=== PATIENT | male | born 1950 | race Caucasian/White ===

== ENCOUNTER 2021-04-07 14:05 | Outpatient (CLI) | payer MEDICARE, SELFPAY ==
--- NOTE | 2021-04-07 | ECG_ITS ---
Measurements Intervals [place] Rate: 55 P: 87 UT: 246 QRS: -26 QRSD: 150 T: 93 QT: 447 QTc: 431 Interpretive Statements SINUS BRADYCARDIA WITH FIRST DEGREE AV BLOCK LEFT BUNDLE BRANCH BLOCK BASELINE WANDER- V2 ABNORMAL ECG Electronically Signed On 04-07-2021 15:05:19 CDT by Jordy Moran D.O.
[2021-04-07 15:07] LABS: Hematocrit 40.4 % (42.0-52.0); Hemoglobin 13.7 g/dL (14.0-18.0)
[2021-04-07 16:19] LABS: Urine Cotinine NEGATIVE
[2021-04-08 00:34] LABS: Albumin Level 4.1 g/dL (3.5-5.1); Estimated Glomerular Filt Rate > 60; Glucose 150 mg/dL (65-110)
== END 2021-04-07 14:06 | disposition home or self-care (01) ==
PROVIDERS: PCP Family Medicine; Visit Provider Orthopaedic Surgery
DX: M16.11 Unilateral primary osteoarthritis, right hip (principal); Z01.818 Encounter for other preprocedural examination; I44.0 Atrioventricular block, first degree; I44.7 Left bundle-branch block, unspecified
CPT/HCPCS: 80307; 82040; 82565; 82947; 83036; 85014; 85018; 93005

== ENCOUNTER 2021-04-25 08:47 | Outpatient (CLI) | payer MEDICARE, SELFPAY ==
--- NOTE | ~2021-04-25 | NM_ITS ---
EXAMINATION: NM mickie stress w perfusion DATE: 04/25/2021 11:07 INDICATION: Abnormal electrocardiogram. TECHNIQUE: Rest images were obtained following intravenous administration of 9.8 mCi Tc99m tetrofosmi n (Myoview). The patient was infused intravenously with Lexiscan (regadenoson). Then, 31.7 mCi Tc99m tetrofosmin (Myoview) was administered intravenously, and supine and prone stress images were obtaine d. Data was reconstructed into short axis and horizontal and vertical long axis SPECT images. Gated S PECT images were also obtained. COMPARISON: None. FINDINGS: There is no definite reversible or fixed perfusion abnormality to suggest ischemia or infar ction. There is no segmental wall motion abnormality. Left ventricular ejection fraction measures % . IMPRESSION: 1. No definite ischemia or infarct. 2. Normal left ventricular ejection fraction measuring 64%. Reviewed, dictated and finalized at location A.
--- NOTE | 2021-04-25 08:55 | EST_ITS ---
Patient Info Name: Jorge Red Age: 70 years : 1950 Gender: Male Ht: 72 in Wt: 242 lbs BSA: 2.39 m2 Exam Date: 04/25/2021 9:54 AM Exam Location: [facility] Stress Patient Status: Outpatient Admit Date: 04/25/2021 Staff Ordering Physician: Moris Cedillo MD Attending Provider: Moris Cedillo MD Exercise Technologist: Liz Bhatti RDCS Exercise Physician: Jordy Moran DO Exam Type: CA stress mickie w NM Study Info Indications R94.31 - Abnormal electrocardiogram ECG EKG A regadenoson stress test was performed. Summary 1. 1. Inconclusive lexiscan stress test for ischemic ST changes by ECG criteria due to baseline LBBB. 2. 2. Stable hemodynamics throughout the test. 3. 3. Nuclear scan to follow and will be reported separately. Please correlate with it. 4. 4. Patient informed of the above results. Protocol: Lexiscan Stress ECG Details Stage: REST Duration (min): 7 min : 10 sec HR (bpm): 50 SBP (mmHg): 122 DBP (mmHg): 50 Stage: REST Duration (min): 9 min : 34 sec HR (bpm): 52 SBP (mmHg): 122 DBP (mmHg): 50 Stage: STAGE 1 Duration (min): 1 min : 0 sec HR (bpm): 54 SBP (mmHg): 122 DBP (mmHg): 50 Stage: RECOVERY Duration (min): 1 min : 0 sec HR (bpm): 67 SBP (mmHg): 158 DBP (mmHg): 84 Stage: RECOVERY Duration (min): 2 min : 0 sec HR (bpm): 65 SBP (mmHg): 158 DBP (mmHg): 84 Stage: RECOVERY Duration (min): 3 min : 0 sec HR (bpm): 59 SBP (mmHg): 155 DBP (mmHg): 82 Stage: RECOVERY Duration (min): 4 min : 0 sec HR (bpm): 60 SBP (mmHg): 155 DBP (mmHg): 82 Stage: RECOVERY Duration (min): 5 min : 0 sec HR (bpm): 65 SBP (mmHg): 148 DBP (mmHg): 82 Stage: RECOVERY Duration (min): 5 min : 4 sec HR (bpm): 65 SBP (mmHg): 148 DBP (mmHg): 82 Rest HR: 52 bpm Peak HR: 69 bpm Rest Sys BP: 122 mmHg Peak Sys BP: 158 mmHg Max Pred HR: 149 bpm % Max Pred HR: 46 % Target HR: 127 bpm Max RPP: 10,902 bpm*mmHg Termination Reason: Completed protocol Cardiac Symptoms: Shortness of breath, Stomach rumbling Total Time: 1 min : 0 sec Rest [place] BP: 50 mmHg Peak [place] BP: 84 mmHg Total Dose: 0.4 mg Resting ECG Sinus bradycardia, first degree AV block, LBBB. Stress ECG No ST changes. Arrhythmias None. Report Signatures
== END 2021-04-25 08:48 | disposition home or self-care (01) ==
PROVIDERS: PCP Family Medicine; Visit Provider Family Medicine
DX: R94.31 Abnormal electrocardiogram [ECG] [EKG] (principal); I44.7 Left bundle-branch block, unspecified
CPT/HCPCS: 78452; 93017; A9502; J2785

== ENCOUNTER 2021-05-19 09:06 | Outpatient (CLI) | payer MEDICARE, SELFPAY ==
[2021-05-19 10:27] LABS: Basophils Percent Auto 0.5 % (0.2-1.2); Eosinophils Absolute Auto 0.1 K/mm3 (0-0.3); Eosinophils Percent Auto 2.1 % (0-4.4); Hematocrit 42.7 % (42.0-52.0); Hemoglobin 14.6 g/dL (14.0-18.0); Immature Granulocyte Absolute 0.02 K/mm3 (0.00-0.031); Immature Granulocyte Percent A 0.3 % (0-0.5); Lymphocytes Absolute Auto 0.99 K/mm3 (0.9-3.2); Lymphocytes Percent Auto 17.2 % (18.3-44.2); Mean Corpuscular HGB Conc 34.2 g/dl (32-36); Mean Corpuscular Hemoglobin 29.7 pg (26-34); Mean Corpuscular Volume 86.8 fl (80-100); Mean Platelet Volume 10.2 fl (7.4-10.4); Monocytes Absolute Auto 0.5 K/mm3 (0.1-0.6); Monocytes Percent Auto 9.1 % (2.6-8.5); Neutrophils Absolute Auto 4.1 K/mm3 (1.3-6.7); Neutrophils Percent Auto 70.8 % (45.5-73.1); Platelet Count Result 212 k/mm3 (150-375); Red Blood Count 4.92 M/mm3 (4.6-6.20); Red Cell Distribution Width 12.5 % (11.5-14.5); White Blood Count 5.7 K/mm3 (4.5-10.0)
== END 2021-05-19 09:07 | disposition home or self-care (01) ==
LOC: ANHSURGERY 09:09
PROVIDERS: PCP Family Medicine; Visit Provider Orthopaedic Surgery
DX: M16.11 Unilateral primary osteoarthritis, right hip (principal); Z01.818 Encounter for other preprocedural examination
CPT/HCPCS: 36415; 85025; 87081

== ENCOUNTER 2021-06-05 02:04 | Day surgery (SDC) | payer MEDICARE, SELFPAY ==
[2021-05-19 09:21] VITALS: BP 152/85; PULSE 53; RESP 18; TEMP 36.6; O2SAT 94; BMI 33.7
--- NOTE | 2021-06-04 13:13 | WPDANESEPPF ---
Anes - Initial Pre Proc Eval Procedure: Operation Date: 06/05/21 07:30 Proposed Procedures p Right Total Hip Arthroplasty - Kevin Prince MD Date/Time: 06/04/21 13:13 Surgeon: Kevin Prince MD Pre Op Diagnosis: Prim OA Right Hip Patient Data Age: 70 Gender: M Height: 1.8 m Weight: 109.9 kg Last Vital Signs Temp 36.6 C 05/19/21 09:21 Pulse 53 L 05/19/21 09:21 Resp 18 05/19/21 09:21 BP 152/85 H 05/19/21 09:21 Pulse Ox 94 05/19/21 09:21 Allergies Allergy/AdvReac Type Severity Reaction Status Date / Time No Known Allergies Allergy Verified 05/19/21 09:16 Home Medications Medication Instructions Recorded Confirmed Type allopurinol 100 mg tablet 100 mg PO DAILY tablet 03/19/21 05/19/21 History irbesartan 300 mg tablet 300 mg PO QAM tablet 03/19/21 05/19/21 History hydrocodone 5 mg-acetaminophen 325 1 - 2 tablet PO Q12H PRN #30 tablet 04/11/21 05/19/21 Rx mg tablet Patient hx anesthesia problems: none Family hx anesthesia problems: none Results Review: All pre-operative results and documents have been reviewed as part of the pre-operative evaluation. [facility] Past Medical History Medical History Essential (primary) hypertension Hypogonadism Idiopathic gout Osteoarthritis Surgical History Surgical History History of knee replacement Right 09/2014 & Left 12/2014 [place] teeth extracted Social History Social History Smoking status: Never smoker Second hand tobacco smoke exposure: No Smoking end date: 02/14/80 Additional smoking assessment comments: 1 PACK/WEEKEND X 3 YEARS Alcohol intake: current Drinks per week: 18 Substance use: never Substance use type: does not use Living arrangements: with family Additional living arrangements comments: Spiritual care concerns: No Anes - Eval Final PreProcedure Day of Procedure 06/04/21 13:13 Patient weight: obese Heart: regular rate and rhythm Lungs: clear to auscultation and normal air movement Airway: Mallampati scale class II Neurological: alert and oriented Last oral intake: >/= 8 hours ASA classification: III Emergent: no Anesthetic plan: proceed Anesthesia type and monitoring: regional spinal and standard monitoring Results Review: All pre-operative results and documents have been reviewed as part of the pre-operative evaluation. Informed Consent: The patient's anesthetic plan and its attendant risks and benefits were discussed with the patient/family/POA. Questions were solicited and answers provided to the satisfaction of the patient/family/POA.
[2021-06-05] VITALS (14 sets, daily range): BP systolic 115–150; BP diastolic 64–81; PULSE 54–71; RESP 12–20; TEMP 36–36.7; O2SAT 92–99
--- NOTE | ~2021-06-05 | XR_ITS ---
EXAMINATION: XR hip RT min 2V DATE: 06/05/2021 10:10 INDICATION: Right hip arthroplasty. Postop. TECHNIQUE: 2 views of right hip were obtained. COMPARISON: Right hip radiographs 05/27/2021 FINDINGS: There is a total right hip arthroplasty in near-anatomic alignment. No fracture. There is gas in the soft tissues, consistent with recent surgery. IMPRESSION: 1. Total right hip arthroplasty in near-anatomic alignment. Reviewed, dictated and finalized at location A.
[2021-06-05] MEDS: LACTATED RINGERS 1,000 ML 30 ML IV CONT ×2 (06:40→09:56)
[2021-06-05] MEDS: ACETAMINOPHEN 500 MG TABLET 1000 MG PO (06:42)
--- NOTE | 2021-06-05 07:15 | WPDHPUPDATE1 ---
History and Physical Update Update Date/Time: 06/05/21 07:15 History and Physical has been reviewed, including an updated exam of the patient. There are NO changes in the patient's condition. Risks, benefits, and alternatives have been discussed and questions answered. Patient agrees to proceed with procedure.
[2021-06-05] MEDS: ceFAZolin 2 GM/D5W 50 ML 2 GM/50 ML BAG IVPB ×3 (07:24→23:25)
[2021-06-05] MEDS: TRANEXAMIC ACID 1,000MG/ISO100 1,000 MG/100 ML BAG 200 MG IVPB (07:28)
--- NOTE | 2021-06-05 11:07 | ADMGEN ---
This patient, Jorge Red, was admitted to Medical Room 248-. Patient/family oriented to hospital policies and general routines including ID bracelet, bed and alarms, visiting hours, pain management, procedures, bathroom and other care routines, personal items, smoking policy, room service/diet, and visiting hours. Information on how to activate the Rapid Response Team has been discussed. Patient/Family are encouraged to report perceived risks to care and to ask questions if they do not understand what they are told or what they should do.
[2021-06-05] MEDS: SODIUM CHLORIDE 0.9% IV 1,000 ML 125 ML IV CONT (11:26)
--- NOTE | 2021-06-05 11:26 | W.PM.PROC2 ---
Procedure Note - Detailed Date of Procedure 06/05/21 Pre-op Diagnosis Prim OA Right Hip Post-op Diagnosis same Procedure Performed Right Total Hip Arthroplasty Surgeon Kevin Prince MD Can Cutter Khalida Ness PA-C Anesthesia epidural Description of Procedure The patient was given preoperative antibiotics. A spinal anesthetic was administered. Myers catheter placed. The patient was carefully placed in the lateral decubitus position on the PEG board. The shoulders and hips were carefully positioned for component and leg length positioning reference. The hip was prepped and draped in the usual sterile fashion. A longitudinal incision was created over the posterior aspect of the greater trochanter. Careful dissection was brought down through the deep fascia with electrocautery. A minimally invasive optimized posterior approach to the hip was performed. The short external rotators and capsule were taken down in an L-shaped capsulotomy. The tissue was tagged for later repair using number 2 high strength suture. The femoral neck was measured and taken in situ. The femoral head was removed. The acetabulum was carefully exposed. The inferior capsule was released. The labrum was resected. The acetabulum was sequentially reamed to the intended cup size. The cup was impacted into position with excellent press-fit. Typical anatomic landmarks, including the bony contact points as well as the inferior transverse acetabular ligament were used to confirm cup positioning with preoperative templating. Attention was turned to the femur, which was carefully exposed. The hip was reamed and then broached sequentially. Excellent press-fit was obtained with the broach. The hip was trialed. Measurements were utilized, including the lesser trochanter as well as the center of the femoral head and the tip of the trochanter, and excellent assessment of the offset and leg lengths were confirmed. The real component was impacted into position. Trialing confirmed appropriate leg length and offset with soft tissue balancing as well apparent feel of the leg, both at the knee and the heel. Reduction of the posterior capsule and external rotators were also used as a secondary assessment. The hip was copiously irrigated with pulsatile lavage antibiotic solution periodically throughout the procedure. The real components were then assembled and reduced. The hip was stable throughout typical maneuvers, including extension, external rotation to 70 degrees, the position of sleep as well as flexion to 90 degrees with internal rotation past 35 degrees. Osteophytes were removed from the anterior neck and trochanter to improve impingement free range of motion. The short external rotators and capsule were repaired back to the posterior trochanter through drill holes. The deep fascia was repaired with running number 2 Quill suture, followed by 0 Stratafix suture and 2-0 Stratafix suture in the dermis. Steri-Strips were placed on the skin, followed by a sterile silver occlusive dressing. There were no complications. Meticulous hemostasis was maintained with the AquaMantys device. The patient was brought to the recovery room in stable condition. There were no complications. Physician graduate research assistant, Khalida Ness PA-C, required for surgery; including patient positioning, draping, tissue retraction, maintaining instrument position, hip dislocation and relocation, wound closure, and dressing placement. Implants The Accolade II hip stem, 127 degree size 8 , was utilized with excellent press-fit. The 58 mm ADM acetabular component was impacted with excellent press-fit stability. The +4 , 28 mm Biolox ceramic femoral head was utilized. Estimated Blood Loss 200 Drains No Packing No Pathology none sent Complications No immediate complications Condition stable Disposition PACU
--- NOTE | 2021-06-05 13:12 | PCPTNOTE ---
On 06/05/21, the student, Bernardo Good, provided care and completed [facility] documentation on this patient. I have reviewed the student's documentation and agree with the findings.
[2021-06-05] MEDS: allopurinoL 100 MG TABLET PO (15:04)
[2021-06-05] MEDS: IRBESARTAN 150 MG TABLET 300 MG PO (15:04)
[2021-06-05] MEDS: oxyCODONE HCL (*CRX) 5 MG TAB IR PO ×2 (15:10→20:51)
[2021-06-05] MEDS: DOCUSATE SODIUM 100 MG CAPSULE PO (17:34)
[2021-06-05] MEDS: FAMOTIDINE 20 MG TABLET PO (20:51)
[2021-06-05] MEDS: CYCLOBENZAPRINE HCL 10 MG TABLET PO (23:56)
[2021-06-06 00:03] VITALS: BP 148/68; PULSE 76; RESP 20; TEMP 37.2; O2SAT 94
[2021-06-06] MEDS: oxyCODONE HCL (*CRX) 5 MG TAB IR 10 MG PO ×2 (04:19→08:31)
[2021-06-06 04:39] VITALS: BP 120/93; PULSE 78; RESP 20; TEMP 36.3; O2SAT 94
[2021-06-06] MEDS: ceFAZolin 2 GM/D5W 50 ML 2 GM/50 ML BAG IVPB (05:58)
[2021-06-06] MEDS: FAMOTIDINE 20 MG TABLET PO (08:27)
[2021-06-06] MEDS: allopurinoL 100 MG TABLET PO (08:27)
[2021-06-06] MEDS: DOCUSATE SODIUM 100 MG CAPSULE PO (08:27)
[2021-06-06] MEDS: IRBESARTAN 150 MG TABLET 300 MG PO (08:27)
[2021-06-06 08:39] VITALS: BP 126/71; PULSE 97; RESP 18; TEMP 36.8; O2SAT 95
--- NOTE | 2021-06-06 09:09 | PM.DS ---
DS: Admitting Diagnosis Discharge Date 06/06/21 Admitting Diagnosis OA Right hip DS: Discharge Diagnosis Discharge Diagnosis (1) Orthopedic aftercare for joint replacement: Code(s): Z47.1 - Aftercare following joint replacement surgery Status: Acute (2) Status post total hip replacement, right: Code(s): Z96.641 - Presence of right artificial hip joint Status: Acute Assessment and Plan: Postop day 1: Right Total hip arthroplasty. Patient tolerated procedure well. No complications. Anaesthesia with a spinal block. Myers catheter has been removed. Patient has urinated on his own. Pain manageable with pain medication. No numbness or tingling. We had a lengthy discussion regarding postoperative wound care, limitations, expectations, and exercises. Patient shows good understanding. Patient has had initial physical therapy and is tolerating it well. DVT prophylaxis: 81 mg baby aspirin b.i.d. for 14 days. Short frequent walks. Pain medication: Percocet. Meloxicam. Patient has followup appointment with Dr. Prince in 3 weeks DS: Summary Hospital Course Reason for hospitalization: Total hip arthroplasty Hospital Course: Patient tolerated procedure well. Has had initial PT/OT and made good progress. Status at Discharge Functional status at discharge: uses cane/walker Overall status at discharge: patient is progressing back to baseline Time Spent with Patient Time attestation: Total time spent providing and/or coordinating discharge services: Exam Narrative: Overweight 70 y/o male. Resting comfortably in bed. Wearing compression socks bilaterally. Dressing dry and intact with no drainage. Moderate swelling. Slight ecchymosis. No erythema. No hematoma. Range of motion limited due to pain. Calf nontender. Thigh nontender. Neurologic status intact. No varicosities. Distal pulses palpable. Discharge Plan Discharge Patient Disposition: Home, Self-Care Discharge Instructions: see instruction sheet Patient Instructions: Pain Management (DC), Total Hip Replacement (DC) Follow-up/Referrals: Khalida Ness PA [Physician Vocational Horticulture Instructor] - Discharge Medications: New meloxicam 15 mg tablet 15 mg PO DAILY Qty: 30 RF: 0 aspirin 81 mg tablet,delayed release (DR/EC) 81 mg PO BID 14 Days Qty: 28 RF: 0 oxycodone-acetaminophen 5-325 mg tablet 1 - 2 tablet PO Q4-6H MDD 8 PRN (Reason: pain) Qty: 40 RF: 0 Continued allopurinol 100 mg tablet 100 mg PO DAILY RF: 0 irbesartan 300 mg tablet 300 mg PO QAM RF: 0 Discontinued hydrocodone-acetaminophen 5-325 mg tablet 1 - 2 tablet PO Q12H PRN (Reason: pain) Qty: 30 RF: 0
--- NOTE | 2021-06-06 10:22 | WPDANESPN ---
Anes - Prog Note Post-Op Date/Time: 06/06/21 10:22 Cardiovascular status: normal Respiratory status: normal Airway patency: baseline Mental status: baseline Post-Op hydration status: normal Vital Signs: Last Vital Signs Temp 36.8 C 06/06/21 08:39 Pulse 97 06/06/21 08:39 Resp 18 06/06/21 08:39 BP 126/71 06/06/21 08:39 Pulse Ox 95 06/06/21 08:39 Pain Score (VAS): 0 I/O: Intake & Output 06/05/21 06/06/21 06/06/21 23:59 07:59 15:59 Intake Total 1300 390 360 Output Total 2500 Balance 1300 -2110 360 Post-procedural complaints: none Patient Feedback: Patient satisfied with anesthetic care.
--- NOTE | 2021-06-06 10:23 | PCOTNOTE ---
Attempted to see patient at this time for skilled OT session. Patient lying in bed resting upon entry and easily aroused. Patient declined participation in therapy session at this time stating, I just got finished with PT not that long ago, and I'm supposed to be leaving today. If I'm still here after awhile, we can do it later, but I'm not up for it right now. Will continue per POC accordingly.
[2021-06-06] MEDS: oxyCODONE HCL (*CRX) 5 MG TAB IR PO (12:39)
== END 2021-06-06 13:25 | disposition home or self-care (01) ==
LOC: ANHSURGERY 06:08 → ANH2MED 10:57
PROVIDERS: PCP Family Medicine; Visit Provider Orthopaedic Surgery
PROC: (CPT 27130; principal; 2021-06-05 07:30)
DX: M16.11 Unilateral primary osteoarthritis, right hip (principal); Z23 Encounter for immunization; I10 Essential (primary) hypertension; M10.9 Gout, unspecified; E29.1 Testicular hypofunction; Z87.891 Personal history of nicotine dependence; E66.9 Obesity, unspecified; Z68.33 Body mass index [BMI] 33.0-33.9, adult
CPT/HCPCS: 27130; 36415; 73502; 85025; 86850; 86900; 86901; 87081; 90471; 90653; 97110; 97116; 97161; 97165; 97530; A9270; C1713; C1776; G0008; J0131; J0171; J0690; J1170; J1885; J2250; J2270; J2405; J2704; J2795; J3010; J7030; J7120

== ENCOUNTER 2022-03-20 15:16 | Inpatient (IN) | payer MEDICARE, SELFPAY ==
[2022-03-20] VITALS (14 sets, daily range): BP systolic 139–168; BP diastolic 67–140; PULSE 33–36; RESP 12–20; TEMP 36.6; O2SAT 100; BMI 33.4
--- NOTE | ~2022-03-20 | XR_ITS ---
XR chest 1V portable DATE: 03/20/2022 15:49 INDICATION: Bradycardia. Third degree heart block. History of hypertension. TECHNIQUE: Portable upright AP chest on 03/20/2022 at 1540 hours COMPARISON: 12/25/2014 PA and lateral views FINDINGS: Normal heart size. There is mild aortic unfolding. No hilar or mediastinal enlargement. There is prominent elevation of the right leaf of the diaphragm, chronic, also present on 12/25/2014. Minimal atelectasis at the lung bases. No pulmonary consolidation, pleural effusion or pneumothorax i s noted. Diffuse osteopenia. Degenerative spurring of the thoracic spine. IMPRESSION: Chronic prominent elevation right diaphragm Minimal atelectasis at the lung bases Reviewed, dictated and finalized at location B.
--- NOTE | ~2022-03-20 | XR_ITS ---
XR chest 1V portable 03/23/2022 10:29 Indication: Pacemaker insertion. Procedure: AP portable chest Comparison: Comparison to multiple prior studies sequentially, with oldest reviewed study dated 09/11. Findings: There is elevation of the right diaphragm. Bipolar pacemaker leads are in the right atrium and right ventricle respectively. Heart size normal. There is bibasilar atelectasis. No focal pneumon ia, edema or pneumothorax. No acute osseous abnormality. Impression: 1: Bibasilar atelectasis with chronic mild elevation of the right diaphragm. Reviewed, dictated and finalized at location A. Impression: 1: Bibasilar atelectasis with chronic mild elevation of the right diaphragm.
--- NOTE | ~2022-03-20 | XR_ITS ---
EXAMINATION: XR chest 2V DATE: 03/24/2022 10:16 INDICATION: Pacer placement. TECHNIQUE: Frontal and lateral views of the chest were obtained. COMPARISON: Chest single view 03/23/2022, chest 2 views 12/25/2014 FINDINGS: There is chronic elevation of right hemidiaphragm. There is mild atelectasis in right lower lung zone. No pleural effusion or pneumothorax. The heart size is normal. There is a left chest wall pacer with leads in the right atrium and right ventricle. There is mild chronic height loss of multi ple vertebral bodies. IMPRESSION: 1. Chronic elevation of right hemidiaphragm with mild atelectasis in right lower lung zone. Reviewed, dictated and finalized at location A. IMPRESSION: 1. Chronic elevation of right hemidiaphragm with mild atelectasis in right lowe r lung zone.
--- NOTE | 2022-03-20 15:05 | PC.NURSE ---
Crash cart brought into room prior to patient arrival.
--- NOTE | 2022-03-20 15:13 | PC.NURSE ---
Patient reports he has been having the abd pain, just below his sternum since Wednesday morning. He went into see his PCP about the pain today. Patient currently denies any pain, shortness of breath, or dizziness.
--- NOTE | 2022-03-20 15:15 | PC.NURSE ---
Patient placed on pacer pads
--- NOTE | 2022-03-20 15:15 | ECG_ITS ---
Measurements Intervals [place] Rate: 37 P: NE: 0 QRS: -85 QRSD: 198 T: 65 QT: 572 QTc: 449 Interpretive Statements SINUS RHYTHM WITH COMPLETE HEART BLOCK LEFT BUNDLE BRANCH BLOCK ABNORMAL ECG COMPARED 04/07/2021 AV BLOCK HAS PROGRESSED TO THIRD-DEGREE Electronically Signed On 03-20-2022 16:36:27 CDT by Vlad Babcock M.D.
--- NOTE | 2022-03-20 15:16 | PC.NURSE ---
Patient reports he only has the shortness of breath and pain only when he is up walking.
[2022-03-20 15:49] LABS: Alanine Aminotransferase 62 U/L (6-50); Albumin Level 4.4 g/dL (3.5-5.1); Alkaline Phosphatase 59 U/L (38-126); Anion Gap 11 mmol/L (8-16); Aspartate Amino Transferase 39 U/L (17-59); Bilirubin,Total 0.3 mg/dL (0.2-1.3); Blood Urea Nitrogen 28 mg/dL (9-20); Calcium 9.6 mg/dL (8.4-10.2); Carbon Dioxide 24 mmol/L (22-30); Chloride 103 mmol/L (98-107); Estimated CRCL calculation 75 ml/min; Estimated Glomerular Filt Rate > 60; Glucose 103 mg/dL (65-110); Potassium 4.4 mmol/L (3.4-5.0); Sodium 138 mmol/L (137-145)
[2022-03-20 15:50] LABS: Basophils Absolute Auto 0.1 K/mm3 (0.0-0.1); Basophils Percent Auto 0.7 % (0.2-1.2); Eosinophils Absolute Auto 0.2 K/mm3 (0-0.3); Eosinophils Percent Auto 2.4 % (0-4.4); Hematocrit 42.2 % (42.0-52.0); Hemoglobin 13.7 g/dL (14.0-18.0); Immature Granulocyte Absolute 0.03 K/mm3 (0.00-0.031); Immature Granulocyte Percent A 0.4 % (0-0.5); Lymphocytes Absolute Auto 1.26 K/mm3 (0.9-3.2); Lymphocytes Percent Auto 17.1 % (18.3-44.2); Mean Corpuscular HGB Conc 32.5 g/dl (32-36); Mean Corpuscular Hemoglobin 29.7 pg (26-34); Mean Corpuscular Volume 91.5 fl (80-100); Mean Platelet Volume 10.1 fl (7.4-10.4); Monocytes Absolute Auto 0.8 K/mm3 (0.1-0.6); Monocytes Percent Auto 10.8 % (2.6-8.5); Neutrophils Absolute Auto 5.1 K/mm3 (1.3-6.7); Neutrophils Percent Auto 68.6 % (45.5-73.1); Platelet Count Result 201 k/mm3 (150-375); Red Blood Count 4.61 M/mm3 (4.6-6.20); Red Cell Distribution Width 13.2 % (11.5-14.5); White Blood Count 7.4 K/mm3 (4.5-10.0)
--- NOTE | 2022-03-20 16:02 | ED.GENADULT ---
HPI - General Adult General Chief complaint: Arrhythmia/Palpitations Stated complaint: abn EKG Time Seen by Provider: 03/20/22 15:25 History of Present Illness HPI narrative: 71-year-old male with a past medical history of hypertension and DM2 presents for evaluation of shortness of breath and palpitations. Patient states that for the past 3 days while exerting himself he notices a lightheadedness, shortness of breath and it feels like his heart is beating funny . He has never felt similar symptoms in the past. Of note upon arrival patient is noted to have a heart rate in the mid 30s. Related Data Allergies Allergy/AdvReac Type Severity Reaction Status Date / Time No Known Allergies Allergy Verified 04/01/22 10:21 Review of Systems Review of Systems: CONSTITUTIONAL: Denies fever, chills, or sweats. EYES: Denies visual changes, redness, or discharge. ENT: Denies rhinorrhea, congestion, sore throat, or otalgia. CARDIOVASCULAR: Denies chest pain, palpitations, or edema. RESPIRATORY: Denies cough or dyspnea. GASTROINTESTINAL: Denies abdominal pain, nausea, vomiting, or diarrhea. GENITOURINARY: Denies dysuria or hematuria. SKIN: Denies rash or itching. MUSCULOSKELETAL: Denies back pain, joint pain, or myalgia. NEUROLOGIC: Denies headache, numbness, or weakness. PSYCHIATRIC: Denies anxiety or depression. [facility] Past Medical History Medical History Essential (primary) hypertension Hypogonadism Idiopathic gout Osteoarthritis Type 2 diabetes mellitus without complications Vitamin D deficiency Surgical History Surgical History History of knee replacement Right 09/2014 & Left 12/2014 History of total right hip arthroplasty (~06/05/21) Status cardiac pacemaker (~03/2022) [place] teeth extracted Family History Family History Father Cerebrovascular accident Sibling Leukemia Social History Social History Smoking status: Never smoker Second hand tobacco smoke exposure: No Alcohol intake: current Drinks per week: 2 Substance use: never Substance use type: does not use Additional living arrangements comments: Gender identity (if verbalized by the patient): Male Sexual Orientation (if Verbalized by the Patient): Straight or Heterosexual Spiritual care concerns: No Agree to blood products: Yes Exam Narrative: GENERAL: Well-appearing, well-nourished, and in no acute distress. HEAD: Normocephalic, atraumatic. EYES: PERRLA and EOMI. ENT: Nares clear, no rhinorrhea or epistaxis. Mucous membranes moist. NECK: Supple. CHEST: Clear to auscultation. No respiratory distress. HEART: bradycardic rate and rhythm. No murmur heard. Normal peripheral pulses. ABDOMEN: Soft, nontender, nondistended, normal active bowel sounds. EXTREMITIES: Normal range of motion. No edema. SKIN: Warm, dry, no rash. NEURO: No focal deficits. Alert and oriented x3. PSYCH: Normal mood and affect. Course Vital Signs Vital signs: Vital Signs Pulse Rate 36 L 03/20/22 15:17 Respiratory Rate 14 03/20/22 15:17 Temperature 97.1 F L 03/24/22 08:00 Pulse Rate 68 03/24/22 12:00 Respiratory Rate 18 03/24/22 08:00 Blood Pressure 158/67 H 03/24/22 08:00 Pulse Oximetry 95 03/24/22 12:00 Oxygen Delivery Room Air 03/24/22 12:00 Medical Decision Making MDM Narrative Medical decision making narrative: 71-year-old male presents with a heart rate in the mid 30s and blood pressure is stable patient is asymptomatic. He states that he only experiences symptoms with exertion. Vital Signs Vital Signs: Vital Signs Pulse Rate 36 L 03/20/22 15:17 Respiratory Rate 14 03/20/22 15:17 Temperature 97.1 F L 03/24/22 08:00 Pulse Rate 68 03/24/22 12:00 Respiratory Rat
[2022-03-20 16:10] LABS: Troponin I < 0.012 ng/mL (0.000-0.034)
[2022-03-20 16:26] LABS: SARS-CoV-2 RNA PCR Negative
[2022-03-20 16:50] LABS: Digoxin < 0.4 ng/mL (0.8-2.0)
--- NOTE | 2022-03-20 18:22 | PC.NURSE ---
Patient care report called to BROOKE Rodrigues. All questions answered at this time.
--- NOTE | 2022-03-20 19:34 | PM.IMHP ---
H&P: HPI History of Present Illness Date/Time: 03/20/22 19:34 Chief Complaint: Lightheadedness COURTNEY Narrative: This is a 71-year-old man on known to me prior to this encounter this evening he is admitted to my service in the hospital because of acquired complete heart block. The patient went to his PCP office earlier today complaining about symptoms of lightheadedness and significant exertional fatigue and shortness of breath that began on Wednesday or Wednesday of this past week. He states that with walking distances he feels lightheaded he also feels the sense of some pain in the low substernal or epigastric region at the same time. Within a short time of rest the symptoms tend to subside he is not having any syncopal episode or presyncopal episode he does not have any orthopnea PND or edema. He was seen by his physician and noted to be bradycardic. His ECG apparently in the office showed AV node block and so he was sent to the emergency room. His electrocardiogram here shows sinus rhythm with third-degree AV block and a left bundle branch block. Looking at the patient's chart his left bundle branch block is known to be chronic. He was found to have a left bundle last year when he was anticipating hip replacement surgery. He at that time for the and for that reason underwent a Lexiscan nuclear stress test which was a unremarkable exam. He underwent his hip surgery without any problems. He is a and IMU room 205 bed 2 supine in bed and does not have any other specific complaints. Current telemetry shows sinus rhythm with third-degree AV block and a ventricular rate of 35. Since being in the emergency room and on telemetry here he is not having any asystolic pauses. Review of Systems Constitutional: Constitutional: Reports lethargy and Reports weakness Eyes: Eyes: Reports no additional eye complaints ENT: Reports system reviewed and no additional complaints, except as documented Cardiovascular: Cardiovascular: Reports lightheadedness Respiratory: Respiratory: Reports no additional respiratory complaints Gastrointestinal: Gastrointestinal: Reports no additional gastrointestinal complaints Musculoskeletal: Musculoskeletal: Reports no additional musculoskeletal complaints Integumentary/Breasts: Skin/Breast: Reports system reviewed and no additional complaints, except as docu Neurologic: Reports system reviewed and no additional complaints, except as documented [facility] Past Medical History Medical History Essential (primary) hypertension Hypogonadism Idiopathic gout Osteoarthritis Type 2 diabetes mellitus without complications Surgical History Surgical History History of knee replacement Right 09/2014 & Left 12/2014 History of total right hip arthroplasty (~06/05/21) [place] teeth extracted Social History Social History Smoking status: Never smoker Second hand tobacco smoke exposure: No Alcohol intake: current Drinks per week: 18 Substance use: never Substance use type: does not use Additional living arrangements comments: Spiritual care concerns: No Meds Home Medications and Allergies Home Medications Medication Instructions Recorded Confirmed Type ergocalciferol (vitamin D2) 1,250 1,250 mcg PO WEEKLY #12 caps 09/26/21 03/20/22 Rx mcg (50,000 unit) capsule metformin 500 mg tablet,extended 1,500 mg PO DAILY #270 tabs 09/26/21 03/20/22 Rx release 24 hr irbesartan 300 mg tablet 300 mg PO QAM #90 tabs 11/26/21 03/20/22 Rx allopurinol 100 mg tablet 100 mg PO DAILY #90 tabs 03/03/22 03/20/22 Rx Allergies Allergy/AdvReac Type Severity Reaction Status Date / Time No Known Allergies Allergy Verified 03/20/22 14:12 Vital Signs Vital Signs - 24 hr 03/20/22 15:20 03/20/22 15:17 03/20/22 15:28 Temperatu
[2022-03-20 20:14] LABS: Prothrombin Time 13.2 Seconds (11.1-14.7)
--- NOTE | 2022-03-20 23:02 | PC.NURSE ---
This patient, Jorge Red, was admitted to IMU Room 205-02. Pt dropped of by ER before evening shift change. Patient/family oriented to hospital policies and general routines including ID bracelet, bed and alarms, visiting hours, pain management, procedures, bathroom and other care routines, personal items, smoking policy, room service/diet, and visiting hours. Information on how to activate the Rapid Response Team has been discussed. Patient/Family are encouraged to report perceived risks to care and to ask questions if they do not understand what they are told or what they should do.
[2022-03-21] VITALS (14 sets, daily range): BP systolic 119–150; BP diastolic 51–78; PULSE 32–38; RESP 16–20; TEMP 36.2–37.2; O2SAT 95–99
--- NOTE | 2022-03-21 | ECHO_ITS ---
Patient Info Name: Jorge Red Age: 71 years : 1950 Gender: Male Ht: 72 in Wt: 251 lbs BSA: 2.44 m2 HR: 33 bpm BP: 136 / 67 mmHg Heart Rhythm: Sinus Rhythm Technical Quality: Fair Exam Date: 03/21/2022 7:16 AM Exam Location: [facility] Patient Status: Inpatient Admit Date: 03/20/2022 Staff Ordering Physician: Vlad Babcock MD [employer] Conforming Machine Operator: Jessica Lincoln RDCS Attending Provider: Vlad Babcock MD Referring Physician: Sadiq PRUETT; Exam Type: CA echo dop color flow w con Study Info Indications I44.2 - Atrioventricular block, complete Complete two-dimensional, color flow and Doppler transthoracic echocardiogram is performed with contrast to opacify the left ventricle and to improve the deliniation of the left ventricle endocardial borders. Contrast/Agitated Saline Contrast/Ag. Saline: Definity Amount: 4.00 ml Administered By: Jessica Lincoln [facility] Summary 1. Definity contrast injected to improve visualization. 2. Mild left ventricular hypertrophy with normal systolic function. 3. Aortic valve sclerosis with no stenosis. 4. Trivial amount of mitral and tricuspid valve regurgitation. Left Ventricle Left ventricular chamber dimension is normal. Left ventricular systolic function is normal, estimated at 55-60%. There is mild concentric increased left ventricular wall thickness. The left ventricular diastolic function is indeterminate. Right Ventricle Right ventricular chamber dimension is normal. Left Atria Left atrial chamber dimension is mildly enlarged. Right Atria Right atrial chamber dimension is normal. Aortic Valve The aortic valve is trileaflet. There is mild aortic valve sclerosis. Pulmonic Valve The pulmonic valve is not well visualized. Mitral Valve The mitral valve has normal leaflets. There is trace mitral valve regurgitation. Tricuspid Valve The tricuspid valve leaflets are normal. There is trace tricuspid valve regurgitation. Pericardium/Pleural The pericardium appears normal. Aorta The aortic root size at the sinus of Valsalva is normal. Left Ventricular Outflow Tract Name Value Normal LVOT 2D LVOT Diameter 2.15 cm LVOT Doppler LVOT Peak Gradient 10 mmHg LVOT Mean Gradient 4 mmHg LVOT VTI 32.74 cm LVOT VTI/AV VTI Ratio 0.84 LVOT Stroke Volume 112.13 ml LVOT CO 18.41 l/min LVOT CI 7.84 L/min/m2 Pulmonic Valve Name Value Normal PV Doppler PV Peak Gradient 4 mmHg Mitral Valve Name Value Normal -
[2022-03-21 00:02] LABS: Glucose Point of Care 144 mg/dl (65-105)
[2022-03-21] MEDS: PERFLUTREN LIPID MICROSPHERES 1.5 ML VIAL DILUTED TO 10 ML TOTAL VOLUME IV PUSH (07:16)
--- NOTE | 2022-03-21 08:10 | PM.PNCARD ---
Progress Note: A&P Assessment and Plan (1) Complete heart block: Code(s): I44.2 - Atrioventricular block, complete Status: Acute Plan 71-year-old man with symptomatic bradycardia related to acquired complete heart block. Left bundle branch block is chronic. Obviously the patient has had conduction system disease for some time. Anticipate proceeding with permanent dual-chamber pacemaker implant on Wednesday. Vlad Babcock MD [facility] Subjective Date/time seen: Date of service: 03/21/22 08:10 Interval history: Follow-up visit in this 71-year-old man with: Chronic left bundle branch block and hypertension presenting with acquired complete heart block. He is on no medication that would affect his AV node and so implantation of permanent pacemaker is recommended. The patient has thought about it overnight and wishes to proceed. Yesterday he was considering requesting as a transfer for a 2nd opinion. He is otherwise minimally symptomatic with this. Will anticipate a pacemaker implantation Wednesday. His escape rhythm while slow has been stable. He is not having any pauses or syncopal events and so implantation of this device is necessary but not urgent Exam Const: General: comfortable and no acute distress Other: Pleasant gentleman comfortable cooperative no distress HENMT: Mouth: Yes moist mucous membranes Eyes: Sclera: sclerae normal Pupils: Equal, round and reactive pupils present Neck: Neck: supple and no JVD Resp: Effort & Inspection: normal respiratory effort Auscultation: clear to auscultation bilaterally Cardio: Rate: regular rate and bradycardic Rhythm: regular rhythm GI: GI Palp: Yes Soft to palpation Auscultation: normal bowel sounds Skin: General skin exam: normal color Neuro: Other: Alert and oriented, normal cognition Extrem: Other: No edema, normal distal pulses Objective Data Vital Signs Vital Signs: Vital Signs - 24 hr 03/20/22 15:20 03/20/22 15:17 03/20/22 15:28 Temperature Pulse Rate 36 L 36 L 36 L Respiratory Rate 14 18 Blood Pressure 155/74 H Pulse Oximetry Oxygen Delivery 03/20/22 15:31 03/20/22 16:46 03/20/22 17:01 Temperature Pulse Rate 35 L 35 L 35 L Respiratory Rate 17 14 12 Blood Pressure 168/76 H 153/72 H 143/69 H Pulse Oximetry Oxygen Delivery 03/20/22 17:16 03/20/22 17:31 03/20/22 17:46 Temperature Pulse Rate 34 L 34 L 34 L Respiratory Rate 16 14 19 Blood Pressure 139/72 149/69 H 159/70 H Pulse Oximetry Oxygen Delivery 03/20/22 18:01 03/20/22 18:16 03/20/22 19:28 Temperature 36.6 C Pulse Rate 34 L 34 L 33 L Respiratory Rate 16 15 20 Blood Pressure 160/140 H 143/77 H 167/67 H Pulse Oximetry 100 Oxygen Delivery 03/20/22 19:45 03/20/22 20:00 03/20/22 22:00 Temperature Pulse Rate 34 L 35 L Respiratory Rate Blood Pressure Pulse Oximetry Oxygen Delivery Room Air 03/21/22 00:00 03/21/22 00:00 03/21/22 00:00 Temperature 36.2 C L Pulse Rate 33 L 33 L Respiratory Rate 20 Blood Pressure 119/61 Pulse Oximetry 99 Oxygen Delivery Room Air 03/21/22 02:00 03/21/22 04:00 03/21/22 04:00 Temperature 36.9 C Pulse Rate 38 L 33 L Respiratory Rate 20 Blood Pressure 136/67 Pulse Oximetry 99 Oxygen Delivery Room Air 03/21/22 04:00 03/21/22 06:00 Temperature Pulse Rate 33 L 33 L Respiratory Rate Blood Pressure Pulse Oximetry Oxygen Delivery Intake/Output Intake/Output: Intake & Output 03/18/22 03/19/22 03/20/22 03/21/22 23:59 23:59 23:59 23:59 Output Total 1175 Balance -1175 Meds/Results Medications: Active Medications Generic Name Dose Route Start Last Admin Trade Name Freq PRN Reason Stop Dose Admin Perflutren Lipid Microsphere 0 ml 03/20/22 19:40 Perflutren Lipid Microspheres 1.5 Ml Vial Diluted To 10 Ml Total Volume IV PUSH ONCE PRN adequate visualization Pr
[2022-03-21] MEDS: IRBESARTAN 150 MG TABLET 300 MG PO (11:22)
[2022-03-21] MEDS: allopurinoL 100 MG TABLET PO (11:23)
[2022-03-21] MEDS: metFORMIN HCL XR 500 MG TAB.SR.24H PO ×2 (11:23→18:14)
[2022-03-21] MEDS: ACETAMINOPHEN 325 MG TABLET 650 MG PO (12:29)
[2022-03-22] VITALS (13 sets, daily range): BP systolic 133–168; BP diastolic 60–98; PULSE 29–63; RESP 16–20; TEMP 36.2–36.5; O2SAT 93–100
[2022-03-22] MEDS: allopurinoL 100 MG TABLET PO (09:38)
[2022-03-22] MEDS: IRBESARTAN 150 MG TABLET 300 MG PO (09:38)
[2022-03-22] MEDS: metFORMIN HCL XR 500 MG TAB.SR.24H PO ×2 (09:38→17:28)
--- NOTE | 2022-03-22 10:53 | PM.PNCARD ---
Progress Note: A&P Assessment and Plan (1) Complete heart block: Code(s): I44.2 - Atrioventricular block, complete Status: Acute (2) LBBB (left bundle branch block): Code(s): I44.7 - Left bundle-branch block, unspecified Status: Acute Plan 71-year-old man with symptomatic bradycardia due to acquired complete heart block. Echocardiogram done yesterday does not show any significant structural abnormalities other than some mild concentric LVH. Plan is for pacemaker implantation tomorrow morning. Vlad Babcock MD [facility] Subjective Date/time seen: Date of service: 03/22/22 10:53 Interval history: Follow-up visit in this 71-year-old man with acquired complete heart block and chronic left bundle branch block. He feels well this morning while at bedrest he has no symptoms of any kind Exam Const: General: comfortable and no acute distress HENMT: Mouth: Yes moist mucous membranes Eyes: Sclera: sclerae normal Neck: Neck: supple and no JVD Resp: Effort & Inspection: normal respiratory effort Auscultation: clear to auscultation bilaterally Cardio: Rate: bradycardic Rhythm: regular rhythm Other: No murmur no gallop GI: GI Palp: Yes Soft to palpation Auscultation: normal bowel sounds Skin: General skin exam: normal color Neuro: Other: Alert and oriented x3 Extrem: General: normal to inspection Other: No edema, good distal perfusion Objective Data Vital Signs Vital Signs: Vital Signs - 24 hr 03/21/22 11:55 03/21/22 12:00 03/21/22 12:00 Temperature 37.2 C Pulse Rate 36 L 34 L Respiratory Rate 20 Blood Pressure 148/73 H Pulse Oximetry 95 96 Oxygen Delivery Room Air 03/21/22 14:00 03/21/22 12:00 03/21/22 16:00 Temperature Pulse Rate 34 L Respiratory Rate Blood Pressure Pulse Oximetry Oxygen Delivery Room Air Room Air 03/21/22 16:00 03/21/22 16:00 03/21/22 18:00 Temperature 36.7 C Pulse Rate 34 L 35 L 35 L Respiratory Rate 16 Blood Pressure 150/70 H Pulse Oximetry 97 Oxygen Delivery 03/21/22 19:43 03/21/22 20:00 03/21/22 20:00 Temperature 36.2 C L Pulse Rate 34 L 34 L Respiratory Rate 20 Blood Pressure 140/58 L Pulse Oximetry 99 Oxygen Delivery Room Air 03/21/22 22:00 03/21/22 23:04 03/21/22 23:14 Temperature 36.3 C L Pulse Rate 33 L 32 L Respiratory Rate 20 Blood Pressure 127/51 L Pulse Oximetry 98 Oxygen Delivery Room Air 03/22/22 00:00 03/22/22 04:00 03/22/22 04:00 Temperature 36.5 C Pulse Rate 32 L 33 L Respiratory Rate 20 Blood Pressure 160/63 H Pulse Oximetry 100 Oxygen Delivery Room Air 03/22/22 02:00 03/22/22 04:00 03/22/22 06:00 Temperature Pulse Rate 31 L 32 L 29 L Respiratory Rate Blood Pressure Pulse Oximetry Oxygen Delivery 03/22/22 08:00 Temperature 36.3 C L Pulse Rate 30 L Respiratory Rate 16 Blood Pressure 168/60 H Pulse Oximetry 98 Oxygen Delivery Intake/Output Intake/Output: Intake & Output 03/19/22 03/20/22 03/21/22 03/22/22 23:59 23:59 23:59 23:59 Intake Total 1840 480 Output Total 2075 Balance -235 480 Meds/Results Medications: Active Medications Generic Name Dose Route Start Last Admin Trade Name Freq PRN Reason Stop Dose Admin Acetaminophen 650 mg 03/21/22 11:45 03/21/22 12:29 Acetaminophen 325 Mg Tablet PO 650 mg Q6H PRN Administration Mild Pain (1-3) or Fever Allopurinol 100 mg 03/21/22 09:00 03/22/22 09:38 Allopurinol 100 Mg Tablet PO 100 mg DAILY GRACE Administration Ergocalciferol 50,000 unit 03/26/22 09:00 Ergocalciferol 50,000 Unit Capsule PO Th@0900 GRACE Irbesartan 300 mg 03/21/22 09:00 03/22/22 09:38 Irbesartan 150 Mg Tablet PO 300 mg QAM GRACE Administration Metformin HCl 500 mg 03/21/22 12:00 03/22/22 09:38 Metformin Hcl Xr 500 Mg Tab.Sr.24h PO 500 mg TIDWM GRACE Administration Perflutren Lipid Microsph
[2022-03-22] MEDS: LORATADINE 10 MG TABLET PO (15:57)
[2022-03-22] MEDS: ACETAMINOPHEN 325 MG TABLET 650 MG PO (21:43)
[2022-03-23] VITALS (18 sets, daily range): BP systolic 124–166; BP diastolic 56–90; PULSE 29–68; RESP 14–20; TEMP 36–36.5; O2SAT 93–100
[2022-03-23 08:08] LABS: Glucose Point of Care 152 mg/dl (65-105)
--- NOTE | 2022-03-23 08:30 | PC.NURSE ---
Off floor to laboratory secretary.
[2022-03-23 08:32] LABS: Basophils Absolute Auto 0.1 K/mm3 (0.0-0.1); Basophils Percent Auto 0.9 % (0.2-1.2); Eosinophils Absolute Auto 0.2 K/mm3 (0-0.3); Eosinophils Percent Auto 3.4 % (0-4.4); Hematocrit 42.3 % (42.0-52.0); Hemoglobin 13.8 g/dL (14.0-18.0); Immature Granulocyte Absolute 0.01 K/mm3 (0.00-0.031); Immature Granulocyte Percent A 0.2 % (0-0.5); Lymphocytes Absolute Auto 0.97 K/mm3 (0.9-3.2); Lymphocytes Percent Auto 17.5 % (18.3-44.2); Mean Corpuscular HGB Conc 32.6 g/dl (32-36); Mean Corpuscular Hemoglobin 29.6 pg (26-34); Mean Corpuscular Volume 90.6 fl (80-100); Mean Platelet Volume 10.4 fl (7.4-10.4); Monocytes Absolute Auto 0.6 K/mm3 (0.1-0.6); Monocytes Percent Auto 11.5 % (2.6-8.5); Neutrophils Absolute Auto 3.7 K/mm3 (1.3-6.7); Neutrophils Percent Auto 66.5 % (45.5-73.1); Platelet Count Result 194 k/mm3 (150-375); Red Blood Count 4.67 M/mm3 (4.6-6.20); Red Cell Distribution Width 13.2 % (11.5-14.5); White Blood Count 5.6 K/mm3 (4.5-10.0)
[2022-03-23 08:47] LABS: INR 1.1; Prothrombin Time 13.8 Seconds (11.1-14.7)
[2022-03-23 08:51] LABS: Anion Gap 10 mmol/L (8-16); Blood Urea Nitrogen 16 mg/dL (9-20); Calcium 9.5 mg/dL (8.4-10.2); Carbon Dioxide 26 mmol/L (22-30); Chloride 102 mmol/L (98-107); Estimated CRCL calculation 95 ml/min; Estimated Glomerular Filt Rate > 60; Glucose 139 mg/dL (65-110); Potassium 4.3 mmol/L (3.4-5.0); Sodium 138 mmol/L (137-145)
--- NOTE | 2022-03-23 10:06 | WPDMODSED ---
Moderate Sedation Note-Pt Data Patient Data Diagnosis: complete heart block Present Complaint: lightheadedness fatigue shortness of breath Procedure to be performed/Plan: implantation of permanent pacemaker Allergies Allergy/AdvReac Type Severity Reaction Status Date / Time No Known Allergies Allergy Verified 03/20/22 19:48 Home Medications Medication Instructions Recorded Confirmed Type ergocalciferol (vitamin D2) 1,250 1,250 mcg PO WEEKLY #12 caps 09/26/21 03/20/22 Rx mcg (50,000 unit) capsule irbesartan 300 mg tablet 300 mg PO QAM #90 tabs 11/26/21 03/20/22 Rx allopurinol 100 mg tablet 100 mg PO DAILY #90 tabs 03/03/22 03/20/22 Rx metformin 500 mg tablet,extended 500 mg PO TIDWM 03/20/22 03/20/22 History release 24 hr Current Medications: Active Medications Acetaminophen (Acetaminophen 325 Mg Tablet) 650 mg PO Q6H PRN PRN Reason: Mild Pain (1-3) or Fever Last Admin: 03/22/22 21:43 Dose: 650 mg Allopurinol (Allopurinol 100 Mg Tablet) 100 mg PO DAILY [facility] Last Admin: 03/22/22 09:38 Dose: 100 mg Ergocalciferol (Ergocalciferol 50,000 Unit Capsule) 50,000 unit PO Th@0900 [facility] Cefazolin Sodium (Ancef 1 Gm/D5w 50 Ml Pm) 1 gm in 50 mls @ 100 mls/hr IVPB Q8H [facility] Stop: 03/23/22 18:34 Sodium Chloride (Normal Saline Iv) 1,000 mls @ 50 mls/hr IV CONT .Q20H [facility] Stop: 03/23/22 18:04 Irbesartan (Irbesartan 150 Mg Tablet) 300 mg PO QAM [facility] Last Admin: 03/22/22 09:38 Dose: 300 mg Loratadine (Loratadine 10 Mg Tablet) 10 mg PO QAM [facility] Last Admin: 03/22/22 15:57 Dose: 10 mg Metformin HCl (Metformin Hcl Xr 500 Mg Tab.Sr.24h) 500 mg PO TIDWM [facility] Last Admin: 03/22/22 17:28 Dose: 500 mg Perflutren Lipid Microsphere (Perflutren Lipid Microspheres 1.5 Ml Vial Diluted To 10 Ml Total Volume) 0 ml IV PUSH ONCE PRN; Protocol PRN Reason: adequate visualization Sedation/Anesthesia: No previous sedation/anesthesia problems (including family history). [facility] Past Medical History Medical History Essential (primary) hypertension Hypogonadism Idiopathic gout Osteoarthritis Type 2 diabetes mellitus without complications Surgical History Surgical History History of knee replacement Right 09/2014 & Left 12/2014 History of total right hip arthroplasty (~06/05/21) C[place] teeth extracted Family History Family History (Updated 03/20/22 @ 20:16 by Charlotte Carcamo RN) Father Cerebrovascular accident Sibling Leukemia Social History Social History Smoking status: Never smoker Second hand tobacco smoke exposure: No Alcohol intake: current Drinks per week: 2 Substance use: never Substance use type: does not use Additional living arrangements comments: Spiritual care concerns: No Mod Sed Physical Exam Physical Exam Pre Procedural Exam: Normal: Neck, Throat, Airway, Lungs, Heart Size, Neuro Exam and Extremities and Variation: Appearance ( overweight gentleman no apparent distress), Heart Rate ( bradycardic) and Heart Rhythm Hours since solid foods: 12 Hours since liquid intake: 12 Mallampati Classification: class II Internal Medicine - PN: Obj Da Vital Signs Vital Signs: Vital Signs - 24 hr 03/22/22 12:00 03/22/22 12:00 03/22/22 12:00 Temperature 36.5 C Pulse Rate 30 L 35 L Respiratory Rate 16 Blood Pressure 146/63 H Pulse Oximetry 93 Oxygen Delivery Room Air 03/22/22 14:00 03/22/22 16:00 03/22/22 16:00 Temperature 36.4 C Pulse Rate 35 L 63 Respiratory Rate 16 Blood Pressure 142/64 H Pulse Oximetry 99 Oxygen Delivery Room Air 03/22/22 16:00 03/22/22 18:00 03/22/22 20:00 Temperature 36.2 C L Pulse Rate 35 L 34 L 38 L Respiratory Rate 20 Blood Pressure 144/64 H Pulse Oximetry 100 Oxygen Delivery 03/22/22 20:00 03/22/22 20:
--- NOTE | 2022-03-23 10:07 | WPDCARDPROC ---
Cardiac Cath Procedure Note Date of procedure:: 03/23/22 Performing physician:: Vlad Babcock MD Indication:: complete heart block Brief clinical history:: this is a 71-year-old patient with chronic left bundle branch block admitted to the hospital with weakness fatigue lightheadedness found to be bradycardic with acquired complete heart block Procedure Procedure performed:: permanent pacemaker implantation Sedation/Medication given:: fentanyl 50 mg Versed 2 mg case start time 9:09 a.m. case end time 9:58 a.m. Access site:: left subclavian vein Estimated blood loss:: 20 cc Procedure note:: patient was brought to the cardiac catheterization lab in the postabsorptive state he was placed in the supine position the left anterior chest wall was prepped and draped in the standard fashion. Anesthesia was then provided inferior to the clavicle with 1% lidocaine views. Following this an incision was made about an inch below the clavicle between the midclavicular line in the deltopectoral groove. Sharp blunt dissection used to separate the subcutaneous tissue down to the level of the prepectoral fascia. Electrocautery was used to provide cutaneous hemostasis. A blunt dissection was used to create a pacemaker pocket inferior to the incision along the fascial plane. This was then packed with an antibiotic used 4 x 4. Following this attention was turned to vascular access. Using 2 separate introducer kits the subclavian vein was punctured and the J wires were placed under fluoroscopic visualization down to the level of the right atrium. Using 2 6 English pacemaker safe sheaths the leads described below were then placed into the venous circulation under fluoroscopic visualization into the level of the right atrium. Following this I took the stylet from the valve ventricularly the used a 3 cc syringe to fashion a J-tip on the stylet. This was used to steer the lead through the RV and out into the pulmonary artery position. This was then replaced with a separate straight stylet was withdrawn and placed into the right ventricular apical position. Fixation screw was deployed. Pacing and sensing performance was tested and found to be acceptable. The lead show no sign of extracardiac stimulation with a 10 pole stimulus. Following this attention was turned to the atrial lead. The straight stylet was removed and a preformed atrial J stylet was placed it was then positioned in the right atrial appendage. The fixation screw was deployed upon withdrawal of the stylet the lead tip was fixed into position. Following this the lead was tested using the analyzer also with acceptable pacing and sensing performance. Once again a 10 volts stimulation showed no sign of extracardiac stimulation. The leads were then secured in position using the suture sleeves to the base of the pocket and 2-0 silk ties. The retained sponge was removed from the pocket. The pocket was then irrigated with Ancef infused saline. The leads were connected to the pacemaker generator and the entire assembly was placed into the newly created pocket this was closed in layers using 3-0 Vicryl in interrupted fashion for the subcutaneous tissue and 4-0 Vicryl in a running subcuticular fashion for the skin. I dressed the incision with Steri-Strips and an Aquacel dressing. The procedure was well tolerated and uncomplicated. The patient was taken to the open area for post implant recovery. Postop antibiotics chest x-ray ECG were ordered. The patient received Biotronik dual-chamber pacemaker model Edora 8 DR-T Bia serial number [id number]. device is programmed in the DDD CLS lower rate limit 60 upper rate limit 120. The atrial lead is a Biotronik bipolar screw-in lead model Solia S 53 serial number [id number]. the P-waves are sensed at 3 mV threshold 0.9 volts at 0.4 milliseconds impedance 1053 Ohms the ventricular lead is a Biotronik screw-in bipolar lead model Solia S 6
--- NOTE | 2022-03-23 10:17 | ECG_ITS ---
Measurements Intervals [place] Rate: 61 P: 117 ID: [id number] QRS: -72 QRSD: 206 T: 102 QT: 507 QTc: 511 Interpretive Statements ELECTRONIC ATRIAL PACEMAKER ELECTRONIC VENTRICULAR PACEMAKER ABNORMAL RHYTHM ECG COMPARED TO ECG 03/20/2022 15:14:27 A PERMANENT DUAL-CHAMBER PACEMAKER HAS BEEN IMPLANTED Electronically Signed On 03-23-2022 14:32:50 CDT by Vlad Babcock M.D.
[2022-03-23] MEDS: IRBESARTAN 150 MG TABLET 300 MG PO (12:56)
[2022-03-23] MEDS: LORATADINE 10 MG TABLET PO (12:56)
[2022-03-23] MEDS: metFORMIN HCL XR 500 MG TAB.SR.24H PO ×2 (12:56→12:58)
[2022-03-23] MEDS: allopurinoL 100 MG TABLET PO (12:56)
--- NOTE | 2022-03-23 13:00 | PC.NURSE ---
Discussed restrictions on left arm and bedrest orders, verbalized understanding.
[2022-03-23] MEDS: ACETAMINOPHEN 325 MG TABLET 650 MG PO (18:24)
--- NOTE | 2022-03-23 22:55 | PC.NURSE ---
PATIENT INSIST ON STANDING TO URINATE. HE WAS INFORMED OF DR'S STRICT ORDERS AND OF COMPLICATIONS THAT CAN OCCUR. PATIENT STILL INSIST ON STANDING TO URINATE.
[2022-03-24] VITALS (7 sets, daily range): BP systolic 158–177; BP diastolic 67–93; PULSE 61–71; RESP 18–20; TEMP 36.2–36.6; O2SAT 95–100
--- NOTE | 2022-03-24 08:35 | PM.DS ---
DS: Admitting Diagnosis Discharge Date 03/24/2022 Admitting Diagnosis Complete heart block DS: Discharge Diagnosis Discharge Diagnosis (1) Complete heart block: Code(s): I44.2 - Atrioventricular block, complete Status: Acute Assessment and Plan: New diagnosis complete heart block. Now status post implantation of dual-chamber pacemaker yesterday. Device check this morning showed normal device functioning Chest Xray with no pneumothorax Reviewed activity restrictions and wound care instructions Follow up in the office for incision check and device check in one week OK for discharge home today DS: Summary Hospital Course Reason for hospitalization: Symptomatic complete heart block Hospital Course: Patient entered the hospital with complaints of dizziness and lightheadedness. He was found to be in complete heart block. He was admitted to the hospital for further management and underwent placement of a dual-chamber pacemaker yesterday. Pacemaker implantation was uncomplicated he has not had any postprocedural complications thus far. Pacemaker check this morning revealed normal device functioning. Time Spent with Patient Time attestation: Total time spent providing and/or coordinating discharge services: 55 minutes Exam Narrative: Pleasant gentleman resting comfortably in bed with arm immobilizer in place. Const: General: comfortable, no acute distress, alert and awake Orientation/consciousness: patient oriented x3 HENMT: Head: normal to inspection Eyes: General: appearance normal, both eyes and all related structures Pupils: Equal, round and reactive pupils present Neck: Neck: normal visual inspection, supple and no JVD Carotids: normal carotid upstroke Resp: Effort & Inspection: normal respiratory effort Auscultation: clear to auscultation bilaterally Cardio: Rate: regular rate Rhythm: regular rhythm Heart sounds: S1 normal heart sound present, S2 normal heart sound present and no murmurs Other: Paced rhythm GI: Auscultation: normal bowel sounds Skin: General skin exam: normal color Wounds: wounds noted (Left upper chest PPM insertion site surgical dressing CDI. ) Other: No bruising, hematoma, pain surrounding pacemaker insertion site. Neuro: General: patient oriented x3 Cranial nerves: Yes Equal, round and reactive pupils present Extrem: General: normal to inspection Psych: Appearance: grossly normal Mental Status: mental status grossly normal DS: Data Data Completed and Pending Labs on day of discharge: Labs from last 24 hours 03/23/22 03/23/22 03/23/22 08:18 08:17 08:17 WBC 5.6 RBC 4.67 Hgb 13.8 L Hct 42.3 MCV 90.6 MCH 29.6 MCHC 32.6 RDW 13.2 Plt Count 194 MPV 10.4 Immature Gran % (Auto) 0.2 Neut % (Auto) 66.5 Lymph % (Auto) 17.5 L Jenkins % (Auto) 11.5 H Eos % (Auto) 3.4 Baso % (Auto) 0.9 Lymph # (Auto) 0.97 Jenkins # (Auto) 0.6 Eos # (Auto) 0.2 Baso # (Auto) 0.1 Abs Immat Gran (auto) 0.01 Absolute Neuts (auto) 3.7 Absolute Nucleated RBC 0.0 Nucleated RBC % 0.0 PT 13.8 INR 1.1 Sodium 138 Potassium 4.3 Chloride 102 Carbon Dioxide 26 Anion Gap 10 BUN 16 D Creatinine 0.80 Estim Creat Clear Calc 95 Estimated GFR > 60 Glucose 139 H Calcium 9.5 Discharge Plan Discharge Consulting providers: Garo Robles ; Adam Pablo ; Theodore De La Cruz V. Discharging Clinician: Traa Rick Patient Disposition: Home, Self-Care Activity: no shower Diet: regular Discharge Instructions: [facility] [address]
[2022-03-24] MEDS: IRBESARTAN 150 MG TABLET 300 MG PO (08:58)
[2022-03-24] MEDS: allopurinoL 100 MG TABLET PO (08:58)
[2022-03-24] MEDS: LORATADINE 10 MG TABLET PO (08:59)
--- NOTE | 2022-03-24 10:10 | PC.NURSE ---
Off floor to Xray via wheelchair.
--- NOTE | 2022-03-24 10:18 | PC.NURSE ---
Back to room without issue.
[2022-03-24] MEDS: metFORMIN HCL XR 500 MG TAB.SR.24H PO (12:49)
== END 2022-03-24 14:00 | disposition home or self-care (01) | DRG 244 ==
LOC: ANHED 16:28 → ANHIMU 22:25
PROVIDERS: Emergency Medicine; Admitting Provider Specialist; Emergency Provider Emergency Medicine; PCP Family Medicine; Visit Provider Nurse Practitioner
PROC: 0JH606Z Insertion of Pacemaker, Dual Chamber into Chest Subcutaneous Tissue and Fascia, Open Approach (ICD-10-PCS; CPT 33208; principal; 2022-03-23 09:00)
DX: I44.2 Atrioventricular block, complete (principal); Z20.822 Contact with and (suspected) exposure to COVID-19; I44.7 Left bundle-branch block, unspecified; I10 Essential (primary) hypertension; E11.9 Type 2 diabetes mellitus without complications; M19.90 Unspecified osteoarthritis, unspecified site; Z96.653 Presence of artificial knee joint, bilateral; Z96.641 Presence of right artificial hip joint
CPT/HCPCS: 33208; 36415; 71045; 71046; 80048; 80053; 80162; 82948; 84484; 85025; 85610; 93005; 99285; A4565; A9270; C1779; C1785; C8929; C9803; J0690; J2250; J3010; J7040; Q9957; U0003; U0005

== ENCOUNTER 2022-04-01 11:09 | Outpatient (CLI) | payer MEDICARE, SELFPAY ==
[2022-04-01 18:40] LABS: Alanine Aminotransferase 34 U/L (6-50); Albumin Level 4.7 g/dL (3.5-5.1); Alkaline Phosphatase 67 U/L (38-126); Anion Gap 10 mmol/L (8-16); Aspartate Amino Transferase 38 U/L (17-59); Bilirubin,Total 0.7 mg/dL (0.2-1.3); Blood Urea Nitrogen 22 mg/dL (9-20); Calcium 9.4 mg/dL (8.4-10.2); Carbon Dioxide 29 mmol/L (22-30); Chloride 101 mmol/L (98-107); Estimated Glomerular Filt Rate > 60; Glucose 116 mg/dL (65-110); Potassium 4.7 mmol/L (3.4-5.0); Sodium 140 mmol/L (137-145)
[2022-04-01 19:02] LABS: Hemoglobin A1C 6.4 % (<5.7)
== END 2022-04-01 11:10 | disposition home or self-care (01) ==
LOC: ANHGOSHLAB 11:12
PROVIDERS: PCP Family Medicine; Visit Provider Family Medicine
DX: E55.9 Vitamin D deficiency, unspecified (principal); E11.9 Type 2 diabetes mellitus without complications; I10 Essential (primary) hypertension
CPT/HCPCS: 36415; 80053; 82306; 83036

== ENCOUNTER 2022-09-30 10:25 | Outpatient (CLI) | payer MEDICARE, SELFPAY ==
[2022-09-30 20:00] LABS: Basophils Absolute Auto 0.1 K/mm3 (0.0-0.1); Basophils Percent Auto 1.3 % (0.2-1.2); Eosinophils Absolute Auto 0.2 K/mm3 (0-0.3); Eosinophils Percent Auto 3.6 % (0-4.4); Hematocrit 43.2 % (42.0-52.0); Hemoglobin 14.5 g/dL (14.0-18.0); Immature Granulocyte Absolute 0.01 K/mm3 (0.00-0.031); Immature Granulocyte Percent A 0.2 % (0-0.5); Lymphocytes Absolute Auto 0.87 K/mm3 (0.9-3.2); Lymphocytes Percent Auto 18.5 % (18.3-44.2); Mean Corpuscular HGB Conc 33.6 g/dl (32-36); Mean Corpuscular Hemoglobin 30.1 pg (26-34); Mean Corpuscular Volume 89.6 fl (80-100); Monocytes Absolute Auto 0.5 K/mm3 (0.1-0.6); Monocytes Percent Auto 9.6 % (2.6-8.5); Neutrophils Absolute Auto 3.2 K/mm3 (1.3-6.7); Neutrophils Percent Auto 66.8 % (45.5-73.1); Platelet Count Result 234 k/mm3 (150-375); Red Blood Count 4.82 M/mm3 (4.6-6.20); Red Cell Distribution Width 12.9 % (11.5-14.5); White Blood Count 4.7 K/mm3 (4.5-10.0)
[2022-09-30 20:57] LABS: Creatinine Urine 127.8 mg/dL
[2022-09-30 21:13] LABS: Vitamin D 25 Hydroxy 33.2 ng/mL
[2022-09-30 21:15] LABS: Hemoglobin A1C 6.7 % (<5.7)
[2022-09-30 21:24] LABS: Alanine Aminotransferase 40 U/L (6-50); Albumin Level 4.5 g/dL (3.5-5.1); Alkaline Phosphatase 66 U/L (38-126); Anion Gap 8 mmol/L (8-16); Aspartate Amino Transferase 41 U/L (17-59); Bilirubin,Total 0.8 mg/dL (0.2-1.3); Blood Urea Nitrogen 15 mg/dL (9-20); Carbon Dioxide 28 mmol/L (22-30); Chloride 104 mmol/L (98-107); Cholesterol 176 mg/dL (0-200); Estimated Glomerular Filt Rate > 60; Glucose 120 mg/dL (65-110); HDL Direct 52 mg/dL; Potassium 4.6 mmol/L (3.4-5.0); Sodium 140 mmol/L (137-145); Triglycerides 90 mg/dL (<150); Uric Acid 7.4 mg/dL (3.5-8.5)
[2022-09-30 21:35] LABS: LDL Cholesterol Direct 91 mg/dL
[2022-09-30 21:51] LABS: MALB Creatinine Ratio < 4.7 mg/g (0-30); Microalbumin Urine Random < 6.0 mg/L (0-16.7)
[2022-09-30 21:51] LABS: Prostate Specific Antigen 0.5 ng/mL (< OR = 4.0)
== END 2022-09-30 10:26 | disposition home or self-care (01) ==
LOC: ANHGOSHLAB 10:27
PROVIDERS: PCP Family Medicine; Visit Provider Family Medicine
DX: E53.8 Deficiency of other specified B group vitamins (principal); M10.00 Idiopathic gout, unspecified site; E11.9 Type 2 diabetes mellitus without complications; I10 Essential (primary) hypertension; E78.5 Hyperlipidemia, unspecified; E55.9 Vitamin D deficiency, unspecified; Z12.5 Encounter for screening for malignant neoplasm of prostate
CPT/HCPCS: 36415; 80053; 80061; 82043; 82306; 82607; 83036; 84153; 84443; 84550; 85025; G0103

== ENCOUNTER 2023-03-31 09:46 | Outpatient (CLI) | payer MEDICARE, SELFPAY ==
[2023-03-31 18:57] LABS: Hemoglobin A1C 6.9 % (<5.7)
[2023-03-31 21:04] LABS: Alanine Aminotransferase 37 U/L (6-50); Albumin Level 4.6 g/dL (3.5-5.1); Alkaline Phosphatase 62 U/L (38-126); Anion Gap 8 mmol/L (8-16); Aspartate Amino Transferase 37 U/L (17-59); Bilirubin,Total 0.8 mg/dL (0.2-1.3); Blood Urea Nitrogen 16 mg/dL (9-20); Calcium 9.6 mg/dL (8.4-10.2); Carbon Dioxide 29 mmol/L (22-30); Chloride 100 mmol/L (98-107); Estimated Glomerular Filt Rate > 60; Glucose 115 mg/dL (65-110); Potassium 4.1 mmol/L (3.4-5.0); Sodium 137 mmol/L (137-145)
== END 2023-03-31 09:47 | disposition home or self-care (01) ==
LOC: ANHGOSHLAB 09:49
PROVIDERS: PCP Family Medicine; Visit Provider Family Medicine
DX: E11.9 Type 2 diabetes mellitus without complications (principal); I10 Essential (primary) hypertension
CPT/HCPCS: 36415; 80053; 83036

== ENCOUNTER 2023-10-13 09:18 | Outpatient (CLI) | payer MEDICARE, SELFPAY ==
[2023-10-13 19:01] LABS: Basophils Absolute Auto 0.1 K/mm3 (0.0-0.1); Basophils Percent Auto 1.5 % (0.2-1.2); Eosinophils Absolute Auto 0.2 K/mm3 (0-0.3); Eosinophils Percent Auto 3.4 % (0-4.4); Hematocrit 47.4 % (42.0-52.0); Hemoglobin 15.3 g/dL (14.0-18.0); Immature Granulocyte Absolute 0.01 K/mm3 (0.00-0.031); Immature Granulocyte Percent A 0.2 % (0-0.5); Lymphocytes Absolute Auto 0.88 K/mm3 (0.9-3.2); Lymphocytes Percent Auto 18.9 % (18.3-44.2); Mean Corpuscular HGB Conc 32.3 g/dl (32-36); Mean Corpuscular Hemoglobin 29.3 pg (26-34); Mean Corpuscular Volume 90.6 fl (80-100); Mean Platelet Volume 10.2 fl (7.4-10.4); Monocytes Absolute Auto 0.5 K/mm3 (0.1-0.6); Monocytes Percent Auto 11.6 % (2.6-8.5); Neutrophils Percent Auto 64.4 % (45.5-73.1); Platelet Count Result 190 k/mm3 (150-375); Red Blood Count 5.23 M/mm3 (4.6-6.20); Red Cell Distribution Width 12.6 % (11.5-14.5); White Blood Count 4.7 K/mm3 (4.5-10.0)
[2023-10-13 19:09] LABS: Alanine Aminotransferase 30 U/L (6-50); Albumin Level 4.5 g/dL (3.5-5.1); Alkaline Phosphatase 64 U/L (38-126); Anion Gap 4 mmol/L (8-16); Aspartate Amino Transferase 45 U/L (17-59); Bilirubin,Total 1.1 mg/dL (0.2-1.3); Blood Urea Nitrogen 22 mg/dL (9-20); Calcium 9.7 mg/dL (8.4-10.2); Carbon Dioxide 29 mmol/L (22-30); Chloride 104 mmol/L (98-107); Cholesterol 165 mg/dL (0-200); Estimated Glomerular Filt Rate > 60; Glucose 127 mg/dL (65-110); HDL Direct 46 mg/dL; Potassium 4.5 mmol/L (3.4-5.0); Sodium 137 mmol/L (137-145); Triglycerides 101 mg/dL (<150); Uric Acid 9.2 mg/dL (3.5-8.5)
[2023-10-13 19:19] LABS: LDL Cholesterol Direct 99 mg/dL
[2023-10-13 19:23] LABS: Vitamin D 25 Hydroxy 34.2 ng/mL
[2023-10-13 19:41] LABS: Prostate Specific Antigen 0.5 ng/mL (< OR = 4.0)
[2023-10-13 19:55] LABS: Hepatitis C Virus Antibody Negative (Negative)
[2023-10-13 20:48] LABS: Creatinine Urine 147.7 mg/dL
[2023-10-13 21:16] LABS: MALB Creatinine Ratio 4.1 mg/g (0-30); Microalbumin Urine Random < 6.0 mg/L (0-16.7)
== END 2023-10-13 09:19 | disposition home or self-care (01) ==
LOC: ANHGOSHLAB 09:19
PROVIDERS: PCP Family Medicine; Visit Provider Family Medicine
DX: Z12.5 Encounter for screening for malignant neoplasm of prostate (principal); I10 Essential (primary) hypertension; E78.5 Hyperlipidemia, unspecified; E11.9 Type 2 diabetes mellitus without complications; E55.9 Vitamin D deficiency, unspecified; M10.00 Idiopathic gout, unspecified site; E53.8 Deficiency of other specified B group vitamins; Z11.59 Encounter for screening for other viral diseases
CPT/HCPCS: 36415; 80053; 80061; 82043; 82306; 82607; 83036; 84153; 84443; 84550; 85025; 86803; G0103

== ENCOUNTER 2024-05-10 09:09 | Outpatient (CLI) | payer MEDICARE, SELFPAY ==
[2024-05-10 14:21] LABS: Alanine Aminotransferase 28 U/L (6-50); Albumin Level 4.1 g/dL (3.5-5.1); Alkaline Phosphatase 72 U/L (38-126); Anion Gap 7 mmol/L (4-12); Aspartate Amino Transferase 44 U/L (17-59); Bilirubin,Total 0.8 mg/dL (0.2-1.3); Blood Urea Nitrogen 13 mg/dL (9-20); Calcium 9.5 mg/dL (8.4-10.2); Carbon Dioxide 28 mmol/L (22-30); Chloride 101 mmol/L (98-107); Estimated Glomerular Filt Rate > 60; Glucose 116 mg/dL (65-110); Potassium 4.2 mmol/L (3.4-5.0); Sodium 136 mmol/L (137-145)
[2024-05-10 16:12] LABS: Hemoglobin A1C 7.4 % (<5.7)
== END 2024-05-10 09:10 | disposition home or self-care (01) ==
LOC: ANHGOSHLAB 09:10
PROVIDERS: PCP Family Medicine; Visit Provider Family Medicine
DX: I10 Essential (primary) hypertension (principal); E11.9 Type 2 diabetes mellitus without complications
CPT/HCPCS: 36415; 80053; 83036

== ENCOUNTER 2024-07-19 05:27 | Day surgery (SDC) | payer MEDICARE, SELFPAY ==
[2024-07-18 13:05] VITALS: BMI 31.4
[2024-07-19 12:18] VITALS: BP 143/80; PULSE 69; RESP 16; TEMP 35.9; O2SAT 97
[2024-07-19] MEDS: LACTATED RINGERS 1,000 ML 150 ML IV CONT (12:25)
[2024-07-19 12:28] LABS: Glucose Point of Care 126 mg/dl (65-105)
--- NOTE | 2024-07-19 12:28 | WPDANESEPPF ---
Anes - Initial Pre Proc Eval Procedure: Operation Date: 07/19/24 13:00 Proposed Procedures p Esophagogastroduodenoscopy - Larry Caicedo MD Date/Time: 07/19/24 12:28 Surgeon: Larry Caicedo MD Pre Op Diagnosis: epigastric pain,dysphagia Patient Data Age: 73 Gender: M Height: 1.83 m Weight: 106 kg Last Vital Signs Temp 35.9 C L 07/19/24 12:18 Pulse 69 07/19/24 12:18 Resp 16 07/19/24 12:18 BP 143/80 H 07/19/24 12:18 Pulse Ox 97 07/19/24 12:18 O2 Del Method Room Air 07/19/24 12:18 Allergies Allergy/AdvReac Type Severity Reaction Status Date / Time No Known Allergies Allergy Verified 07/19/24 12:17 Home Medications Medication Instructions Recorded Confirmed Type cholecalciferol (vitamin D3) 50 50 mcg PO DAILY #90 tabs 04/02/22 07/19/24 Rx mcg (2,000 unit) tablet metformin 500 mg tablet,extended 1,000 mg PO DAILY #180 tabs 03/27/24 07/19/24 Rx release 24 hr irbesartan 300 mg tablet 300 mg PO DAILY #90 tabs 04/13/24 07/19/24 Rx omeprazole 40 mg capsule,delayed 40 mg PO DAILY #90 caps 05/10/24 07/19/24 Rx release allopurinol 100 mg tablet 100 mg PO DAILY #90 tabs 07/17/24 07/19/24 Rx Laboratory Tests 07/19/24 12:25 POC Capillary Glucose Pending Patient hx anesthesia problems: none Family hx anesthesia problems: none Results Review: All pre-operative results and documents have been reviewed as part of the pre-operative evaluation. [facility] Past Medical History Medical History Essential (primary) hypertension Hypogonadism Idiopathic gout Osteoarthritis Type 2 diabetes mellitus without complications Varicose veins of left lower extremity Vitamin D deficiency Surgical History Surgical History History of knee replacement Right 09/2014 & Left 12/2014 History of total right hip arthroplasty (~06/05/21) Status cardiac pacemaker (~03/2022) [place] teeth extracted Family History Family History Father Cerebrovascular accident Sibling Leukemia Social History Social History Smoking status: Never smoker Second hand tobacco smoke exposure: No Alcohol intake: current Drinks per week: 12 Alcohol use details: BEER- ON WEEKEND Substance use: never Substance use type: does not use Lack of Food: Never True Current Housing: I Have Housing Concerned About Future Housing: No Difficulty Paying Gas/Electric Bills: No Difficulty Paying for Meds: No Currently Unemployed: No Education: High School Diploma/GED Difficulty w/ Childcare or Family Care: No Living arrangements: with family Additional living arrangements comments: Occupation/Education: retired Gender identity (if verbalized by the patient): Male Sexual Orientation (if Verbalized by the Patient): Straight or Heterosexual Spiritual care concerns: No Agree to blood products: Yes Anes - Eval Final PreProcedure Day of Procedure 07/19/24 12:28 Patient weight: obese Heart: regular rate and rhythm Lungs: clear to auscultation Airway: Mallampati scale class 1 Neurological: alert and oriented Last oral intake: >/= 8 hours ASA classification: III Emergent: no Anesthetic plan: proceed Anesthesia type and monitoring: general GIVS Results Review: All pre-operative results and documents have been reviewed as part of the pre-operative evaluation. Informed Consent: The patient's anesthetic plan and its attendant risks and benefits were discussed with the patient/family/POA. Questions were solicited and answers provided to the satisfaction of the patient/family/POA.
--- NOTE | 2024-07-19 12:31 | PM.HPGS ---
History of Present Illness History of Present Illness Consent: Risks, benefits, and alternatives have been discussed and questions answered. Patient agrees to proceed with procedure. Chief complaint: epigastric pain,dysphagia Narrative: Jorge Red is a 73 year old male with dysphagia since February, never had egd Review of Systems Review of Systems: All systems reviewed & are unremarkable except as noted in HPI and below PMFSH Past Medical History Medical History Essential (primary) hypertension Hypogonadism Idiopathic gout Osteoarthritis Type 2 diabetes mellitus without complications Varicose veins of left lower extremity Vitamin D deficiency Surgical History Surgical History History of knee replacement Right 09/2014 & Left 12/2014 History of total right hip arthroplasty (~06/05/21) Status cardiac pacemaker (~03/2022) [place] teeth extracted Family History Family History Father Cerebrovascular accident Sibling Leukemia Social History Social History Smoking status: Never smoker Second hand tobacco smoke exposure: No Alcohol intake: current Drinks per week: 12 Alcohol use details: BEER- ON WEEKEND Substance use: never Substance use type: does not use Lack of Food: Never True Current Housing: I Have Housing Concerned About Future Housing: No Difficulty Paying Gas/Electric Bills: No Difficulty Paying for Meds: No Currently Unemployed: No Education: High School Diploma/GED Difficulty w/ Childcare or Family Care: No Living arrangements: with family Additional living arrangements comments: Occupation/Education: retired Gender identity (if verbalized by the patient): Male Sexual Orientation (if Verbalized by the Patient): Straight or Heterosexual Spiritual care concerns: No Agree to blood products: Yes Meds Home Medications and Allergies Home Medications Medication Instructions Recorded Confirmed Type cholecalciferol (vitamin D3) 50 50 mcg PO DAILY #90 tabs 04/02/22 07/19/24 Rx mcg (2,000 unit) tablet metformin 500 mg tablet,extended 1,000 mg PO DAILY #180 tabs 03/27/24 07/19/24 Rx release 24 hr irbesartan 300 mg tablet 300 mg PO DAILY #90 tabs 04/13/24 07/19/24 Rx omeprazole 40 mg capsule,delayed 40 mg PO DAILY #90 caps 05/10/24 07/19/24 Rx release allopurinol 100 mg tablet 100 mg PO DAILY #90 tabs 07/17/24 07/19/24 Rx Allergies Allergy/AdvReac Type Severity Reaction Status Date / Time No Known Allergies Allergy Verified 07/19/24 12:17 Vital Signs Vital Signs - 24 hr 07/19/24 12:18 Temperature 96.7 F L Pulse Rate 69 Respiratory Rate 16 Blood Pressure 143/80 H Pulse Oximetry 97 Oxygen Delivery Room Air Exam Const: General: comfortable and no acute distress HENMT: Face/Nose/Sinus: Normal nares present Eyes: General: appearance normal, both eyes and all related structures Neck: Neck: no JVD Resp: Auscultation: clear to auscultation bilaterally Cardio: Rate: regular rate Rhythm: regular rhythm GI: Inspection: non-distended GI Palp: Yes Soft to palpation Skin: General skin exam: normal color Neuro: General: gait normal Speech: normal speech Extrem: General: normal to inspection Psych: Mental Status: mental status grossly normal Assessment and Plan Assessment and plan (1) Dysphagia: Code(s): R13.10 - Dysphagia, unspecified Status: Acute Assessment and Plan: egd (2) Epigastric discomfort: Code(s): R10.13 - Epigastric pain Status: Acute
[2024-07-19 12:43] VITALS: BP 156/84; PULSE 69; RESP 20; O2SAT 94
[2024-07-19 12:53] VITALS: BP 142/84; PULSE 63; RESP 20; O2SAT 94
[2024-07-19 13:03] VITALS: BP 142/80; PULSE 80; RESP 20; O2SAT 97
[2024-07-19 13:05] LABS: Glucose Point of Care 135 mg/dl (65-105)
--- NOTE | 2024-07-19 13:22 | SUR.OPER ---
egd ended at 1314 and colon started at 1320
== END 2024-07-19 13:42 | disposition home or self-care (01) ==
PROVIDERS: PCP Family Medicine; Visit Provider Internal Medicine Gastroenterology
PROC: 0DJ08ZZ Inspection of Upper Intestinal Tract, Via Natural or Artificial Opening Endoscopic (ICD-10-PCS; CPT 43235; principal; 2024-07-19 13:00)
DX: C15.5 Malignant neoplasm of lower third of esophagus (principal); I10 Essential (primary) hypertension; E29.1 Testicular hypofunction; M19.90 Unspecified osteoarthritis, unspecified site; E11.9 Type 2 diabetes mellitus without complications; E55.9 Vitamin D deficiency, unspecified; E66.9 Obesity, unspecified; Z68.31 Body mass index [BMI] 31.0-31.9, adult; Z79.84 Long term (current) use of oral hypoglycemic drugs; Z98.890 Other specified postprocedural states; Z95.0 Presence of cardiac pacemaker; Z86.79 Personal history of other diseases of the circulatory system; Z80.6 Family history of leukemia; Z82.49 Family history of ischemic heart disease and other diseases of the circulatory system
CPT/HCPCS: 43239; 82948; 88305; 88342; J2704; J7120

== ENCOUNTER 2024-08-03 13:31 | Outpatient (CLI) | payer MEDICARE, SELFPAY ==
--- NOTE | ~2024-08-03 | CT_ITS ---
EXAMINATION: CT chest abdomen pelvis w con DATE: 08/03/2024 13:56 INDICATION: Unspecified disease of the esophagus. TECHNIQUE: Computed tomography (CT) of the chest, abdomen, and pelvis was performed with 100 mL Omnip aque 350 intravenous contrast. Automated exposure control and iterative reconstruction technique were employed. The dose-length product was 1466.22 mGy-cm. COMPARISON: Chest 2 views 03/24/2022 FINDINGS: CHEST CT: There is mild emphysema. There is chronic marked elevation of right hemidiaphragm. There is mild atel ectasis bilaterally. Calcified left lung nodules and calcified left hilar lymph nodes are consistent with old granulomatous disease. There is mild scarring in paraspinal right lower lobe. No pleural eff usion. There is a 9 mm nodule in left thyroid lobe, likely not clinically significant. The heart size is normal. There are coronary artery calcifications. No pericardial effusion. There is wall thickeni ng of the gastroesophageal junction. There is a left chest wall pacer with leads in the right atrium and right ventricle. There are bridging endplate osteophytes at multiple levels in the spine, consist ent with diffuse idiopathic skeletal hyperostosis (DISH). There is mild chronic anterior wedging of m ultiple vertebral bodies. ABDOMEN/PELVIS CT: The liver is normal. There are gallstones in the gallbladder, which is normal in size. The spleen, pa ncreas, and right adrenal gland are normal. There is a 13 mm mass in the left adrenal gland. There is cortical thinning of right kidney. There are cysts in the kidneys measuring up to 7 mm on the left. There are bilateral inguinal hernias containing fat. The prostate is moderately enlarged. There is di verticulosis of the colon without evidence of diverticulitis. There are no dilated loops of bowel. Th e appendix is normal. There are no pathologically enlarged lymph nodes. There is no free intraperiton eal fluid. There is a total right hip arthroplasty. There is severe lumbar spondylosis. IMPRESSION: 1. Wall thickening of the gastroesophageal junction, consistent with primary malignancy. 2. 13 mm mass in the left adrenal gland, which may be an adenoma or less likely metastatic disease. C onsider PET/CT. Reviewed, dictated and finalized at location A. OR FORMULATION SCIENTIST IMPRESSION: 1. Wall thickening of the gastroesophageal junction, consistent with primary ma lignancy. 2. 13 mm mass in the left adrenal gland, which may be an adenoma or less likely metastatic disease. Consider PET/CT.
[2024-08-03 13:49] LABS: Estimated Glomerular Filt Rate 50
== END 2024-08-03 13:32 | disposition home or self-care (01) ==
PROVIDERS: PCP Family Medicine; Visit Provider Internal Medicine Gastroenterology
DX: K22.89 Other specified disease of esophagus (principal); R13.10 Dysphagia, unspecified
CPT/HCPCS: 71260; 74177; Q9967

== ENCOUNTER 2025-01-03 10:21 | Outpatient (CLI) | payer MEDICARE, SELFPAY ==
--- OUTSIDE RECORDS SUMMARY | 2025-01-03 10:56 | XMS_ITS ---
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 Name Role Phone Tai Cedillo MD Primary Care Provider Jacques Omalley MD PhD Unavailable [phone] Active Problems Problem Noted Date Diagnosed Date ABLA (acute blood loss anemia) 12/08/2024 Assessment & Plan (12/08/2024 7:51 AM CDT): - Hg trending down - cont to monitor - no indication for transfusion at this time Thrombocytopenia 12/08/2024 Assessment & Plan (12/08/2024 7:51 AM CDT): - mild - monitor HTN (hypertension) 12/06/2024 Assessment & Plan (12/06/2024 12:20 PM CDT): - monitor - hold oral medications for now Esophageal cancer 12/05/2024 Type 2 diabetes mellitus 12/05/2024 Assessment & Plan (12/05/2024 8:16 PM CDT): On metformin at home - basal-bolus regimen with SSI, hold metformin Malignant neoplasm of lower third of esophagus 0 11/22/2024 Assessment & Plan (12/11/2024 7:29 AM CDT): 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 Lott. Exubated in PACU. Epidural placed in preop but removed post-op due to nonfunctioning. 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 Dx; CHB, LBBB. DOI 03/23/2022-Sadiq. [employer] remote monitoring. Current Treatment and Therapy Plans Hydration Therapy Plan* Plan Start Date:10/17/2024 Plan Provider:Mehdi Recio MD Linked Problems Adenocarcinoma of gastroesop hageal junction (HCC)Dehydration Treatment Medications No medications scheduled. IV Maintenance Therapy Plan* Plan Start Date:10/12/2024 Plan Provider:Jacques Omalley MD PhD Linked Problems Adenocarcinoma of gastroesop hageal junction (HCC)Cardiac pacemaker in situComplete heart block (HCC)Dehydration Treatment Medications No medications scheduled. Past Treatment and Therapy Plans Oncology Chemotherapy Treatment Plan Name Start Date Discontinue Date Treatment Medications Discontinue Reason Plan Provider Cycles PACLItaxel / CARBOplatin Weekly with Concurrent Radiation - Esophageal 5 10/17/2024 CARBOplatin (PARAPLATIN) IVPB in 250 mLPACLItaxel (TAXOL) 100 ml Therapy Complete Jacques Omalley MD PhD 1 of 1 cycle started Radiation Treatments * Course [id number] 09/18/2024 - 10/18/2024 Treatment Period Energy Fraction Dose Fractions Total Dose Plans Planned ESOPHAGUS 09/18/2024 - 10/18/2024 220 23 / 5,060 Reference Points Delivered [id number] 09/18/2024 - 10/18/2024 5,060 Lifetime Dose Tracking * Chemical Lifetime Dose Automatic Entry Manual Entr y Fluoro Time 1.9 minutes 1.9 minutes 0 minutes Air kerma at the reference point (Ka,r) 183.7 mGy 1 83.7 mGy 0 mGy DLP 474 mGycm 474 mGycm 0 mGycm Resolved Problems Problem Noted Date Diagnosed Date Resolved Date Anemia 12/08/2024 12/08/2024 Malignant neoplasm of lower third of esophagus 09/01/2024 09/14/2024
--- OUTSIDE RECORDS SUMMARY | 2025-01-03 10:56 | XMS_ITS | Encounter Summary ---
Author Organization [facility] Healthcare Address [address] [place] [address] Care Team Providers Care Customer Support Consultant Name Role Phone Tai Cedillo MD Primary Care Provider Jacques Omalley MD PhD Unavailable [phone] Reason for Referral * Diagnostic Imaging (Routine) - Closed Specialty Diagnoses / Procedures Referred By Contac t Referred To Contact Radiology Diagnoses Adenocarcinoma of gastroesophageal junction (HCC) Procedures CT Chest Abdomen W Contrast Jacques Omalley MD PhD [address] [place] [address] Phone: tel: fax: [address] [address] Referral ID Status Reason Start Date Expiration Date Visits Re quested Visits Authorized [id number] Closed 11/23/2024 12/23/2025 1 1 Reason for Visit * Diagnostic Imaging (Routine) - Closed Specialty Diagnoses / Procedures Referred By Contac t Referred To Contact Radiology Diagnoses Adenocarcinoma of gastroesophageal junction (HCC) Procedures CT Chest Abdomen W Contrast Jacques Omalley MD PhD [address] [place] [address] Phone: tel: fax: [address] [phone] Referral ID Status Reason Start Date Expiration Date Visits Re quested Visits Authorized [id number] Closed 11/23/2024 12/23/2025 1 1 Encounter Details Date Type Department Care Team (Latest Contact Info) Description 01/02/2025 1:46 PM CDT - 01/02/2025 11:59 PM CDT Hospital Encounter [facility] - [place] [address] [facility] Floor 8 [place] [address] Adenocarcinoma of gastroesophageal junction (HCC) Discharge Disposition: Discharge to home or self care Social History Tobacco Use Types Packs/Day Years Used Date Smoking Tobacco: Never Passive Smoke Exposure: Never Smokeless Tobacco: Never Humiliation, Afraid, Rape, and Kick questionnair e Answer Date Recorded Within the last year, have y ou been afraid of your partner or ex-partner? No 08/29/2024 Within the last year, have y ou been humiliated or emotionally abused in other ways by your partner or ex-partner? No Within the last year, have y ou been kicked, hit, slapped, or otherwise physically hurt by your partner or ex-partner? No 08/29/2024 Within the last year, have y ou been raped or forced to have any kind of sexual activity by your partner or ex-partner? No 08/29/2024 Social Connection and Isolat ion Panel [NHANES] Answer Date Recorded In a typical week, how many times do you talk on the phone with family, friends, or neighbors? More than three times a week 08/29/2024 How often do you get togethe r with friends or relatives? Once a week 08/29/2024 How often do you attend chur or mosque services? More than 4 times per year 08/29/2024 Do you belong to any clubs o r organizations such as voodoo groups, unions, fraternal or athletic groups, or school groups? No 08/29/2024 How often do you attend meet ings of the clubs or organizations you belong to? Never 08/29/2024 Are you , , di vorced, , never , or living with a partner? 08/29/2024 AUDIT-C Answer Date Recorded Q1: How often do you have a drink containing alc ohol? 2-4 times a month 11/22/2024 Q2: How many drinks containi ng alcohol do you have on a typical day when you are drinking? 5 or 6 11/22/2024 Q3: How often do you have si x or more drinks on one occasion? Weekly 11/22/2024 Overall Financial Resource Strain (CARDIA) Answe r Date Recorded How hard is it for you to pa y for the very basics like food, housing, medical care, and heating? Not hard at all 08/29/2024 [facility] - Occupational Stress Questionnaire Answer Date Recorded Do you feel stress - tense, restless, nervous, or anxious, or unable to sleep at night because your mind is troubled all the time - these days? Only a little 08/29/2024 Exercise Vital Sign Answer Date Recorde d On average, how many days pe r week do you engage in moderate to strenuous exercise (like a brisk walk)? 6 days 08/29/2024 On average, how many minutes do you engage in exercise at this level? 10 min 08/29/2024 Hunger Vital Sign Answer Date Recorded Within the past 12 months, y ou worried that your food would run out before you got the money to buy more. Never true 08/29/19 25 Within the past 12 months, t he food you bought just didn't last and you didn't have money to get more. Never true 08/29/2024 PRAPARE - Transportation Answer Date Re corded In the past 12 months, has l ack of transportation kept you from medical appointments or from getting medications? No 08/16 In the past 12 months, has l ack of transportation kept you from meetings, work, or from getting things needed for daily living? No 08/29/2024 Personal Safety Answer Date Recorded Have you ever been in or are you currently in a harmful physical or emotional relationship or is someone making you feel afraid or unsafe? Denies 12/05/2024 Education Answer Date Recorded What is the highest level of school you have completed or the highest degree you have received? 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 Gender Identity Not on file Sexual Orientation Not on file Occupation Industry Job Start Date Job End Date Retired - [employer] for a [employer] Not on file Not on f ile Not on file documented as of this encounter Medications at Time of Discharge acetaminophen 500 mg capsule Take 2 capsules (1,000 mg total) by mouth every 6 (six) hours as needed for pain 12/13/2024 metFORMIN XR (GLUCOPHAGE XR) 500 mg 24 hr tablet Take 1 tablet (500 mg total) by mouth daily with breakfast 08/14/2024 OneTouch Delica Plus Lancet 33 gauge misc TEST 3 TIMES DAILY BEFORE MEALS DIRECTED 10/05/2024 OneTouch Verio Flex meter misc TEST 3 TIMES DAILY BEFORE MEALS DIRECTED 10/05/2024 OneTouch Verio test strips strip TEST 3 TIMES DAILY BEFORE MEALS DIRECTED 10/05/2024 oxyCODONE (ROXICODONE) 5 mg immediate release tabletIndication s:Pain Take 1 tablet (5 mg total) by mouth every 4 (four) hours as needed for pain 10 tablet 12/13/2024 documented as of this encounter Discharge Disposition Disposition Code Departure Means Destination Discharge to home or self care documented in this encounter Plan of Treatment Not on file documented as of this encounter Procedures Procedure Name Priority Date/Time Associated Diagnosis Comments CT CHEST ABDOMEN W CONTRAST Schedule Routine, Read Routine (OP Routine) 01/02/2025 2:53 PM CDT Adenocarcinoma of gastroesophageal junction (HCC) documented in this encounter Results * CT Chest Abdomen W Contrast (01/02/2025 2:53 PM CDT) Anatomical Region Laterality Modality Body N/A Computed Tomogra phy 01/02/2025 4:09 PM CDT Impressions 01/02/2025 4:11 PM CDT Postsurgical changes of esophagectomy and gastric pull-through with mild thickening at the anastomosis, likely post surgical; recommend continued attention on follow-up imaging. No definite metastasis in the chest or abdomen. Dictated by: Cyndi Wyman M.D. The radiology attending physician has personally reviewed this study, and had reviewed and/or edited this written report and agrees with it. Electronically signed by: Mikey Jones M.D. Narrative 01/02/2025 4:11 PM CDT EXAMINATION: CT CHEST ABDOMEN W CONTRAST HISTORY: 74-year-old male with adenocarcinoma of the distal esophagus, now status post resection. TECHNIQUE: Transaxial computed tomographic images of the chest and abdomen were obtained with intravenous contrast according to the standard protocol after the uneventful administration of 68 mL Opti-Ray 350 intravenous contrast. COMPARISON: Comparison is made to PET/CT dated 11/20/2024, as well as CT Body dated 08/03/2024. FINDINGS: Chest: Small region of tree-in-bud opacification of the right middle lobe of the lung. Atelectasis of the bilateral lower lobes of the lungs. No significant thoracic lymphadenopathy. Scant atherosclerotic calcifications of the abdominal aorta. Partially imaged pacemaker. Hypoattenuating left posterior thyroid lesion. Abdomen: Postsurgical changes of esophagectomy and gastric pull-through. Soft tissue thickening is noted near the surgical anastomosis. Surgical materials overlie the anterior abdomen, with fat necrosis tracking posteriorly within the upper abdomen. These findings are likely postsurgical. Normal hepatic morphology. Multiple calcified gallstones, without evidence of cholecystitis. No biliary ductal dilatation. Normal appearance of the spleen. Thickening of the left adrenal gland without discrete nodule, which may correspond to adrenal hyperplasia. Normal appearance of the right adrenal gland. Normal bilateral kidneys without evidence of hydronephrosis. No stones. Procedure Note Short, Mikey Herman MD - 01/02/2025 EXAMINATION: CT CHEST ABDOMEN W CONTRAST HISTORY: 74-year-old male with adenocarcinoma of the distal esophagus, now status post resection. TECHNIQUE: Transaxial computed tomographic images of the chest and abdomen were obtained with intravenous contrast according to the standard protocol after the uneventful administration of 68 mL Opti-Ray 350 intravenous contrast. COMPARISON: Comparison is made to PET/CT dated 11/20/2024, as well as CT Body dated 08/03/2024. FINDINGS: Chest: Small region of tree-in-bud opacification of the right middle lobe of the lung. Atelectasis of the bilateral lower lobes of the lungs. No significant thoracic lymphadenopathy. Scant atherosclerotic calcifications of the abdominal aorta. Partially imaged pacemaker. Hypoattenuating left posterior thyroid lesion. Abdomen: Postsurgical changes of esophagectomy and gastric pull-through. Soft tissue thickening is noted near the surgical anastomosis. Surgical materials overlie the anterior abdomen, with fat necrosis tracking posteriorly within the upper abdomen. These findings are likely postsurgical. Normal hepatic morphology. Multiple calcified gallstones, without evidence of cholecystitis. No biliary ductal dilatation. Normal appearance of the spleen. Thickening of the left adrenal gland without discrete nodule, which may correspond to adrenal hyperplasia. Normal appearance of the right adrenal gland. Normal bilateral kidneys without evidence of hydronephrosis. No stones. IMPRESSION: Postsurgical changes of esophagectomy and gastric pull-through with mild thickening at the anastomosis, likely post surgical; recommend continued attention on follow-up imaging. No definite metastasis in the chest or abdomen. Dictated by: Cyndi Wyman M.D. The radiology attending physician has personally reviewed this study, and had reviewed and/or edited this written report and agrees with it. Electronically signed by: Mikey Jones M.D. Jacques Omalley MD PhD IMG CT PROCEDURES Final Result documented in this encounter Visit Diagnoses Diagnosis Adenocarcinoma of gastroesophageal junction (HCC) documented in this encounter Administered Medications Inactive Administered Medications - up to 3 most recent administrations Medication Order MAR Action Action Date Dose Rate Site ioversoL (OPTIRAY 350) syringe 75 mL 75 mL, intravenous, Once in imaging, contrast, Starting on 01/02/25 at 1426, For 1 dose Contrast Given 01/02/2025 2:46 PM CDT 68 mL documented in this encounter Orders Medications Ordered That Adrian ht Not Have Been Administered Count Last Ordered Date First Ordered Date ioversoL (OPTIRAY 350) syringe 75 mL 1 12/15 documented in this encounter Care Teams Customer Support Consultant Relationship Specialty Start Date End Date Tai Cedillo MD PCP - General Family Practice 03/20/22 Jacques Omalley MD PhD [address] [facility], [facility] [address] [place] [address] Consulting Physician Medical Oncology 08/02/24 documented as of this encounter
--- OUTSIDE RECORDS SUMMARY | 2025-01-03 10:56 | XMS_ITS | Encounter Summary ---
Author Organization [facility] Healthcare Address [address] [place] [address] Care Team Providers Care Glass Mold Repairer Name Role Phone Tai Cedillo MD Primary Care Provider Jacques Omalley MD PhD Unavailable [phone] Encounter Details Date Type Department Care Team (Late st Contact Info) Description 01/02/2025 Telephone [facility] Medical [facility] Cardiology [address] [place] [address] [place] [phone] Vlad Babcock MD [address] [address] Social History Tobacco Use Types Packs/Day Years [...] 08/29/2024 How often do you attend chur ch or mosque services? 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 The only way to reach deactivated is he needs to schedule an appointment to come into the office for a pacemaker check and to bring his monitor with him. Left the [place] office telephone number for patient to calland schedule a follow-up appointment. documented in this encounter Plan of Treatment Not on file documented as of this encounter Visit Diagnoses Not on filedocumented in this encounter Care Teams Glass Mold Repairer Relationship Specialty Start Date End Date Tai Cedillo MD PCP - General Family Practice 03/20/22 Jacques Omalley MD PhD [address] [facility], [facility] [address] [place] [address] Consulting Physician Medical Oncology 08/02/24 documented as of this encounter
--- OUTSIDE RECORDS SUMMARY | 2025-01-03 10:56 | XMS_ITS | Encounter Summary ---
Author Organization [facility] Address [address] [place] [address] Phone Care Team Providers Care Obstetric Anaesthetist Name Role Phone Tai Cedillo MD Primary Care Provider Jacques Omalley MD PhD Unavailable [phone] Pilar Lawson Unavailable Unavailable Encounter Details Date Type Department Care Team (Late st Contact Info) Description 08/02/2024 Telephone [facility] Oncology [facility] Floor 5 [place] [address] Alie Rosado Social History Tobacco Use Types Packs/Day Years Used Date Smoking Tobacco: Never Sex and Gender Information Value Date Recorded Sex Assigned at Not on file 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 Gender Identity Not on file Sexual Orientation Not on file documented as of this encounter Plan of Treatment Not on file documented as of this encounter Visit Diagnoses Not on filedocumented in this encounter Care Teams Obstetric Anaesthetist Relationship Specialty Start Date End Date Tai Cedillo MD PCP - General Family Practice 03/20/22 Jacques Omalley MD PhD [address] [facility], [facility] [address] [place] [address] Consulting Physician Medical Oncology 08/02/24 Pilar Lawson RMA Surgical Prehabilitation and Readiness (SPAR) Coordinator 08/29/24 12/04/24 documented as of this encounter
--- OUTSIDE RECORDS SUMMARY | 2025-01-03 10:56 | XMS_ITS | Encounter Summary ---
Author Organization [facility] Healthcare Address [address] [place] [address] Care Team Providers Care Laboratory Animal Caretaker Name Role Phone Tai Cedillo MD Primary Care Provider Jacques Omalley MD PhD Unavailable [phone] Reason for Referral * Cardiology (Routine) - Authorized Specialty Diagnoses / Procedures Referred By Contac t Referred To Contact Diagnoses Complete heart block (HCC) Cardiac pacemaker in situ Procedures DEVICE CHECK - IN OFFICE Vlad Babcock MD [address] [place] [address] Phone: tel: fax: [facility] Medical Group Referral ID Status Reason Start Date Expiration Date V isits Requested Visits Authorized [id number] Authorized 01/02/2025 02/01/2026 1 1 * Cardiology (Routine) - Authorized Specialty Diagnoses / Procedures Referred By Contac t Referred To Contact Diagnoses Complete heart block (HCC) Cardiac pacemaker in situ Procedures DEVICE CHECK - IN OFFICE Vlad Babcock MD [address] [place] [id number] Phone: tel: fax: [facility] Medical [facility] Referral ID Status Reason Start Date Expiration Date V isits Requested Visits Authorized [id number] Authorized 01/02/2025 02/01/2026 1 1 * Cardiology (Routine) - Authorized Specialty Diagnoses / Procedures Referred By Contac t Referred To Contact Diagnoses Complete heart block (HCC) Cardiac pacemaker in situ Procedures DEVICE CHECK - IN OFFICE Vlad Babcock MD [address] [place] [address] Phone: tel: fax: [facility] Medical [facility] Referral ID Status Reason Start Date Expiration Date V isits Requested Visits Authorized [id number] Authorized 01/02/2025 02/01/2026 1 1 * Cardiology (Routine) - Authorized Specialty Diagnoses / Procedures Referred By Contac t Referred To Contact Diagnoses Complete heart block (HCC) Cardiac pacemaker in situ Procedures DEVICE CHECK - REMOTE Vlad Babcock MD [address] [place] [address] Phone: tel: fax: Referral ID Status Reason Start Date Expiration Date V isits Requested Visits Authorized [id number] Authorized 01/02/2025 07/05/2026 1 1 * Cardiology (Routine) - Authorized Specialty Diagnoses / Procedures Referred By Contac t Referred To Contact Diagnoses Complete heart block (HCC) Cardiac pacemaker in situ Procedures DEVICE CHECK - REMOTE Vlad Babcock MD [address] [place] [address] Phone: tel: fax: Referral ID Status Reason Start Date Expiration Date V isits Requested Visits Authorized [id number] Authorized 01/02/2025 07/05/2026 1 1 * Cardiology (Routine) - Authorized Specialty Diagnoses / Procedures Referred By Contac t Referred To Contact Diagnoses Complete heart block (HCC) Cardiac pacemaker in situ Procedures DEVICE CHECK - REMOTE Vlad Babcock MD [address] [place] [address] Phone: tel: fax: Referral ID Status Reason Start Date Expiration Date V isits Requested Visits Authorized [id number] Authorized 01/02/2025 07/05/2026 1 1 Encounter Details Date Type Department Care Team (Late st Contact Info) Description 01/02/2025 Orders Only [facility] Medical [facility] Cardiology [address] [place] [phone] Vlad Babcock MD [address] [address] Complete heart block (HCC) (Primary Dx); Cardiac pacemaker in situ Social History Tobacco Use Types Packs/Day Years [...] week 08/29/2024 How often do you attend [facility] or taoism services? More than 4 times per year 08/29/2024 Do you belong to any clubs o r organizations such as baptist groups, unions, fraternal or athletic groups, or [...] and heating? Not hard at all 08/29/2024 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 Gender Identity Not on file Sexual Orientation Not on file Occupation Industry Job Start Date Job End Date Retired - [employer] a [employer] Not on file Not on f ile Not on file documented as of this encounter Plan of Treatment Scheduled Orders Name Type Priority Associated Diagnoses Orde r Schedule DEVICE CHECK - REMOTE Cardiac Services Routine Complete heart block (HCC) Cardiac pacemaker in situ Expected: 04/03/2025, Expires: 08/15/2030 DEVICE CHECK - REMOTE Cardiac Services Routine Complete heart block (HCC) Cardiac pacemaker in situ Expected: 07/03/2025, Expires: 08/15/2030 DEVICE CHECK - REMOTE Cardiac Services Routine Complete heart block (HCC) Cardiac pacemaker in situ Expected: 10/02/2025, Expires: 08/15/2030 DEVICE CHECK - IN OFFICE Cardiac Services Routine Complete heart block (HCC) Cardiac pacemaker in situ Expected: 01/02/2025, Expires: 04/23/2032 DEVICE CHECK - IN OFFICE Cardiac Services Routine Complete heart block (HCC) Cardiac pacemaker in situ Expected: 01/02/2025, Expires: 04/23/2032 DEVICE CHECK - IN OFFICE Cardiac Services Routine Complete heart block (HCC) Cardiac pacemaker in situ Expected: 01/02/2025, Expires: 04/23/2032 documented as of this encounter Visit Diagnoses Diagnosis Complete heart block (HCC)- Primary Atrioventricular block, complete Cardiac pacemaker in situ documented in this encounter Care Teams Laboratory Animal Caretaker Relationship Specialty Start Date End Date Tai Cedillo MD PCP - General Family Practice 03/20/22 Jacques Omalley MD PhD [address] [facility], [facility] [address] [place] [address] Consulting Physician Medical Oncology 08/02/24 documented as of this encounter
--- OUTSIDE RECORDS SUMMARY | 2025-01-03 10:57 | XMS_ITS | Clinical Summary ---
Author Organization [facility] [address] Address [address] [place] [address] Care Team Providers Care Academy Director Name Role Phone Tai Cedillo MD Primary Care Provider Jacques Omalley MD PhD Unavailable [phone] Allergies No known active allergies Medications metFORMIN XR (GLUCOPHAGE XR) 500 mg 24 hr tablet Take 1 tablet (500 mg total) by mouth daily with breakfast Active OneTouch Verio test strips strip TEST 3 TIMES DAILY BEFORE MEALS DIRECTED Active OneTouch Verio Flex meter misc TEST 3 TIMES DAILY BEFORE MEALS DIRECTED Active OneTouch Delica Plus Lancet 33 gauge misc TEST 3 TIMES DAILY BEFORE MEALS DIRECTED 025 Active acetaminophen 500 mg capsule Take 2 capsules (1,000 mg total) by mouth every 6 (six) hours as needed for pain 025 Active oxyCODONE (ROXICODONE) 5 mg immediate release tabletIndications:P ain Take 1 tablet (5 mg total) by mouth every 4 (four) hours as needed for pain 10 tablet Active irbesartan (AVAPRO) 300 mg tablet Take 1 tablet (300 mg total) by mouth every morning 022 2024 Discontin ued(Stop Taking at Discharge ) allopurinoL (ZYLOPRIM) 100 mg tablet Take 1 tablet (100 mg total) by mouth daily 5 Discontin ued(Stop Taking at Discharge ) pantoprazole DR (PROTONIX) 40 mg EC tabletIndications:A denocarcinoma of gastroesophageal junction (HCC),Gastroesophag eal reflux disease without esophagitis Take 1 tablet (40 mg total) by mouth daily 30 tablet 5 025 2024 Discontin ued(Stop Taking at Discharge ) prochlorperazine (Compazine) 10 mg tabletIndications:A denocarcinoma of gastroesophageal junction (HCC) Take 1 tablet (10 mg total) by mouth every 6 (six) hours as needed for nausea or vomiting Use first for nausea 120 tablet 3 025 2024 Discontin ued(Stop Taking at Discharge ) ondansetron (ZOFRAN) 8 mg tabletIndications:A denocarcinoma of gastroesophageal junction (HCC) Take 1 tablet (8 mg total) by mouth every 8 (eight) hours as needed for nausea or vomiting Use if prochlorperazine does not stop nausea 24 tablet 3 025 2024 Discontin ued(Stop Taking at Discharge ) glipiZIDE (GLUCOTROL) 5 mg tablet Take 1 tablet (5 mg total) by mouth 2 (two) times a day 025 2024 Discontin ued(Stop Taking at Discharge ) ondansetron ODT (ZOFRAN-ODT) 4 mg disintegrating tablet Take 1 tablet (4 mg total) by mouth 3 (three) times a day for 5 days 20 tablet 025 2024 Active Problems Problem Noted Date Diagnosed Date [...] NPO, 2 swabs an hour - Dilaudid SOLE EDGE INKER MACHINE for pain control - Antiemetics PRN for [...] Edora Dual Pacemaker. Dx; CHB, LBBB. DOI 03/23/2022- Biotronik remote monitoring. Resolved Problems Problem Noted Date Diagnosed Date Resolved Date Anemia 12/08/2024 12/08/2024 Malignant neoplasm of lower third of esophagus 09/01/2024 09/14/2024 Encounters Date Type Department Care Team Description 01/02/2025 1:46 PM CDT - 01/02/2025 11:59 PM CDT Hospital Encounter [facility] [place] [address] [facility] Floor 8 [place] [address] Adenocarcinoma of gastroesophageal junction (HCC) Discharge Disposition: Discharge to home or self care 01/02/2025 Orders Only [facility] Cardiology [address] [place] [address] [place] [phone] Vlad Babcock MD Complete heart block (HCC) (Primary Dx); Cardiac pacemaker in situ 01/02/2025 Telephone [facility] Cardiology [address] [place] [address] [place] [phone] Vlad Babcock MD 12/21/2024 9:30 AM CDT Telemedicine [facility] Surgery [address] [place] [address] Adenocarcinoma of gastroesophageal junction (HCC) (Primary Dx) 12/15/[address] [phone] Kelsea Proctor NP 12/13/2024 Orders Only [facility] Surgery [address] [place] [address] Floor 5 [place] [phone] Nery Solorio NP Malignant neoplasm of lower third of esophagus (HCC) (Primary Dx) 12/11/2024 12:54 PM CDT - 12/11/2024 11:59 PM CDT Hospital Encounter [facility] Radiology 1 [place] [address] Discharge Disposition: Discharge to home or self care 12/05/2024 11:42 AM CDT Anesthesia Event [facility] Operating Room 1 [place] [phone] Rabia Porter MD Richardson, Genea Michelle, NP 12/05/2024 10:35 AM CDT - 12/05/2024 3:20 PM CDT Surgery [facility] Operating Room 1 [place] [address] Manolo Lott MD ESOPHAGECTOMY TRANSHIATAL 12/05/2024 7:24 AM CDT - 12/13/2024 2:59 PM CDT Hospital Encounter [facility] 1 [place] [address] Manolo Lott MD Malignant neoplasm of lower third of esophagus (HCC) Discharge Disposition: Discharge to home or self care 11/29/2024 Surgical Prehabilitation and Readiness Final Outreach [facility] Department of Surgery [address] [place] [phone] Pérez Dudley CMA 11/27/2024 Telephone [facility] Nutrition Counseling 1 [place] [address] 11/23/2024 9:15 AM CDT Office Visit [facility] Oncology [facility] [address] [phone] Jacques Omalley MD PhD Adenocarcinoma of gastroesophageal junction (HCC) (Primary Dx) 11/22/2024 4:00 PM CDT Pre-Admission Testing [facility] for Preoperative Assessment and Planning [facility] ([facility]) [address] [place] [phone] Preoperative testing (Primary Dx); Type 2 diabetes mellitus without complication, without long-term current use of insulin (HCC) 11/22/2024 12:45 PM CDT Office Visit [facility] Surgery [facility] [address] [phone] Manolo Lott MD Adenocarcinoma of gastroesophageal junction (HCC) (Primary Dx) 11/21/2024 10:00 AM CDT Office Visit [facility] Radiation Oncology [address] [place] [address] [place] [address] Mehdi Recio MD Adenocarcinoma of gastroesophageal junction (HCC) (Primary Dx) 11/20/2024 10:21 AM CDT - 11/20/2024 11:59 PM CDT Hospital Encounter [facility] - [facility] [address] Floor 8 [place] [address] Discharge Disposition: Discharge to home or self care 11/20/2024 10:21 AM CDT - 11/20/2024 11:59 PM CDT Hospital Encounter [facility] - PET [address] Floor 8 [place] [address] Adenocarcinoma of gastroesophageal junction (HCC) Discharge Disposition: Discharge to home or self care 11/15/2024 Surgical Prehabilitation and Readiness Subsequent Outreach [facility] Department of Surgery [address] [place] [phone] Pérez Dudley CMA 11/09/2024 9:45 AM CDT Clinical Support [facility] - Lab Collection [address] [place], [place] [address] Floor 5 [place] [address] 11/09/2024 9:15 AM CDT Office Visit [facility] Oncology [address] [place] [address] Floor 5 [place] [address] Jacques Omalley MD PhD Adenocarcinoma of gastroesophageal junction (HCC) (Primary Dx); Dehydration 11/09/2024 8:30 AM CDT Clinical Support [facility] - Lab Collection [address] [place], [place] [address] Floor 5 [place] [address] Adenocarcinoma of gastroesophageal junction (HCC); Dehydration 11/08/2024 Surgical Prehabilitation and Readiness Subsequent Outreach [facility] Department of Surgery [address] [place] [phone] Pérez Dudley CMA 11/02/2024 8:30 AM CDT Infusion [facility] - Infusion [address] Floor 5 [place] [address] Dehydration (Primary Dx); Adenocarcinoma of gastroesophageal junction (HCC) 11/02/2024 Documentation [facility] Nutrition Counseling 1 [place] [address] 10/26/2024 10:00 AM CDT Infusion [facility] - Infusion [address] [facility] Floor 5 [place] [address] Adenocarcinoma of gastroesophageal junction (HCC) (Primary Dx); Dehydration 10/26/2024 9:00 AM CDT Office Visit [facility] Oncology [facility] Floor 5 [place] [address] Jacques Omalley MD PhD Adenocarcinoma of gastroesophageal junction (HCC) (Primary Dx); Dehydration 10/26/2024 8:00 AM CDT Clinical Support [facility] - Lab Collection [address] [facility] Floor 5 [place] [address] Adenocarcinoma of gastroesophageal junction (HCC) 10/26/2024 Orders Only [facility] Oncology [address] [place] [address] 5 [place] [address] Jacques Omalley MD PhD 10/26/2024 Documentation [facility] Nutrition Counseling 1 [place] [phone] 10/25/2024 Surgical Prehabilitation and Readiness Subsequent Outreach [facility] Department of Surgery [address] [place] [phone] Pérez Dudley CMA 10/20/2024 10:45 AM [employer] Office Visit [facility] Cardiology at [address] [place] [address] Vlad Babcock MD Complete heart block (HCC) (Primary Dx); Cardiac pacemaker in situ 10/18/2024 10:09 AM [employer] - 10/18/2024 11:59 PM [employer] Hospital Encounter [facility] Radiation Oncology [address] [place] [address] Mehdi Recio MD Discharge Disposition: Discharge to home or self care 10/18/2024 Completion of Therapy [facility] Radiation Oncology [address] [place] [address] Mehdi Recio MD 10/18/2024 Surgical Prehabilitation and Readiness Subsequent Outreach [facility] Department of Surgery [address] [place] [phone] Pérez Dudley CMA 10/18/2024 Orders Only RAD ONC TREATMENTS Miscellaneous , Not In File 10/17/2024 11:23 AM [employer] - 10/17/2024 12:58 PM [employer] Hospital Encounter [facility] [address] [place] [address] Adenocarcinoma of gastroesophageal junction (HCC) (Primary Dx) Discharge Disposition: Discharge to home or self care 10/17/2024 9:56 AM [employer] - 10/17/2024 11:59 PM [employer] Hospital Encounter [facility] Radiation Oncology [address] [place] [address] [place] [address] Mehdi Recio MD Discharge Disposition: Discharge to home or self care 10/17/2024 OTV [facility] Radiation Oncology [address] [place] [address] [place] [address] Snow Randle RN 10/17/2024 Orders Only [facility] Radiation Oncology [address] [place] [address] Mehdi Recio MD 10/17/2024 Orders Only RAD ONC TREATMENTS Miscellaneous , Not In File 10/16/2024 10:07 AM [employer] - 10/16/2024 11:59 PM [employer] Hospital Encounter [facility] Radiation Oncology [address] [place] [address] Mehdi Recio MD Discharge Disposition: Discharge to home or self care 10/16/2024 Orders Only RAD ONC TREATMENTS Miscellaneous , Not In File 10/13/2024 9:41 AM [employer] - 10/13/2024 11:59 PM [employer] Hospital Encounter [facility] Radiation Oncology [address] [place] [address] [place] [address] Mehdi Recio MD Discharge Disposition: Discharge to home or self care 10/13/2024 Orders Only RAD ONC TREATMENTS Miscellaneous , Not In File 10/12/2024 11:30 AM [employer] Infusion [facility] - Infusion [address] [facility] Floor 5 [place] [address] Hyperglycemia (Primary Dx); Adenocarcinoma of gastroesophageal junction (HCC); Cardiac pacemaker in situ; Complete heart block (HCC) 10/12/2024 10:00 AM [employer] - 10/12/2024 11:59 PM [employer] Hospital Encounter [facility] Radiation Oncology [address] [place] [address] Mehdi Recio MD Discharge Disposition: Discharge to home or self care 10/12/2024 9:15 AM [employer] Office Visit [facility] Oncology [address] [place] [address] 5 [place] [address] Jacques Omalley MD PhD Adenocarcinoma of gastroesophageal junction (HCC) (Primary Dx); Hyperglycemia 10/12/2024 8:15 AM [employer] Clinical Support [facility] - Lab Collection [address] [facility] Floor 5 [place] [address] Adenocarcinoma of gastroesophageal junction (HCC); Hyperglycemia 10/12/2024 Orders Only [facility] Oncology [address] [place] [address] 5 [place] [address] Sonya Llamas RN 10/12/2024 Orders Only RAD ONC TREATMENTS Miscellaneous , Not In File 10/11/2024 9:44 AM [employer] - 10/11/2024 11:59 PM [employer] Hospital Encounter [facility] Radiation Oncology [address] [place] [address] Mehdi Recio MD Discharge Disposition: Discharge to home or self care 10/11/2024 Orders Only RAD ONC TREATMENTS Miscellaneous , Not In File 10/10/2024 10:11 AM [employer] - 10/10/2024 11:59 PM [employer] Hospital Encounter [facility] Radiation Oncology [address] [place] [address] Mehdi Recio MD Discharge Disposition: Discharge to home or self care 10/10/2024 OTV [facility] Radiation Oncology [address] [place] [address] Mehdi Recio MD 10/10/2024 Orders Only RAD ONC TREATMENTS Miscellaneous , Not In File 10/09/2024 9:41 AM [employer] - 10/09/2024 11:59 PM [employer] Hospital Encounter [facility] Radiation Oncology [address] [place] [address] Mehdi Recio MD Discharge Disposition: Discharge to home or self care 10/09/2024 Orders Only RAD ONC TREATMENTS Miscellaneous , Not In File 10/06/2024 9:52 AM [employer] - 10/06/2024 11:59 PM [employer] Hospital Encounter [facility] Advanced [facility] Radiation Oncology [address] [place] [address] Mehdi Recio MD Discharge Disposition: Discharge to home or self care 10/06/2024 Orders Only RAD ONC TREATMENTS Miscellaneous , Not In File from Last 3 Months Immunizations Immunization Administration Dates Next Due Influenza, Quadrivalent, Hilda l Culture-based MDCK, Preservative Free, Antibiotic Free, Intramuscular 05/25/2019 Influenza, Quadrivalent, Hig h Dose, Preservative Free, Intrr 06/13/2020 Influenza, Quadrivalent, Spl it, Preservative Free, Intramuscular 06/06/2021,09/12/2019 Influenza, Trivalent, High D ose, Split, Preservative Free, Intramuscular 05/18/2018,08/31/2016 Pneumococcal Conjugate PCV 13 08/31/2016, 016 Tdap 07/16/2014 ZOSTER LIVE 08/31/2016 Surgical History Surgery Date Site/Laterality Comments INSERT / REPLACE / REMOVE PACEMAKER 03/23/2022 COLONOSCOPY UPPER GASTROINTESTINAL ENDOSCOPY REPLACEMENT TOTAL KNEE 08/16/2014 - 08/15/2015 Bilateral REPLACEMENT TOTAL HIP LATERAL POSITION 08/16/2019 - 1208/2019 Right PORT PLACEMENT CHEST >5 YEARS 08/25/2024 N/A Medical History Medical History Date Comments Hypertension Esophageal cancer (HCC) Hyperlipidemia Type 2 diabetes mellitus (HCC) Chronic kidney disease Arthritis Pacemaker 03/23/2022 SSS (sick sinus syndrome) (HCC) Acid reflux Hyperglycemia 10/05/2024 Family History Medical History Relation Name Comments No Known Problems Brother Stroke Father No Known Problems Mother Leukemia Sister 1 No Known Problems Sister 2 Anesthesia problems Neg Hx Relation Name Status Comments Brother Alive Father (Age 89) Mother (Age 90) Sister 1 Sister 2 Alive Social History Tobacco Use Types Packs/Day Years Used Date Smoking Tobacco: Never Passive Smoke Exposure: Never Smokeless Tobacco: Never Tobacco Cessation:Counseling Given: Not Answered Humiliation, Afraid, Rape, and Kick questionnair e [...] week 08/29/2024 How often do you attend [facility] or rastafarian services? More than 4 times per year 08/29/2024 Do you belong to any clubs o r organizations such as uatsdin groups, unions, fraternal or athletic groups, or [...] and heating? Not hard at all 08/29/2024 [facility] - Occupational Stress Questionnaire Answer Date Recorded [...] on file Legal Sex Male 8:36 AM [employer] Gender Identity Not on file Sexual Orientation Not on file Occupation Industry Job Start Date Job End Date Retired - [employer] Not on file Not on f ile Not on file Obstetrics History Last Filed Vital Signs Vital Sign Reading Time Taken Comments Blood Pressure 139/100 12/13/2024 11:16 AM CDT Pulse 65 12/13/2024 11:16 AM CDT Temperature 36.8 C (98.2 F) 12/13/2024 11:16 AM CDT Respiratory Rate 18 12/13/2024 11:16 AM CDT Oxygen Saturation 98% 12/13/2024 11:16 AM CDT Inhaled Oxygen Concentration - - Weight 95.3 kg (210 lb) 12/05/2024 8:00 PM CDT Height 175.3 cm (5' 9 ) 12/05/2024 8:00 PM CDT Body Mass Index 31.01 12/05/2024 8:00 PM CDT Plan of Treatment Health Maintenance Due Date Last Done Comments Albumin Creatinine Ratio, Urine 1950 Colon Cancer Screening-Colonoscopy 1950 Depression Screening 1950 Hepatitis C Screening 1950 Dilated Eye Exam 1949 Foot Exam 1949 Hepatitis B Screening 1967 Well Visit 65+ 2014 Pneumococcal vaccine 65+ (2 of 2 - PPSV23) 10/26/2016 08/31/2016, 08/16/2015 Zoster Vaccine (1 of 2) 10/26/2016 08/31/2016 Covid-19 Vaccine (4 - 2023-2 5 season) 2024 05/20/2021, 09/25/2020, 09/04/2020 DTaP/Tdap/Td Vaccine (2 - Td or Tdap) 07/16/2024 07/16/2014 Influenza Vaccine (Season Ended) 2025 06/06/2021, 06/13/2020, 09/12/2019, Additional history exists Hemoglobin A1C 05/24/2025 11/22/2024 Lipid Panel 12/05/2025 12/05/2024, 02/0 03/2024, 04/30/2022 eGFR 12/11/2025 12/11/2024, 04/2 02/2025, 12/09/2024, Additional history exists Fall Risk Assessment 12/12/2025 12/12/2024, 08/29/19 25 Medical Devices Implanted Type Area Thumb Sewer Device Identifier Shelf Expiration Date Model / Serial / Lot Pacemaker Pacemaker Heart [employer] Xcela Power Port 8fr [id number] - [id number] Implanted:Qty: 1 on 08/25/2024 at [facility] [employer] 02/12/2029 [id number] / / [id number] Procedures Procedure Name Priority Date/Time Associated Diagnosis Comments CT CHEST ABDOMEN W CONTRAST Schedule Routine, Read Routine (OP Routine) 01/02/2025 2:53 PM CDT Adenocarcinoma of gastroesophageal junction (HCC) POCT GLUCOSE DEVICE Routine 12/13/2024 12:17 PM CDT POCT GLUCOSE DEVICE Routine 12/13/2024 8 :22 AM CDT POCT GLUCOSE DEVICE Routine 12/12/2024 8 :07 PM CDT XR CHEST 1 VIEW Timed 12/12/2024 8:00 PM CDT POCT GLUCOSE DEVICE Routine 12/12/2024 5 :13 PM CDT XR CHEST PA LATERAL 2 VIEWS Timed 12/12/2024 5:05 PM CDT POCT GLUCOSE DEVICE Routine 12/12/2024 12:05 PM CDT POCT GLUCOSE DEVICE Routine 12/12/2024 7 :57 AM CDT XR CHEST 1 VIEW Timed 12/12/2024 5:37 AM CDT POCT GLUCOSE DEVICE Routine 12/12/2024 3 :55 AM CDT POCT GLUCOSE DEVICE Routine 12/11/2024 11:40 PM CDT EGFR Routine 12/11/2024 9:16 PM CDT MAGNESIUM Routine 12/11/2024 9:16 PM CDT BASIC METABOLIC PANEL Routine 12/11/2024 9:16 PM CDT CBC WITHOUT DIFFERENTIAL Routine 12/11/2024 9:16 PM CDT POCT GLUCOSE DEVICE Routine 12/11/2024 8 :05 PM CDT XR ABDOMEN AP 1 VIEW Timed 12/11/2024 6:51 PM CDT POCT GLUCOSE DEVICE Routine 12/11/2024 4 :45 PM CDT FL ESOPHAGRAM, SINGLE CONTRAST IP Routine 12/11/2024 1:55 PM CDT POCT GLUCOSE DEVICE Routine 12/11/2024 12:31 PM CDT XR ABDOMEN AP 1 VIEW ED Urgent/IP Urgent 12/11/2024 9:07 AM CDT POCT GLUCOSE DEVICE Routine 12/11/2024 8 :06 AM CDT XR CHEST 1 VIEW Timed 12/11/2024 4:42 AM CDT POCT GLUCOSE DEVICE Routine 12/11/2024 4 :02 AM CDT POCT GLUCOSE DEVICE Routine 12/11/2024 2 :00 AM CDT POTASSIUM, WHOLE BLOOD STAT 12/11/2024 12:25 AM CDT POCT GLUCOSE DEVICE Routine 12/10/2024 10:04 PM CDT EGFR Routine 12/10/2024 9:08 PM CDT MAGNESIUM Routine 12/10/2024 9:08 PM CDT BASIC METABOLIC PANEL Routine 12/10/2024 9:08 PM CDT CBC WITHOUT DIFFERENTIAL Routine 12/10/2024 9:08 PM CDT POCT GLUCOSE DEVICE Routine 12/10/2024 7 :47 PM CDT POCT GLUCOSE DEVICE Routine 12/10/2024 5 :06 PM CDT POCT GLUCOSE DEVICE Routine 12/10/2024 11:39 AM CDT POCT GLUCOSE DEVICE Routine 12/10/2024 7 :57 AM CDT XR CHEST 1 VIEW Timed 12/10/2024 4:47 AM CDT POCT GLUCOSE DEVICE Routine 12/10/2024 3 :52 AM CDT POCT GLUCOSE DEVICE Routine 12/09/2024 11:37 PM CDT EGFR Routine 12/09/2024 9:54 PM CDT MAGNESIUM Routine 12/09/2024 9:54 PM CDT BASIC METABOLIC PANEL Routine 12/09/2024 9:54 PM CDT CBC WITHOUT DIFFERENTIAL Routine 12/09/2024 9:54 PM CDT POCT GLUCOSE DEVICE Routine 12/09/2024 7 :52 PM CDT POCT GLUCOSE DEVICE Routine 12/09/2024 5 :12 PM CDT POCT GLUCOSE DEVICE Routine 12/09/2024 12:23 PM CDT POCT GLUCOSE DEVICE Routine 12/09/2024 7 :59 AM CDT XR CHEST 1 VIEW Timed 12/09/2024 5:47 AM CDT POCT GLUCOSE DEVICE Routine 12/09/2024 4 :11 AM CDT POCT GLUCOSE DEVICE Routine 12/08/2024 11:55 PM CDT EGFR Routine 12/08/2024 10:11 PM CDT MAGNESIUM Routine 12/08/2024 10:11 PM CDT BASIC METABOLIC PANEL Routine 12/08/2024 10:11 PM CDT CBC WITHOUT DIFFERENTIAL Routine 12/08/2024 10:11 PM CDT POCT GLUCOSE DEVICE Routine 12/08/2024 8 :00 PM CDT POCT GLUCOSE DEVICE Routine 12/08/2024 4 :37 PM CDT POCT GLUCOSE DEVICE Routine 12/08/2024 12:01 PM CDT POCT GLUCOSE DEVICE Routine 12/08/2024 7 :53 AM CDT XR CHEST 1 VIEW Timed 12/08/2024 5:17 AM CDT POCT GLUCOSE DEVICE Routine 12/08/2024 4 :04 AM CDT POCT GLUCOSE DEVICE Routine 12/07/2024 11:56 PM CDT EGFR Routine 12/07/2024 8:33 PM CDT MAGNESIUM Routine 12/07/2024 8:33 PM CDT BASIC METABOLIC PANEL Routine 12/07/2024 8:33 PM CDT CBC WITHOUT DIFFERENTIAL Routine 12/07/2024 8:33 PM CDT POCT GLUCOSE DEVICE Routine 12/07/2024 8 :08 PM CDT POCT GLUCOSE DEVICE Routine 12/07/2024 5 :10 PM CDT POCT GLUCOSE DEVICE Routine 12/07/2024 11:27 AM CDT POCT GLUCOSE DEVICE Routine 12/07/2024 7 :36 AM CDT XR CHEST 1 VIEW Timed 12/07/2024 5:32 AM CDT POCT GLUCOSE DEVICE Routine 12/07/2024 3 :30 AM CDT POCT GLUCOSE DEVICE Routine 12/06/2024 11:25 PM CDT EGFR Routine 12/06/2024 8:45 PM CDT CBC WITHOUT DIFFERENTIAL Routine 12/06/2024 8:45 PM CDT BASIC METABOLIC PANEL Routine 12/06/2024 8:45 PM CDT POCT GLUCOSE DEVICE Routine 12/06/2024 8 :38 PM CDT POCT GLUCOSE DEVICE Routine 12/06/2024 5 :13 PM CDT POCT GLUCOSE DEVICE Routine 12/06/2024 11:57 AM CDT POCT GLUCOSE DEVICE Routine 12/06/2024 7 :56 AM CDT XR CHEST 1 VIEW Timed 12/06/2024 5:38 AM CDT POCT GLUCOSE DEVICE Routine 12/06/2024 4 :04 AM CDT POCT GLUCOSE DEVICE Routine 12/05/2024 11:53 PM CDT LIPID PANEL Timed 12/05/2024 9:45 PM CDT EGFR Timed 12/05/2024 9:45 PM CDT BASIC METABOLIC PANEL Timed 12/05/2024 9:45 PM CDT MAGNESIUM Timed 12/05/2024 9:45 PM CDT CBC WITHOUT DIFFERENTIAL Timed 12/05/2024 9:45 PM CDT BLOOD GAS, ARTERIAL STAT 12/05/2024 9 :45 PM CDT POCT GLUCOSE DEVICE Routine 12/05/2024 8 :49 PM CDT XR CHEST 1 VIEW ED Urgent/IP Urgent 12/05/2024 5:33 PM CDT POC BLOOD GAS AND CHEMISTRIES, ARTERIAL Routine 12/05/2024 5:26 PM CDT POCT GLUCOSE DEVICE Routine 12/05/2024 4 :03 PM CDT SURGICAL PATHOLOGY Routine 12/05/2024 1: 51 PM CDT Malignant neoplasm of lower third of esophagus (HCC) POCT GLUCOSE DEVICE Routine 12/05/2024 1 :27 PM CDT TX AN PROCEDURE PLACEHOLDER Routine 12/05/2024 12:57 PM CDT TX AN ELECTIVE ENDOTRACHEAL AIRWAY Routine 12/05/2024 12:57 PM CDT TX AN PROCEDURE PLACEHOLDER Routine 12/05/2024 12:53 PM CDT ESOPHAGECTOMY TRANSHIATAL 12/05/2024 11:41 AM CDT Malignant neoplasm of lower third of esophagus (HCC) TX AN PROCEDURE PLACEHOLDER Routine 12/05/2024 11:35 AM CDT POCT GLUCOSE DEVICE Routine 12/05/2024 9 :27 AM CDT B CHECK SAMPLE STAT 12/05/2024 9:27 AM CDT EGFR Routine 11/22/2024 4:10 PM CDT Preoperative testing DIFFERENTIAL AUTO Routine 11/22/2024 4:1 0 PM CDT Preoperative testing COMPREHENSIVE METABOLIC PANEL Routine 11/22/2024 4:10 PM CDT Preoperative testing HEMOGLOBIN A1C Routine 11/22/2024 4:10 PM CDT Preoperative testing Type 2 diabetes mellitus without complication, without long-term current use of insulin (HCC) CBC WITH AUTO DIFFERENTIAL Routine 11/22/2024 4:10 PM CDT Preoperative testing TYPE AND SCREEN 14 DAY Routine 11/22/2024 4:10 PM CDT Preoperative testing ECG 12-LEAD Routine 11/22/2024 3:26 PM CDT Preoperative testing PET/CT FDG SKULL TO THIGH Schedule Routine, Read Routine (OP Routine) 11/20/2024 1:10 PM CDT Adenocarcinoma of gastroesophageal junction (HCC) EGFR STAT 11/09/2024 8:48 AM CDT Adenocarcinoma of gastroesophageal junction (HCC) Dehydration DIFFERENTIAL AUTO Routine 11/09/2024 8:4 8 AM CDT Adenocarcinoma of gastroesophageal junction (HCC) Dehydration CBC WITH AUTO DIFFERENTIAL Routine 11/09/2024 8:48 AM CDT Adenocarcinoma of gastroesophageal junction (HCC) Dehydration COMPREHENSIVE METABOLIC PANEL STAT 11/09/2024 8:48 AM CDT Adenocarcinoma of gastroesophageal junction (HCC) Dehydration EGFR STAT 10/26/2024 8:05 AM CDT Adenocarcinoma of gastroesophageal junction (HCC) DIFFERENTIAL AUTO Routine 10/26/2024 8:0 5 AM CDT Adenocarcinoma of gastroesophageal junction (HCC) CBC WITH AUTO DIFFERENTIAL Routine 10/26/2024 8:05 AM CDT Adenocarcinoma of gastroesophageal junction (HCC) COMPREHENSIVE METABOLIC PANEL STAT 10/26/2024 8:05 AM CDT Adenocarcinoma of gastroesophageal junction (HCC) RAD ONC ARIA SESSION SUMMARY 10/18/2024 10:36 AM [employer] RAD ONC ARIA SESSION SUMMARY 10/17/2024 10:20 AM [employer] RAD ONC ARIA SESSION SUMMARY 10/16/2024 10:41 AM [employer] RAD ONC ARIA SESSION SUMMARY 10/13/2024 10:09 AM [employer] RAD ONC ARIA SESSION SUMMARY 10/12/2024 10:15 AM [employer] EGFR STAT 10/12/2024 8:00 AM [employer] Adenocarcinoma of gastroesophageal junction (HCC) Hyperglycemia DIFFERENTIAL AUTO Routine 10/12/2024 8:0 0 AM [employer] Adenocarcinoma of gastroesophageal junction (HCC) Hyperglycemia CBC WITH AUTO DIFFERENTIAL Routine 10/12/2024 8:00 AM [employer] Adenocarcinoma of gastroesophageal junction (HCC) Hyperglycemia COMPREHENSIVE METABOLIC PANEL STAT 10/12/2024 8:00 AM [employer] Adenocarcinoma of gastroesophageal junction (HCC) Hyperglycemia RAD ONC ARIA SESSION SUMMARY 10/11/2024 10:06 AM [employer] RAD ONC ARIA SESSION SUMMARY 10/10/2024 10:24 AM [employer] RAD ONC ARIA SESSION SUMMARY 10/09/2024 10:07 AM [employer] RAD ONC ARIA SESSION SUMMARY 10/06/2024 10:16 AM [employer] from Last 3 Months Results * CT Chest Abdomen W Contrast [...] evidence of hydronephrosis. No stones. Procedure Note Mikey Jones MD - 01/02/2025 EXAMINATION: CT CHEST ABDOMEN [...] MD PhD IMG CT PROCEDURES Final Result * POCT glucose (12/13/2024 12:17 PM CDT) Glucose, POC 120 70 - 199 mg/dL Blood 12/13/2024 12:1 7 PM CDT 12/13/2024 12:17 PM CDT Manolo Lott MD LAB POCT ORDERABLES - DEV ICE Final Result [facility] Department [place] [address] * POCT glucose (12/13/2024 8:22 AM CDT) Glucose, POC 85 70 - 199 mg/dL Blood 12/13/2024 8:22 AM CDT 12/13/2024 8:22 AM CDT Manolo Lott MD LAB POCT ORDERABLES - DEV ICE Final Result Performing Organization Address [facility] de Phone Number [facility] Department [place] [address] * POCT glucose (12/12/2024 8:07 PM CDT) Glucose, POC 159 70 - 199 mg/dL Blood 12/12/2024 8:07 PM CDT 12/12/2024 8:07 PM CDT Manolo Lott MD LAB POCT ORDERABLES - DEV ICE Final Result Performing Organization Address [facility] de Phone Number [facility] [address] * XR Chest 1 View (12/12/2024 8:00 PM CDT) Anatomical Region Laterality Modality Body, Chest N/A Digital Radiogra phy 12/13/2024 11:0 5 AM CDT Impressions 12/13/2024 11:18 AM CDT 2 view chest radiograph, 12/12/2024, 4:30 PM: Comparison radiograph dated 12/12/2024, 4:30 AM. Right internal jugular approach chest port catheter tip overlies the right atrium. Pacemaker with leads overlying the right atrium and right ventricle. Interval removal of a right thoracostomy tube. Small bilateral pleural effusions, unchanged. Mild left and moderate right atelectasis. Small bilateral apical pneumothoraces. Air within the subcutaneous tissues of the bilateral neck. Stable cardiac mediastinal silhouette. Radiograph dated 12/12/2024, 7:47 PM: Unchanged support devices. There are probably extremely tiny biapical pneumothoraces, unchanged. Dictated by: Leonor Saba MD The radiology attending physician has personally reviewed this study, and had reviewed and/or edited this written report and agrees with it. Electronically signed by: Divya Girard M.D. Narrative 12/13/2024 11:18 AM CDT EXAMINATION: XR CHEST PA LATERAL 2 VIEWS, XR CHEST 1 VIEW Procedure Note Divya Girard MD - 12/13/2024 EXAMINATION: XR CHEST PA LATERAL 2 VIEWS, XR CHEST 1 VIEW IMPRESSION: 2 view chest radiograph, 12/12/2024, 4:30 PM: Comparison radiograph dated 12/12/2024, 4:30 AM. Right internal jugular approach chest port catheter tip overlies the right atrium. Pacemaker with leads overlying the right atrium and right ventricle. Interval removal of a right thoracostomy tube. Small bilateral pleural effusions, unchanged. Mild left and moderate right atelectasis. Small bilateral apical pneumothoraces. Air within the subcutaneous tissues of the bilateral neck. Stable cardiac mediastinal silhouette. Radiograph dated 12/12/2024, 7:47 PM: Unchanged support devices. There are probably extremely tiny biapical pneumothoraces, unchanged. Dictated by: Leonor Saba MD The radiology attending physician has personally reviewed this study, and had reviewed and/or edited this written report and agrees with it. Electronically signed by: Divya Girard M.D. Manolo Lott MD IMG XR PROCEDURES Final R esult * POCT glucose (12/12/2024 5:13 PM CDT) Glucose, POC 112 70 - 199 mg/dL Blood 12/12/2024 5:13 PM CDT 12/12/2024 5:13 PM CDT us Manolo Lott MD LAB POCT ORDERABLES - DEV ICE Final Result [facility] Department [place] [address] * XR Chest PA Lateral 2 Views (12/12/2024 5:05 PM CDT) Anatomical Region Laterality Modality Body, Chest N/A Computed Radiogr aphy 12/13/2024 11:0 5 AM CDT Impressions 12/13/2024 11:18 AM CDT 2 view chest radiograph, 12/12/2024, 4:30 PM: Comparison radiograph dated 12/12/2024, 4:30 AM. Right internal jugular approach chest port catheter tip overlies the right atrium. Pacemaker with leads overlying the right atrium and right ventricle. Interval removal of a right thoracostomy tube. Small bilateral pleural effusions, unchanged. Mild left and moderate right atelectasis. Small bilateral apical pneumothoraces. Air within the subcutaneous tissues of the bilateral neck. Stable cardiac mediastinal silhouette. Radiograph dated 12/12/2024, 7:47 PM: Unchanged support devices. There are probably extremely tiny biapical pneumothoraces, unchanged. Dictated by: Leonor Saba MD The radiology attending physician has personally reviewed this study, and had reviewed and/or edited this written report and agrees with it. Electronically signed by: Divya Girard M.D. Narrative 12/13/2024 11:18 AM CDT EXAMINATION: XR CHEST PA LATERAL 2 VIEWS, XR CHEST 1 VIEW Procedure Note Divya Girard MD - 12/13/2024 EXAMINATION: XR CHEST PA LATERAL 2 VIEWS, XR CHEST 1 VIEW IMPRESSION: 2 view chest radiograph, 12/12/2024, 4:30 PM: Comparison radiograph dated 12/12/2024, 4:30 AM. Right internal jugular approach chest port catheter tip overlies the right atrium. Pacemaker with leads overlying the right atrium and right ventricle. Interval removal of a right thoracostomy tube. Small bilateral pleural effusions, unchanged. Mild left and moderate right atelectasis. Small bilateral apical pneumothoraces. Air within the subcutaneous tissues of the bilateral neck. Stable cardiac mediastinal silhouette. Radiograph dated 12/12/2024, 7:47 PM: Unchanged support devices. There are probably extremely tiny biapical pneumothoraces, unchanged. Dictated by: Leonor Saba MD The radiology attending physician has personally reviewed this study, and had reviewed and/or edited this written report and agrees with it. Electronically signed by: Divya Girard M.D. Manolo Lott MD IMG XR PROCEDURES Final R esult * POCT glucose (12/12/2024 12:05 PM CDT) Glucose, POC 97 70 - 199 mg/dL Blood 12/12/2024 12:0 5 PM CDT 12/12/2024 12:05 PM CDT Manolo Lott MD LAB POCT ORDERABLES - DEV ICE Final Result Performing Organization Address [facility] de Phone Number [facility] [place] [address] * POCT glucose (12/12/2024 7:57 AM CDT) Glucose, POC 122 70 - 199 mg/dL Blood 12/12/2024 7:57 AM CDT 12/12/2024 7:57 AM CDT Manolo Lott MD LAB POCT ORDERABLES - DEV ICE Final Result Performing Organization Address [facility] de Phone Number [facility] [place] [address] * XR Chest 1 View (12/12/2024 5:37 AM CDT) Anatomical Region Laterality Modality Body, Chest N/A Computed Radiogr aphy 12/12/2024 9:48 AM CDT Impressions 12/12/2024 10:32 AM CDT Comparison 12/11/2024. The patient is status post esophagectomy and gastric pull-up. A right internal jugular catheter is in place, tip overlies the right atrium. Right-sided thoracostomy tube. Right atrial lead is noted of the partially imaged dual lead cardiac pacemaker. Small left-sided pleural effusion similar to prior study. Bibasilar atelectasis. No definite right-sided effusion. Subcutaneous emphysema in the soft tissues of the neck bilaterally. No pneumothorax. Normal cardiomediastinal silhouette. Dictated by: Kati Merida MD The radiology attending physician has personally reviewed this study, and had reviewed and/or edited this written report and agrees with it. Electronically signed by: Divya Girard M.D. Narrative 12/12/2024 10:32 AM CDT EXAMINATION: 1 view chest radiograph Procedure Note Divya Girard MD - 12/12/2024 EXAMINATION: 1 view chest radiograph IMPRESSION: Comparison 12/11/2024. The patient is status post esophagectomy and gastric pull-up. A right internal jugular catheter is in place, tip overlies the right atrium. Right-sided thoracostomy tube. Right atrial lead is noted of the partially imaged dual lead cardiac pacemaker. Small left-sided pleural effusion similar to prior study. Bibasilar atelectasis. No definite right-sided effusion. Subcutaneous emphysema in the soft tissues of the neck bilaterally. No pneumothorax. Normal cardiomediastinal silhouette. Dictated by: Kati Merida MD The radiology attending physician has personally reviewed this study, and had reviewed and/or edited this written report and agrees with it. Electronically signed by: Divya Girard M.D. Manolo Lott MD IMG XR PROCEDURES Final R esult * POCT glucose (12/12/2024 3:55 AM CDT) [facility] Glucose, POC 104 70 - 199 mg/dL Blood 12/12/2024 3:55 AM CDT 12/12/2024 3:55 AM CDT us Manolo Lott MD LAB POCT ORDERABLES - DEV ICE Final Result [facility] Department [place] [address] * POCT glucose (12/11/2024 11:40 PM CDT) Glucose, POC 113 70 - 199 mg/dL Blood 12/11/2024 11:4 0 PM CDT 12/11/2024 11:40 PM CDT Manolo Lott MD LAB POCT ORDERABLES - DEV ICE Final Result [facility] [address] * eGFR (12/11/2024 9:16 PM CDT) eGFR >90 >=60 mL/min/1. 73 m2 Comment: Interpretive Data Reference Interval Normal >/= 90 mL/min/1.73m2 Mildly decreased* 60 - 89 mL/min/1.73m2 Mildly to moderately decreased 45 - 59 mL/min/1.73m2 Moderately to severely decreased 30 - 44 mL/min/1.73m2 Severely decreased 15 - 29 mL/min/1.73m2 Kidney Failure < 15 mL/min/1.73m2 *Relative to young adult level Estimated glomerular filtration rate is determined by the 2020 CKD-EPI equation recommended by the National Kidney Foundation (A Unifying Approach to GFR Estimation: Recommendations of the NKF-ASK Task Force on Reassessing the Inclusion of Race in Diagnosing Kidney Disease, JASN 2020). The CKD-EPI equation should not be used for patients with unstable renal function and has not been validated in children and those over 70. Current interpretive data was last reviewed 2021. Blood 12/11/2024 9:16 PM CDT 12/11/2024 9:48 PM CDT Manolo Lott MD LAB BLOOD ORDERABLES Rosie l Result [facility] [place] [address] * (ABNORMAL) CBC without differential (12/11/2024 9:16 PM CDT) [facility] WBC 5.26 3.80 - 9.90 K/cumm Hgb 10.3(L) 13.0 - 17.5 g/dL [facility] Hct 30.7(L) 38.9 - 50.3 % [facility] Plt 160 150 - 400 K/cumm [facility] MPV 10.2 9.1 - 12.3 fL [facility] RBC 3.35(L) 4.30 - 5.80 M/cumm [facility] MCV 91.6 81.3 - 96.4 fL [facility] MCH 30.7 27.1 - 33.3 pg [facility] MCHC 33.6 32.3 - 35.7 g/dL [facility] RDW CV 13.6 11.1 - 14.9 % [facility] RDW SD 45.4 35.7 - 48.1 fL [facility] NRBC abs 0.00 0.00 - 0.01 K/cumm [facility] Blood 12/11/2024 9:16 PM CDT 12/11/2024 9:49 PM CDT us Manolo Lott MD LAB BLOOD ORDERABLES Rosie l Result Performing Organization Address [facility] Co de Phone Number [facility] [address] * Magnesium (12/11/2024 9:16 PM CDT) [facility] Magnesium 1.8 1.4 - 2.5 mg/dL Blood 12/11/2024 9:16 PM CDT 12/11/2024 9:48 PM CDT us Pilar Lincoln [employer] LAB BLOOD ORDERABLES Rosie l Result Performing Organization Address City/[facility]/ZIP Co de Phone Number [facility] Department [place] [address] * (ABNORMAL) Basic metabolic panel (12/11/2024 9:16 PM CDT) Sodium 141 135 - 145 mmol/L Potassium, pl 3.6 3.3 - 4.9 mmol/L [facility] Chloride 104 97 - 110 mmol/L [facility] CO2 28 22 - 32 mmol/L [facility] Anion gap 9 2 - 15 mmol/L [facility] BUN 9 6 - 25 mg/dL [facility] Creatinine 0.69(L) 0.80 - 1.30 mg/dL [facility] Glucose 113 70 - 199 mg/dL [facility] Comment: Interpretive Data Fasting glucose >/= 126 mg/dl is diagnostic for diabetes. Fasting is defined as no caloric intake for at least 8 hours. Fasting glucose between 100 mg/dl to 125 mg/dl is diagnostic of prediabetes. In a patient with classic symptoms of hyperglycemia or hyperglycemic crisis, a random glucose >/= 200 mg/dl is diagnostic for diabetes. In the absence of unequivocal hyperglycemia, results should be confirmed by repeat testing. The classification and Diagnosis of Diabetes Diabetes Care 2021; 46: S19-S40. Current interpretive data was last revised 2022. Calcium 9.0 8.5 - 10.3 mg/dL [facility] Blood 12/11/2024 9:16 PM CDT 12/11/2024 9:48 PM CDT Manolo Lott MD LAB BLOOD ORDERABLES Rosie l Result [facility] Department [place] [address] * POCT glucose (12/11/2024 8:05 PM CDT) Glucose, POC 122 70 - 199 mg/dL Blood 12/11/2024 8:05 PM CDT 12/11/2024 8:05 PM CDT Manolo Lott MD LAB POCT ORDERABLES - DEV ICE Final Result [facility] Department [place] [address] * XR Abdomen Ap 1 Vw (12/11/2024 6:51 PM CDT) Anatomical Region Laterality Modality Body, Abdomen N/A Digital Radiogra phy 12/12/2024 9:00 AM CDT Impressions 12/12/2024 4:06 PM CDT Pacemaker leads project over the right atrium and right ventricle. Central venous catheter is noted. Midline surgical kane over the abdomen. Partially imaged right hip arthroplasty. Contrast seen throughout the large bowel to the level of the colon. Multiple colonic diverticuli. There are scattered foci of contrast throughout the remainder of the abdomen, which may be in loops of small bowel. Multiple gallstones are noted. Dictated by: Curtis Cavanaugh MD The radiology attending physician has personally reviewed this study, and had reviewed and/or edited this written report and agrees with it. Electronically signed by: Tena Copeland M.D. Narrative 12/12/2024 4:06 PM CDT EXAMINATION: Abdomen, one view. HISTORY: Evaluate passage of contrast. COMPARISON: 12/11/2024 Procedure Note Tena Copeland MD - 12/12/2024 EXAMINATION: Abdomen, one view. HISTORY: Evaluate passage of contrast. COMPARISON: 12/11/2024 IMPRESSION: Pacemaker leads project over the right atrium and right ventricle. Central venous catheter is noted. Midline surgical kane over the abdomen. Partially imaged right hip arthroplasty. Contrast seen throughout the large bowel to the level of the colon. Multiple colonic diverticuli. There are scattered foci of contrast throughout the remainder of the abdomen, which may be in loops of small bowel. Multiple gallstones are noted. Dictated by: Curtis Cavanaugh MD The radiology attending physician has personally reviewed this study, and had reviewed and/or edited this written report and agrees with it. Electronically signed by: Tena Copeland M.D. us Pilar Dumontkishor Lincoln [employer] IMG XR PROCEDURES Final R esult * POCT glucose (12/11/2024 4:45 PM CDT) Glucose, POC 132 70 - 199 mg/dL Blood 12/11/2024 4:45 PM CDT 12/11/2024 4:45 PM CDT us Manolo Lott MD LAB POCT ORDERABLES - DEV ICE Final Result [facility] Department [place] [address] * FL Esophagram, Single Contrast (12/11/2024 1:55 PM CDT) Anatomical Region Laterality Modality Body N/A Radio Fluoroscop y 12/11/2024 2:06 PM CDT Impressions 12/11/2024 2:15 PM CDT Postoperative changes of transhiatal esophagectomy without evidence of leak. Dictated by: Curtis Cavanaugh MD The radiology attending physician has personally reviewed this study, and had reviewed and/or edited this written report and agrees with it. Electronically signed by: Carlitos Danielle M.D. Narrative 12/11/2024 2:15 PM CDT EXAMINATION: SINGLE CONTRAST ESOPHAGRAM HISTORY: 74-year-old male with esophageal cancer status post transhiatal esophagectomy. Rule out leak. TECHNIQUE: The patient was given water soluble contrast followed by thin barium to drink, and multiple fluoroscopic and conventional overhead radiographs were obtained. FINDINGS: On the educational/development assistant radiograph, there is a right internal jugular port catheter terminating in the right atrium, a left subclavian approach pacemaker with leads over the right atrium and right ventricle, and bilateral chest tubes. There is a there is drain in the surgical site. With swallows, there are postoperative changes of esophagectomy and gastric pull through with tiny radiodensity posterior to the anastomosis compatible with postoperative change. There is no evidence of leak. There is retained contrast in the esophagus and stomach at the conclusion of study. Procedure Note Carlitos Danielle MD - 12/11/2024 EXAMINATION: SINGLE CONTRAST ESOPHAGRAM HISTORY: 74-year-old male with esophageal cancer status post transhiatal esophagectomy. Rule out leak. TECHNIQUE: The patient was given water soluble contrast followed by thin barium to drink, and multiple fluoroscopic and conventional overhead radiographs were obtained. FINDINGS: On the educational/development assistant radiograph, there is a right internal jugular port catheter terminating in the right atrium, a left subclavian approach pacemaker with leads over the right atrium and right ventricle, and bilateral chest tubes. There is a there is drain in the surgical site. With swallows, there are postoperative changes of esophagectomy and gastric pull through with tiny radiodensity posterior to the anastomosis compatible with postoperative change. There is no evidence of leak. There is retained contrast in the esophagus and stomach at the conclusion of study. IMPRESSION: Postoperative changes of transhiatal esophagectomy without evidence of leak. Dictated by: Curtis Cavanaugh MD The radiology attending physician has personally reviewed this study, and had reviewed and/or edited this written report and agrees with it. Electronically signed by: Carlitos Danielle M.D. us Pilar Lincoln [employer] IMG FLUOROSCOPY PROCEDURE S Final Result * POCT glucose (12/11/2024 12:31 PM CDT) Glucose, POC 115 70 - 199 mg/dL Blood 12/11/2024 12:3 1 PM CDT 12/11/2024 12:31 PM CDT us Manolo Lott MD LAB POCT ORDERABLES - DEV ICE Final Result [facility] Department [place] [address] * XR Abdomen Ap 1 Vw (12/11/2024 9:07 AM CDT) Anatomical Region Laterality Modality Body, Abdomen N/A Computed Radiogr aphy 12/11/2024 10:5 3 AM CDT Impressions 12/11/2024 11:57 AM CDT Normal bowel gas pattern. Cholelithiasis. Partially imaged right hip arthroplasty. Midline skin kane. Dictated by: Khalida Noland M.D. The radiology attending physician has personally reviewed this study, and had reviewed and/or edited this written report and agrees with it. Electronically signed by: Lizzie Banerjee M.D. Narrative 12/11/2024 11:57 AM CDT EXAMINATION: Abdomen, one view. HISTORY: Abdominal pain. COMPARISON: PET CT 11/20/2024 Procedure Note Lizzie Banerjee MD - 12/11/2024 EXAMINATION: Abdomen, one view. HISTORY: Abdominal pain. COMPARISON: PET CT 11/20/2024 IMPRESSION: Normal bowel gas pattern. Cholelithiasis. Partially imaged right hip arthroplasty. Midline skin kane. Dictated by: Khalida Noland M.D. The radiology attending physician has personally reviewed this study, and had reviewed and/or edited this written report and agrees with it. Electronically signed by: Lizzie Banerjee M.D. Manolo Lott MD IMG XR PROCEDURES Final R esult * POCT glucose (12/11/2024 8:06 AM CDT) Glucose, POC 122 70 - 199 mg/dL Blood 12/11/2024 8:06 AM CDT 12/11/2024 8:06 AM CDT Manolo Lott MD LAB POCT ORDERABLES - DEV ICE Final Result [facility] Department [place] [address] * XR Chest 1 View (12/11/2024 4:42 AM CDT) Anatomical Region Laterality Modality Body, Chest N/A Digital Radiogra phy 12/11/2024 9:08 AM CDT Impressions 12/11/2024 9:09 AM CDT Comparison radiograph dated 12/10/2024. Right internal jugular approach chest port catheter tip overlies the superior vena cava. Left subclavian approach pacemaker with leads overlying the right atrium and right ventricle. Left thoracostomy tube. Changes of esophagectomy. Drains overlie the mediastinum. Unchanged subcutaneous air in the bilateral supraclavicular regions. Small bilateral pleural effusions. Dictated by: Leonor Saba MD The radiology attending physician has personally reviewed this study, and had reviewed and/or edited this written report and agrees with it. Electronically signed by: Divya Girard M.D. Narrative 12/11/2024 9:09 AM CDT EXAMINATION: 1 view chest radiograph Procedure Note Divya Girard MD - 12/11/2024 EXAMINATION: 1 view chest radiograph IMPRESSION: Comparison radiograph dated 12/10/2024. Right internal jugular approach chest port catheter tip overlies the superior vena cava. Left subclavian approach pacemaker with leads overlying the right atrium and right ventricle. Left thoracostomy tube. Changes of esophagectomy. Drains overlie the mediastinum. Unchanged subcutaneous air in the bilateral supraclavicular regions. Small bilateral pleural effusions. Dictated by: Leonor Saba MD The radiology attending physician has personally reviewed this study, and had reviewed and/or edited this written report and agrees with it. Electronically signed by: Divya Girard M.D. us Manolo Lott MD IMG XR PROCEDURES Final R esult * POCT glucose (12/11/2024 4:02 AM CDT) Glucose, POC 129 70 - 199 mg/dL Blood 12/11/2024 4:02 AM CDT 12/11/2024 4:02 AM CDT us Manolo Lott MD LAB POCT ORDERABLES - DEV ICE Final Result [facility] [place] [address] * POCT glucose (12/11/2024 2:00 AM CDT) Glucose, POC 125 70 - 199 mg/dL Blood 12/11/2024 2:00 AM CDT 12/11/2024 2:00 AM CDT Manolo Lott MD LAB POCT ORDERABLES - DEV ICE Final Result Performing Organization Address City/[facility] [place] [address] * Potassium, whole blood (12/11/2024 12:25 AM CDT) [facility] Potassium, bld 3.9 3.3 - 4.9 mmol/L Blood 12/11/2024 12:2 5 AM CDT 12/11/2024 12:34 AM CDT Manolo Lott MD LAB BLOOD ORDERABLES Rosie l Result Performing Organization Address City/[facility] [place] [address] * POCT glucose (12/10/2024 10:04 PM CDT) [facility] Glucose, POC 131 70 - 199 mg/dL Blood 12/10/2024 10:0 4 PM CDT 12/10/2024 10:04 PM CDT Manolo Lott MD LAB POCT ORDERABLES - DEV ICE Final Result Performing Organization Address City/[facility] [place] [address] * eGFR (12/10/2024 9:08 PM CDT) [facility] eGFR >90 >=60 mL/min/1. 73 m2 Comment: Interpretive Data Reference Interval Normal >/= 90 mL/min/1.73m2 Mildly decreased* 60 - 89 mL/min/1.73m2 Mildly to moderately decreased 45 - 59 mL/min/1.73m2 Moderately to severely decreased 30 - 44 mL/min/1.73m2 Severely decreased 15 - 29 mL/min/1.73m2 Kidney Failure < 15 mL/min/1.73m2 *Relative to young adult level Estimated glomerular filtration rate is determined by the 2020 CKD-EPI equation recommended by the National Kidney Foundation (A Unifying Approach to GFR Estimation: Recommendations of the NKF-ASK Task Force on Reassessing the Inclusion of Race in Diagnosing Kidney Disease, JASN 2020). The CKD-EPI equation should not be used for patients with unstable renal function and has not been validated in children and those over 70. Current interpretive data was last reviewed 2021. Blood 12/10/2024 9:08 PM CDT 12/10/2024 9:21 PM CDT us Manolo Lott MD LAB BLOOD ORDERABLES Rosie white Result [facility] Department [place] [address] * (ABNORMAL) CBC without differential (12/10/2024 9:08 PM CDT) [facility] WBC 6.20 3.80 - 9.90 K/cumm Hgb 10.8(L) 13.0 - 17.5 g/dL [facility] Hct 32.1(L) 38.9 - 50.3 % [facility] Plt 122(L) 150 - 400 K/cumm [facility] MPV 10.7 9.1 - 12.3 fL [facility] RBC 3.53(L) 4.30 - 5.80 M/cumm [facility] MCV 90.9 81.3 - 96.4 fL [facility] MCH 30.6 27.1 - 33.3 pg [facility] MCHC 33.6 32.3 - 35.7 g/dL [facility] RDW CV 13.8 11.1 - 14.9 % [facility] RDW SD 46.1 35.7 - 48.1 fL [facility] NRBC abs 0.00 0.00 - 0.01 K/cumm [facility] Blood 12/10/2024 9:08 PM CDT 12/10/2024 9:22 PM CDT aMnolo Lott MD LAB BLOOD ORDERABLES Rosie l Result Performing Organization Address City/[facility] Co de Phone Number [facility] [address] * Magnesium (12/10/2024 9:08 PM CDT) [facility] Magnesium 1.8 1.4 - 2.5 mg/dL Blood 12/10/2024 9:08 PM CDT 12/10/2024 9:21 PM CDT Pilar Lincoln [employer] LAB BLOOD ORDERABLES Rosie l Result Performing Organization Address [facility] de Phone Number [facility] [address] * (ABNORMAL) Basic metabolic panel (12/10/2024 9:08 PM CDT) Pathologist [facility] Sodium 140 135 - 145 mmol/L Potassium, pl 5.3(H) 3.3 - 4.9 mmol/L [facility] Comment:Hemolyzed; Potassium value may be falsely elevated by as much as 1.1-1.6 mmol/L. Suggest redraw and reanalysis. Chloride 104 97 - 110 mmol/L [facility] CO2 28 22 - 32 mmol/L [facility] Anion gap 8 2 - 15 mmol/L [facility] BUN 8 6 - 25 mg/dL [facility] Creatinine 0.68(L) 0.80 - 1.30 mg/dL [facility] Glucose 123 70 - 199 mg/dL [facility] Comment: Interpretive Data Fasting glucose >/= 126 mg/dl is diagnostic for diabetes. Fasting is defined as no caloric intake for at least 8 hours. Fasting glucose between 100 mg/dl to 125 mg/dl is diagnostic of prediabetes. In a patient with classic symptoms of hyperglycemia or hyperglycemic crisis, a random glucose >/= 200 mg/dl is diagnostic for diabetes. In the absence of unequivocal hyperglycemia, results should be confirmed by repeat testing. The classification and Diagnosis of Diabetes Diabetes Care 2021; 46: S19-S40. Current interpretive data was last revised 2022. Calcium 8.9 8.5 - 10.3 mg/dL [facility] Blood 12/10/2024 9:08 PM CDT 12/10/2024 9:21 PM CDT Manolo Lott MD LAB BLOOD ORDERABLES Rosie l Result Performing Organization Address [facility] Co de Phone Number [facility] Department [place] [address] * POCT glucose (12/10/2024 7:47 PM CDT) Glucose, POC 144 70 - 199 mg/dL Blood 12/10/2024 7:47 PM CDT 12/10/2024 7:47 PM CDT Manolo Lott MD LAB POCT ORDERABLES - DEV ICE Final Result Performing Organization Address City/[facility]/ZIP Co de Phone Number [facility] Department [place] [address] * POCT glucose (12/10/2024 5:06 PM CDT) Glucose, POC 113 70 - 199 mg/dL Blood 12/10/2024 5:06 PM CDT 12/10/2024 5:06 PM CDT Manolo Lott MD LAB POCT ORDERABLES - DEV ICE Final Result Performing Organization Address [facility] Co de Phone Number [facility] [place] [address] * POCT glucose (12/10/2024 11:39 AM CDT) Glucose, POC 127 70 - 199 mg/dL Blood 12/10/2024 11:3 9 AM CDT 12/10/2024 11:39 AM CDT Manolo Lott MD LAB POCT ORDERABLES - DEV ICE Final Result Performing Organization Address [facility] de Phone Number [facility] [place] [address] * POCT glucose (12/10/2024 7:57 AM CDT) Glucose, POC 140 70 - 199 mg/dL Blood 12/10/2024 7:57 AM CDT 12/10/2024 7:57 AM CDT Manolo Lott MD LAB POCT ORDERABLES - DEV ICE Final Result Performing Organization Address [facility] [place] [address] * XR Chest 1 View (12/10/2024 4:47 AM CDT) Anatomical Region Laterality Modality Body, Chest N/A Digital Radiogra phy 12/10/2024 8:17 AM CDT Impressions 12/10/2024 8:17 AM CDT Comparison 12/09/2024. Right chest wall port catheter tip is in the right atrium. Left chest wall transvenous pacer is unchanged configuration, though the right ventricular lead is out of the field of view. Right chest tube is in place. There is volume loss within the right hemithorax with elevated right hemidiaphragm and bibasilar opacities favored to represent atelectasis. Trace left pleural effusion. There is likely a new small left apical pneumothorax. No right-sided pneumothorax is seen. The heart size is unchanged. Electronically signed by: Rg Huddleston M.D. Narrative 12/10/2024 8:17 AM CDT EXAMINATION: 1 view chest radiograph Procedure Note Rg Huddleston MD - 12/10/2024 EXAMINATION: 1 view chest radiograph IMPRESSION: Comparison 12/09/2024. Right chest wall port catheter tip is in the right atrium. Left chest wall transvenous pacer is unchanged configuration, though the right ventricular lead is out of the field of view. Right chest tube is in place. There is volume loss within the right hemithorax with elevated right hemidiaphragm and bibasilar opacities favored to represent atelectasis. Trace left pleural effusion. There is likely a new small left apical pneumothorax. No right-sided pneumothorax is seen. The heart size is unchanged. Electronically signed by: Rg Huddleston M.D. Manolo Lott MD IMG XR PROCEDURES Final R esult * POCT glucose (12/10/2024 3:52 AM CDT) Glucose, POC 121 70 - 199 mg/dL Blood 12/10/2024 3:52 AM CDT 12/10/2024 3:52 AM CDT Manolo Lott MD LAB POCT ORDERABLES - DEV ICE Final Result [facility] Department [place] [address] * POCT glucose (12/09/2024 11:37 PM CDT) Glucose, POC 139 70 - 199 mg/dL Blood 12/09/2024 11:3 7 PM CDT 12/09/2024 11:37 PM CDT Manolo Lott MD LAB POCT ORDERABLES - DEV ICE Final Result Performing Organization Address [facility] Co de Phone Number [facility] Department [place] [address] * eGFR (12/09/2024 9:54 PM CDT) Pathologist [facility] eGFR >90 >=60 mL/min/1. 73 m2 Comment: Interpretive Data Reference Interval Normal >/= 90 mL/min/1.73m2 Mildly decreased* 60 - 89 mL/min/1.73m2 Mildly to moderately decreased 45 - 59 mL/min/1.73m2 Moderately to severely decreased 30 - 44 mL/min/1.73m2 Severely decreased 15 - 29 mL/min/1.73m2 Kidney Failure < 15 mL/min/1.73m2 *Relative to young adult level Estimated glomerular filtration rate is determined by the 2020 CKD-EPI equation recommended by the National Kidney Foundation (A Unifying Approach to GFR Estimation: Recommendations of the NKF-ASK Task Force on Reassessing the Inclusion of Race in Diagnosing Kidney Disease, JASN 2020). The CKD-EPI equation should not be used for patients with unstable renal function and has not been validated in children and those over 70. Current interpretive data was last reviewed 2021. Blood 12/09/2024 9:54 PM CDT 12/09/2024 10:14 PM CDT Manolo Lott MD LAB BLOOD ORDERABLES Rosie l Result Performing Organization Address City/[facility] Co de Phone Number [facility] Department [place] [address] * (ABNORMAL) CBC without differential (12/09/2024 9:54 PM CDT) Pathologist [facility] WBC 4.75 3.80 - 9.90 K/cumm Hgb 10.2(L) 13.0 - 17.5 g/dL [facility] Hct 30.4(L) 38.9 - 50.3 % [facility] Plt 137(L) 150 - 400 K/cumm [facility] MPV 10.0 9.1 - 12.3 fL [facility] RBC 3.30(L) 4.30 - 5.80 M/cumm [facility] MCV 92.1 81.3 - 96.4 fL [facility] MCH 30.9 27.1 - 33.3 pg [facility] MCHC 33.6 32.3 - 35.7 g/dL [facility] RDW CV 13.7 11.1 - 14.9 % [facility] RDW SD 46.8 35.7 - 48.1 fL [facility] NRBC abs 0.00 0.00 - 0.01 K/cumm [facility] Blood 12/09/2024 9:54 PM CDT 12/09/2024 10:16 PM CDT Manolo Lott MD LAB BLOOD ORDERABLES Rosie l Result Performing Organization Address City/[facility]/ZIP Co de Phone Number [facility] Department [place] [address] * Magnesium (12/09/2024 9:54 PM CDT) [facility] Magnesium 1.9 1.4 - 2.5 mg/dL Blood 12/09/2024 9:54 PM CDT 12/09/2024 10:14 PM CDT Pilar Lincoln NP LAB BLOOD ORDERABLES Rosie l Result [facility] [place] [address] * (ABNORMAL) Basic metabolic panel (12/09/2024 9:54 PM CDT) [facility] Sodium 142 135 - 145 mmol/L Potassium, pl 3.5 3.3 - 4.9 mmol/L [facility] Chloride 106 97 - 110 mmol/L [facility] CO2 31 22 - 32 mmol/L [facility] Anion gap 5 2 - 15 mmol/L [facility] BUN 10 6 - 25 mg/dL [facility] Creatinine 0.72(L) 0.80 - 1.30 mg/dL [facility] Glucose 130 70 - 199 mg/dL [facility] Comment: Interpretive Data Fasting glucose >/= 126 mg/dl is diagnostic for diabetes. Fasting is defined as no caloric intake for at least 8 hours. Fasting glucose between 100 mg/dl to 125 mg/dl is diagnostic of prediabetes. In a patient with classic symptoms of hyperglycemia or hyperglycemic crisis, a random glucose >/= 200 mg/dl is diagnostic for diabetes. In the absence of unequivocal hyperglycemia, results should be confirmed by repeat testing. The classification and Diagnosis of Diabetes Diabetes Care 2021; 46: S19-S40. Current interpretive data was last revised 2022. Calcium 8.9 8.5 - 10.3 mg/dL [facility] Blood 12/09/2024 9:54 PM CDT 12/09/2024 10:14 PM CDT Manolo Lott MD LAB BLOOD ORDERABLES Rosie l Result [facility] [place] [address] * POCT glucose (12/09/2024 7:52 PM CDT) Glucose, POC 144 70 - 199 mg/dL Blood 12/09/2024 7:52 PM CDT 12/09/2024 7:52 PM CDT Manolo Lott MD LAB POCT ORDERABLES - DEV ICE Final Result [facility] [place] [address] * POCT glucose (12/09/2024 5:12 PM CDT) Glucose, POC 137 70 - 199 mg/dL Blood 12/09/2024 5:12 PM CDT 12/09/2024 5:12 PM CDT Manolo Lott MD LAB POCT ORDERABLES - DEV ICE Final Result Performing Organization Address [facility] de Phone Number [facility] [place] [address] * POCT glucose (12/09/2024 12:23 PM CDT) Glucose, POC 124 70 - 199 mg/dL Blood 12/09/2024 12:2 3 PM CDT 12/09/2024 12:23 PM CDT Manolo Lott MD LAB POCT ORDERABLES - DEV ICE Final Result Performing Organization Address [facility] de Phone Number [facility] Department [place] [address] * POCT glucose (12/09/2024 7:59 AM CDT) Glucose, POC 159 70 - 199 mg/dL Blood 12/09/2024 7:59 AM CDT 12/09/2024 7:59 AM CDT Manolo Lott MD LAB POCT ORDERABLES - DEV ICE Final Result Performing Organization Address [facility] de Phone Number [facility] [address] * XR Chest 1 View (12/09/2024 5:47 AM CDT) Anatomical Region Laterality Modality Body, Chest N/A Digital Radiogra phy 12/09/2024 8:33 AM CDT Impressions 12/09/2024 9:47 AM CDT 2-lead pacemaker is noted with leads terminating in the right atrial appendage and right ventricle. Right-sided chest port noted with the tip terminating in the superior cavoatrial junction. Surgical kane project over the mediastinum. Right-sided chest tube is noted. Slightly increased retrocardiac opacities in keeping with worsening left lower lobe collapse. Interval worsening partial collapse of the right lower lobe and atelectasis in the right middle lobe. Unchanged small left pleural effusion. No definite right effusion. Unchanged small right pneumothorax. No left pneumothorax. Cardiomediastinal silhouette is partially obscured but overall unchanged. Unchanged elevation of the right hemidiaphragm. Dictated by: Jillian Kunz MD The radiology attending physician has personally reviewed this study, and had reviewed and/or edited this written report and agrees with it. Electronically signed by: Ky Gonzalez M.D. Narrative 12/09/2024 9:47 AM CDT EXAMINATION: XR CHEST 1 VIEW HISTORY: s/p esophagectomy COMPARISON:Radiograph on 12/08/2024 Procedure Note Ky Gonzalez MD - 12/09/2024 EXAMINATION: XR CHEST 1 VIEW HISTORY: s/p esophagectomy COMPARISON:Radiograph on 12/08/2024 IMPRESSION: 2-lead pacemaker is noted with leads terminating in the right atrial appendage and right ventricle. Right-sided chest port noted with the tip terminating in the superior cavoatrial junction. Surgical kane project over the mediastinum. Right-sided chest tube is noted. Slightly increased retrocardiac opacities in keeping with worsening left lower lobe collapse. Interval worsening partial collapse of the right lower lobe and atelectasis in the right middle lobe. Unchanged small left pleural effusion. No definite right effusion. Unchanged small right pneumothorax. No left pneumothorax. Cardiomediastinal silhouette is partially obscured but overall unchanged. Unchanged elevation of the right hemidiaphragm. Dictated by: Jillian Kunz MD The radiology attending physician has personally reviewed this study, and had reviewed and/or edited this written report and agrees with it. Electronically signed by: Ky Gonzalez M.D. us Manolo Lott MD IMG XR PROCEDURES Final R esult * POCT glucose (12/09/2024 4:11 AM CDT) Glucose, POC 145 70 - 199 mg/dL Blood 12/09/2024 4:11 AM CDT 12/09/2024 4:11 AM CDT Manolo Lott MD LAB POCT ORDERABLES - DEV ICE Final Result Performing Organization Address City/[facility] Co de Phone Number [facility] Department [place] [address] * POCT glucose (12/08/2024 11:55 PM CDT) Glucose, POC 140 70 - 199 mg/dL Blood 12/08/2024 11:5 5 PM CDT 12/08/2024 11:55 PM CDT Manolo Lott MD LAB POCT ORDERABLES - DEV ICE Final Result Performing Organization Address [facility] de Phone Number [facility] [place] [address] * eGFR (12/08/2024 10:11 PM CDT) eGFR >90 >=60 mL/min/1. 73 m2 Comment: Interpretive Data Reference Interval Normal >/= 90 mL/min/1.73m2 Mildly decreased* 60 - 89 mL/min/1.73m2 Mildly to moderately decreased 45 - 59 mL/min/1.73m2 Moderately to severely decreased 30 - 44 mL/min/1.73m2 Severely decreased 15 - 29 mL/min/1.73m2 Kidney Failure < 15 mL/min/1.73m2 *Relative to young adult level Estimated glomerular filtration rate is determined by the 2020 CKD-EPI equation recommended by the National Kidney Foundation (A Unifying Approach to GFR Estimation: Recommendations of the NKF-ASK Task Force on Reassessing the Inclusion of Race in Diagnosing Kidney Disease, JASN 2020). The CKD-EPI equation should not be used for patients with unstable renal function and has not been validated in children and those over 70. Current interpretive data was last reviewed 2021. Blood 12/08/2024 10:1 1 PM CDT 12/08/2024 10:26 PM CDT Manolo Lott MD LAB BLOOD ORDERABLES Rosie l Result Performing Organization Address City/[facility]/ZIP Co de Phone Number [facility] [address] * (ABNORMAL) CBC without differential (12/08/2024 10:11 PM CDT) WBC 6.24 3.80 - 9.90 K/cumm Hgb 9.3(L) 13.0 - 17.5 g/dL [facility] Hct 27.8(L) 38.9 - 50.3 % [facility] Plt 124(L) 150 - 400 K/cumm [facility] MPV 9.9 9.1 - 12.3 fL [facility] RBC 3.01(L) 4.30 - 5.80 M/cumm [facility] MCV 92.4 81.3 - 96.4 fL [facility] MCH 30.9 27.1 - 33.3 pg [facility] MCHC 33.5 32.3 - 35.7 g/dL [facility] RDW CV 14.3 11.1 - 14.9 % [facility] RDW SD 48.7(H) 35.7 - 48.1 fL [facility] NRBC abs 0.00 0.00 - 0.01 K/cumm [facility] Blood 12/08/2024 10:1 1 PM CDT 12/08/2024 10:26 PM CDT Manolo Lott MD LAB BLOOD ORDERABLES Rosie l Result Performing Organization Address City/[facility]/ZIP Co de Phone Number [facility] [place] [address] * Magnesium (12/08/2024 10:11 PM CDT) Pathologist [facility] Magnesium 2.0 1.4 - 2.5 mg/dL Blood 12/08/2024 10:1 1 PM CDT 12/08/2024 10:26 PM CDT Pilar Lincoln [employer] LAB BLOOD ORDERABLES Rosie l Result Performing Organization Address City/[facility]/ZIP Co de Phone Number [facility] Department [place] [address] * (ABNORMAL) Basic metabolic panel (12/08/2024 10:11 PM CDT) [facility] Sodium 144 135 - 145 mmol/L Potassium, pl 3.6 3.3 - 4.9 mmol/L [facility] Chloride 109 97 - 110 mmol/L [facility] CO2 28 22 - 32 mmol/L [facility] Anion gap 7 2 - 15 mmol/L [facility] BUN 11 6 - 25 mg/dL [facility] Creatinine 0.74(L) 0.80 - 1.30 mg/dL [facility] Glucose 130 70 - 199 mg/dL [facility] Comment: Interpretive Data Fasting glucose >/= 126 mg/dl is diagnostic for diabetes. Fasting is defined as no caloric intake for at least 8 hours. Fasting glucose between 100 mg/dl to 125 mg/dl is diagnostic of prediabetes. In a patient with classic symptoms of hyperglycemia or hyperglycemic crisis, a random glucose >/= 200 mg/dl is diagnostic for diabetes. In the absence of unequivocal hyperglycemia, results should be confirmed by repeat testing. The classification and Diagnosis of Diabetes Diabetes Care 202; 46: S19-S40. Current interpretive data was last revised 2022. Calcium 8.4(L) 8.5 - 10.3 mg/dL [facility] Blood 12/08/2024 10:1 1 PM CDT 12/08/2024 10:26 PM CDT Manolo Lott MD LAB BLOOD ORDERABLES Rosie l Result Performing Organization Address City/[facility] Co de Phone Number [facility] [address] * POCT glucose (12/08/2024 8:00 PM CDT) Glucose, POC 125 70 - 199 mg/dL Blood 12/08/2024 8:00 PM CDT 12/08/2024 8:00 PM CDT Manolo Lott MD LAB POCT ORDERABLES - DEV ICE Final Result Performing Organization Address [facility] [place] [address] * POCT glucose (12/08/2024 4:37 PM CDT) Glucose, POC 114 70 - 199 mg/dL Blood 12/08/2024 4:37 PM CDT 12/08/2024 4:37 PM CDT Manolo Lott MD LAB POCT ORDERABLES - DEV ICE Final Result Performing Organization Address [facility] Co de Phone Number [facility] [address] * POCT glucose (12/08/2024 12:01 PM CDT) Glucose, POC 108 70 - 199 mg/dL Blood 12/08/2024 12:0 1 PM CDT 12/08/2024 12:01 PM CDT Manolo Lott MD LAB POCT ORDERABLES - DEV ICE Final Result Performing Organization Address City/[facility] Co de Phone Number [facility] [address] * POCT glucose (12/08/2024 7:53 AM CDT) Glucose, POC 98 70 - 199 mg/dL Blood 12/08/2024 7:53 AM CDT 12/08/2024 7:53 AM CDT Manolo Lott MD LAB POCT ORDERABLES - DEV ICE Final Result [facility] [place] [address] * XR Chest 1 View (12/08/2024 5:17 AM CDT) Anatomical Region Laterality Modality Body, Chest N/A Computed Radiogr aphy 12/08/2024 10:1 6 AM CDT Impressions 12/08/2024 10:26 AM CDT Comparison radiograph dated 12/07/2024. Right internal jugular approach chest port catheter tip overlies the right atrium. Left subclavian approach pacemaker with leads overlying the right atrium and right ventricle. Bilateral thoracostomy tubes. Postsurgical changes of esophagectomy. Trace right basilar pneumothorax., also present on prior exams. Small left pleural effusion. Persistent streaky opacities in the left lung base compatible with mild left basilar atelectasis. No left pneumothorax. Stable cardiomediastinal silhouette. There is subcutaneous emphysema in the soft tissues of the neck bilaterally. Dictated by: Leonor Saba MD The radiology attending physician has personally reviewed this study, and had reviewed and/or edited this written report and agrees with it. Electronically signed by: Divya Girard M.D. Narrative 12/08/2024 10:26 AM CDT EXAMINATION: 1 view chest radiograph Procedure Note Divya Girard MD - 12/08/2024 EXAMINATION: 1 view chest radiograph IMPRESSION: Comparison radiograph dated 12/07/2024. Right internal jugular approach chest port catheter tip overlies the right atrium. Left subclavian approach pacemaker with leads overlying the right atrium and right ventricle. Bilateral thoracostomy tubes. Postsurgical changes of esophagectomy. Trace right basilar pneumothorax., also present on prior exams. Small left pleural effusion. Persistent streaky opacities in the left lung base compatible with mild left basilar atelectasis. No left pneumothorax. Stable cardiomediastinal silhouette. There is subcutaneous emphysema in the soft tissues of the neck bilaterally. Dictated by: Leonor aSba MD The radiology attending physician has personally reviewed this study, and had reviewed and/or edited this written report and agrees with it. Electronically signed by: Divya Girard M.D. Manolo Lott MD IMG XR PROCEDURES Final R esult * POCT glucose (12/08/2024 4:04 AM CDT) [facility] Glucose, POC 98 70 - 199 mg/dL Blood 12/08/2024 4:04 AM CDT 12/08/2024 4:04 AM CDT Manolo Lott MD LAB POCT ORDERABLES - DEV ICE Final Result Performing Organization Address [facility]/ZIP Co de Phone [facility] [place] [address] * POCT glucose (12/07/2024 11:56 PM CDT) [facility] Glucose, POC 116 70 - 199 mg/dL Blood 12/07/2024 11:5 6 PM CDT 12/07/2024 11:56 PM CDT Manolo Lott MD LAB POCT ORDERABLES - DEV ICE Final Result [facility] [place] [address] * eGFR (12/07/2024 8:33 PM CDT) [facility] eGFR >90 >=60 mL/min/1. 73 m2 Comment: Interpretive Data Reference Interval Normal >/= 90 mL/min/1.73m2 Mildly decreased* 60 - 89 mL/min/1.73m2 Mildly to moderately decreased 45 - 59 mL/min/1.73m2 Moderately to severely decreased 30 - 44 mL/min/1.73m2 Severely decreased 15 - 29 mL/min/1.73m2 Kidney Failure < 15 mL/min/1.73m2 *Relative to young adult level Estimated glomerular filtration rate is determined by the 2020 CKD-EPI equation recommended by the National Kidney Foundation (A Unifying Approach to GFR Estimation: Recommendations of the NKF-ASK Task Force on Reassessing the Inclusion of Race in Diagnosing Kidney Disease, JASN 2020). The CKD-EPI equation should not be used for patients with unstable renal function and has not been validated in children and those over 70. Current interpretive data was last reviewed 2021. Blood 12/07/2024 8:33 PM CDT 12/07/2024 8:49 PM CDT Manolo Lott MD LAB BLOOD ORDERABLES Rosie white Result [facility] [place] [address] * (ABNORMAL) CBC without differential (12/07/2024 8:33 PM CDT) WBC 9.11 3.80 - 9.90 K/cumm Hgb 9.8(L) 13.0 - 17.5 g/dL [facility] Hct 29.2(L) 38.9 - 50.3 % [facility] Plt 135(L) 150 - 400 K/cumm [facility] MPV 10.1 9.1 - 12.3 fL [facility] RBC 3.10(L) 4.30 - 5.80 M/cumm [facility] MCV 94.2 81.3 - 96.4 fL [facility] MCH 31.6 27.1 - 33.3 pg [facility] MCHC 33.6 32.3 - 35.7 g/dL [facility] RDW CV 15.4(H) 11.1 - 14.9 % [facility] RDW SD 53.4(H) 35.7 - 48.1 fL [facility] NRBC abs 0.00 0.00 - 0.01 K/cumm [facility] Blood 12/07/2024 8:33 PM CDT 12/07/2024 8:49 PM CDT Manolo Lott MD LAB BLOOD ORDERABLES Rosie l Result Performing Organization Address City/[facility]/ZIP Co de Phone Number [facility] Department [place] [address] * Magnesium (12/07/2024 8:33 PM CDT) [facility] Magnesium 2.0 1.4 - 2.5 mg/dL Blood 12/07/2024 8:33 PM CDT 12/07/2024 8:49 PM CDT Pilar Lincoln NP LAB BLOOD ORDERABLES Rosie l Result Performing Organization Address [facility] de Phone Number [facility] [place] [address] * Basic metabolic panel (12/07/2024 8:33 PM CDT) [facility] Sodium 144 135 - 145 mmol/L Potassium, pl 3.7 3.3 - 4.9 mmol/L [facility] Chloride 108 97 - 110 mmol/L [facility] CO2 32 22 - 32 mmol/L [facility] Anion gap 4 2 - 15 mmol/L [facility] BUN 13 6 - 25 mg/dL [facility] Creatinine 0.82 0.80 - 1.30 mg/dL [facility] Glucose 112 70 - 199 mg/dL [facility] Comment: Interpretive Data Fasting glucose >/= 126 mg/dl is diagnostic for diabetes. Fasting is defined as no caloric intake for at least 8 hours. Fasting glucose between 100 mg/dl to 125 mg/dl is diagnostic of prediabetes. In a patient with classic symptoms of hyperglycemia or hyperglycemic crisis, a random glucose >/= 200 mg/dl is diagnostic for diabetes. In the absence of unequivocal hyperglycemia, results should be confirmed by repeat testing. The classification and Diagnosis of Diabetes Diabetes Care 2021; 46: S19-S40. Current interpretive data was last revised 2022. Calcium 9.3 8.5 - 10.3 mg/dL [facility] Blood 12/07/2024 8:33 PM CDT 12/07/2024 8:49 PM CDT Manolo Lott MD LAB BLOOD ORDERABLES Rosie l Result Performing Organization Address City/[facility] [place] [address] * POCT glucose (12/07/2024 8:08 PM CDT) Glucose, POC 117 70 - 199 mg/dL Blood 12/07/2024 8:08 PM CDT 12/07/2024 8:08 PM CDT Manolo Lott MD LAB POCT ORDERABLES - DEV ICE Final Result Performing Organization Address City/[facility] Co de Phone Number [facility] [place] [address] * POCT glucose (12/07/2024 5:10 PM CDT) Glucose, POC 118 70 - 199 mg/dL Blood 12/07/2024 5:10 PM CDT 12/07/2024 5:10 PM CDT Manolo Lott MD LAB POCT ORDERABLES - DEV ICE Final Result Performing Organization Address City/[facility] Co de Phone Number [facility] [address] * POCT glucose (12/07/2024 11:27 AM CDT) Glucose, POC 123 70 - 199 mg/dL Blood 12/07/2024 11:2 7 AM CDT 12/07/2024 11:27 AM CDT Manolo Lott MD LAB POCT ORDERABLES - DEV ICE Final Result Performing Organization Address [facility] Co de Phone Number [facility] Department [place] [address] * POCT glucose (12/07/2024 7:36 AM CDT) Glucose, POC 153 70 - 199 mg/dL Blood 12/07/2024 7:36 AM CDT 12/07/2024 7:36 AM CDT Manolo Lott MD LAB POCT ORDERABLES - DEV ICE Final Result Performing Organization Address [facility] de Phone Number [facility] [address] * XR Chest 1 View (12/07/2024 5:32 AM CDT) Anatomical Region Laterality Modality Body, Chest N/A Computed Radiogr aphy 12/07/2024 9:17 AM CDT Impressions 12/07/2024 12:37 PM CDT Comparison radiographs dated 12/06/2024. Right internal jugular approach chest port catheter tip overlies the superior cavoatrial junction. Left subclavian approach pacemaker with leads overlying the right atrium and right ventricle. Skin kane and Rachell drain overlying the left superior mediastinum. Postsurgical changes of esophagectomy. Small right apical pneumothorax, also present on the prior exam. Interval increase in subcutaneous gas overlying the bilateral supraclavicular regions. The left costophrenic angle is excluded from the [id number]. Unchanged elevation of the right hemidiaphragm. Likely small bilateral pleural effusions, unchanged. Mild bilateral perihilar atelectasis, stable. No right pneumothorax. Stable cardiomediastinal silhouette. Dictated by: Leonor Saba MD The radiology attending physician has personally reviewed this study, and had reviewed and/or edited this written report and agrees with it. Electronically signed by: Kevin Schmitt M.D. Narrative 12/07/2024 12:37 PM CDT EXAMINATION: 1 view chest radiograph Procedure Note Kevin Schmitt MD - 12/07/2024 EXAMINATION: 1 view chest radiograph IMPRESSION: Comparison radiographs dated 12/06/2024. Right internal jugular approach chest port catheter tip overlies the superior cavoatrial junction. Left subclavian approach pacemaker with leads overlying the right atrium and right ventricle. Skin kane and Bison drain overlying the left superior mediastinum. Postsurgical changes of esophagectomy. Small right apical pneumothorax, also present on the prior exam. Interval increase in subcutaneous gas overlying the bilateral supraclavicular regions. The left costophrenic angle is excluded from the [id number]. Unchanged elevation of the right hemidiaphragm. Likely small bilateral pleural effusions, unchanged. Mild bilateral perihilar atelectasis, stable. No right pneumothorax. Stable cardiomediastinal silhouette. Dictated by: Leonor Saba MD The radiology attending physician has personally reviewed this study, and had reviewed and/or edited this written report and agrees with it. Electronically signed by: Kevin Schmitt M.D. us Manolo Lott MD IMG XR PROCEDURES Final R esult * POCT glucose (12/07/2024 3:30 AM CDT) [facility] Glucose, POC 122 70 - 199 mg/dL Blood 12/07/2024 3:30 AM CDT 12/07/2024 3:30 AM CDT us Manolo Lott MD LAB POCT ORDERABLES - DEV ICE Final Result [facility] Department [place] [address] * POCT glucose (12/06/2024 11:25 PM CDT) Glucose, POC 152 70 - 199 mg/dL Blood 12/06/2024 11:2 5 PM CDT 12/06/2024 11:25 PM CDT Manolo Lott MD LAB POCT ORDERABLES - DEV ICE Final Result Performing Organization Address [facility] Co de Phone Number [facility] Department [place] [address] * eGFR (12/06/2024 8:45 PM CDT) Pathologist [facility] eGFR 87 >=60 mL/min/1. 73 m2 Comment: Interpretive Data Reference Interval Normal >/= 90 mL/min/1.73m2 Mildly decreased* 60 - 89 mL/min/1.73m2 Mildly to moderately decreased 45 - 59 mL/min/1.73m2 Moderately to severely decreased 30 - 44 mL/min/1.73m2 Severely decreased 15 - 29 mL/min/1.73m2 Kidney Failure < 15 mL/min/1.73m2 *Relative to young adult level Estimated glomerular filtration rate is determined by the 2020 CKD-EPI equation recommended by the National Kidney Foundation (A Unifying Approach to GFR Estimation: Recommendations of the NKF-ASK Task Force on Reassessing the Inclusion of Race in Diagnosing Kidney Disease, JASN 2020). The CKD-EPI equation should not be used for patients with unstable renal function and has not been validated in children and those over 70. Current interpretive data was last reviewed 2021. Blood 12/06/2024 8:45 PM CDT 12/06/2024 8:59 PM CDT Manolo Lott MD LAB BLOOD ORDERABLES Rosie l Result Performing Organization Address [facility] Co de Phone Number [facility] Department [place] [address] * (ABNORMAL) CBC without differential (12/06/2024 8:45 PM CDT) [facility] WBC 12.57(H) 3.80 - 9.90 K/cumm Hgb 11.1(L) 13.0 - 17.5 g/dL [facility] Hct 33.5(L) 38.9 - 50.3 % [facility] Plt 156 150 - 400 K/cumm [facility] MPV 9.8 9.1 - 12.3 fL [facility] RBC 3.61(L) 4.30 - 5.80 M/cumm [facility] MCV 92.8 81.3 - 96.4 fL [facility] MCH 30.7 27.1 - 33.3 pg [facility] MCHC 33.1 32.3 - 35.7 g/dL [facility] RDW CV 15.9(H) 11.1 - 14.9 % [facility] RDW SD 54.9(H) 35.7 - 48.1 fL [facility] NRBC abs 0.00 0.00 - 0.01 K/cumm [facility] Blood 12/06/2024 8:45 PM CDT 12/06/2024 9:00 PM CDT Pilar Lincoln [employer] LAB BLOOD ORDERABLES Rosie white Result [facility] Department [place] [address] * Basic metabolic panel (12/06/2024 8:45 PM CDT) [facility] Sodium 143 135 - 145 mmol/L Potassium, pl 4.3 3.3 - 4.9 mmol/L [facility] Chloride 105 97 - 110 mmol/L [facility] CO2 28 22 - 32 mmol/L [facility] Anion gap 10 2 - 15 mmol/L [facility] BUN 12 6 - 25 mg/dL [facility] Creatinine 0.92 0.80 - 1.30 mg/dL [facility] Glucose 154 70 - 199 mg/dL [facility] Comment: Interpretive Data Fasting glucose >/= 126 mg/dl is diagnostic for diabetes. Fasting is defined as no caloric intake for at least 8 hours. Fasting glucose between 100 mg/dl to 125 mg/dl is diagnostic of prediabetes. In a patient with classic symptoms of hyperglycemia or hyperglycemic crisis, a random glucose >/= 200 mg/dl is diagnostic for diabetes. In the absence of unequivocal hyperglycemia, results should be confirmed by repeat testing. The classification and Diagnosis of Diabetes Diabetes Care 2021; 46: S19-S40. Current interpretive data was last revised 2022. Calcium 9.0 8.5 - 10.3 mg/dL [facility] Blood 12/06/2024 8:45 PM CDT 12/06/2024 8:59 PM CDT Manolo Lott MD LAB BLOOD ORDERABLES Rosie l Result Performing Organization Address [facility] Co de Phone Number [facility] Department [place] [address] * POCT glucose (12/06/2024 8:38 PM CDT) Glucose, POC 159 70 - 199 mg/dL Blood 12/06/2024 8:38 PM CDT 12/06/2024 8:38 PM CDT Manolo Lott MD LAB POCT ORDERABLES - DEV ICE Final Result Performing Organization Address City/[facility] Co de Phone Number [facility] [place] [address] * POCT glucose (12/06/2024 5:13 PM CDT) Glucose, POC 131 70 - 199 mg/dL Blood 12/06/2024 5:13 PM CDT 12/06/2024 5:13 PM CDT Manolo Lott MD LAB POCT ORDERABLES - DEV ICE Final Result Performing Organization Address [facility] Co de Phone Number [facility] [place] [address] * POCT glucose (12/06/2024 11:57 AM CDT) Glucose, POC 187 70 - 199 mg/dL Blood 12/06/2024 11:5 7 AM CDT 12/06/2024 11:57 AM CDT Manolo Lott MD LAB POCT ORDERABLES - DEV ICE Final Result Performing Organization Address [facility] Co de Phone Number [facility] [place] [address] * POCT glucose (12/06/2024 7:56 AM CDT) Glucose, POC 189 70 - 199 mg/dL Blood 12/06/2024 7:56 AM CDT 12/06/2024 7:56 AM CDT Manolo Lott MD LAB POCT ORDERABLES - DEV ICE Final Result Performing Organization Address [facility] de Phone Number [facility] [place] [address] * XR Chest 1 View (12/06/2024 5:38 AM CDT) Anatomical Region Laterality Modality Body, Chest N/A Computed Radiogr aphy 12/06/2024 10:5 3 AM CDT Impressions 12/06/2024 11:28 AM CDT Radiographs dated 12/05/2024, 5:28 PM: Comparison is made to the PET/CT dated 11/20/2024. Right internal jugular approach chest port catheter tip overlies the superior cavoatrial junction. Left subclavian approach pacemaker is partially imaged, one lead overlies the right atrium. Right thoracostomy tube. Postsurgical changes of transhiatal esophagectomy, with resultant obscuration of the bilateral paravertebral stripes. Drain overlies the superior mediastinum. Increased interstitial opacities most prominent in the left lung, which may represent mild pulmonary edema. Small bilateral pleural effusions. Moderate left and mild right basilar atelectasis. No pneumothorax. Stable cardiomediastinal silhouette. Radiographs dated 12/06/2024, 5:36 AM: Right internal jugular approach chest port catheter tip overlies the superior cavoatrial junction. Left subclavian approach pacemaker with leads overlying the right atrium and right ventricle. Slight increase in size of a small right pleural effusion, with worsening atelectasis. Improved aeration of the left lung base. No pneumothorax. Dictated by: Leonor Saba MD The radiology attending physician has personally reviewed this study, and had reviewed and/or edited this written report and agrees with it. Electronically signed by: Divya Girard M.D. Narrative 12/06/2024 11:28 AM CDT EXAMINATION: 1 view chest radiograph, 1 view chest radiograph Procedure Note Divya Girard MD - 12/06/2024 EXAMINATION: 1 view chest radiograph, 1 view chest radiograph IMPRESSION: Radiographs dated 12/05/2024, 5:28 PM: Comparison is made to the PET/CT dated 11/20/2024. Right internal jugular approach chest port catheter tip overlies the superior cavoatrial junction. Left subclavian approach pacemaker is partially imaged, one lead overlies the right atrium. Right thoracostomy tube. Postsurgical changes of transhiatal esophagectomy, with resultant obscuration of the bilateral paravertebral stripes. Drain overlies the superior mediastinum. Increased interstitial opacities most prominent in the left lung, which may represent mild pulmonary edema. Small bilateral pleural effusions. Moderate left and mild right basilar atelectasis. No pneumothorax. Stable cardiomediastinal silhouette. Radiographs dated 12/06/2024, 5:36 AM: Right internal jugular approach chest port catheter tip overlies the superior cavoatrial junction. Left subclavian approach pacemaker with leads overlying the right atrium and right ventricle. Slight increase in size of a small right pleural effusion, with worsening atelectasis. Improved aeration of the left lung base. No pneumothorax. Dictated by: Leonor Saba MD The radiology attending physician has personally reviewed this study, and had reviewed and/or edited this written report and agrees with it. Electronically signed by: Divya Girard M.D. Manolo Lott MD IMG XR PROCEDURES Final R esult * (ABNORMAL) POCT glucose (12/06/2024 4:04 AM CDT) Glucose, POC 240(H) 70 - 199 mg/dL Blood 12/06/2024 4:04 AM CDT 12/06/2024 4:04 AM CDT Manolo Lott MD LAB POCT ORDERABLES - DEV ICE Final Result Performing Organization Address [facility] Co de Phone Number [facility] [place] [address] * (ABNORMAL) POCT glucose (12/05/2024 11:53 PM CDT) Glucose, POC 254(H) 70 - 199 mg/dL Blood 12/05/2024 11:5 3 PM CDT 12/05/2024 11:53 PM CDT Manolo Lott MD LAB POCT ORDERABLES - DEV ICE Final Result Performing Organization Address [facility] Co de Phone Number [facility] [place] [address] * eGFR (12/05/2024 9:45 PM CDT) eGFR >90 >=60 mL/min/1. 73 m2 Comment: Interpretive Data Reference Interval Normal >/= 90 mL/min/1.73m2 Mildly decreased* 60 - 89 mL/min/1.73m2 Mildly to moderately decreased 45 - 59 mL/min/1.73m2 Moderately to severely decreased 30 - 44 mL/min/1.73m2 Severely decreased 15 - 29 mL/min/1.73m2 Kidney Failure < 15 mL/min/1.73m2 *Relative to young adult level Estimated glomerular filtration rate is determined by the 2020 CKD-EPI equation recommended by the National Kidney Foundation (A Unifying Approach to GFR Estimation: Recommendations of the NKF-ASK Task Force on Reassessing the Inclusion of Race in Diagnosing Kidney Disease, JASN 2020). The CKD-EPI equation should not be used for patients with unstable renal function and has not been validated in children and those over 70. Current interpretive data was last reviewed 2021. Blood 12/05/2024 9:45 PM CDT 12/05/2024 10:00 PM CDT Manolo Lott MD LAB BLOOD ORDERABLES Rosie white Result [facility] Department [place] [address] * (ABNORMAL) CBC without differential (12/05/2024 9:45 PM CDT) WBC 19.57(H) 3.80 - 9.90 K/cumm Hgb 12.5(L) 13.0 - 17.5 g/dL [facility] Hct 37.3(L) 38.9 - 50.3 % [facility] Plt 193 150 - 400 K/cumm [facility] MPV 10.1 9.1 - 12.3 fL [facility] RBC 4.05(L) 4.30 - 5.80 M/cumm [facility] MCV 92.1 81.3 - 96.4 fL [facility] MCH 30.9 27.1 - 33.3 pg [facility] MCHC 33.5 32.3 - 35.7 g/dL [facility] RDW CV 15.8(H) 11.1 - 14.9 % [facility] RDW SD 53.0(H) 35.7 - 48.1 fL [facility] NRBC abs 0.00 0.00 - 0.01 K/cumm [facility] Blood 12/05/2024 9:45 PM CDT 12/05/2024 10:04 PM CDT Manolo Lott MD LAB BLOOD ORDERABLES Rosie l Result Performing Organization Address City/[facility] Co de Phone Number [facility] [place] [address] * Magnesium (12/05/2024 9:45 PM CDT) Pathologist [facility] Magnesium 1.7 1.4 - 2.5 mg/dL Blood 12/05/2024 9:45 PM CDT 12/05/2024 10:00 PM CDT Manolo Lott MD LAB BLOOD ORDERABLES Rosie l Result Performing Organization Address [facility] Phone Number [facility] [place] [address] * (ABNORMAL) Blood gas, arterial (12/05/2024 9:45 PM CDT) pH, Art 7.32(L) 7.35 - 7.45 PCO2, Arterial 44 35 - 45 mmHg [facility] PO2, Arterial 117(H) 83 - 108 mmHg [facility] HCO3 Art (Calculated) 23 20 - 30 mmol/L [facility] BE, art -4 mmol/L [facility] Comment: Interpretive Data No Reference Range Established Current Interpretive Data was last revised on 2017 O2 Sat Art (Measured) 98(H) 90 - 95 % [facility] Blood 12/05/2024 9:45 PM CDT 12/05/2024 10:00 PM CDT Manolo Lott MD LAB BLOOD ORDERABLES Rosie l Result Performing Organization Address [facility] Co de Phone Number [facility] [place] [address] * Lipid panel (12/05/2024 9:45 PM CDT) Cholesterol 158 30 - 199 mg/dL Comment: Interpretive Data Ages < or = 19 years Acceptable: <170 mg/dL Borderline high: 170-199 mg/dL High: >or= 200 mg/dL Ages > or = 20 years Desirable: <200 mg/dL Borderline high: 200-239 mg/dL High: >or= 240 mg/dL Literature References: 1. Expert Panel on Integrated Guidelines for Cardiovascular Health and Risk Reduction in Children and Adolescents. Pediatrics 2011;128:S213 2. NCEP Expert Panel. Circulation 2004;110:227 Current Interpretive Data was last revised on 2018. Triglycerides 85 <=149 mg/dL [facility] Comment: Interpretive Data Ages < or = 9 years Acceptable: <75 mg/dL Borderline high: 75-99 mg/dL High: >or= 100 mg/dL Ages 10 to 20 years Acceptable: <90 mg/dL Borderline high: 90-129 mg/dL High: >or= 130 mg/dL Ages > or = 20 years Desirable: <150 mg/dL Borderline high: 150-199 mg/dL High: 200-499 mg/dL Very high: >or= 499 mg/dL Literature References: 1. Expert Panel on Integrated Guidelines for Cardiovascular Health and Risk Reduction in Children and Adolescents. Pediatrics 2011;128:S213 2. NCEP Expert Panel. Circulation 2004;110:227 Current Interpretive Data was last revised on 2018. HDL 51 >=40 mg/dL [facility] Comment: Interpretive Data Ages < or = 19 years Acceptable: >45 mg/dL Borderline low: 40-45 mg/dL Low: <40 mg/dL Ages > or = 20 years Desirable: >or= 60 mg/dL Low: <40 mg/dL Literature References: 1. Expert Panel on Integrated Guidelines for Cardiovascular Health and Risk Reduction in Children and Adolescents. Pediatrics 2011;128:S213 2. NCEP Expert Panel. Circulation 2004;110:227 Current Interpretive Data was last revised on 2018. LDL, calculated 91 <=129 mg/dL [facility] Comment: Interpretive Data Ages < or = 19 years Acceptable: <110 mg/dL Borderline high: 110-129 mg/dL High: >or= 130 mg/dL Ages > or = 20 years Optimal: <100 mg/dL Near optimal: 100-129 mg/dL Borderline high: 130-159 mg/dL High: >160 mg/dL Calculated using the Polo LDL-C estimating equation. This equation was implemented on 2024. Prior to this date LDL-C was estimated using the Friedewald equation. Literature References: 1. Expert Panel on Integrated Guidelines for Cardiovascular Health and Risk Reduction in Children and Adolescents. Pediatrics 2011;128:S213 2. NCEP Expert Panel. Circulation 2004;110:227 3. Polo Jenkins et al. [facility] Cardiol. 2020 December 14;5(5):540-548. doi: [email or web address] Current Interpretive Data was last revised on 2024. Non-HDL Cholesterol 107 mg/dL [facility] Comment: Interpretive Data Ages < or = 19 years Acceptable: <120 mg/dL Borderline high: 120-144 mg/dL High: >145 mg/dL Ages > or = 20 years When triglycerides are >200 mg/dL, Non-HDL cholesterol is a secondary target of therapy with treatment goals that are 30 mg/dL greater than the LDL cholesterol target. Literature References: 1. Expert Panel on Integrated Guidelines for Cardiovascular Health and Risk Reduction in Children and Adolescents. Pediatrics 2011;128:S213 2. NCEP Expert Panel. Circulation 2004;110:227 Current Interpretive Data was last revised on 2018. Chol/HDL ratio 3 [facility] Blood 12/05/2024 9:45 PM CDT 12/05/2024 10:00 PM CDT Manolo Lott MD LAB BLOOD ORDERABLES Rosie white Result [facility] Department [place] [address] * (ABNORMAL) Basic metabolic panel (12/05/2024 9:45 PM CDT) Sodium 139 135 - 145 mmol/L Potassium, pl 4.5 3.3 - 4.9 mmol/L [facility] Chloride 103 97 - 110 mmol/L [facility] CO2 24 22 - 32 mmol/L [facility] Anion gap 12 2 - 15 mmol/L [facility] BUN 11 6 - 25 mg/dL [facility] Creatinine 0.80 0.80 - 1.30 mg/dL [facility] Glucose 263(H) 70 - 199 mg/dL [facility] Comment: Interpretive Data Fasting glucose >/= 126 mg/dl is diagnostic for diabetes. Fasting is defined as no caloric intake for at least 8 hours. Fasting glucose between 100 mg/dl to 125 mg/dl is diagnostic of prediabetes. In a patient with classic symptoms of hyperglycemia or hyperglycemic crisis, a random glucose >/= 200 mg/dl is diagnostic for diabetes. In the absence of unequivocal hyperglycemia, results should be confirmed by repeat testing. The classification and Diagnosis of Diabetes Diabetes Care 2021; 46: S19-S40. Current interpretive data was last revised 2022. Calcium 9.1 8.5 - 10.3 mg/dL [facility] Blood 12/05/2024 9:45 PM CDT 12/05/2024 10:00 PM CDT us Manolo Lott MD LAB BLOOD ORDERABLES Rosie l Result [facility] [place] [address] * (ABNORMAL) POCT glucose (12/05/2024 8:49 PM CDT) Glucose, POC 260(H) 70 - 199 mg/dL Blood 12/05/2024 8:49 PM CDT 12/05/2024 8:49 PM CDT Manolo Lott MD LAB POCT ORDERABLES - DEV ICE Final Result [facility] [place] [address] * XR Chest 1 View - in ICU (12/05/2024 5:33 PM CDT) Anatomical Region Laterality Modality Body, Chest N/A Computed Radiogr aphy 12/06/2024 10:5 3 AM CDT Impressions 12/06/2024 11:28 AM CDT Radiographs dated 12/05/2024, 5:28 PM: Comparison is made to the PET/CT dated 11/20/2024. Right internal jugular approach chest port catheter tip overlies the superior cavoatrial junction. Left subclavian approach pacemaker is partially imaged, one lead overlies the right atrium. Right thoracostomy tube. Postsurgical changes of transhiatal esophagectomy, with resultant obscuration of the bilateral paravertebral stripes. Drain overlies the superior mediastinum. Increased interstitial opacities most prominent in the left lung, which may represent mild pulmonary edema. Small bilateral pleural effusions. Moderate left and mild right basilar atelectasis. No pneumothorax. Stable cardiomediastinal silhouette. Radiographs dated 12/06/2024, 5:36 AM: Right internal jugular approach chest port catheter tip overlies the superior cavoatrial junction. Left subclavian approach pacemaker with leads overlying the right atrium and right ventricle. Slight increase in size of a small right pleural effusion, with worsening atelectasis. Improved aeration of the left lung base. No pneumothorax. Dictated by: Leonor Saba MD The radiology attending physician has personally reviewed this study, and had reviewed and/or edited this written report and agrees with it. Electronically signed by: Divya Girard M.D. Narrative 12/06/2024 11:28 AM CDT EXAMINATION: 1 view chest radiograph, 1 view chest radiograph Procedure Note Divya Girard MD - 12/06/2024 EXAMINATION: 1 view chest radiograph, 1 view chest radiograph IMPRESSION: Radiographs dated 12/05/2024, 5:28 PM: Comparison is made to the PET/CT dated 11/20/2024. Right internal jugular approach chest port catheter tip overlies the superior cavoatrial junction. Left subclavian approach pacemaker is partially imaged, one lead overlies the right atrium. Right thoracostomy tube. Postsurgical changes of transhiatal esophagectomy, with resultant obscuration of the bilateral paravertebral stripes. Drain overlies the superior mediastinum. Increased interstitial opacities most prominent in the left lung, which may represent mild pulmonary edema. Small bilateral pleural effusions. Moderate left and mild right basilar atelectasis. No pneumothorax. Stable cardiomediastinal silhouette. Radiographs dated 12/06/2024, 5:36 AM: Right internal jugular approach chest port catheter tip overlies the superior cavoatrial junction. Left subclavian approach pacemaker with leads overlying the right atrium and right ventricle. Slight increase in size of a small right pleural effusion, with worsening atelectasis. Improved aeration of the left lung base. No pneumothorax. Dictated by: Leonor Saba MD The radiology attending physician has personally reviewed this study, and had reviewed and/or edited this written report and agrees with it. Electronically signed by: Divya Girard M.D. Manolo Lott MD IMG XR PROCEDURES Final R esult * (ABNORMAL) POC Blood Gas and Chemistries, Arterial - (12/05/2024 5:26 PM CDT) pH, Art POC 7.27(L) 7.35 - 7.45 pCO2, Art POC 49(H) 35 - 45 mmHg [facility] pO2, Art POC 91 83 - 108 mmHg [facility] Na, POC 138 135 - 145 mmol/L [facility] K POC 3.8 3.3 - 4.9 mmol/L [facility] Comment: Interpretive Data Not all point of care methods assess for hemolysis. Confirm with instrument and retest K+ if not consistent with clinical signs and symptoms. Current Interpretive Data was last revised on 2023. Cl, POC 108 97 - 110 mmol/L [facility] Ionized Ca, POC 4.97 4.50 - 5.10 mg/dL [facility] Glucose, POC 288(H) 70 - 199 mg/dL [facility] Lactate, POC 3.9(H) 0.7 - 2.0 mmol/L [facility] SO2 (jenny) arterial 98(H) 90 - 95 % [facility] Base excess, POC -4.7 mmol/L [facility] HCO3, Art POC 22 20 - 30 mmol/L [facility] Hct, POC 40.0(L) 41.4 - 51.6 % [facility] Total Hb, POC 13.2(L) 13.8 - 17.2 g/dL [facility] Blood 12/05/2024 5:26 PM CDT 12/05/2024 5:26 PM CDT Manolo Lott MD LAB POCT ORDERABLES - DEV ICE Final Result Performing Organization Address City/[facility] Co de Phone Number [facility] Department [place] [address] * (ABNORMAL) POCT glucose (12/05/2024 4:03 PM CDT) Glucose, POC 211(H) 70 - 199 mg/dL Blood 12/05/2024 4:03 PM CDT 12/05/2024 4:03 PM CDT Manolo Lott MD LAB POCT ORDERABLES - DEV ICE Final Result Performing Organization Address [facility] de Phone Number [facility] Department [place] [address] * Surgical pathology (12/05/2024 1:51 PM CDT) Tissue (Esophagus, Partial / Total Resection) 12/05/2024 1:51 PM CDT Tissue specimen (specimen) (Lymph Node, Single excision) 12/05/2024 1:59 PM CDT Tissue specimen (specimen) (Lymph Node, Single excision) 12/05/2024 1:59 PM CDT Tissue specimen (specimen) (Esophagus, Partial / Total Resection) 12/05/2024 2:02 PM CDT Tissue specimen (specimen) (Esophagus, Partial / Total Resection) 12/05/2024 2:[address] PM [address] [facility] - 12/11/2024 2:15 PM CDT EPIC results best viewed via link to PDF [facility] [address] [facility] [place] [address] Note to Patients: This report may contain a detailed description of human tissue sent by a health care provider to the laboratory for pathologic evaluation. The content of this report is essential for diagnosis and may provide important critical findings. This information may be unfamiliar to patients to review without a medical professional present. It is advised that the patient review this report in the presence of a health care provider who can answer questions and explain the details. SURGICAL PATHOLOGY REPORT FINAL Patient Name: YANIQUE RED Gender: M : 1950 (Age: 74) Address: [address] [place] [id number] Hospital #: [id number] Taken:12/05/2024 Received:12/05/2024 Reported: 12/11/2024 Patient Type: [facility] Inpatient Service: Cardiothoracic Location: [place] [address] Physician(s): Adrian Herron MD Diagnosis: A. Esophagus, proximal esophageal margin, excision (AFR1) - No evidence of malignancy B. Lymph node, station 8, excision - No evidence of malignancy in one lymph node (0/1) C. Lymph node, station 7, excision - Neurovascular and fibroadipose tissue with no lymph nodes identified - No evidence of malignancy D. Distal esophagus, proximal stomach, esophagogastrectomy - No evidence of residual adenocarcinoma - Treatment effect alterations with fibrosis, chronic inflammation and radiation vascular changes - Surgical margins free of tumor - No evidence of malignancy in fourteen lymph nodes (0/14) - See synoptic E. Esophagus, true proximal esophageal margin, excision - Negative for malignancy albe/12/11/2024 14:01 By this signature, I attest that the above diagnosis is based upon my personal examination of the slides(and/or other material indicated in the diagnosis). Jacky Feliz M.D. Report Electronically Reviewed and Signed Out By Jacky Feliz M.D. 12/11/2024 14:15:00 Diagnosis Comment The frozen section diagnosis is confirmed. Intraoperative Consultation: Frozen Section Diagnosis AFR1: Proximal esophageal margin - Negative for malignancy By Silvino Saul M.D., Jorge Schafer M.D., Corine Alejandro M.D. Gross Consultation A: Proximal esophageal margin Received fresh is a 2.0x1.9x0.3 cm wolfe pink donut shaped tissue, entirely frozen in AFR1. I personally examined the relevant preparation(s) or a microscopic image of the relevant preparation(s) for the specimen(s) while the surgical procedure was still underway and rendered or confirmed the diagnosis(es) Report Electronically reviewed and Signed out by Corine Alejandro M.D. (A) Lucio Spears M.D. 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 PET-CT performed 08/25/2024 showed markedly FDG avid circumferential distal esophageal soft tissue thickening with extension to the GE junction and gastric cardia with moderate FDG avid thoracic para-aortic lymph node, likely a agnieszka metastasis. Repeat PET-CT post neoadjuvant treatment performed 11/20/2024 showed moderate FDG uptake at the site of previous esophageal thickening, consistent with postradiation inflammation versus residual disease, with increased mediastinal and bilateral hilar lymphadenopathy and a new left upper lobe ground-glass opacity, likely inflammatory or granulomatous process. Operative procedure: esophagectomy transhiatal Specimen(s) Received: A: Proximal esophageal margin B: Station 8 C: Station 7 D: Distal esophagus, proximal stomach E: True proximal esophageal margin Gross Description: Received in five formalin jars labeled with the patient's identifiers. A. Labeled proximal esophageal margin is frozen section cassette AF are one containing a frozen section tissue remnant. Tissue entirely submitted in AFR1. Jar 0. B. Labeled station 8 is a 3.2 x 1.1 x 0.9 cm piece of cauterized lobulated yellow-wolfe adipose tissue. Dissection and palpation reveal no definitive lymph nodes. The specimen is entirely submitted in cassettes B1-B2. Jar 0. C. Labeled station 7 is a 2.2 x 1.4 x 0.3 cm piece of cauterized lobulated yellow-wolfe adipose tissue containing a 0.6 x 0.3 x 0.2 cm putative lymph node. The specimen is entirely submitted in cassette C1. Jar 0. D. Labeled distal esophagus, proximal stomach is a 13.2 x 7.1 x 4.0 cm esophago gastrectomy specimen, containing esophagus (9.4 cm long x 2.4 cm in diameter), portion of proximal stomach (9.9 x 4.1 x 2.2 cm) and attached yellow lobulated adipose tissue (4.1 cm in greatest thickness). The serosal surface of the esophagus is brown wolfe with no areas of puckering or perforation. The serosal surface of the stomach is pink-wolfe with no gross abnormalities. The specimen is inked black. The proximal esophageal margin is received open; it is shaved and submitted as below, and the underlying tissue is inked blue. The distal gastric margin staple line is removed, shaved, and submitted as below; the underlying tissue is inked green. There is a staple line in the attached fat; it is removed, shaved, and submitted as below in the underlying tissue is inked red. The specimen is opened longitudinally, revealing pink-wolfe appropriately folded esophageal mucosa and white-wolfe appropriately irrigated gastric mucosa. At the gastroesophageal junction there is a 2.3 x 1.6 cm white-wolfe scarred area, grossly consistent with tumor bed. The scarred area is located 7.1 cm from the proximal margin and 3.9 cm from the distal margin. The scarred areas serially sectioned, and appears grossly confined to the mucosa with a maximal thickness of 0.2 cm. The scarred area comes within 1.1 cm of the nearest radial margin. The scarred area and gastroesophageal junction are entirely submitted as below. The remainder of the fat is removed from the specimen. Dissection and palpation reveal multiple putative lymph nodes, measuring 0.2 to 0.5 cm in greatest dimension. Additional players club representative sections of the remaining fat are submitted.Extension Agent sections submitted D1 Proximal esophageal margin, shaved D2-D8 Distal gastric margin staple line, shaved D9 Radial mesenteric margin staple line, shaved D10 Uninvolved esophagus, proximal to the scarred area D11-D21 Scarred area, entirely submitted D22-D25 Remainder of gastroesophageal junction, entirely submitted D26 Unremarkable stomach, distal to scarred area D27-D30 Putative lymph nodes, intact D31-D39 Extension Agent sections of remaining fat Jar 3. E. Labeled true proximal esophageal margin is an unoriented 3.6 1.1 x 0.7 cm piece of putative esophageal tissue lined with white-wolfe esophageal mucosa. There is a single pull-through stitch that is removed. The specimen is entirely submitted in cassette E1. Jar 0. 12/06/2024 15:04 Gross Resident:Mary Torre M.D., PCirahMateo. PA(s): Mary Torre M.D., P.hMateo. CANCER CASE SUMMARY FOR CARCINOMA OF THE ESOPHAGUS Procedure: Esophagogastrectomy Tumor site: Esophagogastric junction (EGJ) Relationship of tumor to esophagogastric junction: Tumor midpoint is located at the esophagogastric junction Tumor size: Cannot be determined: No evidence of primary tumor Histologic type: Carcinoma, type cannot be determined Histologic grade: GX: Cannot be assessed Tumor extension: No evidence of primary tumor Margins: All margins are uninvolved by invasive carcinoma, dysplasia, and intestinal metaplasia Treatment effect: Present No viable cancer cells (complete response, score 0) Lymphovascular invasion: Not identified Number of lymph nodes examined: 15 Number of lymph nodes involved: 0 Pathologic Stage Classification (pTNM, AJCC 8th Edition): TNM descriptors: y (posttreatment) Primary tumor (pT): pT0: No evidence of primary tumor Regional lymph nodes (pN): pN0: No regional lymph node metastasis The pathologic stage assigned here should be regarded as provisional, and may change after integration of clinical data not provided with this specimen. CAP VERSION: Esophagus 4.0.0.0 By this signature, I attest that the above diagnosis is based upon my personal examination of the slides(and/or other material). Addenda/Procedures The performance characteristics of some immunohistochemical stains, fluorescence in-situ hybridization tests and immunophenotyping by flow cytometry cited in this report (if any) were determined by the Surgical Pathology and Flow Cytometry Departments at [facility] as part of an ongoing quality assurance technician program and in compliance with federally mandated regulations drawn from the Clinical Laboratory Improvement Act of 1988 (CLIA '88). Some of these tests rely on the use of analyte specific reagents and are subject to specific labeling requirements by the US Food and Drug Administration. Such diagnostic tests may only be performed in a facility that is certified by the Department of Health and Human Services as a high complexity laboratory under CLIA '88. The FDA has determined that such clearance or approval is not necessary. This test is used for clinical purposes. It should not be regarded as investigational or for research. Nevertheless, federal rules concerning the medical use of analyte specific reagents require that the following disclaimer be attached to the report: This test was developed and its performance characteristics determined by the Surgical Pathology and Flow Cytometry Departments of [facility]. It has not been cleared or approved by the U. S. Food and Drug Administration. IMAGES AND SCANNED DOCUMENTS, IF INCLUDED, ONLY VIEWABLE IN PDF VERSION OF REPORT Manolo Lott MD LAB PATHOLOGY ORDERABLES Final Result Performing Organization Address [facility] Co de Phone Number PATHOLOGY [facility] IO [address] Floor [place], [place] [phone] * POCT glucose (12/05/2024 1:27 PM CDT) Glucose, POC 131 70 - 199 mg/dL Blood 12/05/2024 1:27 PM CDT 12/05/2024 1:27 PM CDT Manolo Lott MD LAB POCT ORDERABLES - DEV ICE Final Result Performing Organization Address [facility] Co de Phone Number [facility] Department [place] [address] * TX AN ELECTIVE ENDOTRACHEAL AIRWAY, TX AN PROCEDURE PLACEHOLDER (12/05/2024 12:57 PM CDT) Narrative Rabia Porter MD - 12/05/2024 12:57 PM CDT Rabia Porter MD 12/06/2024 7:02 AM Airway Patient location: OR Urgency: elective Indications for airway management: anesthesia and airway protection Difficult airway: no Staff: Supervising provider: Rabia Porter MD Placed by: Resident: Pravin Riley MD Emergent airway documentation: Risks and benefits discussed: yes Consent obtained: yes Consent given by: patient Airway prep: Preoxygenated: yes Patient position: sniffing Mask difficulty assessment: 0 - not attempted (RSI with head of bed up) Spontaneous ventilation during airway: absent Sedation level during airway: GA Final airway details: Final airway type: endotracheal airway Tube type: ETT ETT size: 8.0 mm Cuffed: yes Technique used for successful ETT placement: video laryngoscopy Devices/Methods used in placement: stylet and cricoid pressure Insertion site: oral Blade type: Charly Video blade type: Gonzales Blade size: 3 Cormack-Lehane (video): grade I - full view of glottis Cuff inflated with: air ETT to teeth: 24 cm Placement verified by: auscultation and CO2 detection Airway secured with: silk tape Number of attempts: 1 Planned trial extubation: yes us Rabia Porter MD ANESTHESIA ORDERABLES Fi nal Result * TX AN PROCEDURE PLACEHOLDER (12/05/2024 12:53 PM CDT) Narrative Rabia Porter MD - 12/05/2024 12:53 PM CDT Rabia Porter MD 12/06/2024 7:02 AM Arterial Line Patient location: OR End time: 12/05/2024 12:17 PM Indication: continuous blood pressure monitoring and blood sampling needed Ultrasound assisted: yes Staff: Supervising provider: Rabia Porter MD Placed by: Resident: Pravin Riley MD Procedure prep: Prep solution: chlorhexadine/alcohol Prep: sterile gloves Arterial line: Catheter size: 20 gauge Catheter length: 1 and 3/4 inch Catheter type: wire-guided catheter Seldinger technique: yes Laterality: left Site: radial artery Line secured: Tegaderm and tape Results: good waveform and good blood return Number of attempts: 1 Assessment: Events: patient tolerated procedure well with no complications us Rabia Porter MD ANESTHESIA ORDERABLES Fi nal Result * TX AN PROCEDURE PLACEHOLDER (12/05/2024 11:35 AM CDT) Narrative Rabia Porter MD - 12/05/2024 11:35 AM CDT Rabia Porter MD 12/06/2024 7:02 AM Epidural Block Patient location: OR Reason for block: post-op pain management per surgeon request Staff: Supervising provider: Rabia Porter MD Placed by: Anesthesiologist: Carlitos Pardo MD Resident: Hannah Vo MD Procedure prep: Preprocedure checklist: patient identified, procedure contraindications assessed, procedure consent obtained, surgical consent, IV checked, risks, benefits and alternatives discussed, monitors and equipment checked and timeout performed Patient Position: sitting Procedure performed while patient: sedate with meaningful contact Monitoring: ECG, oximetry and blood pressure Supplemental oxygen: nasal cannula Prep solution: chlorhexadine/alcohol PPE: provider hat/mask, sterile gloves and sterile drape Skin infiltrated with lidocaine 1%: yes Epidural: Approach: right paramedian Imaging guidance used: no Location: T7-8 Number of attempts:greater than 3 attempts Epidural needle: Injection technique: YOKASTA saline Needle type: Tuohy Needle gauge: 18 G Loss of resistance: 7 cm Catheter: Catheter type: multi-orifice. Catheter at skin depth: 10 cm Negative aspiration of blood: no Negative aspiration of CSF: no Test dose: negative Assessment: Sensory level - left: full eval pending Sensory level - right: full eval pending Events: patient tolerated procedure well with no complications Additional comments: Difficult epidural. Multiple attempts by 2 attending anesthesiologists. Lots of arthritis and difficult to assess adequate YOKASTA. Multiple levels attempted. Rabia Porter MD ANESTHESIA ORDERABLES Fi nal Result * Check Sample (12/05/2024 9:27 AM CDT) ABO Rh A Positive [facility] OTHER 12/05/2024 9:27 AM CDT 12/05/2024 10:39 AM CDT Result [facility] Manolo Lott MD LAB BLOOD ORDERABLES Rosie l Result [facility] Department [place] [address] [facility] * POCT glucose (12/05/2024 9:27 AM CDT) Glucose, POC 154 70 - 199 mg/dL Blood 12/05/2024 9:27 AM CDT 12/05/2024 9:27 AM CDT Manolo Lott MD LAB POCT ORDERABLES - DEV ICE Final Result Performing Organization Address City/[facility]/[place] [address] * TYPE AND SCREEN 14 DAY (11/22/2024 4:10 PM CDT) Christin, indirect Negative ABO Rh A Positive [facility] Blood 11/22/2024 4:10 PM CDT 11/22/2024 6:14 PM CDT Narrative [facility] - 11/22/2024 7:16 PM CDT Is this test being ordered in advance for a procedure?->Yes Expected date of procedure:->12/06/24 Has the patient been transfused in the past 3 months?->No Marcelina Holloway NP LAB BLOOD BANK TEST ORD ERABLES Final Result Performing Organization Address [facility] Co de Phone Number [facility] Department [place] [address] * eGFR (11/22/2024 4:10 PM CDT) Pathologist [facility] eGFR 83 >=60 mL/min/1. 73 m2 Comment: Interpretive Data Reference Interval Normal >/= 90 mL/min/1.73m2 Mildly decreased* 60 - 89 mL/min/1.73m2 Mildly to moderately decreased 45 - 59 mL/min/1.73m2 Moderately to severely decreased 30 - 44 mL/min/1.73m2 Severely decreased 15 - 29 mL/min/1.73m2 Kidney Failure < 15 mL/min/1.73m2 *Relative to young adult level Estimated glomerular filtration rate is determined by the 2020 CKD-EPI equation recommended by the National Kidney Foundation (A Unifying Approach to GFR Estimation: Recommendations of the NKF-ASK Task Force on Reassessing the Inclusion of Race in Diagnosing Kidney Disease, JASN 2020). The CKD-EPI equation should not be used for patients with unstable renal function and has not been validated in children and those over 70. Current interpretive data was last reviewed 2021. Blood 11/22/2024 4:10 PM CDT 11/22/2024 5:26 PM CDT Marcelina Holloway [employer] LAB BLOOD ORDERABLES Fi nal Result [facility] Department [place] [address] * (ABNORMAL) Differential, auto (11/22/2024 4:10 PM CDT) Neutrophil abs 2.82 1.50 - 6.50 K/cumm Imm gran abs 0.03 0.00 - 0.10 K/cumm [facility] Lymphocyte abs 0.92 0.80 - 3.30 K/cumm [facility] Monocyte abs 0.76 0.20 - 0.80 K/cumm [facility] Eosinophil abs 0.60(H) 0.00 - 0.50 K/cumm [facility] Basophil abs 0.07 0.00 - 0.10 K/cumm [facility] Neutrophil pct 54.3 % [facility] Comment: Interpretive Data Percent cell count reference ranges are not reported, since discordance with absolute values may lead to misinterpretation of CBC data. Current Interpretive Data was last revised on 2017. Imm gran pct 0.6 % [facility] Comment: Interpretive Data Percent cell count reference ranges are not reported, since discordance with absolute values may lead to misinterpretation of CBC data. Current Interpretive Data was last revised on 2017. Lymphocyte pct 17.7 % [facility] Comment: Interpretive Data Percent cell count reference ranges are not reported, since discordance with absolute values may lead to misinterpretation of CBC data. Current Interpretive Data was last revised on 2017. Monocyte pct 14.6 % [facility] Comment: Interpretive Data Percent cell count reference ranges are not reported, since discordance with absolute values may lead to misinterpretation of CBC data. Current Interpretive Data was last revised on 2017. Eosinophil pct 11.5 % [facility] Comment: Interpretive Data Percent cell count reference ranges are not reported, since discordance with absolute values may lead to misinterpretation of CBC data. Current Interpretive Data was last revised on 2017. Basophil pct 1.3 % [facility] Comment: Interpretive Data Percent cell count reference ranges are not reported, since discordance with absolute values may lead to misinterpretation of CBC data. Current Interpretive Data was last revised on 2017. Blood 11/22/2024 4:10 PM CDT 11/22/2024 5:26 PM CDT Marcelina Holloway NP LAB BLOOD ORDERABLES Fi nal Result [facility] Department [place] [address] * (ABNORMAL) CBC with auto differential (11/22/2024 4:10 PM CDT) WBC 5.20 3.80 - 9.90 K/cumm Hgb 11.6(L) 13.0 - 17.5 g/dL [facility] Hct 34.0(L) 38.9 - 50.3 % [facility] Plt 168 150 - 400 K/cumm [facility] MPV 10.1 9.1 - 12.3 fL [facility] RBC 3.76(L) 4.30 - 5.80 M/cumm [facility] MCV 90.4 81.3 - 96.4 fL [facility] MCH 30.9 27.1 - 33.3 pg [facility] MCHC 34.1 32.3 - 35.7 g/dL [facility] RDW CV 17.2(H) 11.1 - 14.9 % [facility] RDW SD 57.2(H) 35.7 - 48.1 fL [facility] NRBC abs 0.00 0.00 - 0.01 K/cumm [facility] Blood 11/22/2024 4:10 PM CDT 11/22/2024 5:26 PM CDT Marcelina Holloway NP LAB BLOOD ORDERABLES Fi nal Result Performing Organization Address [facility] de Phone Number [facility] Department [place] [address] * (ABNORMAL) Hemoglobin A1c (11/22/2024 4:10 PM CDT) Hgb A1C 8.5(H) 4.0 - 5.6 % Estimated Average Glucose 197 mg/dL [facility] Comment: The ADA recommends reporting an estimated Average Glucose (eAG) with all Hemoglobin A1c results using the equation derived from a study of 507 normal and diabetic adults. Minority populations were underrepresented and children were not included. (Diabetes Care 2020; 43(S1): S66-S76). The eAG is not equivalent to a fasting glucose. Blood 11/22/2024 4:10 PM CDT 11/22/2024 5:25 PM CDT Marcelina Holloway NP LAB BLOOD ORDERABLES Fi nal Result Performing Organization Address [facility] de Phone Number [facility] Department [place] [address] * (ABNORMAL) Comprehensive metabolic panel (11/22/2024 4:10 PM CDT) [facility] Sodium 137 135 - 145 mmol/L Potassium, pl 3.9 3.3 - 4.9 mmol/L [facility] Chloride 100 97 - 110 mmol/L [facility] CO2 27 22 - 32 mmol/L [facility] Anion gap 10 2 - 15 mmol/L [facility] BUN 15 6 - 25 mg/dL [facility] Creatinine 0.95 0.80 - 1.30 mg/dL [facility] Glucose 262(H) 70 - 199 mg/dL [facility] Comment: Interpretive Data Fasting glucose >/= 126 mg/dl is diagnostic for diabetes. Fasting is defined as no caloric intake for at least 8 hours. Fasting glucose between 100 mg/dl to 125 mg/dl is diagnostic of prediabetes. In a patient with classic symptoms of hyperglycemia or hyperglycemic crisis, a random glucose >/= 200 mg/dl is diagnostic for diabetes. In the absence of unequivocal hyperglycemia, results should be confirmed by repeat testing. The classification and Diagnosis of Diabetes Diabetes Care 2021; 46: S19-S40. Current interpretive data was last revised 2022. Calcium 9.7 8.5 - 10.3 mg/dL [facility] Bilirubin, total 0.3 0.1 - 1.2 mg/dL [facility] Protein, pl 7.0 6.5 - 8.5 g/dL [facility] Albumin 3.5 3.5 - 5.0 g/dL [facility] Alk phos 77 40 - 130 Units/L [facility] ALT 17 7 - 55 Units/L [facility] AST 19 10 - 50 Units/L [facility] Blood 11/22/2024 4:10 PM CDT 11/22/2024 5:26 PM CDT Marcelina Holloway NP LAB BLOOD ORDERABLES Fi nal Result Performing Organization Address [facility] de Phone Number [facility] Department [place] [address] * ECG 12 lead (11/22/2024 3:26 PM CDT) Pathologist [facility] Ventricular Rate EKG/Min 68 BPM [facility] Atrial Rate 68 BPM [facility] [place]-Interval (MSEC) 208 ms [facility] QRS-Interval (MSEC) 200 ms [facility] QT-Interval (MSEC) 490 ms [facility] QTc 521 ms [facility] P [place] -74 degrees [facility] R [place] -72 degrees [facility] T [place] 104 degrees [facility] Diagnosis AV dual-paced rhythm Abnormal ECG No previous ECGs available Confirmed by Isaac Morgan MD ([id number]) on 11/24/2024 8:36:33 AM [facility] 11/22/2024 3:26 PM CDT 11/24/2024 8:36 AM CDT Marcelina Holloway NP ECG ORDERABLES Final R esult Performing Organization Address City/[facility] Co de Phone Number [facility] * PET/CT FDG Skull to Thigh (11/20/2024 1:10 PM CDT) Anatomical Region Laterality Modality N/A Positron Emissio n Tomography (PET) 11/20/2024 2:53 PM CDT Impressions 11/20/2024 3:33 PM CDT 1. Focus of moderate hypermetabolism at the site of previously seen lower esophageal thickening, decreased in spatial extent and degree of FDG-avidity, may represent postradiation inflammatory etiology versus residual disease. 2. Increase in now moderately hypermetabolic mediastinal and bilateral hilar lymphadenopathy, including previously noted prevascular lymph node FDG uptake, strongly favored to represent a granulomatous process rather than agnieszka metastatic disease. 3. New mildly hypermetabolic left upper lobe groundglass opacities, almost certainly infectious/inflammatory etiology. Dictated by: Nay Mane MD The radiology attending physician has personally reviewed this study, and had reviewed and/or edited this written report and agrees with it. Electronically signed by: Charles Ross M.D. Narrative 11/20/2024 3:33 PM CDT EXAMINATION: TUMOR FDG-PET/CT IMAGING DATE OF STUDY: 11/20/2024 SCANNER: [facility] [employer] (SQ1). This is a high-resolution scanner, which can result in higher SUVs (and even detection of previously unrecognized small lesions) compared to older scanners. RADIOPHARMACEUTICAL: 7.5 mCi F-18 Fluorodeoxyglucose (FDG) i.v. 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 Subsequent treatment strategy. TECHNIQUE: The patient's fasting blood glucose level, measured by glucometer before injection of FDG, was 148 mg/dL. After intravenous administration of FDG, noncontrast CT images were obtained for attenuation correction and for fusion with emission PET images to allow for anatomical localization of PET findings. Emission PET images were then obtained. The study was interpreted on the [employer] workstation. The mean liver SUV (reported for supplier quality manager purposes) is 2.6. The total scanned area was skull base to proximal thighs. Images of the body were obtained starting 83 minutes after injection of tracer. All reported SUVs are maximum SUVs, unless otherwise specified. COMPARISON: PET/CT dated 08/25/2024 DESCRIPTORS OF LESION FDG AVIDITY: Minimal: <= blood pool Mild: > blood pool and <= liver Moderate: > liver and <= 2x SUVmax liver Moderate to marked: >2x SUVmax liver and <= 3x SUVmax liver Marked: > 3x SUVmax liver FINDINGS: There is decrease in soft tissue thickening and extent of lower esophagus hypermetabolism. SUV measures 5.7.. Previously SUV was 16. There is another focus of FDG uptake proximal to the site of lesion, in the distal esophagus. SUV is 6.1. This likely represents inflammatory etiology secondary to radiation treatment. There is interval development of moderately hypermetabolic left upper lobe groundglass density. SUV is 6.3.This is favored to represent inflammatory/ infectious etiology. There is increase in FDG uptake in a prevascular lymph node measuring approximately 14 x 6 mm, SUV 7.6. Previously it measured approximately 11 x 4 mm and had SUV 4. In addition, there is interval development of right hilar, paratracheal, subcarinal, left aorticopulmonary moderately avid lymphadenopathy. Redemonstration of moderate FDG uptake adjacent to the right hip joint, representing inflammatory etiology. Additional CT findings: Sphenoid and bilateral maxillary mucus thickening. Dental restorations. Right chest port catheter with tip in the right atrium. 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 Old granulomatous disease. Coronary and aortic calcifications. Colonic diverticulosis. Prominent left adrenal gland, unchanged. Degenerative changes in the spine. Right hip arthroplasty. Procedure Note Charles Ross MD - 11/20/2024 EXAMINATION: TUMOR FDG-PET/CT IMAGING DATE OF STUDY: 11/20/2024 SCANNER: [facility] [employer] [facility] (SQ1). This is a high-resolution scanner, which can result in higher SUVs (and even detection of previously unrecognized small lesions) compared to older scanners. RADIOPHARMACEUTICAL: 7.5 mCi F-18 Fluorodeoxyglucose (FDG) i.v. 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 Subsequent treatment strategy. TECHNIQUE: The patient's fasting blood glucose level, measured by glucometer before injection of FDG, was 148 mg/dL. After intravenous administration of FDG, noncontrast CT images were obtained for attenuation correction and for fusion with emission PET images to allow for anatomical localization of PET findings. Emission PET images were then obtained. The study was interpreted on the [employer] workstation. The mean liver SUV (reported for supplier quality manager purposes) is 2.6. The total scanned area was skull base to proximal thighs. Images of the body were obtained starting 83 minutes after injection of tracer. All reported SUVs are maximum SUVs, unless otherwise specified. COMPARISON: PET/CT dated 08/25/2024 DESCRIPTORS OF LESION FDG AVIDITY: Minimal: <= blood pool Mild: > blood pool and <= liver Moderate: > liver and <= 2x SUVmax liver Moderate to marked: >2x SUVmax liver and <= 3x SUVmax liver Marked: > 3x SUVmax liver FINDINGS: There is decrease in soft tissue thickening and extent of lower esophagus hypermetabolism. SUV measures 5.7.. Previously SUV was 16. There is another focus of FDG uptake proximal to the site of lesion, in the distal esophagus. SUV is 6.1. This likely represents inflammatory etiology secondary to radiation treatment. There is interval development of moderately hypermetabolic left upper lobe groundglass density. SUV is 6.3.This is favored to represent inflammatory/ infectious etiology. There is increase in FDG uptake in a prevascular lymph node measuring approximately 14 x 6 mm, SUV 7.6. Previously it measured approximately 11 x 4 mm and had SUV 4. In addition, there is interval development of right hilar, paratracheal, subcarinal, left aorticopulmonary moderately avid lymphadenopathy. Redemonstration of moderate FDG uptake adjacent to the right hip joint, representing inflammatory etiology. Additional CT findings: Sphenoid and bilateral maxillary mucus thickening. Dental restorations. Right chest port catheter with tip in the right atrium. 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 Old granulomatous disease. Coronary and aortic calcifications. Colonic diverticulosis. Prominent left adrenal gland, unchanged. Degenerative changes in the spine. Right hip arthroplasty. IMPRESSION: 1. Focus of moderate hypermetabolism at the site of previously seen lower esophageal thickening, decreased in spatial extent and degree of FDG-avidity, may represent postradiation inflammatory etiology versus residual disease. 2. Increase in now moderately hypermetabolic mediastinal and bilateral hilar lymphadenopathy, including previously noted prevascular lymph node FDG uptake, strongly favored to represent a granulomatous process rather than agnieszka metastatic disease. 3. New mildly hypermetabolic left upper lobe groundglass opacities, almost certainly infectious/inflammatory etiology. Dictated by: Nay Mane MD The radiology attending physician has personally reviewed this study, and had reviewed and/or edited this written report and agrees with it. Electronically signed by: Charles Ross M.D. us Jacques Omalley MD PhD IMG PET PROCEDURES Final Result * eGFR (11/09/2024 8:48 AM CDT) eGFR >90 >=60 mL/min/1. 73 m2 Comment: Interpretive Data Reference Interval Normal >/= 90 mL/min/1.73m2 Mildly decreased* 60 - 89 mL/min/1.73m2 Mildly to moderately decreased 45 - 59 mL/min/1.73m2 Moderately to severely decreased 30 - 44 mL/min/1.73m2 Severely decreased 15 - 29 mL/min/1.73m2 Kidney Failure < 15 mL/min/1.73m2 *Relative to young adult level Estimated glomerular filtration rate is determined by the 2020 CKD-EPI equation recommended by the National Kidney Foundation (A Unifying Approach to GFR Estimation: Recommendations of the NKF-ASK Task Force on Reassessing the Inclusion of Race in Diagnosing Kidney Disease, JASN 2020). The CKD-EPI equation should not be used for patients with unstable renal function and has not been validated in children and those over 70. Current interpretive data was last reviewed 2021. Blood 11/09/2024 8:48 AM CDT 11/09/2024 8:57 AM CDT us Jacques Omalley MD PhD LAB BLOOD ORDERABLES Final Resu lt [facility] Department [place] [address] * (ABNORMAL) Differential, auto (11/09/2024 8:48 AM CDT) Neutrophil abs 3.4 1.5 - 6.5 K/cumm Comment:Testing performed by : [facility], [address] [place] [phone] Lymphocyte abs 0.7(L) 0.8 - 3.3 K/cumm [facility] Comment:Testing performed by : [facility], [address] [place] [phone] Monocyte abs 0.5 0.2 - 0.8 K/cumm [facility] Comment:Testing performed by : [facility], [address] [place], [place] [id number] Eosinophil abs 0.0 0.0 - 0.5 K/cumm [facility] Comment:Testing performed by : [facility], [address] [place], [place] [id number] Basophil abs 0.0 0.0 - 0.1 K/cumm [facility] Comment:Testing performed by : [facility], [address] [place] [phone] Neutrophil pct 73.6 % [facility] Comment: Interpretive Data Percent cell count reference ranges are not reported, since discordance with absolute values may lead to misinterpretation of CBC data. Current Interpretive Data was last revised on 2017. Testing performed by: [facility], [address] [place] [phone] Lymphocyte pct 14.7 % [facility] Comment: Interpretive Data Percent cell count reference ranges are not reported, since discordance with absolute values may lead to misinterpretation of CBC data. Current Interpretive Data was last revised on 2017. Testing performed by: [facility], [address] [place] [phone] Monocyte pct 10.8 % [facility] Comment: Interpretive Data Percent cell count reference ranges are not reported, since discordance with absolute values may lead to misinterpretation of CBC data. Current Interpretive Data was last revised on 2017. Testing performed by: [facility], [address] [place] [phone] Eosinophil pct 0.4 % [facility] Comment: Interpretive Data Percent cell count reference ranges are not reported, since discordance with absolute values may lead to misinterpretation of CBC data. Current Interpretive Data was last revised on 2017. Testing performed by: [facility], [address] [place] [phone] Basophil pct 0.5 % [facility] Comment: Interpretive Data Percent cell count reference ranges are not reported, since discordance with absolute values may lead to misinterpretation of CBC data. Current Interpretive Data was last revised on 2017. Testing performed by: [facility], [address] [place] [phone] Blood 11/09/2024 8:48 AM CDT 11/09/2024 8:53 AM CDT us Jacques Omalley MD PhD LAB BLOOD ORDERABLES Final Resu lt [facility] Department [place] [address] * (ABNORMAL) CBC with auto differential (11/09/2024 8:48 AM CDT) WBC 4.6 3.8 - 9.9 K/cumm Comment:Testing performed by : [facility], [address] [place] [address] Hgb 11.6(L) 13.0 - 17.5 g/dL [facility] Comment:Testing performed by : [facility], [address] [place] [address] Hct 34.1(L) 38.9 - 50.3 % [facility] Comment:Testing performed by : [facility], [address] [place] [address] Plt 250 150 - 400 K/cumm [facility] Comment:Testing performed by : [facility], [address] [place] [phone] MPV 7.5 6.8 - 10.4 fL [facility] Comment:Testing performed by : [facility], [address] [place], [place] [phone] RBC 3.87(L) 4.30 - 5.80 M/cumm [facility] Comment:Testing performed by : [facility], [address] [place] [address] MCV 88.1 81.3 - 96.4 fL [facility] Comment:Testing performed by : [facility], [address] [place], [place] [phone] MCH 30.1 27.1 - 33.3 pg [facility] Comment:Testing performed by : [facility], [address] [place], [place] [phone] MCHC 34.1 32.3 - 35.7 g/dL [facility] Comment:Testing performed by : [facility], [address] [place] [address] RDW CV 20.4(H) 11.1 - 14.9 % [facility] Comment:Testing performed by : [facility], [address] [place] [address] NRBC abs 0.00 0.00 - 0.01 K/cumm [facility] Comment:Testing performed by : [facility], [address] [place] [address] Blood 11/09/2024 8:48 AM CDT 11/09/2024 8:53 AM CDT us Jacques Omalley MD PhD LAB BLOOD ORDERABLES Final Resu lt [facility] Department [place] [address] * (ABNORMAL) Comprehensive metabolic panel (11/09/2024 8:48 AM CDT) Sodium 137 135 - 145 mmol/L Potassium, pl 4.1 3.3 - 4.9 mmol/L [facility] Chloride 103 97 - 110 mmol/L [facility] CO2 26 22 - 32 mmol/L [facility] Anion gap 8 2 - 15 mmol/L [facility] BUN 12 6 - 25 mg/dL [facility] Creatinine 0.79(L) 0.80 - 1.30 mg/dL [facility] Glucose 289(H) 70 - 199 mg/dL [facility] Comment: Interpretive Data Fasting glucose >/= 126 mg/dl is diagnostic for diabetes. Fasting is defined as no caloric intake for at least 8 hours. Fasting glucose between 100 mg/dl to 125 mg/dl is diagnostic of prediabetes. In a patient with classic symptoms of hyperglycemia or hyperglycemic crisis, a random glucose >/= 200 mg/dl is diagnostic for diabetes. In the absence of unequivocal hyperglycemia, results should be confirmed by repeat testing. The classification and Diagnosis of Diabetes Diabetes Care 202; 46: S19-S40. Current interpretive data was last revised 2022. Calcium 9.4 8.5 - 10.3 mg/dL [facility] Bilirubin, total 0.4 0.1 - 1.2 mg/dL [facility] Protein, pl 6.9 6.5 - 8.5 g/dL [facility] Albumin 3.7 3.5 - 5.0 g/dL [facility] Alk phos 67 40 - 130 Units/L [facility] ALT 17 7 - 55 Units/L [facility] AST 23 10 - 50 Units/L [facility] Blood 11/09/2024 8:48 AM CDT 11/09/2024 8:57 AM CDT us Jacques Omalley MD PhD LAB BLOOD ORDERABLES Final Resu lt [facility] Department [place] [address] * eGFR (10/26/2024 8:05 AM CDT) eGFR >90 >=60 mL/min/1. 73 m2 Comment: Interpretive Data Reference Interval Normal >/= 90 mL/min/1.73m2 Mildly decreased* 60 - 89 mL/min/1.73m2 Mildly to moderately decreased 45 - 59 mL/min/1.73m2 Moderately to severely decreased 30 - 44 mL/min/1.73m2 Severely decreased 15 - 29 mL/min/1.73m2 Kidney Failure < 15 mL/min/1.73m2 *Relative to young adult level Estimated glomerular filtration rate is determined by the 2020 CKD-EPI equation recommended by the National Kidney Foundation (A Unifying Approach to GFR Estimation: Recommendations of the NKF-ASK Task Force on Reassessing the Inclusion of Race in Diagnosing Kidney Disease, JASN 2020). The CKD-EPI equation should not be used for patients with unstable renal function and has not been validated in children and those over 70. Current interpretive data was last reviewed 2021. Blood 10/26/2024 8:05 AM CDT 10/26/2024 8:11 AM CDT us Jacques Omalley MD PhD LAB BLOOD ORDERABLES Final Resu lt [facility] Department [place] [address] * (ABNORMAL) Differential, auto (10/26/2024 8:05 AM CDT) Neutrophil abs 1.9 1.5 - 6.5 K/cumm Comment:Testing performed by : [facility], [address] [place] [address] Lymphocyte abs 0.3(L) 0.8 - 3.3 K/cumm [facility] Comment:Testing performed by : [facility], [address] [place] [address] Monocyte abs 0.7 0.2 - 0.8 K/cumm [facility] Comment:Testing performed by : [facility], [address] [place] [address] Eosinophil abs 0.0 0.0 - 0.5 K/cumm [facility] Comment:Testing performed by : [facility], [address] [place] [address] Basophil abs 0.0 0.0 - 0.1 K/cumm [facility] Comment:Testing performed by : [facility], [address] [place] [phone] Neutrophil pct 64.5 % [facility] Comment: Interpretive Data Percent cell count reference ranges are not reported, since discordance with absolute values may lead to misinterpretation of CBC data. Current Interpretive Data was last revised on 2017. Testing performed by: [facility], [address] [place] [phone] Lymphocyte pct 11.2 % [facility] Comment: Interpretive Data Percent cell count reference ranges are not reported, since discordance with absolute values may lead to misinterpretation of CBC data. Current Interpretive Data was last revised on 2017. Testing performed by: [facility], [address] [place] [phone] Monocyte pct 23.7 % [facility] Comment: Interpretive Data Percent cell count reference ranges are not reported, since discordance with absolute values may lead to misinterpretation of CBC data. Current Interpretive Data was last revised on 2017. Testing performed by: [facility], [address] [place], [place] [id number] Eosinophil pct 0.2 % [facility] Comment: Interpretive Data Percent cell count reference ranges are not reported, since discordance with absolute values may lead to misinterpretation of CBC data. Current Interpretive Data was last revised on 2017. Testing performed by: [facility], [address] [place] [phone] Basophil pct 0.4 % [facility] Comment: Interpretive Data Percent cell count reference ranges are not reported, since discordance with absolute values may lead to misinterpretation of CBC data. Current Interpretive Data was last revised on 2017. Testing performed by: [facility], [address] [place] [phone] Blood 10/26/2024 8:05 AM CDT 10/26/2024 8:10 AM CDT us Jacques Omalley MD PhD LAB BLOOD ORDERABLES Final Resu lt [facility] Department [place] [address] * (ABNORMAL) CBC with auto differential (10/26/2024 8:05 AM CDT) WBC 2.9(L) 3.8 - 9.9 K/cumm Comment:Testing performed by : [facility], [address] [place] [address] Hgb 10.2(L) 13.0 - 17.5 g/dL [facility] Comment:Testing performed by : [facility], [address] [place] [address] Hct 30.0(L) 38.9 - 50.3 % [facility] Comment:Testing performed by : [facility], [address] [place] [address] Plt 181 150 - 400 K/cumm [facility] Comment:Testing performed by : [facility], [address] [place] [address] MPV 7.4 6.8 - 10.4 fL [facility] Comment:Testing performed by : [facility], [address] [place] [address] RBC 3.52(L) 4.30 - 5.80 M/cumm [facility] Comment:Testing performed by : [facility], [address] [place] [address] MCV 85.3 81.3 - 96.4 fL [facility] Comment:Testing performed by : [facility], [address] [place] [address] MCH 29.1 27.1 - 33.3 pg [facility] Comment:Testing performed by : [facility], [address] [place] [address] MCHC 34.1 32.3 - 35.7 g/dL [facility] Comment:Testing performed by : [facility], [address] [place] [address] RDW CV 15.1(H) 11.1 - 14.9 % [facility] Comment:Testing performed by : [facility], [facility] [place] [phone] NRBC abs 0.00 0.00 - 0.01 K/cumm [facility] Comment:Testing performed by : [facility], [facility] [place] [phone] Blood 10/26/2024 8:05 AM CDT 10/26/2024 8:10 AM CDT us Jacques Omalley MD PhD LAB BLOOD ORDERABLES Final Resu lt [facility] Department [place] [address] * (ABNORMAL) Comprehensive metabolic panel (10/26/2024 8:05 AM CDT) Sodium 132(L) 135 - 145 mmol/L Potassium, pl 4.0 3.3 - 4.9 mmol/L [facility] Chloride 97 97 - 110 mmol/L [facility] CO2 28 22 - 32 mmol/L [facility] Anion gap 7 2 - 15 mmol/L [facility] BUN 11 6 - 25 mg/dL [facility] Creatinine 0.85 0.80 - 1.30 mg/dL [facility] Glucose 177 70 - 199 mg/dL [facility] Comment: Interpretive Data Fasting glucose >/= 126 mg/dl is diagnostic for diabetes. Fasting is defined as no caloric intake for at least 8 hours. Fasting glucose between 100 mg/dl to 125 mg/dl is diagnostic of prediabetes. In a patient with classic symptoms of hyperglycemia or hyperglycemic crisis, a random glucose >/= 200 mg/dl is diagnostic for diabetes. In the absence of unequivocal hyperglycemia, results should be confirmed by repeat testing. The classification and Diagnosis of Diabetes Diabetes Care 202; 46: S19-S40. Current interpretive data was last revised 2022. Calcium 9.3 8.5 - 10.3 mg/dL [facility] Bilirubin, total 0.6 0.1 - 1.2 mg/dL [facility] Protein, pl 6.5 6.5 - 8.5 g/dL [facility] Albumin 3.4(L) 3.5 - 5.0 g/dL [facility] Alk phos 56 40 - 130 Units/L [facility] ALT 16 7 - 55 Units/L [facility] AST 19 10 - 50 Units/L [facility] Blood 10/26/2024 8:05 AM CDT 10/26/2024 8:11 AM CDT us Jacques Omalley MD PhD LAB BLOOD ORDERABLES Final Resu lt [facility] Department [place] [address] * RAD ONC ARIA SESSION SUMMARY (10/18/2024 10:36 AM [employer]) Course Name C1_Esophagus_ 25 ARIA Course Plan Date 09/01/2024 7:21 AM ARIA Elapsed Days 30 ARIA Treatment Start Date 09/18/2024 ARIA Treatment Site [id number] ARIA Dose Given To Date (cGy) 5,060 ARIA Session Dosage Given (cGy) 220 ARIA Plan ID ESOPHAGUS ARIA Fractions Treated 23 ARIA Prescribed Dose Per Fraction (cGy) 220 ARIA Prescribed Total Dose (cGy) 5,060 ARIA 10/18/2024 10:3 6 AM [employer] us Not In File Miscellaneous RADIATION ONCOLOGY ORD ERABLES Final Result ARIA * RAD ONC ARIA SESSION SUMMARY (10/17/2024 10:20 AM [employer]) Course Name C1_Esophagus_ 25 ARIA Course Plan Date 09/01/2024 7:21 AM ARIA Elapsed Days 29 ARIA Treatment Start Date 09/18/2024 ARIA Treatment Site [id number] ARIA Dose Given To Date (cGy) 4,840 ARIA Session Dosage Given (cGy) 220 ARIA Plan ID ESOPHAGUS ARIA Fractions Treated 22 ARIA Prescribed Dose Per Fraction (cGy) 220 ARIA Prescribed Total Dose (cGy) 5,060 ARIA 10/17/2024 10:2 0 AM [employer] us Not In File Miscellaneous RADIATION ONCOLOGY ORD ERABLES Final Result JHONY Hughes RAD ONC ARIA SESSION SUMMARY (10/16/2024 10:41 AM [employer]) Course Name C1_Esophagus_ 25 ARIA Course Plan Date 09/01/2024 7:21 AM ARIA Elapsed Days 28 ARIA Treatment Start Date 09/18/2024 ARIA Treatment Site [id number] ARIA Dose Given To Date (cGy) 4,620 ARIA Session Dosage Given (cGy) 220 ARIA Plan ID ESOPHAGUS ARIA Fractions Treated 21 ARIA Prescribed Dose Per Fraction (cGy) 220 ARIA Prescribed Total Dose (cGy) 5,060 ARIA 10/16/2024 10:4 1 AM [employer] us Not In File Miscellaneous RADIATION ONCOLOGY ORD ERABLES Final Result Performing Organization Address City/[facility] Co de Phone Number JHONY Hughes RAD ONC ARIA SESSION SUMMARY (10/13/2024 10:09 AM [employer]) Course Name C1_Esophagus_ 25 ARIA Course Plan Date 09/01/2024 7:21 AM ARIA Elapsed Days 25 ARIA Treatment Start Date 09/18/2024 ARIA Treatment Site [id number] ARIA Dose Given To Date (cGy) 4,400 ARIA Session Dosage Given (cGy) 220 ARIA Plan ID ESOPHAGUS ARIA Fractions Treated 20 ARIA Prescribed Dose Per Fraction (cGy) 220 ARIA Prescribed Total Dose (cGy) 5,060 ARIA 10/13/2024 10:0 9 AM [employer] us Not In File Miscellaneous RADIATION ONCOLOGY ORD ERABLES Final Result JHONY * RAD ONC ARIA SESSION SUMMARY (10/12/2024 10:15 AM [employer]) Course Name C1_Esophagus_ 25 ARIA Course Plan Date 09/01/2024 7:21 AM ARIA Elapsed Days 24 ARIA Treatment Start Date 09/18/2024 ARIA Treatment Site [id number] ARIA Dose Given To Date (cGy) 4,180 ARIA Session Dosage Given (cGy) 220 ARIA Plan ID ESOPHAGUS ARIA Fractions Treated 19 ARIA Prescribed Dose Per Fraction (cGy) 220 ARIA Prescribed Total Dose (cGy) 5,060 ARIA 10/12/2024 10:1 5 AM [employer] us Not In File Miscellaneous RADIATION ONCOLOGY ORD ERABLES Final Result JHONY * eGFR (10/12/2024 8:00 AM [employer]) eGFR >90 >=60 mL/min/1. 73 m2 Comment: Interpretive Data Reference Interval Normal >/= 90 mL/min/1.73m2 Mildly decreased* 60 - 89 mL/min/1.73m2 Mildly to moderately decreased 45 - 59 mL/min/1.73m2 Moderately to severely decreased 30 - 44 mL/min/1.73m2 Severely decreased 15 - 29 mL/min/1.73m2 Kidney Failure < 15 mL/min/1.73m2 *Relative to young adult level Estimated glomerular filtration rate is determined by the 2020 CKD-EPI equation recommended by the National Kidney Foundation (A Unifying Approach to GFR Estimation: Recommendations of the NKF-ASK Task Force on Reassessing the Inclusion of Race in Diagnosing Kidney Disease, JASN 2020). The CKD-EPI equation should not be used for patients with unstable renal function and has not been validated in children and those over 70. Current interpretive data was last reviewed 2021. Blood 10/12/2024 8:00 AM [employer] 10/12/2024 8:24 AM [employer] us Jacques Omalley MD PhD LAB BLOOD ORDERABLES Final Resu lt [facility] Department [place] [address] * (ABNORMAL) Differential, auto (10/12/2024 8:00 AM [employer]) Neutrophil abs 2.4 1.5 - 6.5 K/cumm Comment:Testing performed by : [facility], [address] [place] [phone] Lymphocyte abs 0.1(L) 0.8 - 3.3 K/cumm [facility] Comment:Testing performed by : [facility], [address] [place] [phone] Monocyte abs 0.2 0.2 - 0.8 K/cumm [facility] Comment:Testing performed by : [facility], [address] [place] [phone] Eosinophil abs 0.0 0.0 - 0.5 K/cumm [facility] Comment:Testing performed by : [facility], [address] [place] [phone] Basophil abs 0.0 0.0 - 0.1 K/cumm [facility] Comment:Testing performed by : [facility], [address] [place] [phone] Neutrophil pct 86.8 % [facility] Comment: Interpretive Data Percent cell count reference ranges are not reported, since discordance with absolute values may lead to misinterpretation of CBC data. Current Interpretive Data was last revised on 2017. Testing performed by: [facility], [address] [place] [phone] Lymphocyte pct 5.0 % [facility] Comment: Interpretive Data Percent cell count reference ranges are not reported, since discordance with absolute values may lead to misinterpretation of CBC data. Current Interpretive Data was last revised on 2017. Testing performed by: [facility], [address] [place] [phone] Monocyte pct 7.0 % [facility] Comment: Interpretive Data Percent cell count reference ranges are not reported, since discordance with absolute values may lead to misinterpretation of CBC data. Current Interpretive Data was last revised on 2017. Testing performed by: [facility], [address] [place] [phone] Eosinophil pct 0.9 % [facility] Comment: Interpretive Data Percent cell count reference ranges are not reported, since discordance with absolute values may lead to misinterpretation of CBC data. Current Interpretive Data was last revised on 2017. Testing performed by: [facility], [address] [place] [address] Basophil pct 0.3 % [facility] Comment: Interpretive Data Percent cell count reference ranges are not reported, since discordance with absolute values may lead to misinterpretation of CBC data. Current Interpretive Data was last revised on 2017. Testing performed by: [facility], [address] [place] [address] Blood 10/12/2024 8:00 AM [employer] 10/12/2024 8:21 AM [employer] us Jacques Omalley MD PhD LAB BLOOD ORDERABLES Final Resu lt [facility] Department [place] [address] * (ABNORMAL) CBC with auto differential (10/12/2024 8:00 AM [employer]) WBC 2.8(L) 3.8 - 9.9 K/cumm Comment:Testing performed by : [facility], [address] [place] [address] Hgb 11.3(L) 13.0 - 17.5 g/dL [facility] Comment:Testing performed by : [facility], [address] [place] [address] Hct 33.1(L) 38.9 - 50.3 % [facility] Comment:Testing performed by : [facility], [address] [place] [address] Plt 93(L) 150 - 400 K/cumm [facility] Comment:Testing performed by : [facility], [address] [place] [address] MPV 7.8 6.8 - 10.[address] [facility] Comment:Testing performed by : [facility], [address] [place] [address] RBC 3.96(L) 4.30 - 5.80 M/cumm [facility] Comment:Testing performed by : [facility], [address] [place] [address] MCV 83.6 81.3 - 96.[address] [facility] [facility] Comment:Testing performed by : [facility], [address] [place] [address] MCH 28.5 27.1 - 33.3 pg [facility] Comment:Testing performed by : [facility], [address] [place] [address] MCHC 34.1 32.3 - 35.7 g/dL [facility] Comment:Testing performed by : [facility], [address] [place] [address] RDW CV 13.6 11.1 - 14.9 % [facility] Comment:Testing performed by : [facility], [address] [place] [address] NRBC abs 0.00 0.00 - 0.01 K/cumm [facility] Comment:Testing performed by : [facility], [address] [place] [address] Blood 10/12/2024 8:00 AM [employer] 10/12/2024 8:21 AM [employer] us Jacques Omalley MD PhD LAB BLOOD ORDERABLES Final Resu lt [facility] Department [place] [address] * (ABNORMAL) Comprehensive metabolic panel (10/12/2024 8:00 AM [employer]) Sodium 133(L) 135 - 145 mmol/L Potassium, pl 4.3 3.3 - 4.9 mmol/L [facility] Chloride 99 97 - 110 mmol/L [facility] CO2 29 22 - 32 mmol/L [facility] Anion gap 5 2 - 15 mmol/L [facility] BUN 14 6 - 25 mg/dL [facility] Creatinine 0.83 0.80 - 1.30 mg/dL [facility] Glucose 199 70 - 199 mg/dL [facility] Comment: Interpretive Data Fasting glucose >/= 126 mg/dl is diagnostic for diabetes. Fasting is defined as no caloric intake for at least 8 hours. Fasting glucose between 100 mg/dl to 125 mg/dl is diagnostic of prediabetes. In a patient with classic symptoms of hyperglycemia or hyperglycemic crisis, a random glucose >/= 200 mg/dl is diagnostic for diabetes. In the absence of unequivocal hyperglycemia, results should be confirmed by repeat testing. The classification and Diagnosis of Diabetes Diabetes Care 202; 46: S19-S40. Current interpretive data was last revised 2022. Calcium 9.4 8.5 - 10.3 mg/dL [facility] Bilirubin, total 0.8 0.1 - 1.2 mg/dL [facility] Protein, pl 6.8 6.5 - 8.5 g/dL [facility] Albumin 4.0 3.5 - 5.0 g/dL [facility] Alk phos 49 40 - 130 Units/L [facility] ALT 22 7 - 55 Units/L [facility] AST 22 10 - 50 Units/L [facility] Blood 10/12/2024 8:00 AM [employer] 10/12/2024 8:24 AM [employer] us Jacuqes Omalley MD PhD LAB BLOOD ORDERABLES Final Resu lt [facility] Department [place] [address] * RAD ONC ARIA SESSION SUMMARY (10/11/2024 10:06 AM [employer]) Pathologist [facility] Course Name C1_Esophagus_ 25 ARIA Course Plan Date 09/01/2024 7:21 AM ARIA Elapsed Days 23 ARIA Treatment Start Date 09/18/2024 ARIA Treatment Site [id number] ARIA Dose Given To Date (cGy) 3,960 ARIA Session Dosage Given (cGy) 220 ARIA Plan ID ESOPHAGUS ARIA Fractions Treated 18 ARIA Prescribed Dose Per Fraction (cGy) 220 ARIA Prescribed Total Dose (cGy) 5,060 ARIA 10/11/2024 10:0 6 AM [employer] us Not In File Miscellaneous RADIATION ONCOLOGY ORD ERABLES Final Result JHONY * RAD ONC ARIA SESSION SUMMARY (10/10/2024 10:24 AM [employer]) Course Name C1_Esophagus_ 25 ARIA Course Plan Date 09/01/2024 7:21 AM ARIA Elapsed Days 22 ARIA Treatment Start Date 09/18/2024 ARIA Treatment Site [id number] ARIA Dose Given To Date (cGy) 3,740 ARIA Session Dosage Given (cGy) 220 ARIA Plan ID ESOPHAGUS ARIA Fractions Treated 17 ARIA Prescribed Dose Per Fraction (cGy) 220 ARIA Prescribed Total Dose (cGy) 5,060 ARIA 10/10/2024 10:2 4 AM [employer] us Not In File Miscellaneous RADIATION ONCOLOGY ORD ERABLES Final Result JHONY * RAD ONC ARIA SESSION SUMMARY (10/09/2024 10:07 AM [employer]) Course Name C1_Esophagus_ 25 ARIA Course Plan Date 09/01/2024 7:21 AM ARIA Elapsed Days 21 ARIA Treatment Start Date 09/18/2024 ARIA Treatment Site [id number] ARIA Dose Given To Date (cGy) 3,520 ARIA Session Dosage Given (cGy) 220 ARIA Plan ID ESOPHAGUS ARIA Fractions Treated 16 ARIA Prescribed Dose Per Fraction (cGy) 220 ARIA Prescribed Total Dose (cGy) 5,060 ARIA 10/09/2024 10:0 7 AM [employer] us Not In File Miscellaneous RADIATION ONCOLOGY ORD ERABLES Final Result JHONY * RAD ONC ARIA SESSION SUMMARY (10/06/2024 10:16 AM [employer]) Course Name C1_Esophagus_ 25 ARIA Course Plan Date 09/01/2024 7:21 AM ARIA Elapsed Days 18 ARIA Treatment Start Date 09/18/2024 ARIA Treatment Site [id number] ARIA Dose Given To Date (cGy) 3,300 ARIA Session Dosage Given (cGy) 220 ARIA Plan ID ESOPHAGUS ARIA Fractions Treated 15 ARIA Prescribed Dose Per Fraction (cGy) 220 ARIA Prescribed Total Dose (cGy) 5,060 ARIA 10/06/2024 10:1 6 AM [employer] us Not In File Miscellaneous RADIATION ONCOLOGY ORD ERABLES Final Result JHONY from Last 3 Months Insurance [employer] MEDICARE GOLD [facility] MEDICARE [facility] MEDICARE [facility] Advance Directives For more information, please contact: [phone] Documents on File Type Date Recorded Patient Extension Agent Expl anation ADVANCE DIRECTIVE 12/05/2024 9:22 AM Power of Cyber [employer] Analyst-Medical * Full Code (Latest Code Status on File) Date Activated Date Inactivated Comments 12/05/2024 7:57 PM 12/13/2024 7:19 PM * Full Code Date Activated Date Inactivated Comments 08/25/2024 7:23 AM 08/26/2024 4:42 AM * Full Code Date Activated Date Inactivated Comments 08/23/2024 10:02 AM 08/23/2024 4:08 PM Care Teams Academy Director Relationship Specialty Start Date End Date Tai Cedillo MD PCP - General Family Practice 03/20/22 Jacques Omalley MD PhD [id number] [facility], [facility] [address] [place] [address] Consulting Physician Medical Oncology 08/02/24
--- OUTSIDE RECORDS SUMMARY | 2025-01-03 10:57 | XMS_ITS | Referral Summary ---
Author Organization [facility] [address] Address [address] [place] [address] Care Team Providers Care Oliving Machine Operator Name Role Phone Tai Cedillo MD Primary Care Provider Jacques Omalley MD PhD Unavailable [phone] Encounters Date Type Department Care Team Description 01/02/2025 Orders Only [facility] Cardiology [address] [place] [address] [place] [phone] Vlad Babcock MD Complete heart block (HCC) (Primary Dx); Cardiac pacemaker in situ 01/02/2025 Telephone [facility] Cardiology [address] [place] [address] [place] [phone] Vlad Babcock MD 01/02/2025 1:46 PM CDT - 01/02/2025 11:59 PM CDT Hospital Encounter [facility] - [place] [address] [facility] Floor 8 [place] [address] Adenocarcinoma of gastroesophageal junction (HCC) Discharge Disposition: Discharge to home or self care 12/21/2024 9:30 AM CDT Telemedicine [facility] Surgery [address] [place] [address] Adenocarcinoma of gastroesophageal junction (HCC) (Primary Dx) 12/15/2024 Telephone [facility] 1 [place] [address] Kelsea Proctor NP 12/13/2024 Orders Only [facility] Surgery [address] [place] [address] Floor 5 [place] [phone] Nery Solorio NP Malignant neoplasm of lower third of esophagus (HCC) (Primary Dx) 12/05/2024 7:24 AM CDT - 12/13/2024 2:59 PM CDT Hospital Encounter [facility] 1 [place] [address] Manolo Lott MD Malignant neoplasm of lower third of esophagus (HCC) Discharge Disposition: Discharge to home or self care 12/11/2024 12:54 PM CDT - 12/11/2024 11:59 PM CDT Hospital Encounter [facility] Radiology 1 [place] [address] Discharge Disposition: Discharge to home or self care 12/05/2024 10:35 AM CDT - 12/05/2024 3:20 PM CDT Surgery [facility] Operating Room 1 [place] [phone] Manolo oLtt MD ESOPHAGECTOMY TRANSHIATAL 12/05/2024 11:42 AM CDT Anesthesia Event [facility] Operating Room 1 [place] [address] Rabia Porter MD Richardson, Genea Michelle, NP 11/29/2024 Surgical Prehabilitation and Readiness Final Outreach [facility] Department of Surgery [address] [place] [phone] Pérez Dudley CMA 11/27/2024 Telephone [facility] Nutrition Counseling 1 [place] [address] 11/23/2024 9:15 AM CDT Office Visit [facility] Oncology [address] [place] [address] Floor 5 [place] [phone] Jacques Omalley MD PhD Adenocarcinoma of gastroesophageal junction (HCC) (Primary Dx) 11/22/2024 4:00 PM CDT Pre-Admission Testing [facility] for Preoperative Assessment and Planning [facility] ([facility]) [address] [place] [address] Preoperative testing (Primary Dx); Type 2 diabetes mellitus without complication, without long-term current use of insulin (HCC) 11/22/2024 12:45 PM CDT Office Visit [facility] Surgery [address] [place] [address] Floor 5 [place] [address] Manolo Lott MD Adenocarcinoma of gastroesophageal junction (HCC) (Primary Dx) 11/21/2024 10:00 AM CDT Office Visit [facility] Advanced Medicine Radiation Oncology [facility] [place] [address] Mehdi Recio MD Adenocarcinoma of gastroesophageal junction (HCC) (Primary Dx) 11/20/2024 10:21 AM CDT - 11/20/2024 11:59 PM CDT Hospital Encounter [facility] - PET [address] [facility] 8 [place] [address] Discharge Disposition: Discharge to home or self care 11/20/2024 10:21 AM CDT - 11/20/2024 11:59 PM CDT Hospital Encounter [facility] - PET [facility] 8 [place] [address] Adenocarcinoma of gastroesophageal junction (HCC) Discharge Disposition: Discharge to home or self care 11/15/2024 Surgical Prehabilitation and Readiness Subsequent Outreach [facility] Department of Surgery [address] [place] [phone] Pérez Dudley CMA 11/09/2024 9:45 AM CDT Clinical Support [facility] - Lab Collection [address] [place] [address] 5 [place] [address] 11/09/2024 8:30 AM CDT Clinical Support [facility] - Lab Collection [address] [place] [address] 5 [place] [address] Adenocarcinoma of gastroesophageal junction (HCC); Dehydration 11/09/2024 9:15 AM CDT Office Visit [facility] Oncology [address] [place] [phone] Jacques Omalley MD PhD Adenocarcinoma of gastroesophageal junction (HCC) (Primary Dx); Dehydration 11/08/2024 Surgical Prehabilitation and Readiness Subsequent Outreach [facility] Department of Surgery [address] [place] [phone] Pérez Dudley, NURY 11/02/2024 Documentation [facility] Nutrition Counseling 1 [place] [address] Polly Vo, LUMA 11/02/2024 8:30 AM CDT Infusion [facility] - Infusion [address] [place] [phone] Dehydration (Primary Dx); Adenocarcinoma of gastroesophageal junction (HCC) 10/26/2024 Orders Only [facility] Oncology [address] [place] [phone] Jacques Omalley MD PhD 10/26/2024 Documentation [facility] Nutrition Counseling 1 [place] [address] Polly Vo, LUMA 10/26/2024 10:00 AM CDT Infusion [facility] - Infusion [address] [place] [address] Adenocarcinoma of gastroesophageal junction (HCC) (Primary Dx); Dehydration 10/26/2024 8:00 AM CDT Clinical Support [facility] - Lab Collection [address] [place] [address] Adenocarcinoma of gastroesophageal junction (HCC) 10/26/2024 9:00 AM CDT Office Visit [facility] Oncology [address] [place] [phone] Jacques Omalley MD PhD Adenocarcinoma of gastroesophageal junction (HCC) (Primary Dx); Dehydration 10/25/2024 Surgical Prehabilitation and Readiness Subsequent Outreach [facility] Department of Surgery [address] [place] [phone] Pérez Dudley, FILTER ASSEMBLER 10/20/2024 10:45 AM MANUFACTURING ENGINEER Office Visit [facility] Cardiology at [address] [place] [phone] Vlad Babcock MD Complete heart block (HCC) (Primary Dx); Cardiac pacemaker in situ 10/18/2024 Completion of Therapy [facility] Radiation Oncology [address] [facility] [place] [address] Mehdi Recio MD 10/18/2024 Surgical Prehabilitation and Readiness Subsequent Outreach [facility] Department of Surgery [address] [place] [phone] Pérez Dudley CMA 10/18/2024 Orders Only RAD ONC TREATMENTS Miscellaneous , Not In File 10/18/2024 10:09 AM MANUFACTURING ENGINEER - 10/18/2024 11:59 PM MANUFACTURING ENGINEER Hospital Encounter [facility] Radiation Oncology [address] [place] [address] Mehdi Recio MD Discharge Disposition: Discharge to home or self care 10/17/2024 OTV [facility] Radiation Oncology [address] [place] [address] Snow Randle RN 10/17/2024 11:23 AM MANUFACTURING ENGINEER - 10/17/2024 12:58 PM MANUFACTURING ENGINEER Hospital Encounter [facility] ([facility] [address] [place] [address] Adenocarcinoma of gastroesophageal junction (HCC) (Primary Dx) Discharge Disposition: Discharge to home or self care 10/17/2024 Orders Only [facility] Radiation Oncology [address] [place] [address] Mehdi Recio MD 10/17/2024 Orders Only RAD ONC TREATMENTS Miscellaneous , Not In File 10/17/2024 9:56 AM MANUFACTURING ENGINEER - 10/17/2024 11:59 PM MANUFACTURING ENGINEER Hospital Encounter [facility] Radiation Oncology [address] [place] [address] Mehdi Recio MD Discharge Disposition: Discharge to home or self care 10/16/2024 Orders Only RAD ONC TREATMENTS Miscellaneous , Not In File 10/16/2024 10:07 AM MANUFACTURING ENGINEER - 10/16/2024 11:59 PM MANUFACTURING ENGINEER Hospital Encounter [facility] Radiation Oncology [address] [place] [address] Mehdi Recio MD Discharge Disposition: Discharge to home or self care 10/13/2024 Orders Only RAD ONC TREATMENTS Miscellaneous , Not In File 10/13/2024 9:41 AM MANUFACTURING ENGINEER - 10/13/2024 11:59 PM MANUFACTURING ENGINEER Hospital Encounter [facility] Radiation Oncology [address] [place] [address] Mehdi Recio MD Discharge Disposition: Discharge to home or self care 10/12/2024 Orders Only [facility] Oncology [address] [place] [phone] Sonya Llamas, BROOKE 10/12/2024 Orders Only RAD ONC TREATMENTS Miscellaneous , Not In File 10/12/2024 11:30 AM MANUFACTURING ENGINEER Infusion [facility] - Infusion [address] [place] [address] Hyperglycemia (Primary Dx); Adenocarcinoma of gastroesophageal junction (HCC); Cardiac pacemaker in situ; Complete heart block (HCC) 10/12/2024 8:15 AM MANUFACTURING ENGINEER Clinical Support [facility] - Lab Collection [address] [place] [address] Adenocarcinoma of gastroesophageal junction (HCC); Hyperglycemia 10/12/2024 9:15 AM MANUFACTURING ENGINEER Office Visit [facility] Oncology [address] [place] [phone] Jacques Omalley MD PhD Adenocarcinoma of gastroesophageal junction (HCC) (Primary Dx); Hyperglycemia 10/12/2024 10:00 AM MANUFACTURING ENGINEER - 10/12/2024 11:59 PM MANUFACTURING ENGINEER Hospital Encounter [facility] Radiation Oncology [address] [place] [address] Mehdi Recio MD Discharge Disposition: Discharge to home or self care 10/11/2024 Orders Only RAD ONC TREATMENTS Miscellaneous , Not In File 10/11/2024 9:44 AM MANUFACTURING ENGINEER - 10/11/2024 11:59 PM MANUFACTURING ENGINEER Hospital Encounter [facility] Advanced [facility] Radiation Oncology [address] [place] [address] Mehdi Recio MD Discharge Disposition: Discharge to home or self care 10/10/2024 OTV [facility] Advanced [facility] Radiation Oncology [address] [place] [address] Mehdi Recio MD 10/10/2024 Orders Only RAD ONC TREATMENTS Miscellaneous , Not In File 10/10/2024 10:11 AM MANUFACTURING ENGINEER - 10/10/2024 11:59 PM MANUFACTURING ENGINEER Hospital Encounter [facility] Advanced [facility] Radiation Oncology [address] [place] [address] Mehdi Recio MD Discharge Disposition: Discharge to home or self care 10/09/2024 Orders Only RAD ONC TREATMENTS Miscellaneous , Not In File 10/09/2024 9:41 AM MANUFACTURING ENGINEER - 10/09/2024 11:59 PM MANUFACTURING ENGINEER Hospital Encounter [facility] Advanced [facility] Radiation Oncology [address] [place] [address] Mehdi Recio MD Discharge Disposition: Discharge to home or self care 10/06/2024 Orders Only RAD ONC TREATMENTS Miscellaneous , Not In File 10/06/2024 9:52 AM MANUFACTURING ENGINEER - 10/06/2024 11:59 PM MANUFACTURING ENGINEER Hospital Encounter [facility] Radiation Oncology [address] [place] [address] Mehdi Recio MD Discharge Disposition: Discharge to home or self care from Last 3 Months Allergies No known active allergies Medications metFORMIN [...] 3 TIMES DAILY BEFORE MEALS DIRECTED Active acetaminophen 500 mg capsule Take 2 capsules (1,000 mg total) by mouth every 6 (six) hours as needed for pain Active oxyCODONE (ROXICODONE) 5 mg immediate release [...] tablet (100 mg total) by mouth daily 024 2024 Discontin ued(Stop Taking at Discharge ) pantoprazole DR (PROTONIX) 40 mg EC tabletIndications:A denocarcinoma of gastroesophageal junction (HCC),Gastroesophag eal reflux disease without esophagitis Take 1 tablet (40 mg total) by mouth daily 30 tablet 5 2024 Discontin ued(Stop Taking at Discharge ) [...] not stop nausea 24 tablet 3 025 04/30/ 2025 Discontin ued(Stop Taking at Discharge ) glipiZIDE [...] NPO, 2 swabs an hour - Dilaudid MANAGER [employer] BUSINESS for pain control - Antiemetics PRN for [...] Dual Pacemaker. Dx; CHB, LBBB. DOI 03/23/2022- [employer] remote monitoring. Resolved Problems Problem Noted Date Diagnosed Date Resolved Date Anemia 12/08/2024 12/08/2024 Malignant neoplasm of lower third of esophagus 09/01/2024 09/14/2024 Immunizations Immunization Administration Dates Next Due Influenza, Quadrivalent, Hilda l Culture-based MDCK, Preservative Free, Antibiotic Free, Intramuscular 05/25/2019 Influenza, Quadrivalent, Hig h Dose, Preservative Free, Intrr 06/13/2020 Influenza, Quadrivalent, Spl it, Preservative Free, Intramuscular 06/06/2021,09/12/2019 Influenza, Trivalent, High D ose, Split, Preservative Free, Intramuscular 05/18/2018,08/31/2016 Pneumococcal Conjugate PCV 13 08/31/2016, 016 Tdap 07/16/2014 ZOSTER LIVE 08/31/2016 Social History Tobacco Use Types Packs/Day Years [...] How often do you attend chur or orthodoxy services? More than 4 times per year 08/29/2024 Do you belong to any clubs o r organizations such as lutheran groups, unions, fraternal or athletic groups, or [...] and heating? Not hard at all 08/29/2024 [facility] [place] [facility] Occupat ional Health - Occupational Stress [...] on file Legal Sex Male 8:36 AM MANUFACTURING ENGINEER Gender Identity Not on file Sexual Orientation Not on file Occupation Industry Job Start Date Job End Date Retired - [employer] Not on file Not on f ile Not on file Last Filed Vital Signs Vital Sign Reading [...] 12/05/2024 8:00 PM CDT Plan of Treatment Not on file Medical Devices Implanted Type Area Orderly Device Identifier Shelf Expiration Date Model / Serial / Lot Pacemaker Pacemaker Heart [employer] Xcela Power Port 8fr [id number] - [id number] Implanted:Qty: 1 on 08/25/2024 at [facility] [employer] 02/12/2029 [id number] / / [id number] Procedures Procedure Name Priority Date/Time Associated Diagnosis [...] DEVICE Routine 12/05/2024 1 :27 PM CDT [place] AN PROCEDURE PLACEHOLDER Routine 12/05/2024 12:57 PM CDT KS AN ELECTIVE ENDOTRACHEAL AIRWAY Routine 12/05/2024 12:57 PM CDT KS AN PROCEDURE PLACEHOLDER Routine 12/05/2024 12:53 PM CDT ESOPHAGECTOMY TRANSHIATAL 12/05/2024 11:41 AM CDT Malignant neoplasm of lower third of esophagus (HCC) KS AN PROCEDURE PLACEHOLDER Routine 12/05/2024 11:35 AM [...] ONC ARIA SESSION SUMMARY 10/18/2024 10:36 AM MANUFACTURING ENGINEER RAD ONC ARIA SESSION SUMMARY 10/17/2024 10:20 AM MANUFACTURING ENGINEER RAD ONC ARIA SESSION SUMMARY 10/16/2024 10:41 AM MANUFACTURING ENGINEER RAD ONC ARIA SESSION SUMMARY 10/13/2024 10:09 AM MANUFACTURING ENGINEER RAD ONC ARIA SESSION SUMMARY 10/12/2024 10:15 AM MANUFACTURING ENGINEER EGFR STAT 10/12/2024 8:00 AM MANUFACTURING ENGINEER Adenocarcinoma of gastroesophageal junction (HCC) Hyperglycemia DIFFERENTIAL AUTO Routine 10/12/2024 8:0 0 AM MANUFACTURING ENGINEER Adenocarcinoma of gastroesophageal junction (HCC) Hyperglycemia CBC WITH AUTO DIFFERENTIAL Routine 10/12/2024 8:00 AM MANUFACTURING ENGINEER Adenocarcinoma of gastroesophageal junction (HCC) Hyperglycemia COMPREHENSIVE METABOLIC PANEL STAT 10/12/2024 8:00 AM MANUFACTURING ENGINEER Adenocarcinoma of gastroesophageal junction (HCC) Hyperglycemia RAD ONC ARIA SESSION SUMMARY 10/11/2024 10:06 AM MANUFACTURING ENGINEER RAD ONC ARIA SESSION SUMMARY 10/10/2024 10:24 AM MANUFACTURING ENGINEER RAD ONC ARIA SESSION SUMMARY 10/09/2024 10:07 AM MANUFACTURING ENGINEER RAD ONC ARIA SESSION SUMMARY 10/06/2024 10:16 AM MANUFACTURING ENGINEER from Last 3 Months Results * CT [...] POCT ORDERABLES - DEV ICE Final Result [facility] [place] [address] * POCT glucose (12/13/2024 8:22 AM CDT) Glucose, POC 85 70 - 199 mg/dL Blood 12/13/2024 8:22 AM CDT 12/13/2024 8:22 AM CDT Manolo Lott MD LAB POCT ORDERABLES - DEV ICE Final Result Performing Organization Address [facility] de Phone Number [facility] [place] [address] * POCT glucose (12/12/2024 8:07 PM CDT) Glucose, POC 159 70 - 199 mg/dL Blood 12/12/2024 8:07 PM CDT 12/12/2024 8:07 PM CDT Manolo Lott MD LAB POCT ORDERABLES - DEV ICE Final Result Performing Organization Address [facility] de Phone Number [facility] [place] [address] * XR Chest 1 View (12/12/2024 8:00 [...] POCT ORDERABLES - DEV ICE Final Result [facility] One [facility] Department [place] [address] * XR Chest PA Lateral 2 Views [...] DEV ICE Final Result Performing Organization Address [facility] de Phone Number [facility] [place] [address] * POCT glucose (12/12/2024 7:57 AM CDT) Glucose, POC 122 70 - 199 mg/dL Blood 12/12/2024 7:57 AM CDT 12/12/2024 7:57 AM CDT Manolo Lott MD LAB POCT ORDERABLES - DEV ICE Final Result Performing Organization Address [facility] de Phone Number [facility] [place] [address] * XR Chest 1 View (12/12/2024 5:37 [...] * POCT glucose (12/12/2024 3:55 AM CDT) [facility] Signature Glucose, POC 104 70 - 199 mg/dL Blood 12/12/2024 3:55 AM CDT 12/12/2024 3:55 AM CDT us Manolo Lott MD LAB POCT ORDERABLES - DEV ICE Final Result [facility] One [facility] [place] [address] * POCT glucose (12/11/2024 11:40 PM CDT) Glucose, POC 113 70 - 199 mg/dL Blood 12/11/2024 11:4 0 PM CDT 12/11/2024 11:40 PM CDT Manolo Lott MD LAB POCT ORDERABLES - DEV ICE Final Result [facility] [place] [address] * eGFR (12/11/2024 9:16 PM CDT) eGFR [...] LAB BLOOD ORDERABLES Rosie l Result [facility] [place] [address] * (ABNORMAL) CBC without differential (12/11/2024 9:16 PM CDT) [facility] WBC 5.26 3.80 - 9.90 K/cumm Hgb 10.3(L) 13.0 - 17.5 g/dL [facility] Hct 30.7(L) 38.9 - 50.3 % [facility] Plt 160 150 - 400 K/cumm [facility] MPV 10.2 9.1 - 12.3 fL [facility] RBC 3.35(L) 4.30 - 5.80 M/cumm [facility] MCV 91.6 81.3 - 96.4 fL [facility] MCH 30.7 27.1 - 33.3 pg [facility] MCHC 33.6 32.3 - 35.7 g/dL [facility] RDW CV 13.6 11.1 - 14.9 % [facility] RDW SD 45.4 35.7 - 48.1 fL [facility] NRBC abs 0.00 0.00 - 0.01 K/cumm [facility] Blood 12/11/2024 9:16 PM CDT 12/11/2024 9:49 PM CDT us Manolo Lott MD LAB BLOOD ORDERABLES Rosie l Result Performing Organization Address [facility] Co de Phone Number [facility] [place] [address] * Magnesium (12/11/2024 9:16 PM CDT) [facility] Magnesium 1.8 1.4 - 2.5 mg/dL Blood 12/11/2024 9:16 PM CDT 12/11/2024 9:48 PM CDT us Pilar Lincoln MEDICAL REPRESENTATIVE LAB BLOOD ORDERABLES Rosie l Result Performing Organization Address [facility]/ZIP Co de Phone Number [facility] Department [place] [address] * (ABNORMAL) Basic metabolic panel (12/11/2024 9:16 PM CDT) Sodium 141 135 - 145 mmol/L Potassium, pl 3.6 3.3 - 4.9 mmol/L [facility] Chloride 104 97 - 110 mmol/L [facility] CO2 28 22 - 32 mmol/L [facility] Anion gap 9 2 - 15 mmol/L [facility] BUN 9 6 - 25 mg/dL [facility] Creatinine 0.69(L) 0.80 - 1.30 mg/dL [facility] Glucose 113 70 - 199 mg/dL [facility] Comment: Interpretive Data Fasting glucose >/= 126 [...] 2022. Calcium 9.0 8.5 - 10.3 mg/dL [facility] Blood 12/11/2024 9:16 PM CDT 12/11/2024 9:48 PM CDT Manolo Lott MD LAB BLOOD ORDERABLES Rosie l Result [facility] [place] [address] * POCT glucose (12/11/2024 8:05 PM CDT) Glucose, POC 122 70 - 199 mg/dL Blood 12/11/2024 8:05 PM CDT 12/11/2024 8:05 PM CDT Manolo Lott MD LAB POCT ORDERABLES - DEV ICE Final Result [facility] [place] [address] * XR Abdomen Ap 1 Vw (12/11/2024 [...] Tena Copeland M.D. us Pilar Dumontkishor Lincoln MEDICAL REPRESENTATIVE IMG XR PROCEDURES Final R esult * POCT glucose (12/11/2024 4:45 PM CDT) Glucose, POC 132 70 - 199 mg/dL Blood 12/11/2024 4:45 PM CDT 12/11/2024 4:45 PM CDT us Manolo Lott MD LAB POCT ORDERABLES - DEV ICE Final Result [facility] [place] [address] * FL Esophagram, Single Contrast (12/11/2024 1:55 [...] overhead radiographs were obtained. FINDINGS: On the shape carver radiograph, there is a right internal jugular [...] overhead radiographs were obtained. FINDINGS: On the shape carver radiograph, there is a right internal jugular [...] by: Carlitos Danielle M.D. us Pilar Lincoln MEDICAL REPRESENTATIVE IMG FLUOROSCOPY PROCEDURE S Final Result * POCT glucose (12/11/2024 12:31 PM CDT) Glucose, POC 115 70 - 199 mg/dL Blood 12/11/2024 12:3 1 PM CDT 12/11/2024 12:31 PM CDT us Manolo Lott MD LAB POCT ORDERABLES - DEV ICE Final Result [facility] Department [place] [address] * XR Abdomen Ap 1 Vw [...] ORDERABLES - DEV ICE Final Result [facility] Department [place] [address] * XR Chest 1 View (12/11/2024 [...] POCT ORDERABLES - DEV ICE Final Result [facility] One [facility] [place] [address] * POCT glucose (12/11/2024 2:00 AM CDT) Glucose, POC 125 70 - 199 mg/dL Blood 12/11/2024 2:00 AM CDT 12/11/2024 2:00 AM CDT Manolo Lott MD LAB POCT ORDERABLES - DEV ICE Final Result Performing Organization Address [facility] [place] [address] * Potassium, whole blood (12/11/2024 12:25 AM CDT) [facility] Potassium, bld 3.9 3.3 - 4.9 mmol/L Blood 12/11/2024 12:2 5 AM CDT 12/11/2024 12:34 AM CDT Manolo Lott MD LAB BLOOD ORDERABLES Rosie l Result Performing Organization Address [facility] [place] [address] * POCT glucose (12/10/2024 10:04 PM CDT) [facility] Glucose, POC 131 70 - 199 mg/dL Blood 12/10/2024 10:0 4 PM CDT 12/10/2024 10:04 PM CDT Manolo Lott MD LAB POCT ORDERABLES - DEV ICE Final Result Performing Organization Address [facility] [place] [address] * eGFR (12/10/2024 9:08 PM CDT) [facility] eGFR >90 >=60 mL/min/1. 73 m2 Comment: [...] MD LAB BLOOD ORDERABLES Rosie white Result [facility] [place] [address] * (ABNORMAL) CBC without differential (12/10/2024 9:08 PM CDT) [facility] [facility] WBC 6.20 3.80 - 9.90 K/cumm Hgb 10.8(L) 13.0 - 17.5 g/dL [facility] Hct 32.1(L) 38.9 - 50.3 % [facility] Plt 122(L) 150 - 400 K/cumm [facility] MPV 10.7 9.1 - 12.3 fL [facility] RBC 3.53(L) 4.30 - 5.80 M/cumm [facility] MCV 90.9 81.3 - 96.4 fL [facility] MCH 30.6 27.1 - 33.3 pg [facility] MCHC 33.6 32.3 - 35.7 g/dL [facility] RDW CV 13.8 11.1 - 14.9 % [facility] RDW SD 46.1 35.7 - 48.1 fL [facility] NRBC abs 0.00 0.00 - 0.01 K/cumm [facility] Blood 12/10/2024 9:08 PM CDT 12/10/2024 9:22 PM CDT Manolo Lott MD LAB BLOOD ORDERABLES Rosie l Result Performing Organization Address [facility] Co de Phone Number [facility] [place] [address] * Magnesium (12/10/2024 9:08 PM CDT) [facility] Magnesium 1.8 1.4 - 2.5 mg/dL Blood 12/10/2024 9:08 PM CDT 12/10/2024 9:21 PM CDT Pilar Lincoln MEDICAL REPRESENTATIVE LAB BLOOD ORDERABLES Rosie l Result Performing Organization Address [facility] de Phone Number [facility] [place] [address] * (ABNORMAL) Basic metabolic panel (12/10/2024 9:08 PM CDT) Pathologist [facility] Sodium 140 135 - 145 mmol/L Potassium, pl 5.3(H) 3.3 - 4.9 mmol/L [facility] Comment:Hemolyzed; Potassium value may be falsely elevated by as much as 1.1-1.6 mmol/L. Suggest redraw and reanalysis. Chloride 104 97 - 110 mmol/L [facility] CO2 28 22 - 32 mmol/L [facility] Anion gap 8 2 - 15 mmol/L [facility] BUN 8 6 - 25 mg/dL [facility] Creatinine 0.68(L) 0.80 - 1.30 mg/dL [facility] Glucose 123 70 - 199 mg/dL [facility] Comment: Interpretive Data Fasting glucose >/= 126 [...] 2022. Calcium 8.9 8.5 - 10.3 mg/dL [facility] Blood 12/10/2024 9:08 PM CDT 12/10/2024 9:21 PM CDT Manolo Lott MD LAB BLOOD ORDERABLES Rosie l Result Performing Organization Address [facility] Co de Phone Number [facility] [place] [address] * POCT glucose (12/10/2024 7:47 PM CDT) Glucose, POC 144 70 - 199 mg/dL Blood 12/10/2024 7:47 PM CDT 12/10/2024 7:47 PM CDT Manolo Lott MD LAB POCT ORDERABLES - DEV ICE Final Result Performing Organization Address City/[facility]/ZIP Co de Phone Number [facility] [place] [address] * POCT glucose (12/10/2024 5:06 PM CDT) Glucose, POC 113 70 - 199 mg/dL Blood 12/10/2024 5:06 PM CDT 12/10/2024 5:06 PM CDT Manolo Lott MD LAB POCT ORDERABLES - DEV ICE Final Result Performing Organization Address [facility] Co de Phone Number [facility] [place] [address] * POCT glucose (12/10/2024 11:39 AM CDT) Glucose, POC 127 70 - 199 mg/dL Blood 12/10/2024 11:3 9 AM CDT 12/10/2024 11:39 AM CDT Manolo Lott MD LAB POCT ORDERABLES - DEV ICE Final Result Performing Organization Address [facility] de Phone Number [facility] [place] [address] * POCT glucose (12/10/2024 7:57 AM CDT) Glucose, POC 140 70 - 199 mg/dL Blood 12/10/2024 7:57 AM CDT 12/10/2024 7:57 AM CDT Manolo Lott MD LAB POCT ORDERABLES - DEV ICE Final Result Performing Organization Address [facility] [place] [address] * XR Chest 1 View (12/10/2024 4:47 [...] ORDERABLES - DEV ICE Final Result CARRIE [facility] Department [place] [address] * POCT glucose (12/09/2024 11:37 PM CDT) Glucose, POC 139 70 - 199 mg/dL Blood 12/09/2024 11:3 7 PM CDT 12/09/2024 11:37 PM CDT Manolo Lott MD LAB POCT ORDERABLES - DEV ICE Final Result Performing Organization Address [facility] Co de Phone Number CAR[facility]E [facility] [place] [address] * eGFR (12/09/2024 9:54 PM CDT) Pathologist [facility] eGFR >90 >=60 mL/min/1. 73 m2 Comment: [...] ORDERABLES Rosie l Result Performing Organization Address [facility] Co de Phone Number CARRIE [facility] Ros[facility] [place] [address] * (ABNORMAL) CBC without differential (12/09/2024 9:54 PM CDT) Pathologist [facility] WBC 4.75 3.80 - 9.90 K/cumm Hgb 10.2(L) 13.0 - 17.5 g/dL [facility] Hct 30.4(L) 38.9 - 50.3 % [facility] Plt 137(L) 150 - 400 K/cumm [facility] MPV 10.0 9.1 - 12.3 fL [facility] RBC 3.30(L) 4.30 - 5.80 M/cumm [facility] MCV 92.1 81.3 - 96.4 fL [facility] MCH 30.9 27.1 - 33.3 pg [facility] MCHC 33.6 32.3 - 35.7 g/dL [facility] RDW CV 13.7 11.1 - 14.9 % [facility] RDW SD 46.8 35.7 - 48.1 fL [facility] NRBC abs 0.00 0.00 - 0.01 K/cumm [facility] Blood 12/09/2024 9:54 PM CDT 12/09/2024 10:16 PM CDT Manolo Lott MD LAB BLOOD ORDERABLES Rosie l Result Performing Organization Address City/[facility]/ZIP Co de Phone Number [facility] [place] [address] * Magnesium (12/09/2024 9:54 PM CDT) [facility] Magnesium 1.9 1.4 - 2.5 mg/dL Blood 12/09/2024 9:54 PM CDT 12/09/2024 10:14 PM CDT Pilar Lincoln NP LAB BLOOD ORDERABLES Rosie l Result [facility] [place] [address] * (ABNORMAL) Basic metabolic panel (12/09/2024 9:54 PM CDT) [facility] Sodium 142 135 - 145 mmol/L Potassium, pl 3.5 3.3 - 4.9 mmol/L [facility] Chloride 106 97 - 110 mmol/L [facility] CO2 31 22 - 32 mmol/L [facility] Anion gap 5 2 - 15 mmol/L [facility] BUN 10 6 - 25 mg/dL [facility] Creatinine 0.72(L) 0.80 - 1.30 mg/dL [facility] Glucose 130 70 - 199 mg/dL [facility] Comment: Interpretive Data Fasting glucose >/= 126 [...] 2022. Calcium 8.9 8.5 - 10.3 mg/dL [facility] Blood 12/09/2024 9:54 PM CDT 12/09/2024 10:14 PM CDT Manolo Lott MD LAB BLOOD ORDERABLES Rosie l Result [facility] [place] [address] * POCT glucose (12/09/2024 7:52 PM CDT) Glucose, POC 144 70 - 199 mg/dL Blood 12/09/2024 7:52 PM CDT 12/09/2024 7:52 PM CDT Manolo Lott MD LAB POCT ORDERABLES - DEV ICE Final Result [facility] [place] [address] * POCT glucose (12/09/2024 5:12 PM CDT) Glucose, POC 137 70 - 199 mg/dL Blood 12/09/2024 5:12 PM CDT 12/09/2024 5:12 PM CDT Manolo Lott MD LAB POCT ORDERABLES - DEV ICE Final Result Performing Organization Address [facility] de Phone Number [facility] [place] [address] * POCT glucose (12/09/2024 12:23 PM CDT) Glucose, POC 124 70 - 199 mg/dL Blood 12/09/2024 12:2 3 PM CDT 12/09/2024 12:23 PM CDT Manolo Lott MD LAB POCT ORDERABLES - DEV ICE Final Result Performing Organization Address [facility] de Phone Number [facility] [place] [address] * POCT glucose (12/09/2024 7:59 AM CDT) Glucose, POC 159 70 - 199 mg/dL Blood 12/09/2024 7:59 AM CDT 12/09/2024 7:59 AM CDT Manolo Lott MD LAB POCT ORDERABLES - DEV ICE Final Result Performing Organization Address [facility] de Phone Number [facility] [place] [place] [address] * XR Chest 1 View (12/09/2024 5:47 [...] DEV ICE Final Result Performing Organization Address [facility] Co de Phone Number [facility] [place] [address] * POCT glucose (12/08/2024 11:55 PM CDT) Glucose, POC 140 70 - 199 mg/dL Blood 12/08/2024 11:5 5 PM CDT 12/08/2024 11:55 PM CDT Manolo Lott MD LAB POCT ORDERABLES - DEV ICE Final Result Performing Organization Address [facility] de Phone Number [facility] [place] [address] * eGFR (12/08/2024 10:11 PM CDT) eGFR [...] ORDERABLES Rosie l Result Performing Organization Address City/[facility]/ZIP Co de Phone Number [facility] [place] [address] * (ABNORMAL) CBC without differential (12/08/2024 10:11 PM CDT) WBC 6.24 3.80 - 9.90 K/cumm Hgb 9.3(L) 13.0 - 17.5 g/dL [facility] Hct 27.8(L) 38.9 - 50.3 % [facility] Plt 124(L) 150 - 400 K/cumm [facility] MPV 9.9 9.1 - 12.3 fL [facility] RBC 3.01(L) 4.30 - 5.80 M/cumm [facility] MCV 92.4 81.3 - 96.4 fL [facility] MCH 30.9 27.1 - 33.3 pg [facility] MCHC 33.5 32.3 - 35.7 g/dL [facility] RDW CV 14.3 11.1 - 14.9 % [facility] RDW SD 48.7(H) 35.7 - 48.1 fL [facility] NRBC abs 0.00 0.00 - 0.01 K/cumm [facility] Blood 12/08/2024 10:1 1 PM CDT 12/08/2024 10:26 PM CDT Manolo Lott MD LAB BLOOD ORDERABLES Rosie l Result Performing Organization Address City/[facility]/ZIP Co de Phone Number [facility] [place] [address] * Magnesium (12/08/2024 10:11 PM CDT) Pathologist [facility] Magnesium 2.0 1.4 - 2.5 mg/dL Blood 12/08/2024 10:1 1 PM CDT 12/08/2024 10:26 PM CDT Pilar Lincoln MEDICAL REPRESENTATIVE LAB BLOOD ORDERABLES Rosie l Result Performing Organization Address City/[facility]/ZIP Co de Phone Number [facility] [place] [address] * (ABNORMAL) Basic metabolic panel (12/08/2024 10:11 PM CDT) [facility] Sodium 144 135 - 145 mmol/L Potassium, pl 3.6 3.3 - 4.9 mmol/L [facility] Chloride 109 97 - 110 mmol/L [facility] CO2 28 22 - 32 mmol/L [facility] Anion gap 7 2 - 15 mmol/L [facility] BUN 11 6 - 25 mg/dL [facility] Creatinine 0.74(L) 0.80 - 1.30 mg/dL [facility] Glucose 130 70 - 199 mg/dL [facility] Comment: Interpretive Data Fasting glucose >/= 126 [...] 2022. Calcium 8.4(L) 8.5 - 10.3 mg/dL [facility] Blood 12/08/2024 10:1 1 PM CDT 12/08/2024 10:26 PM CDT Manolo Lott MD LAB BLOOD ORDERABLES Rosie l Result Performing Organization Address City/[facility] Co de Phone Number [facility] [place] [place] [address] * POCT glucose (12/08/2024 8:00 PM CDT) Glucose, POC 125 70 - 199 mg/dL Blood 12/08/2024 8:00 PM CDT 12/08/2024 8:00 PM CDT Manolo Lott MD LAB POCT ORDERABLES - DEV ICE Final Result Performing Organization Address [facility] [place] [address] * POCT glucose (12/08/2024 4:37 PM CDT) Glucose, POC 114 70 - 199 mg/dL Blood 12/08/2024 4:37 PM CDT 12/08/2024 4:37 PM CDT Manolo Lott MD LAB POCT ORDERABLES - DEV ICE Final Result Performing Organization Address [facility] Co de Phone Number [facility] [place] [place] [address] * POCT glucose (12/08/2024 12:01 PM CDT) Glucose, POC 108 70 - 199 mg/dL Blood 12/08/2024 12:0 1 PM CDT 12/08/2024 12:01 PM CDT Manolo Lott MD LAB POCT ORDERABLES - DEV ICE Final Result Performing Organization Address [facility] Co de Phone Number [facility] [place] [place] [address] * POCT glucose (12/08/2024 7:53 AM CDT) Glucose, POC 98 70 - 199 mg/dL Blood 12/08/2024 7:53 AM CDT 12/08/2024 7:53 AM CDT Manolo Lott MD LAB POCT ORDERABLES - DEV ICE Final Result CARRIE [facility] [place] [address] * XR Chest 1 View (12/08/2024 5:17 [...] * POCT glucose (12/08/2024 4:04 AM CDT) [facility] Glucose, POC 98 70 - 199 mg/dL Blood 12/08/2024 4:04 AM CDT 12/08/2024 4:04 AM CDT Manolo Lott MD LAB POCT ORDERABLES - DEV ICE Final Result Performing Organization Address [facility]/ZIP Co de Phone Number [facility] [place] [place] [address] * POCT glucose (12/07/2024 11:56 PM CDT) [facility] Glucose, POC 116 70 - 199 mg/dL Blood 12/07/2024 11:5 6 PM CDT 12/07/2024 11:56 PM CDT Manolo Lott MD LAB POCT ORDERABLES - DEV ICE Final Result [facility] [place] [address] * eGFR (12/07/2024 8:33 PM CDT) [facility] eGFR >90 >=60 mL/min/1. 73 m2 Comment: [...] MD LAB BLOOD ORDERABLES Rosie white Result [facility] [place] [address] * (ABNORMAL) CBC without differential (12/07/2024 8:33 PM CDT) WBC 9.11 3.80 - 9.90 K/cumm Hgb 9.8(L) 13.0 - 17.5 g/dL [facility] Hct 29.2(L) 38.9 - 50.3 % [facility] Plt 135(L) 150 - 400 K/cumm [facility] MPV 10.1 9.1 - 12.3 fL [facility] RBC 3.10(L) 4.30 - 5.80 M/cumm [facility] MCV 94.2 81.3 - 96.4 fL [facility] MCH 31.6 27.1 - 33.3 pg [facility] MCHC 33.6 32.3 - 35.7 g/dL [facility] RDW CV 15.4(H) 11.1 - 14.9 % [facility] RDW SD 53.4(H) 35.7 - 48.1 fL [facility] NRBC abs 0.00 0.00 - 0.01 K/cumm [facility] Blood 12/07/2024 8:33 PM CDT 12/07/2024 8:49 PM CDT Manolo Lott MD LAB BLOOD ORDERABLES Rosie l Result Performing Organization Address City/[facility]/ZIP Co de Phone Number [facility] [place] [address] * Magnesium (12/07/2024 8:33 PM CDT) [facility] Magnesium 2.0 1.4 - 2.5 mg/dL Blood 12/07/2024 8:33 PM CDT 12/07/2024 8:49 PM CDT Pilar Lincoln NP LAB BLOOD ORDERABLES Rosie l Result Performing Organization Address [facility] de Phone Number [facility] [place] [address] * Basic metabolic panel (12/07/2024 8:33 PM CDT) [facility] Sodium 144 135 - 145 mmol/L Potassium, pl 3.7 3.3 - 4.9 mmol/L [facility] Chloride 108 97 - 110 mmol/L [facility] CO2 32 22 - 32 mmol/L [facility] Anion gap 4 2 - 15 mmol/L [facility] BUN 13 6 - 25 mg/dL [facility] Creatinine 0.82 0.80 - 1.30 mg/dL [facility] Glucose 112 70 - 199 mg/dL [facility] Comment: Interpretive Data Fasting glucose >/= 126 [...] 2022. Calcium 9.3 8.5 - 10.3 mg/dL [facility] Blood 12/07/2024 8:33 PM CDT 12/07/2024 8:49 PM CDT Manolo Lott MD LAB BLOOD ORDERABLES Rosie l Result Performing Organization Address [facility] [place] [address] * POCT glucose (12/07/2024 8:08 PM CDT) Glucose, POC 117 70 - 199 mg/dL Blood 12/07/2024 8:08 PM CDT 12/07/2024 8:08 PM CDT Manolo Lott MD LAB POCT ORDERABLES - DEV ICE Final Result Performing Organization Address [facility] Co de Phone Number [facility] [place] [address] * POCT glucose (12/07/2024 5:10 PM CDT) Glucose, POC 118 70 - 199 mg/dL Blood 12/07/2024 5:10 PM CDT 12/07/2024 5:10 PM CDT Manolo Lott MD LAB POCT ORDERABLES - DEV ICE Final Result Performing Organization Address [facility] Co de Phone Number [facility] [place] [place] [address] * POCT glucose (12/07/2024 11:27 AM CDT) Glucose, POC 123 70 - 199 mg/dL Blood 12/07/2024 11:2 7 AM CDT 12/07/2024 11:27 AM CDT Manolo Lott MD LAB POCT ORDERABLES - DEV ICE Final Result Performing Organization Address [facility] Co de Phone Number [facility] [place] [address] * POCT glucose (12/07/2024 7:36 AM CDT) Glucose, POC 153 70 - 199 mg/dL Blood 12/07/2024 7:36 AM CDT 12/07/2024 7:36 AM CDT Manolo Lott MD LAB POCT ORDERABLES - DEV ICE Final Result Performing Organization Address [facility] de Phone Number [facility] [place] [address] * XR Chest 1 View (12/07/2024 5:32 [...] left costophrenic angle is excluded from the [id number]. Unchanged elevation of the right hemidiaphragm. Likely [...] left costophrenic angle is excluded from the [id number]. Unchanged elevation of the right hemidiaphragm. Likely [...] * POCT glucose (12/07/2024 3:30 AM CDT) [facility] Glucose, POC 122 70 - 199 mg/dL Blood 12/07/2024 3:30 AM CDT 12/07/2024 3:30 AM CDT us Manolo Lott MD LAB POCT ORDERABLES - DEV ICE Final Result [facility] [place] [address] * POCT glucose (12/06/2024 11:25 PM CDT) Glucose, POC 152 70 - 199 mg/dL Blood 12/06/2024 11:2 5 PM CDT 12/06/2024 11:25 PM CDT Manolo Lott MD LAB POCT ORDERABLES - DEV ICE Final Result Performing Organization Address [facility] Co de Phone Number [facility] [place] [address] * eGFR (12/06/2024 8:45 PM CDT) Pathologist [facility] eGFR 87 >=60 mL/min/1. 73 m2 Comment: [...] ORDERABLES Rosie l Result Performing Organization Address [facility] Co de Phone Number [facility] [place] [address] * (ABNORMAL) CBC without differential (12/06/2024 8:45 PM CDT) [facility] WBC 12.57(H) 3.80 - 9.90 K/cumm Hgb 11.1(L) 13.0 - 17.5 g/dL [facility] Hct 33.5(L) 38.9 - 50.3 % [facility] Plt 156 150 - 400 K/cumm [facility] MPV 9.8 9.1 - 12.3 fL [facility] RBC 3.61(L) 4.30 - 5.80 M/cumm [facility] MCV 92.8 81.3 - 96.4 fL [facility] MCH 30.7 27.1 - 33.3 pg [facility] MCHC 33.1 32.3 - 35.7 g/dL [facility] RDW CV 15.9(H) 11.1 - 14.9 % [facility] RDW SD 54.9(H) 35.7 - 48.1 fL [facility] NRBC abs 0.00 0.00 - 0.01 K/cumm [facility] Blood 12/06/2024 8:45 PM CDT 12/06/2024 9:00 PM CDT Pilar Lincoln MEDICAL REPRESENTATIVE LAB BLOOD ORDERABLES Rosie white Result [facility] [place] [address] * Basic metabolic panel (12/06/2024 8:45 PM CDT) [facility] Sodium 143 135 - 145 mmol/L Potassium, pl 4.3 3.3 - 4.9 mmol/L [facility] Chloride 105 97 - 110 mmol/L [facility] CO2 28 22 - 32 mmol/L [facility] Anion gap 10 2 - 15 mmol/L [facility] BUN 12 6 - 25 mg/dL [facility] Creatinine 0.92 0.80 - 1.30 mg/dL [facility] Glucose 154 70 - 199 mg/dL [facility] Comment: Interpretive Data Fasting glucose >/= 126 [...] 2022. Calcium 9.0 8.5 - 10.3 mg/dL [facility] Blood 12/06/2024 8:45 PM CDT 12/06/2024 8:59 PM CDT Manolo Lott MD LAB BLOOD ORDERABLES Rosie l Result Performing Organization Address [facility] Co de Phone Number [facility] [place] [address] * POCT glucose (12/06/2024 8:38 PM CDT) Glucose, POC 159 70 - 199 mg/dL Blood 12/06/2024 8:38 PM CDT 12/06/2024 8:38 PM CDT Manolo Lott MD LAB POCT ORDERABLES - DEV ICE Final Result Performing Organization Address City/[facility] Co de Phone Number [facility] [place] [place] [address] * POCT glucose (12/06/2024 5:13 PM CDT) Glucose, POC 131 70 - 199 mg/dL Blood 12/06/2024 5:13 PM CDT 12/06/2024 5:13 PM CDT Manolo Lott MD LAB POCT ORDERABLES - DEV ICE Final Result Performing Organization Address [facility] Co de Phone Number [facility] [place] [address] * POCT glucose (12/06/2024 11:57 AM CDT) Glucose, POC 187 70 - 199 mg/dL Blood 12/06/2024 11:5 7 AM CDT 12/06/2024 11:57 AM CDT Manolo Lott MD LAB POCT ORDERABLES - DEV ICE Final Result Performing Organization Address [facility] Co de Phone Number [facility] [place] [address] * POCT glucose (12/06/2024 7:56 AM CDT) Glucose, POC 189 70 - 199 mg/dL Blood 12/06/2024 7:56 AM CDT 12/06/2024 7:56 AM CDT Manolo Lott MD LAB POCT ORDERABLES - DEV ICE Final Result Performing Organization Address [facility] de Phone Number [facility] [place] [address] * XR Chest 1 View (12/06/2024 5:38 [...] DEV ICE Final Result Performing Organization Address [facility] Co de Phone Number [facility] [place] [address] * (ABNORMAL) POCT glucose (12/05/2024 11:53 PM CDT) Glucose, POC 254(H) 70 - 199 mg/dL Blood 12/05/2024 11:5 3 PM CDT 12/05/2024 11:53 PM CDT Manolo Lott MD LAB POCT ORDERABLES - DEV ICE Final Result Performing Organization Address [facility] Co de Phone Number [facility] [place] [address] * eGFR (12/05/2024 9:45 PM CDT) eGFR [...] MD LAB BLOOD ORDERABLES Rosie white Result [facility] [place] [address] * (ABNORMAL) CBC without differential (12/05/2024 9:45 PM CDT) WBC 19.57(H) 3.80 - 9.90 K/cumm Hgb 12.5(L) 13.0 - 17.5 g/dL [facility] Hct 37.3(L) 38.9 - 50.3 % [facility] Plt 193 150 - 400 K/cumm [facility] MPV 10.1 9.1 - 12.3 fL [facility] RBC 4.05(L) 4.30 - 5.80 M/cumm [facility] MCV 92.1 81.3 - 96.4 fL [facility] MCH 30.9 27.1 - 33.3 pg [facility] MCHC 33.5 32.3 - 35.7 g/dL [facility] RDW CV 15.8(H) 11.1 - 14.9 % [facility] RDW SD 53.0(H) 35.7 - 48.1 fL [facility] NRBC abs 0.00 0.00 - 0.01 K/cumm [facility] Blood 12/05/2024 9:45 PM CDT 12/05/2024 10:04 PM CDT Manolo Lott MD LAB BLOOD ORDERABLES Rosie l Result Performing Organization Address City/[facility] Co de Phone Number [facility] [place] [address] * Magnesium (12/05/2024 9:45 PM CDT) Pathologist [facility] Magnesium 1.7 1.4 - 2.5 mg/dL Blood 12/05/2024 9:45 PM CDT 12/05/2024 10:00 PM CDT Manolo Lott MD LAB BLOOD ORDERABLES Rosie l Result Performing Organization Address [facility] Phone Number [facility] [place] [address] * (ABNORMAL) Blood gas, arterial (12/05/2024 9:45 PM CDT) pH, Art 7.32(L) 7.35 - 7.45 PCO2, Arterial 44 35 - 45 mmHg [facility] PO2, Arterial 117(H) 83 - 108 mmHg [facility] HCO3 Art (Calculated) 23 20 - 30 mmol/L [facility] BE, art -4 mmol/L [facility] Comment: Interpretive Data No Reference Range Established Current Interpretive Data was last revised on 2017 O2 Sat Art (Measured) 98(H) 90 - 95 % [facility] Blood 12/05/2024 9:45 PM CDT 12/05/2024 10:00 PM CDT Manolo Lott MD LAB BLOOD ORDERABLES Rosie l Result Performing Organization Address [facility] Co de Phone Number [facility] [place] [address] * Lipid panel (12/05/2024 9:45 PM CDT) [...] revised on 2018. Triglycerides 85 <=149 mg/dL [facility] Comment: Interpretive Data Ages < or = [...] revised on 2018. HDL 51 >=40 mg/dL [facility] Comment: Interpretive Data Ages < or = [...] 2018. LDL, calculated 91 <=129 mg/dL [facility] Comment: Interpretive Data Ages < or = [...] revised on 2024. Non-HDL Cholesterol 107 mg/dL [facility] Comment: Interpretive Data Ages < or = [...] last revised on 2018. Chol/HDL ratio 3 [facility] Blood 12/05/2024 9:45 PM CDT 12/05/2024 10:00 PM CDT Manolo Lott MD LAB BLOOD ORDERABLES Rosie white Result [facility] [place] [address] * (ABNORMAL) Basic metabolic panel (12/05/2024 9:45 PM CDT) Sodium 139 135 - 145 mmol/L Potassium, pl 4.5 3.3 - 4.9 mmol/L [facility] Chloride 103 97 - 110 mmol/L [facility] CO2 24 22 - 32 mmol/L [facility] Anion gap 12 2 - 15 mmol/L [facility] BUN 11 6 - 25 mg/dL [facility] Creatinine 0.80 0.80 - 1.30 mg/dL [facility] Glucose 263(H) 70 - 199 mg/dL [facility] Comment: Interpretive Data Fasting glucose >/= 126 [...] 2022. Calcium 9.1 8.5 - 10.3 mg/dL [facility] Blood 12/05/2024 9:45 PM CDT 12/05/2024 10:00 PM CDT us Manolo Lott MD LAB BLOOD ORDERABLES Rosie l Result [facility] [place] [address] * (ABNORMAL) POCT glucose (12/05/2024 8:49 PM CDT) Glucose, POC 260(H) 70 - 199 mg/dL Blood 12/05/2024 8:49 PM CDT 12/05/2024 8:49 PM CDT Manolo Lott MD LAB POCT ORDERABLES - DEV ICE Final Result [facility] [place] [address] * XR Chest 1 View - in [...] Art POC 49(H) 35 - 45 mmHg [facility] pO2, Art POC 91 83 - 108 mmHg [facility] Na, POC 138 135 - 145 mmol/L [facility] K POC 3.8 3.3 - 4.9 mmol/L [facility] Comment: Interpretive Data Not all point of care methods assess for hemolysis. Confirm with instrument and retest K+ if not consistent with clinical signs and symptoms. Current Interpretive Data was last revised on 2023. Cl, POC 108 97 - 110 mmol/L [facility] Ionized Ca, POC 4.97 4.50 - 5.10 mg/dL [facility] Glucose, POC 288(H) 70 - 199 mg/dL [facility] Lactate, POC 3.9(H) 0.7 - 2.0 mmol/L [facility] SO2 (jenny) arterial 98(H) 90 - 95 % [facility] Base excess, POC -4.7 mmol/L [facility] HCO3, Art POC 22 20 - 30 mmol/L [facility] Hct, POC 40.0(L) 41.4 - 51.6 % [facility] Total Hb, POC 13.2(L) 13.8 - 17.2 g/dL [facility] Blood 12/05/2024 5:26 PM CDT 12/05/2024 5:26 PM CDT Manolo Lott MD LAB POCT ORDERABLES - DEV ICE Final Result Performing Organization Address [facility] Co de Phone Number [facility] [place] [address] * (ABNORMAL) POCT glucose (12/05/2024 4:03 PM CDT) Glucose, POC 211(H) 70 - 199 mg/dL Blood 12/05/2024 4:03 PM CDT 12/05/2024 4:03 PM CDT Manolo Lott MD LAB POCT ORDERABLES - DEV ICE Final Result Performing Organization Address [facility] de Phone Number [facility] [place] [address] * Surgical pathology (12/05/2024 1:51 PM CDT) [...] Resection) 12/05/2024 2:33 PM CDT Narrative PATHOLOGY [facility] - 12/11/2024 2:15 PM CDT EPIC results best viewed via link to PDF [facility] Saida Ar[facility] Surgical Pathology [place] [facility] [place] [address] Note to Patients: This report may contain [...] Gender: M : 1950 (Age: 74) Address: [address] [place] [id number] Hospital #: [id number] Taken:12/05/2024 Received:12/05/2024 Reported: 12/11/2024 Patient Type: [facility] Inpatient Service: Cardiothoracic Location: [place] [address] Physician(s): Adrian Herron MD Diagnosis: A. 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 Additional junior sales representative sections of the remaining fat are submitted.Dip Lube Operator sections submitted D1 Proximal esophageal margin, shaved D2-D8 Distal gastric margin staple line, shaved D9 Radial mesenteric margin staple line, shaved D10 Uninvolved esophagus, proximal to the scarred area D11-D21 Scarred area, entirely submitted D22-D25 Remainder of gastroesophageal junction, entirely submitted D26 Unremarkable stomach, distal to scarred area D27-D30 Putative lymph nodes, intact D31-D39 Dip Lube Operator sections of remaining fat Jar 3. E. [...] Surgical Pathology and Flow Cytometry Departments at [facility] as part of an ongoing supplier quality engineer program and in compliance with federally mandated [...] Surgical Pathology and Flow Cytometry Departments of [facility]. It has not been cleared or approved by the U. S. Food and Drug Administration. IMAGES AND SCANNED DOCUMENTS, IF INCLUDED, ONLY VIEWABLE IN PDF VERSION OF REPORT Manolo Lott MD LAB PATHOLOGY ORDERABLES Final Result Performing Organization Address [facility] Co de Phone Number PATHOLOGY [facility] IO 3rd Floor [place], [place] [phone] * POCT glucose (12/05/2024 1:27 PM CDT) Glucose, POC 131 70 - 199 mg/dL Blood 12/05/2024 1:27 PM CDT 12/05/2024 1:27 PM CDT Manolo Lott MD LAB POCT ORDERABLES - DEV ICE Final Result Performing Organization Address [facility] Co de Phone Number [facility] [place] [address] * [place] AN ELECTIVE ENDOTRACHEAL AIRWAY, [place] AN PROCEDURE PLACEHOLDER (12/05/2024 12:57 PM CDT) [...] MD ANESTHESIA ORDERABLES Fi nal Result * [place] AN PROCEDURE PLACEHOLDER (12/05/2024 12:53 PM CDT) [...] MD ANESTHESIA ORDERABLES Fi nal Result * [place] AN PROCEDURE PLACEHOLDER (12/05/2024 11:35 AM CDT) [...] 9:27 AM CDT) ABO Rh A Positive [facility] HCLL OTHER 12/05/2024 9:27 AM CDT 12/05/2024 10:39 AM CDT Result [facility] Manolo Lott MD LAB BLOOD ORDERABLES Rosie l Result [facility] Department [place] [address] [facility] * POCT glucose (12/05/2024 9:27 AM CDT) Glucose, POC 154 70 - 199 mg/dL Blood 12/05/2024 9:27 AM CDT 12/05/2024 9:27 AM CDT Manolo Lott MD LAB POCT ORDERABLES - DEV ICE Final Result Performing Organization Address [facility]/[place] [address] * TYPE AND SCREEN 14 DAY (11/22/2024 4:10 PM CDT) Christin, indirect Negative ABO Rh A Positive [facility] Blood 11/22/2024 4:10 PM CDT 11/22/2024 6:14 PM CDT Narrative [facility] - 11/22/2024 7:16 PM CDT Is this test being ordered in advance for a procedure?->Yes Expected date of procedure:->12/06/24 Has the patient been transfused in the past 3 months?->No Marcelina Holloway NP LAB BLOOD BANK TEST ORD ERABLES Final Result Performing Organization Address [facility] Co de Phone Number [facility] [place] [address] * eGFR (11/22/2024 4:10 PM CDT) Pathologist [facility] eGFR 83 >=60 mL/min/1. 73 m2 Comment: [...] CDT 11/22/2024 5:26 PM CDT Marcelina Holloway MEDICAL REPRESENTATIVE LAB BLOOD ORDERABLES Fi nal Result [facility] [place] [address] * (ABNORMAL) Differential, auto (11/22/2024 4:10 PM CDT) Neutrophil abs 2.82 1.50 - 6.50 K/cumm Imm gran abs 0.03 0.00 - 0.10 K/cumm [facility] Lymphocyte abs 0.92 0.80 - 3.30 K/cumm [facility] Monocyte abs 0.76 0.20 - 0.80 K/cumm [facility] Eosinophil abs 0.60(H) 0.00 - 0.50 K/cumm [facility] Basophil abs 0.07 0.00 - 0.10 K/cumm [facility] Neutrophil pct 54.3 % [facility] Comment: Interpretive Data Percent cell count reference ranges are not reported, since discordance with absolute values may lead to misinterpretation of CBC data. Current Interpretive Data was last revised on 2017. Imm gran pct 0.6 % [facility] Comment: Interpretive Data Percent cell count reference ranges are not reported, since discordance with absolute values may lead to misinterpretation of CBC data. Current Interpretive Data was last revised on 2017. Lymphocyte pct 17.7 % [facility] Comment: Interpretive Data Percent cell count reference ranges are not reported, since discordance with absolute values may lead to misinterpretation of CBC data. Current Interpretive Data was last revised on 2017. Monocyte pct 14.6 % [facility] Comment: Interpretive Data Percent cell count reference ranges are not reported, since discordance with absolute values may lead to misinterpretation of CBC data. Current Interpretive Data was last revised on 2017. Eosinophil pct 11.5 % [facility] Comment: Interpretive Data Percent cell count reference ranges are not reported, since discordance with absolute values may lead to misinterpretation of CBC data. Current Interpretive Data was last revised on 2017. Basophil pct 1.3 % [facility] Comment: Interpretive Data Percent cell count reference ranges are not reported, since discordance with absolute values may lead to misinterpretation of CBC data. Current Interpretive Data was last revised on 2017. Blood 11/22/2024 4:10 PM CDT 11/22/2024 5:26 PM CDT Marcelina Holloway NP LAB BLOOD ORDERABLES Fi nal Result [facility] [place] [address] * (ABNORMAL) CBC with auto differential (11/22/2024 4:10 PM CDT) WBC 5.20 3.80 - 9.90 K/cumm Hgb 11.6(L) 13.0 - 17.5 g/dL [facility] Hct 34.0(L) 38.9 - 50.3 % [facility] Plt 168 150 - 400 K/cumm [facility] MPV 10.1 9.1 - 12.3 fL [facility] RBC 3.76(L) 4.30 - 5.80 M/cumm [facility] MCV 90.4 81.3 - 96.4 fL [facility] MCH 30.9 27.1 - 33.3 pg [facility] MCHC 34.1 32.3 - 35.7 g/dL [facility] RDW CV 17.2(H) 11.1 - 14.9 % [facility] RDW SD 57.2(H) 35.7 - 48.1 fL [facility] NRBC abs 0.00 0.00 - 0.01 K/cumm [facility] Blood 11/22/2024 4:10 PM CDT 11/22/2024 5:26 PM CDT Marcelina Holloway NP LAB BLOOD ORDERABLES Fi nal Result Performing Organization Address [facility] de Phone Number [facility] [place] [address] * (ABNORMAL) Hemoglobin A1c (11/22/2024 4:10 PM CDT) Hgb A1C 8.5(H) 4.0 - 5.6 % Estimated Average Glucose 197 mg/dL [facility] Comment: The ADA recommends reporting an estimated [...] ORDERABLES Fi nal Result Performing Organization Address [facility] de Phone Number [facility] [place] [address] * (ABNORMAL) Comprehensive metabolic panel (11/22/2024 4:10 PM CDT) [facility] Sodium 137 135 - 145 mmol/L Potassium, pl 3.9 3.3 - 4.9 mmol/L [facility] Chloride 100 97 - 110 mmol/L [facility] CO2 27 22 - 32 mmol/L [facility] Anion gap 10 2 - 15 mmol/L [facility] BUN 15 6 - 25 mg/dL [facility] Creatinine 0.95 0.80 - 1.30 mg/dL [facility] Glucose 262(H) 70 - 199 mg/dL [facility] Comment: Interpretive Data Fasting glucose >/= 126 [...] 2022. Calcium 9.7 8.5 - 10.3 mg/dL [facility] Bilirubin, total 0.3 0.1 - 1.2 mg/dL [facility] Protein, pl 7.0 6.5 - 8.5 g/dL [facility] Albumin 3.5 3.5 - 5.0 g/dL [facility] Alk phos 77 40 - 130 Units/L [facility] ALT 17 7 - 55 Units/L [facility] AST 19 10 - 50 Units/L [facility] Blood 11/22/2024 4:10 PM CDT 11/22/2024 5:26 PM CDT Marcelina Holloway NP LAB BLOOD ORDERABLES Fi nal Result Performing Organization Address [facility] de Phone Number [facility] [place] [address] * ECG 12 lead (11/22/2024 3:26 PM CDT) Pathologist [facility] Ventricular Rate EKG/Min 68 BPM [facility] Atrial Rate 68 BPM [facility] KS-Interval (MSEC) 208 ms [facility] QRS-Interval (MSEC) 200 ms [facility] QT-Interval (MSEC) 490 ms [facility] QTc 521 ms [facility] P Paia -74 degrees [facility] R Paia -72 degrees [facility] T Paia 104 degrees [facility] Diagnosis AV dual-paced rhythm Abnormal ECG No previous ECGs available Confirmed by Isaac Morgan MD ([id number]) on 11/24/2024 8:36:33 AM [facility] 11/22/2024 3:26 PM CDT 11/24/2024 8:36 AM CDT Marcelina Holloway NP ECG ORDERABLES Final R esult Performing Organization Address [facility] Co de Phone Number [facility] * PET/CT FDG Skull to Thigh (11/20/2024 [...] FDG-PET/CT IMAGING DATE OF STUDY: 11/20/2024 SCANNER: [facility] Therative (SQ1). This is a high-resolution scanner, which [...] obtained. The study was interpreted on the Down workstation. The mean liver SUV (reported for quality control inspector purposes) is 2.6. The total scanned area [...] FDG-PET/CT IMAGING DATE OF STUDY: 11/20/2024 SCANNER: [facility] Therative (SQ1). This is a high-resolution scanner, which [...] obtained. The study was interpreted on the Down workstation. The mean liver SUV (reported for quality control inspector purposes) is 2.6. The total scanned area [...] PhD LAB BLOOD ORDERABLES Final [facility]u lt [facility] [place] [address] * (ABNORMAL) Differential, auto (11/09/2024 8:48 AM CDT) Neutrophil abs 3.4 1.5 - 6.5 K/cumm Comment:Testing performed by : [facility], [address] [place] [phone] Lymphocyte abs 0.7(L) 0.8 - 3.3 K/cumm [facility] Comment:Testing performed by : [facility], [address] [place] [phone] Monocyte abs 0.5 0.2 - 0.8 K/cumm [facility] Comment:Testing performed by : [facility], [address] [place], [place] [phone] Eosinophil abs 0.0 0.0 - 0.5 K/cumm [facility] Comment:Testing performed by : [facility], [address] [place], [place] [phone] Basophil abs 0.0 0.0 - 0.1 K/cumm [facility] Comment:Testing performed by : [facility], [address] [place] [phone] Neutrophil pct 73.6 % [facility] Comment: Interpretive Data Percent cell count reference ranges are not reported, since discordance with absolute values may lead to misinterpretation of CBC data. Current Interpretive Data was last revised on 2017. Testing performed by: [facility], [address] [place] [phone] Lymphocyte pct 14.7 % [facility] Comment: Interpretive Data Percent cell count reference ranges are not reported, since discordance with absolute values may lead to misinterpretation of CBC data. Current Interpretive Data was last revised on 2017. Testing performed by: [facility], [address] [place] [phone] Monocyte pct 10.8 % [facility] Comment: Interpretive Data Percent cell count reference ranges are not reported, since discordance with absolute values may lead to misinterpretation of CBC data. Current Interpretive Data was last revised on 2017. Testing performed by: [facility], [address] [place] [phone] Eosinophil pct 0.4 % [facility] Comment: Interpretive Data Percent cell count reference ranges are not reported, since discordance with absolute values may lead to misinterpretation of CBC data. Current Interpretive Data was last revised on 2017. Testing performed by: [facility], [address] [place] [phone] Basophil pct 0.5 % [facility] Comment: Interpretive Data Percent cell count reference ranges are not reported, since discordance with absolute values may lead to misinterpretation of CBC data. Current Interpretive Data was last revised on 2017. Testing performed by: [facility], [address] [place] [phone] Blood 11/09/2024 8:48 AM CDT 11/09/2024 8:53 AM CDT us Jacques Omalley MD PhD LAB BLOOD ORDERABLES Final Resu lt [facility] [place] [address] * (ABNORMAL) CBC with auto differential (11/09/2024 8:48 AM CDT) WBC 4.6 3.8 - 9.9 K/cumm Comment:Testing performed by : [facility], [address] [place] [address] Hgb 11.6(L) 13.0 - 17.5 g/dL [facility] Comment:Testing performed by : [facility], [address] [place] [address] Hct 34.1(L) 38.9 - 50.3 % [facility] Comment:Testing performed by : [facility], [address] [place] [address] Plt 250 150 - 400 K/cumm [facility] Comment:Testing performed by : [facility], [address] [place] [phone] MPV 7.5 6.8 - 10.4 fL [facility] Comment:Testing performed by : [facility], [address] [place], [place] [phone] RBC 3.87(L) 4.30 - 5.80 M/cumm [facility] Comment:Testing performed by : [facility], [address] [place] [address] MCV 88.1 81.3 - 96.4 fL [facility] Comment:Testing performed by : [facility], [address] [place], [place] [phone] MCH 30.1 27.1 - 33.3 pg [facility] Comment:Testing performed by : [facility], [address] [place], [place] [phone] MCHC 34.1 32.3 - 35.7 g/dL [facility] Comment:Testing performed by : [facility], [address] [place] [address] RDW CV 20.4(H) 11.1 - 14.9 % [facility] Comment:Testing performed by : [facility], [address] [place] [address] NRBC abs 0.00 0.00 - 0.01 K/cumm [facility] Comment:Testing performed by : [facility], [address] [place] [address] Blood 11/09/2024 8:48 AM CDT 11/09/2024 8:53 AM CDT us Jacques Omalley MD PhD LAB BLOOD ORDERABLES Final Resu lt [facility] [place] [address] * (ABNORMAL) Comprehensive metabolic panel (11/09/2024 8:48 AM CDT) Sodium 137 135 - 145 mmol/L Potassium, pl 4.1 3.3 - 4.9 mmol/L [facility] Chloride 103 97 - 110 mmol/L [facility] CO2 26 22 - 32 mmol/L [facility] Anion gap 8 2 - 15 mmol/L [facility] BUN 12 6 - 25 mg/dL [facility] Creatinine 0.79(L) 0.80 - 1.30 mg/dL [facility] Glucose 289(H) 70 - 199 mg/dL [facility] Comment: Interpretive Data Fasting glucose >/= 126 [...] 2022. Calcium 9.4 8.5 - 10.3 mg/dL [facility] Bilirubin, total 0.4 0.1 - 1.2 mg/dL [facility] Protein, pl 6.9 6.5 - 8.5 g/dL [facility] Albumin 3.7 3.5 - 5.0 g/dL [facility] Alk phos 67 40 - 130 Units/L [facility] ALT 17 7 - 55 Units/L [facility] AST 23 10 - 50 Units/L [facility] Blood 11/09/2024 8:48 AM CDT 11/09/2024 8:57 AM CDT us Jacques Omalley MD PhD LAB BLOOD ORDERABLES Final Resu lt [facility] [place] [address] * eGFR (10/26/2024 8:05 AM CDT) eGFR [...] PhD LAB BLOOD ORDERABLES Final Resu lt [facility] [place] [address] * (ABNORMAL) Differential, auto (10/26/2024 8:05 AM CDT) Neutrophil abs 1.9 1.5 - 6.5 K/cumm Comment:Testing performed by : [facility], [address] [place] [address] Lymphocyte abs 0.3(L) 0.8 - 3.3 K/cumm [facility] Comment:Testing performed by : [facility], [address] [place] [address] Monocyte abs 0.7 0.2 - 0.8 K/cumm [facility] Comment:Testing performed by : [facility], [address] [place] [address] Eosinophil abs 0.0 0.0 - 0.5 K/cumm [facility] Comment:Testing performed by : [facility], [address] [place] [address] Basophil abs 0.0 0.0 - 0.1 K/cumm [facility] Comment:Testing performed by : [facility], [address] [place] [phone] Neutrophil pct 64.5 % [facility] Comment: Interpretive Data Percent cell count reference ranges are not reported, since discordance with absolute values may lead to misinterpretation of CBC data. Current Interpretive Data was last revised on 2017. Testing performed by: [facility], [address] [place] [phone] Lymphocyte pct 11.2 % [facility] Comment: Interpretive Data Percent cell count reference ranges are not reported, since discordance with absolute values may lead to misinterpretation of CBC data. Current Interpretive Data was last revised on 2017. Testing performed by: [facility], [address] [place] [phone] Monocyte pct 23.7 % [facility] Comment: Interpretive Data Percent cell count reference ranges are not reported, since discordance with absolute values may lead to misinterpretation of CBC data. Current Interpretive Data was last revised on 2017. Testing performed by: [facility], [address] [place], [place] [phone] Eosinophil pct 0.2 % [facility] Comment: Interpretive Data Percent cell count reference ranges are not reported, since discordance with absolute values may lead to misinterpretation of CBC data. Current Interpretive Data was last revised on 2017. Testing performed by: [facility], [address] [place] [phone] Basophil pct 0.4 % [facility] Comment: Interpretive Data Percent cell count reference ranges are not reported, since discordance with absolute values may lead to misinterpretation of CBC data. Current Interpretive Data was last revised on 2017. Testing performed by: [facility], [address] [place] [phone] Blood 10/26/2024 8:05 AM CDT 10/26/2024 8:10 AM CDT us Jacques Omalley MD PhD LAB BLOOD ORDERABLES Final Resu lt [facility] [place] [address] * (ABNORMAL) CBC with auto differential (10/26/2024 8:05 AM CDT) WBC 2.9(L) 3.8 - 9.9 K/cumm Comment:Testing performed by : [facility], [address] [place] [address] Hgb 10.2(L) 13.0 - 17.5 g/dL CERNER BJ Comment:Testing performed by : [facility], [address] [place] [address] Hct 30.0(L) 38.9 - 50.3 % CERNER BJ Comment:Testing performed by : [facility], [address] [place] [address] Plt 181 150 - 400 K/cumm CERNER [facility]J Comment:Testing performed by : [facility], [address] [place] [address] MPV 7.4 6.8 - 10.4 fL CERNER BJ Comment:Testing performed by : [facility], [address] [place] [address] RBC 3.52(L) 4.30 - 5.80 M/cumm C[facility]ER [facility] Comment:Testing performed by : [facility], [address] [place] [address] MCV 85.3 81.3 - 96.4 fL CERNER [facility] Comment:Testing performed by : [facility], [address] [place] [address] MCH 29.1 27.1 - 33.3 pg CERNER BJ Comment:Testing performed by : [facility], [address] [place] [address] MCHC 34.1 32.3 - 35.7 g/dL [facility]ER [facility]J Comment:Testing performed by : [facility], [address] [place] [address] RDW CV 15.1(H) 11.1 - 14.9 % [facility] Comment:Testing performed by : [facility], [facility] [place] [address] NRBC abs 0.00 0.00 - 0.01 K/cumm [facility] Comment:Testing performed by : [facility], [facility] [place] [phone] Blood 10/26/2024 8:05 AM CDT 10/26/2024 8:10 AM CDT us Jacques Omalley MD PhD LAB BLOOD ORDERABLES Final Resu lt [facility] [place] [address] * (ABNORMAL) Comprehensive metabolic panel (10/26/2024 8:05 AM CDT) Sodium 132(L) 135 - 145 mmol/L Potassium, pl 4.0 3.3 - 4.9 mmol/L [facility] Chloride 97 97 - 110 mmol/L [facility] CO2 28 22 - 32 mmol/L [facility] Anion gap 7 2 - 15 mmol/L [facility] BUN 11 6 - 25 mg/dL [facility] Creatinine 0.85 0.80 - 1.30 mg/dL [facility] Glucose 177 70 - 199 mg/dL [facility] Comment: Interpretive Data Fasting glucose >/= 126 [...] 2022. Calcium 9.3 8.5 - 10.3 mg/dL [facility] Bilirubin, total 0.6 0.1 - 1.2 mg/dL CERNER [facility] Protein, pl 6.5 6.5 - 8.5 g/dL CERN[facility] Albumin 3.4(L) 3.5 - 5.0 g/dL CERN[facility] Alk phos 56 40 - 130 Units/L CERN[facility] ALT 16 7 - 55 Units/L CERN[facility] AST 19 10 - 50 Units/L [facility] Blood 10/26/2024 8:05 AM CDT 10/26/2024 8:11 AM CDT us Jacques Omalley MD PhD LAB BLOOD ORDERABLES Final Resu lt [facility] [place] [address] * RAD ONC ARIA SESSION SUMMARY (10/18/2024 10:36 AM MANUFACTURING ENGINEER) Course Name C1_Esophagus_ 25 ARIA Course Plan Date 09/01/2024 7:21 AM ARIA Elapsed Days 30 ARIA Treatment Start Date 09/18/2024 ARIA Treatment Site [id number] ARIA Dose Given To Date (cGy) 5,060 ARIA Session Dosage Given (cGy) 220 ARIA Plan ID ESOPHAGUS ARIA Fractions Treated 23 ARIA Prescribed Dose Per Fraction (cGy) 220 ARIA Prescribed Total Dose (cGy) 5,060 ARIA 10/18/2024 10:3 6 AM MANUFACTURING ENGINEER us Not In File Miscellaneous RADIATION ONCOLOGY ORD ERABLES Final Result ARIA * RAD ONC ARIA SESSION SUMMARY (10/17/2024 10:20 AM MANUFACTURING ENGINEER) Course Name C1_Esophagus_ 25 ARIA Course Plan Date 09/01/2024 7:21 AM ARIA Elapsed Days 29 ARIA Treatment Start Date 09/18/2024 ARIA Treatment Site [id number] ARIA Dose Given To Date (cGy) 4,840 ARIA Session Dosage Given (cGy) 220 ARIA Plan ID ESOPHAGUS ARIA Fractions Treated 22 ARIA Prescribed Dose Per Fraction (cGy) 220 ARIA Prescribed Total Dose (cGy) 5,060 ARIA 10/17/2024 10:2 0 AM MANUFACTURING ENGINEER us Not In File Miscellaneous RADIATION ONCOLOGY ORD ERABLES Final Result JHONY Hughes RAD ONC ARIA SESSION SUMMARY (10/16/2024 10:41 AM MANUFACTURING ENGINEER) Course Name C1_Esophagus_ 25 ARIA Course Plan Date 09/01/2024 7:21 AM ARIA Elapsed Days 28 ARIA Treatment Start Date 09/18/2024 ARIA Treatment Site [id number] ARIA Dose Given To Date (cGy) 4,620 ARIA Session Dosage Given (cGy) 220 ARIA Plan ID ESOPHAGUS ARIA Fractions Treated 21 ARIA Prescribed Dose Per Fraction (cGy) 220 ARIA Prescribed Total Dose (cGy) 5,060 ARIA 10/16/2024 10:4 1 AM MANUFACTURING ENGINEER us Not In File Miscellaneous RADIATION ONCOLOGY ORD ERABLES Final Result Performing Organization Address City/[facility] Co de Phone Number JHONY Hughes RAD ONC ARIA SESSION SUMMARY (10/13/2024 10:09 AM MANUFACTURING ENGINEER) Course Name C1_Esophagus_ 25 ARIA Course Plan Date 09/01/2024 7:21 AM ARIA Elapsed Days 25 ARIA Treatment Start Date 09/18/2024 ARIA Treatment Site [id number] ARIA Dose Given To Date (cGy) 4,400 ARIA Session Dosage Given (cGy) 220 ARIA Plan ID ESOPHAGUS ARIA Fractions Treated 20 ARIA Prescribed Dose Per Fraction (cGy) 220 ARIA Prescribed Total Dose (cGy) 5,060 ARIA 10/13/2024 10:0 9 AM MANUFACTURING ENGINEER us Not In File Miscellaneous RADIATION ONCOLOGY ORD ERABLES Final Result JHONY * RAD ONC ARIA SESSION SUMMARY (10/12/2024 10:15 AM MANUFACTURING ENGINEER) Course Name C1_Esophagus_ 25 ARIA Course Plan Date 09/01/2024 7:21 AM ARIA Elapsed Days 24 ARIA Treatment Start Date 09/18/2024 ARIA Treatment Site [id number] ARIA Dose Given To Date (cGy) 4,180 ARIA Session Dosage Given (cGy) 220 ARIA Plan ID ESOPHAGUS ARIA Fractions Treated 19 ARIA Prescribed Dose Per Fraction (cGy) 220 ARIA Prescribed Total Dose (cGy) 5,060 ARIA 10/12/2024 10:1 5 AM MANUFACTURING ENGINEER us Not In File Miscellaneous RADIATION ONCOLOGY ORD ERABLES Final Result JHONY * eGFR (10/12/2024 8:00 AM MANUFACTURING ENGINEER) eGFR >90 >=60 mL/min/1. 73 m2 Comment: [...] last reviewed 2021. Blood 10/12/2024 8:00 AM MANUFACTURING ENGINEER 10/12/2024 8:24 AM MANUFACTURING ENGINEER us Jacques Omalley MD PhD LAB BLOOD ORDERABLES Final Resu lt [facility] [place] [address] * (ABNORMAL) Differential, auto (10/12/2024 8:00 AM MANUFACTURING ENGINEER) Neutrophil abs 2.4 1.5 - 6.5 K/cumm Comment:Testing performed by : [facility], [address] [place] [phone] Lymphocyte abs 0.1(L) 0.8 - 3.3 K/cumm CERNER BJ Comment:Testing performed by : [facility], [address] [place] [phone] Monocyte abs 0.2 0.2 - 0.8 K/cumm CERNER [facility] Comment:Testing performed by : [facility], [address] [place] [phone] Eosinophil abs 0.0 0.0 - 0.5 K/cumm CERNER [facility] Comment:Testing performed by : [facility], [address] [place] [phone] Basophil abs 0.0 0.0 - 0.1 K/cumm C[facility]ER [facility] Comment:Testing performed by : [facility], [address] [place] [phone] Neutrophil pct 86.8 % CERNER [facility] Comment: Interpretive Data Percent cell count reference ranges are not reported, since discordance with absolute values may lead to misinterpretation of CBC data. Current Interpretive Data was last revised on 2017. Testing performed by: [facility], [address] [place] [phone] Lymphocyte pct 5.0 % CERNER [facility] Comment: Interpretive Data Percent cell count reference ranges are not reported, since discordance with absolute values may lead to misinterpretation of CBC data. Current Interpretive Data was last revised on 2017. Testing performed by: [facility], [address] [place] [phone] Monocyte pct 7.0 % [facility] Comment: Interpretive Data Percent cell count reference ranges are not reported, since discordance with absolute values may lead to misinterpretation of CBC data. Current Interpretive Data was last revised on 2017. Testing performed by: [facility], [address] [place] [phone] Eosinophil pct 0.9 % CARRIE SANCHEZ Comment: Interpretive Data Percent cell count reference ranges are not reported, since discordance with absolute values may lead to misinterpretation of CBC data. Current Interpretive Data was last revised on 2017. Testing performed by: [facility], [address] [place] [address] Basophil pct 0.3 % [facility]E [facility] Comment: Interpretive Data Percent cell count reference ranges are not reported, since discordance with absolute values may lead to misinterpretation of CBC data. Current Interpretive Data was last revised on 2017. Testing performed by: [facility], [address] [place] [address] Blood 10/12/2024 8:00 AM MANUFACTURING ENGINEER 10/12/2024 8:21 AM MANUFACTURING ENGINEER us Jacques Omalley MD PhD LAB BLOOD ORDERABLES Final Resu lt [facility] [place] [address] * (ABNORMAL) CBC with auto differential (10/12/2024 8:00 AM MANUFACTURING ENGINEER) WBC 2.8(L) 3.8 - 9.9 K/cumm Comment:Testing performed by : [facility], [address] [place] [address] Hgb 11.3(L) 13.0 - 17.5 g/dL CARRIE SANCHEZ Comment:Testing performed by : [facility], [address] [place] [address] Hct 33.1(L) 38.9 - 50.3 % CARRIE SANCHEZ Comment:Testing performed by : [facility], [address] [place] [address] Plt 93(L) 150 - 400 K/cumm [facility]AS[facility] Comment:Testing performed by : [facility], [address] [place] [address] MPV 7.8 6.8 - 10.[address] [facility] Comment:Testing performed by : [facility], [address] [place] [address] RBC 3.96(L) 4.30 - 5.80 M/cumm CARRIE [facility] Comment:Testing performed by : [facility], [address] [place] [address] MCV 83.6 81.3 - 96.[address] [facility] Comment:Testing performed by : [facility], [address] [place] [address] MCH 28.5 27.1 - 33.3 pg [facility] Comment:Testing performed by : [facility], [address] [place] [address] MCHC 34.1 32.3 - 35.7 g/dL CARRIE [facility] Comment:Testing performed by : [facility], [address] [place] [address] RDW CV 13.6 11.1 - 14.9 % [facility] Comment:Testing performed by : [facility], [address] [place] [address] NRBC abs 0.00 0.00 - 0.01 K/cumm CARRIE [facility] Comment:Testing performed by : [facility], [address] [place] [address] Blood 10/12/2024 8:00 AM MANUFACTURING ENGINEER 10/12/2024 8:21 AM MANUFACTURING ENGINEER us Jacques Omalley MD PhD LAB BLOOD ORDERABLES Final Resu lt [facility] Department [place] [address] * (ABNORMAL) Comprehensive metabolic panel (10/12/2024 8:00 AM MANUFACTURING ENGINEER) Sodium 133(L) 135 - 145 mmol/L Potassium, pl 4.3 3.3 - 4.9 mmol/L [facility] Chloride 99 97 - 110 mmol/L [facility] CO2 29 22 - 32 mmol/L [facility] Anion gap 5 2 - 15 mmol/L [facility] BUN 14 6 - 25 mg/dL [facility] Creatinine 0.83 0.80 - 1.30 mg/dL [facility] Glucose 199 70 - 199 mg/dL [facility] Comment: Interpretive Data Fasting glucose >/= 126 [...] 2022. Calcium 9.4 8.5 - 10.3 mg/dL [facility] Bilirubin, total 0.8 0.1 - 1.2 mg/dL [facility] Protein, pl 6.8 6.5 - 8.5 g/dL [facility] Albumin 4.0 3.5 - 5.0 g/dL [facility] Alk phos 49 40 - 130 Units/L [facility] ALT 22 7 - 55 Units/L [facility] AST 22 10 - 50 Units/L [facility] Blood 10/12/2024 8:00 AM MANUFACTURING ENGINEER 10/12/2024 8:24 AM MANUFACTURING ENGINEER us Jacques Oamlley MD PhD LAB BLOOD ORDERABLES Final Resu lt [facility] Department [place] [address] * RAD ONC ARIA SESSION SUMMARY (10/11/2024 10:06 AM MANUFACTURING ENGINEER) Pathologist [facility] Course Name C1_Esophagus_ 25 ARIA Course Plan Date 09/01/2024 7:21 AM ARIA Elapsed Days 23 ARIA Treatment Start Date 09/18/2024 ARIA Treatment Site [id number] ARIA Dose Given To Date (cGy) 3,960 ARIA Session Dosage Given (cGy) 220 ARIA Plan ID ESOPHAGUS ARIA Fractions Treated 18 ARIA Prescribed Dose Per Fraction (cGy) 220 ARIA Prescribed Total Dose (cGy) 5,060 ARIA 10/11/2024 10:0 6 AM MANUFACTURING ENGINEER us Not In File Miscellaneous RADIATION ONCOLOGY ORD ERABLES Final Result JHONY * RAD ONC ARIA SESSION SUMMARY (10/10/2024 10:24 AM MANUFACTURING ENGINEER) Course Name C1_Esophagus_ 25 ARIA Course Plan Date 09/01/2024 7:21 AM ARIA Elapsed Days 22 ARIA Treatment Start Date 09/18/2024 ARIA Treatment Site [id number] ARIA Dose Given To Date (cGy) 3,740 ARIA Session Dosage Given (cGy) 220 ARIA Plan ID ESOPHAGUS ARIA Fractions Treated 17 ARIA Prescribed Dose Per Fraction (cGy) 220 ARIA Prescribed Total Dose (cGy) 5,060 ARIA 10/10/2024 10:2 4 AM MANUFACTURING ENGINEER us Not In File Miscellaneous RADIATION ONCOLOGY ORD ERABLES Final Result JHONY * RAD ONC ARIA SESSION SUMMARY (10/09/2024 10:07 AM MANUFACTURING ENGINEER) Course Name C1_Esophagus_ 25 ARIA Course Plan Date 09/01/2024 7:21 AM ARIA Elapsed Days 21 ARIA Treatment Start Date 09/18/2024 ARIA Treatment Site [id number] ARIA Dose Given To Date (cGy) 3,520 ARIA Session Dosage Given (cGy) 220 ARIA Plan ID ESOPHAGUS ARIA Fractions Treated 16 ARIA Prescribed Dose Per Fraction (cGy) 220 ARIA Prescribed Total Dose (cGy) 5,060 ARIA 10/09/2024 10:0 7 AM MANUFACTURING ENGINEER us Not In File Miscellaneous RADIATION ONCOLOGY ORD ERABLES Final Result JHONY * RAD ONC ARIA SESSION SUMMARY (10/06/2024 10:16 AM MANUFACTURING ENGINEER) Course Name C1_Esophagus_ 25 ARIA Course Plan Date 09/01/2024 7:21 AM ARIA Elapsed Days 18 ARIA Treatment Start Date 09/18/2024 ARIA Treatment Site [id number] ARIA Dose Given To Date (cGy) 3,300 ARIA Session Dosage Given (cGy) 220 ARIA Plan ID ESOPHAGUS ARIA Fractions Treated 15 ARIA Prescribed Dose Per Fraction (cGy) 220 ARIA Prescribed Total Dose (cGy) 5,060 ARIA 10/06/2024 10:1 6 AM MANUFACTURING ENGINEER us Not In File Miscellaneous RADIATION ONCOLOGY ORD ERABLES Final Result JHONY from Last 3 Months Insurance [employer] MEDICARE GOLD [facility] MEDIC[facility] Advance Directives For more information, please contact: [phone] Documents on File Type Date Recorded 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 Expl anation ADVANCE DIRECTIVE 12/05/2024 9:22 AM Power of Access Database Developer-Medical * Full Code (Latest Code Status on File) Date Activated Date Inactivated Comments 12/05/2024 7:57 PM 12/13/2024 7:19 PM * Full Code Date Activated Date Inactivated Comments 08/25/2024 7:23 AM 08/26/2024 4:42 AM * Full Code Date Activated Date Inactivated Comments 08/23/2024 10:02 AM 08/23/2024 4:08 PM Care Teams Oliving Machine Operator Relationship Specialty Start Date End Date Tai Cedillo MD PCP - General Family Practice 03/20/22 Jacques Omalley MD PhD [id number] [facility], [facility] [address] [place] [address] Consulting Physician Medical Oncology 08/02/24
[2025-01-03 13:03] LABS: Basophils Percent Auto 0.9 % (0.2-1.2); Eosinophils Absolute Auto 0.2 K/mm3 (0-0.3); Eosinophils Percent Auto 4.6 % (0-4.4); Hemoglobin 12.8 g/dL (14.0-18.0); Immature Granulocyte Absolute 0.01 K/mm3 (0.00-0.031); Immature Granulocyte Percent A 0.2 % (0-0.5); Lymphocytes Absolute Auto 0.65 K/mm3 (0.9-3.2); Mean Corpuscular HGB Conc 31.2 g/dl (32-36); Mean Corpuscular Hemoglobin 30.1 pg (26-34); Mean Corpuscular Volume 96.5 fl (80-100); Mean Platelet Volume 10.3 fl (7.4-10.4); Monocytes Absolute Auto 0.4 K/mm3 (0.1-0.6); Monocytes Percent Auto 9.9 % (2.6-8.5); Neutrophils Percent Auto 69.4 % (45.5-73.1); Platelet Count Result 182 k/mm3 (150-375); Red Blood Count 4.25 M/mm3 (4.6-6.20); Red Cell Distribution Width 12.8 % (11.5-14.5); White Blood Count 4.3 K/mm3 (4.5-10.0)
[2025-01-03 13:33] LABS: Alanine Aminotransferase 25 U/L (6-50); Albumin Level 4.3 g/dL (3.5-5.1); Alkaline Phosphatase 83 U/L (38-126); Anion Gap 9 mmol/L (4-12); Aspartate Amino Transferase 43 U/L (17-59); Bilirubin,Total 0.7 mg/dL (0.2-1.3); Blood Urea Nitrogen 8 mg/dL (9-20); Calcium 9.8 mg/dL (8.4-10.2); Carbon Dioxide 28 mmol/L (22-30); Chloride 103 mmol/L (98-107); Cholesterol 159 mg/dL (0-200); Estimated Glomerular Filt Rate > 60; Glucose 115 mg/dL (65-110); HDL Direct 70 mg/dL; Potassium 3.9 mmol/L (3.4-5.0); Sodium 140 mmol/L (137-145); Triglycerides 114 mg/dL (<150); Uric Acid 7.5 mg/dL (3.5-8.5)
[2025-01-03 13:43] LABS: Vitamin D 25 Hydroxy 25.6 ng/mL
[2025-01-03 13:44] LABS: LDL Cholesterol Direct 59 mg/dL
[2025-01-03 13:57] LABS: Thyroid Stimulating Hormone Reflex 0.635 uIU/mL (0.465-4.68)
[2025-01-03 14:05] LABS: Prostate Specific Antigen 0.6 ng/mL (< OR = 4.0)
[2025-01-03 15:40] LABS: Creatinine Urine 228.9 mg/dL
[2025-01-03 15:48] LABS: MALB Creatinine Ratio 13.4 mg/g (0-30); Microalbumin Urine Random 30.6 mg/L (0-16.7)
[2025-01-03 16:52] LABS: Hemoglobin A1C 5.7 % (<5.7)
== END 2025-01-03 10:22 | disposition home or self-care (01) ==
LOC: ANHGOSHLAB 10:22
PROVIDERS: PCP Family Medicine; Visit Provider Family Medicine
DX: Z12.5 Encounter for screening for malignant neoplasm of prostate (principal); E78.5 Hyperlipidemia, unspecified; I10 Essential (primary) hypertension; E11.9 Type 2 diabetes mellitus without complications; E53.8 Deficiency of other specified B group vitamins; E55.9 Vitamin D deficiency, unspecified; M10.00 Idiopathic gout, unspecified site
CPT/HCPCS: 36415; 80053; 80061; 82043; 82306; 82607; 83036; 84153; 84443; 84550; 85025; G0103

== ENCOUNTER 2025-07-11 15:03 | Outpatient (CLI) | payer MEDICARE, SELFPAY ==
--- OUTSIDE RECORDS SUMMARY | 2025-07-10 06:41 | XMS_ITS | Encounter Summary ---
Author Organization [facility] Healthcare Address [address] [place] [id number] Care Team Providers Care Switchboard Manager Name Role Phone Tai Cedillo MD Primary Care Provider Jacques Omalley MD PhD Unavailable [phone] Reason for Visit * Auth/Cert (Routine) Specialty Diagnoses / Procedures Referred By Contac t Referred To Contact Diagnoses Malignant neoplasm of lower third of esophagus (HCC) Malignant neoplasm of lower third of esophagus (HCC) [C15.5] Procedures SC DILATE ESOPHAGUS ESOPHAGOSCOPY BALLOON DILATION<30MM Referral ID Status Reason Start Date Expiration Date Visits Re quested Visits Authorized [id number] 1 1 Encounter Details Date Type Department Care Team (Latest Contact Info) Description 07/10/2025 6:41 AM NAME PLATE STAMPER - 07/10/2025 12:01 PM NAME PLATE STAMPER Hospital Encounter [facility] Operating Room [address] [place] [address] Manolo Lott MD [address] [facility] [id number] [place] [address] Discharge Disposition: Discharge to home or self care Social History Tobacco Use Types Packs/Day Years Used Date Smoking Tobacco: Never Passive Smoke Exposure: Never Smokeless Tobacco: Never Alcohol Use Standard Drinks/Week Comments Never 0 (1 standard drink = 0.6 oz pur e alcohol) Humiliation, Afraid, Rape, and Kick questionnair e [...] or ex-partner? No 08/29/2024 Social Connection and Isolation Panel Answer Date Recorded In a typical week, how many times do you talk on the phone with family, friends, or neighbors? More than three times a week 08/29/2024 How often do you get togethe r with friends or relatives? Once a week 08/29/2024 How often do you attend chur ch or samaritan services? More than 4 times per year 08/29/2024 Do you belong to any clubs o r organizations such as denominational groups, unions, fraternal or athletic groups, or school groups? No 08/29/2024 How often do you attend meet ings of the clubs or organizations you belong to? Never 08/29/2024 Are you , , di vorced, , never , or living with a partner? 08/29/2024 Overall Financial Resource Strain (CARDIA) Answe r Date Recorded How hard is it for you to pa y for the very basics like food, housing, medical care, and heating? Not hard at all 08/29/2024 [facility]ational Stress Questionnaire Answer Date [...] money to buy more. Never true 08/29/19 Within the past 12 months, t he [...] things needed for daily living? No 08/29/2024 AUDIT-C Answer Date Recorded Q1: How often do you have a drink containing alcohol? Never 07/06/2025 Q2: How many drinks containi ng alcohol do you have on a typical day when you are drinking? Patient does not drink Q3: How often do you have si x or more drinks on one occasion? Never 07/06/2025 Personal Safety Answer Date Recorded Have you ever been in or are you currently in a harmful physical or emotional relationship or is someone making you feel afraid or unsafe? Denies 07/10/2025 Education Answer Date Recorded What is the highest level of school you have completed or the highest degree you have received? 12th grade 08/29/2024 Sex and Gender Information Value Date Recorded Sex Assigned at Not on file Legal Sex Male 8:36 AM NAME PLATE STAMPER Gender Identity Not on file Sexual Orientation Not on file Occupation Industry Job Start Date Job End Date Retired - [employer] Not on file Not on f ile Not on file documented as of this encounter Last Filed Vital Signs Vital Sign Reading Time Taken Comments Blood Pressure 159/91 07/10/2025 11:50 AM NAME PLATE STAMPER Pulse 68 07/10/2025 11:50 AM NAME PLATE STAMPER Temperature 36.3 C (97.3 F) 07/10/2025 10:20 AM NAME PLATE STAMPER Respiratory Rate 15 07/10/2025 11:50 AM NAME PLATE STAMPER Oxygen Saturation 98% 07/10/2025 11:50 AM NAME PLATE STAMPER Inhaled Oxygen Concentration - - Weight 80.7 kg (178 lb) 07/10/2025 8:23 AM NAME PLATE STAMPER Height 175.3 cm (5' 9) 07/06/2025 10:19 AM NAME PLATE STAMPER Body Mass Index 26.29 07/06/2025 10:19 AM NAME PLATE STAMPER documented in this encounter Functional Status * Difference in Last Two Joe Scores Answer Date of Assessment Author 4 07/10/2025 10:20 AM Farnaz Ross RN * Question Answer Date of Assessment Author BP Location Left arm 07/10/2025 10:20 AM Farnaz Gaitan RN BP Method Manual 07/10/2025 10:20 AM Farnaz Gaitan RN MAP (mmHg) 111 07/10/2025 11:50 AM Farnaz Gaitan RN * Head Fall Risk Question Answer Date of Assessment Author History of Falling 0 07/10/2025 8:24 AM NAME PLATE STAMPER Lucía Guerra RN Secondary Diagnosis 0 07/10/2025 8:24 AM Lucía Del Valle RN Ambulatory Aids 0 07/10/2025 8:24 AM NAME PLATE STAMPER Lucía Coffman RN Intravenous Therapy/Heparin/Saline Lock 20 07/10/2025 8:24 AM Lucía Ramos RN Gait/Transferring 0 07/10/2025 8:24 AM NAME PLATE STAMPER Lucía Guerra RN Mental Status 0 07/10/2025 8:24 AM NAME PLATE STAMPER Lucía Jim RN Head Fall Risk Score (Score >= 45 places fall precaution order) 20 07/10/2025 8:24 AM Lucía Ramos RN Prior Fall Event (Autopopulated from EMR) None found 07/10/2025 8:24 AM Richy Ramos RN * Joe Scale Question Answer Date of Assessment Author Sensory Perceptions 4 07/10/2025 10:20 AM Farnaz Olsen RN Moisture 4 07/10/2025 10:20 AM Farnaz Gaitan RN Activity 3 07/10/2025 10:20 AM Farnaz Gaitan RN Mobility 3 07/10/2025 10:20 AM Farnaz Gaitan RN Nutrition 3 07/10/2025 10:20 AM Farnaz Gaitan RN Friction and Shear 2 07/10/2025 10:20 AM Farnaz Caraballo RN Oje Scale Score 19 07/10/2025 10:20 AM Farnaz Caraballo RN * Fall Risk Interventions Question Answer Date of Assessment Author All Low Fall Interventions Applied Yes 07/10/2025 8:24 AM Lucía Ramos RN * AUDIT-C Score Answer Date of Assessment Author 0 07/06/2025 10:19 AM Lanie Pisano RN * Alcohol Use Question Answer Date of Assessment Author Q1: How often do you have a drink containing alcohol? Never 07/06/2025 10:19 AM Gisell Mendoza RN Q2: How many drinks containing alcohol do you have on a typical day when you are drinking? Patient does not drink 07/06/2025 10:19 AM Lanie Mendoza RN Q3: How often do you have six or more drinks on one occasion? Never 07/06/2025 10:19 AM Gisell Mendoza RN * Integumentary Question Answer Date of Assessment Author Integumentary (JAIMIE) JAIMIE 07/10/2025 12:00 PM Farnaz Olsen RN * Joe Scale Question Answer Date of Assessment Author Joe Scale Used Joe 07/10/2025 12:00 PM Farnaz Ross RN * Question Answer Date of Assessment Author Hearing - Right Ear Functional 07/06/2025 10:14 AM Lanie Vivas RN Hearing - Left Ear Functional 07/06/2025 10:14 AM Lanie Blanco RN Assistive Devices/DME None 07/06/2025 10:14 AM Lanie Mendoza RN * Question Answer Date of Assessment Author BP Location Left arm 07/10/2025 10:20 AM Farnaz Gaitan RN BP Method Manual 07/10/2025 10:20 AM Farnaz Gaitan RN * Fall Risk Interventions Question Answer Date of Assessment Author All Low Fall Interventions Applied Yes 07/10/2025 8:24 AM Lucía Ramos RN documented as of this encounter Mental Status * Question Answer Entry Date Author Neuro (JAIMIE) AJIMIE 07/10/2025 12:00 PM Farnaz Gaitan RN documented in this encounter Discharge Instructions * Attachments The following attachments cannot be sent through Care Everywhere. * [facility] PATHWAY TO EXCELLENT CARE AFTER SURGERY documented in this encounter Medications at Time of Discharge acetaminophen 500 mg capsule Take 2 capsules (1,000 mg total) by mouth every 6 (six) hours as needed for pain 12/13/2024 cholecalciferol, vitamin D3, (VITAMIN D3 ORAL)Indications:supp lement Take 2,000 Units by mouth every morning cyanocobalamin, vitamin B-12, (VITAMIN B-12 ORAL)Indications:supp lement Take 1 tablet by mouth every morning irbesartan (AVAPRO) 300 mg tabletIndications:hyp ertension Take 1 tablet (300 mg total) by mouth every morning metFORMIN XR (GLUCOPHAGE XR) 500 mg 24 hr tabletIndications:Pre vention of Type 2 Diabetes Mellitus Take 1 tablet (500 mg total) by mouth every morning 08/14/2024 multivitamin tabletIndications:Vit [place] Deficiency Prevention Take 1 tablet by mouth every morning OneTouch Delica Plus Lancet 33 gauge misc TEST 3 TIMES DAILY BEFORE MEALS DIRECTED 10/05/2024 OneTouch Verio Flex meter misc TEST 3 TIMES DAILY BEFORE MEALS DIRECTED 10/05/2024 OneTouch Verio test strips strip TEST 3 TIMES DAILY BEFORE MEALS DIRECTED 10/05/[address] (PROTONIX) 40 mg EC tabletIndications:Cindy nocarcinoma of gastroesophageal junction (HCC),Gastroesophagea l reflux disease without esophagitis TAKE 1 TABLET BY MOUTH EVERY DAY 90 tablet 1 04/13/2025 documented as of this encounter Discharge Disposition Disposition Code Departure Means Destination Comment s Discharge to home or self care documented in this encounter H&P Notes * Manolo Lott MD - 07/10/2025 7:04 AM CST I have reviewed the H&P, examined the patient, and endorse the findings as written. Plan of Care : Based on the above findings, I consider Jorge Red to be an acceptable risk for : Procedure(s): ESOPHAGOSCOPY BALLOON DILATION<30MM PLATE STAMPER Source Note - Eriberto Carter, LUMA - 07/05/2025 4:00 PM NAME PLATE STAMPER Oncology Nutrition Follow Up Note 74 y.o.male with distal esophageal adenocarcinoma (diagnosed 07/19/24) s/p neoadjuvant carboplatin /paclitaxel + concurrent RT, completed RT 10/18/34 and Transhiatal esophagectomy on 12/05/24. Weight: Wt Readings from Last 10 Encounters: 07/05/25 82.6 kg (182 lb 3.2 oz) 06/06/25 81.6 kg (179 lb 12.8 oz) 04/05/25 81.6 kg (180 lb) 02/13/25 81.6 kg (180 lb) 01/05/25 90 kg (198 lb 6.4 oz) 01/04/25 90.1 kg (198 lb 9.6 oz) 12/05/24 95.3 kg (210 lb) 11/23/24 99.7 kg (219 lb 12.8 oz) 11/22/24 99.8 kg (220 lb 0.3 oz) 11/22/24 99.3 kg (219 lb) Current BMI: Estimated body mass index is 26.89 kg/m?? as calculated from the following: Height as of 06/06/25: 175.3 cm (5' 9.02). Weight as of an earlier encounter on 07/05/25: 82.6 kg (182 lb 3.2 oz). [place] body weight: 70.7 kg (155 lb 15.1 oz) Adjusted ideal body weight: 75.5 kg (166 lb 7.2 oz) Estimated Energy Needs: Based on: 90 kg Calories 2100 kcal/day 20 kcal/kg Protein 105 g/day 1.0 g/kg Fluid 2100 ml/day or Per MD 1 ml/kcal or per MD Impression: Met with pt and spouse at clinic. Pt wt is currently stable. Pt feels like food is getting stuck atthe bottom of esophagus again; pt likely to need dilation again. He is experiencing pain after eating. Pt reports he does not eat small frequent meals throughout the day. Pt feels like food is going through him sometimes and will have diarrhea a couple hours after a meal. Pt is using fair life shakes a few times a week. Intervention: Patient with fair appetite - Encourage small frequent meals and snacks with calorie dense foods - Suggest eating every 2-3 hours to improve intake - Include protein with each meal; reviewed sources - Discussed ways to add calories to meals without adding volume - Recommend fair life protein shakes 1/2x/day for added nutrients and protein - Reviewed need for at least 1.5L caffeine free fluids to prevent dehydration - Recommended pt eat small frequent meals, avoiding foods high in sugar and not drinking liquids with meals to avoid abdominal pain and dumping syndrome - pt to receive esophageal dilation - Recommended chewing foods thoroughly and eating soft foods Monitoring: - Appetite / PO intake - Wt changes - S/S Encouraged patient to reach out with questions/concerns. RD contact provided. Will continue to follow. Eriberto Carter RD, LD Oncology Dietitian, [facility] [phone] PLATE STAMPER documented in this encounter Miscellaneous Notes * Brief Op Note - Amalia Murray MD - 07/10/2025 8:54 AM CST Operative Progress Note Surgical Team: * Manolo Lott - Primary * Amalia Murray - Resident - Assisting * Patricio Ramirez - Resident - Assisting Anesthesiologist: Reji Herman MD Anesthesia Fellow: Alvaro Winkler MD Rope Twisting Machine Operator: Terrell Stanton RN Scrub: Kelin Harrell RN DATE OF SURGERY : 07/10/2025 Preoperative Diagnosis: Pre-op Diagnosis * Malignant neoplasm of lower third of esophagus (HCC) [C15.5] Postoperative Diagnosis: Post-op Diagnosis * Malignant neoplasm of lower third of esophagus (HCC) [C15.5] Procedure(s): Procedure(s) (LRB): ESOPHAGOSCOPY BALLOON DILATION<30MM (N/A) Operative Findings: No significant stricture noted on FOE. Intact gastric conduit and anastomosis. Dilated to 60Fr easily. Estimated Blood Loss: None Intraoperative Fluids: 700 mls Specimens: No specimen collected in procedure Implants: Nothing was implanted during the procedure Blood/Blood Products Transfused: 0 mls Complications: None Condition on Discharge from the operating room was stable Amalia Murray MD Date: 07/10/2025 Time: 10:04 AM TEACHING ATTESTATION : I was present and directly participated in the entire procedure (including opening and closing). Cosigned by Manolo Lott MD at 07/10/2025 11:10 AM NAME PLATE STAMPER PLATE STAMPER PLATE STAMPER * Pre-Procedure Instructions - Filipe Cammie ALBA Urbano - 07/06/2025 10:51 AM CST [facility] CPAP Clinic Location: [facility] The night before your surgery: * Do not eat anything after midnight the night before your procedure. The morning of your surgery: * You may have clear liquids on your surgery day. You must stop drinking two hours before you arrive to the surgery facility. Acceptable clear liquids include water, clear sports drinks, black coffee, tea, or clear soda. DO NOT drink any milk, creamer, or alcohol. * Your surgeon's office may have provided additional instructions or restrictions. Please follow those instructions. * You may brush your teeth and rinse your mouth out. * Do not glue your dentures. * Do not wear jewelry, body piercings, makeup, hairpins, false eyelashes or contact lenses to the hospital. * Leave any valuables at home or with your family. * If you have an implantable device with a remote, bring the remote with you on the day of surgery. Outpatient Surgery: * You must have a responsible adult drive you home and stay with you for 24 hours after your surgery * You cannot be alone at home or in a hotel * Please call your surgeon's office if you do not have someone to drive you home and/or stay with you after surgery * Please bring any items you may need to spend the night in the hospital. Sometimes patients need to be cared for in the hospital overnight. If you have Diabetes: * If your blood sugar is low before you come to the hospital, drink a small amount of sugar water or clear juice like apple or cranberry juice. DO NOT drink orange or pineapple juice. These are not clear liquids. * Please call your surgeon and/or the CPAP Clinic if you have any questions. Instructions For Your Medications: Pre-Surgery Instructions: Medication Instructions cholecalciferol, vitamin D3, (VITAMIN D3 ORAL) Don't take on day of surgery cyanocobalamin, vitamin B-12, (VITAMIN B-12 ORAL) Don't take on day of surgery irbesartan (AVAPRO) 300 mg tablet Don't take on day of surgery or evening before surgery metFORMIN XR (GLUCOPHAGE XR) 500 mg 24 hr tablet Don't take on day of surgery multivitamin tablet Stop taking 1 week prior to surgery pantoprazole DR (PROTONIX) 40 mg EC tablet Take morning of surgery acetaminophen 500 mg capsule Take on day of surgery if needed General Instructions For Medications: * Stop all of these medications 7 days prior to your surgery: excedrin, motrin, advil, ibuprofen, aleve, naproxen, meloxicam For medications that you are instructed to take on the morning of surgery, take the medications with a few sips of water. Stop all of these medications 7-14 days prior to your surgery: Vitamin E, Herbal medicines, Diet Pills If you use inhalers, please bring them with you on the day of your procedure. If you take medicines for Parkinson's disease, please bring them with you on the day of your procedure. If you have pain, you may take tylenol (acetaminophen). Do not take more than 6 tablets or 3000 mg (3 g) within a 24 period. Call your surgeon and the CPAP clinic if any of the following happens before surgery: Any changes in your health You have a fever You have any signs of an infection (chest, urinary tract or tooth) You have been to the Emergency Room or were in the hospital You have started taking any new medications If laboratory testing was completed during your visit, we will only contact you regarding any results that require you to take additional action prior to your planned procedure. PLATE STAMPER * Perioperative Nursing Note - Lanie Kruse RN - 07/06/2025 10:32 AM CST Pre Anesthesia Testing Perioperative Nursing Note Telephone Preoperative Evaluation - TELEPHONE ONLY, NO PHYSICAL EXAM - [facility] CPAP Date: 07/06/25 PAT RN completed assessment with the patient. RN CALL COMPLETE: Call Complete TRIAGE FORM NEEDED: Yes Jorge Red is a 74 y.o. male ESOPHAGOSCOPY BALLOON DILATION<30MM (Esophagus) Pre-Op Diagnosis Codes: * Malignant neoplasm of lower third of esophagus (HCC) [C15.5] ALLERGIES: No Known Allergies Vitals: 07/06/25 1019 Height: 175.3 cm (5' 9) Weight: 80.7 kg (178 lb) BSA (Calculated - sq m): 1.98 sq meters BMI (Calculated): 26.27 Weight in (lb) to have BMI = 25: 168.9 Advance Directives (For Healthcare) Have you reviewed your Advance Directive and is it valid for this stay?: Yes Advance Directive: Patient has advance directive, copy in chart Type of Healthcare Directive: Durable power of dredge operator supervisor for health care Information Provided on Healthcare Directives: No Past Medical History: Diagnosis Date Acid reflux Arthritis Chronic kidney disease Esophageal cancer (HCC) Hyperglycemia 10/05/2024 Hyperlipidemia Hypertension Pacemaker 03/23/2022 SSS (sick sinus syndrome) (HCC) Type 2 diabetes mellitus Past Surgical History: Procedure Laterality Date COLONOSCOPY Last one was 2013 ESOPHAGECTOMY 12/05/2024 ESOPHAGOGASTRODUODENOSCOPY 08/23/2024 ESOPHAGOGASTRODUODENOSCOPY 02/13/2025 with dilation IMPLANT 2009 INSERT / REPLACE / REMOVE PACEMAKER 03/23/2022 Biotronik PORT PLACEMENT CHEST >5 YEARS N/A 08/25/2024 REPLACEMENT TOTAL KNEE Bilateral 2015 TOTAL HIP ARTHROPLASTY Right 2020 Social History Tobacco Use Smoking Status Never Passive exposure: Never Smokeless Tobacco Never Substance and Sexual Activity Drug Use Never Alcohol Use Q1: How often do you have a drink containing alcohol?: Never Q2: How many drinks containing alcohol do you have on a typical day when you are drinking?: Patientdoes not drink Q3: How often do you have six or more drinks on one occasion?: Never ACTIVE MEDS Outpatient Medications Marked as Taking for the 07/10/25 encounter (Hospital Encounter) Medication Sig Dispense Refill cholecalciferol, vitamin D3, (VITAMIN D3 ORAL) Take 2,000 Units by mouth every morning cyanocobalamin, vitamin B-12, (VITAMIN B-12 ORAL) Take 1 tablet by mouth every morning irbesartan (AVAPRO) 300 mg tablet Take 1 tablet (300 mg total) by mouth every morning metFORMIN XR (GLUCOPHAGE XR) 500 mg 24 hr tablet Take 1 tablet (500 mg total) by mouth every morning multivitamin tablet Take 1 tablet by mouth every morning pantoprazole DR (PROTONIX) 40 mg EC tablet TAKE 1 TABLET BY MOUTH EVERY DAY (Patient taking differently: Take 1 tablet (40 mg total) by mouth every morning) 90 tablet 1 TRAVEL/EXPOSURE Travel Screening Have you traveled outside the [place] in the last 6 months?: No Exposure Screening Have you been exposed to anyone who is sick in the last 30 days?: No Have you been exposed to or tested positive for COVID-19 within the last 10 days?: No Infectious Disease Screening Are you having any of the following:: None SCREENINGS/ASSESSMENTS Sleep Apnea Questions Have you ever had a sleep study?: No Have you ever been diagnosed with sleep apnea?: No Communication/Assembler Skylights Needs Communication Needs: None Learning Needs Assessment Barriers Identified: None Persons Involved: Patient Patient Understands and Agrees: Yes Fracisco Index Feeding: Independent (Food provided within reach) Bathing: independent (or in shower) Grooming: Independent face/hair/teeth/shaving (implements provided) Dressing: Independent (including buttons, zips, laces, etc) Bowels: Continent Bladder: Continent Toilet use: independent (on and off, dressing, wiping) Transfers (bed to chair and back): Independent Mobility (on level surfaces): Independent (but may use any aid, for example, stick) >50 yards Stairs: Independent Fracisco index score: 100 ADL Assessment Assistive Devices/DME: None Hearing - Right Ear: Functional Hearing - Left Ear: Functional NUTRITION ADDITIONAL Tattoos/Piercings Piercings Remaining: No IMPLANTS Implants Pacemaker Pacemaker - Implanted Heart As of 11/22/2024 Status: Implanted Type Not Specified [employer] Xcela Power Port 8fr [id number] - [id number] - Implanted Inventory item: [employer] Xcela Power Port 8FR [id number] Model/Cat number: [id number] Log Roper: [employer] Lot number: [id number] As of 08/25/2024 Status: Implanted PATIENT CARE PLANNING Preop Phone Call Ride and Caregiver Arranged: Yes Reception Clerk Relationship to Patient: Spouse (Pat) Reception Clerk Discharge Planning Living Arrangements: Spouse/significant other Support Systems: Spouse/significant other, Family members, Friends/neighbors Type of Residence: Private residence Patient expects to be discharged to: Private residence Assembler Skylights Needs No Czech ADDITIONAL COMMENTS/ FOLLOW UP PLATE STAMPER PLATE STAMPER * Pre-Procedure Instructions - Lanie Kruse RN - 07/06/2025 10:32 AM CST [facility] ([facility]) PRE-SURGICAL NURSING INSTRUCTIONS Telephone Assessment These instructions were completed with the patient. General Information Discussed with Patient: Surgery location provided to patient. Arrival time and surgical time will be provided to the patient by their surgeon. You should wear clothing that is clean, loose, comfortable and easy to get in and out of on the dayof surgery. You should remove nail coverings, artificial nails and nail greek prior to the day of surgery. This is to lower your risk of infection and to allow the day of surgery team to monitor your oxygen levels. You should leave your valuables and any jewelry at home. No metal or piercings are allowed in the operating room. You should bring your insurance card, a photo ID (example: Multifocal Button Generator's License) and a method of payment for any insurance copay, deductible or copay for discharge medications. You should bring a complete, up-to-date, list of all your medications on the day of surgery, including any over the counter medications or supplements you may take. Please note on your medication list, the last date & time you took each medication. The healthcare team, on the day of surgery, will ask for this information. You should bring your Advanced Directive and/or Living Will with you on the day of surgery if you have not verified a copy is already in your Epic Chart. If you are having surgery at [facility], please arrive on the day of surgery with the name and phone number of your local 24 hour pharmacy. Due to evening discharges, your routine pharmacy may be closed. In order to obtain your prescriptions that evening, your surgeon may need to send prescriptions to this pharmacy or have you take prescriptions to this pharmacy when you are discharged. Without this information, you may not be able to obtain your prescriptions that evening. 10. If you smoke, STOP smoking at least 2 weeks before surgery to help prevent infection and help your body recover faster. Ask your surgeon for tools to help you quit or call 2-080-TRWUDXZ ( ). Visit [employer] for more information. You will not have access to tobacco products, alcohol or illegal drugs during your hospital stay. Eye Surgery Process for Patients: N/A A Guide for Patients Having Surgery: Your Pathway to Excellent Care OUR GOAL IS TO PROVIDE YOU WITH EXCELLENT CARE Use this guide to learn about what you can do before, during and after surgery to help your recovery. You are the most important person on your health care team. By becoming informed and involved, you can contribute to the success of your surgery. If your surgeon's directions are different than those in this guide, talk with your nurse or surgeon to confirm the information. It is important that you understand how to take care of yourself at home after surgery. Be sure to bring this guide with you on the day of surgery and take it home with you after surgery. Write down questions for your nurse or surgeon on the last page of this booklet. Important pages to be reviewed BEFORE surgery: Page 1: QR codes for Surgery Center maps Page 3: Types of Anesthesia Page 5: Tips for the day & night before surgery Page 6: When to stop eating BEFORE surgery and examples of clear liquids Page 7-10: Preventing Infection: Chlorhexidine Gluconate (CHG) Bathing Instructions You may access A Guide for Patients Having Surgery: Your Pathway to Excellent Care by the followinglink: [email or web address] How To Prepare Your Skin For Surgery Below is the Pre-Surgical Bathing Protocol you should follow for your surgery. If your surgeon provides you different bathing instructions, please follow your surgeon's orders. Normal Bathing Protocol Bathe with your normal soap the night before and/or the morning of surgery. Wear clean clothes or pajamas to sleep in. After showering DO NOT put on deodorant, hair products, conditioners, lotions, creams, powders, Vaseline or any non-essential products. Remove nail coverings, artificial nails and nail greek. Place clean linens on your bed the night before surgery. Shaving: You may shave your face, legs and underarms during your evening shower. Avoid shaving on the day of surgery. If you have questions, please call the [facility] Staff at [phone], Wednesday-Wednesday 8am-4:30pm. All patients should read the below section: Information on [facility], [facility] & [facility]: Please view [email or web address] (Patient & Visitor Information) for additional details regarding Advanced Directive forms, AWARE, directions, parking information, lodging, Internet access, dining and more. Information on [facility] or [facility] ([facility]): Please view [email or web address] (Patient and Visitor Information) for parking, directions, lodging and more. For MyChart information, to activate account or password recovery, please go to [email or web address] or call [phone] (toll-free: [phone]), Wed- Wednesday 8am-5pm. Information for Suicide Prevention: National Suicide Prevention Lifeline (3-601- 064-TALK (1408)) or call or text 836. Chat resources: [employer]. Day of Surgery Arrival Times: For patients having surgery @ [facility] ([facility]), you will be notified of your day of surgery arrival time by either the [facility] Pre-Op OR team or your surgeon's office. If you have not been notified by 1pm THE BUSINESS DAY BEFORE your surgery, please call your surgeon's office Manolo Lott MD . You may also call [phone] and ask for your surgeon's office. For patients having surgery @ [facility], if you have not been notified of your surgery time by 4pm THE BUSINESS DAY BEFORE surgery, please contact your surgeon's office for day of surgery arrival time Manolo Lott MD . You may also call [phone] and ask for your surgeon's office. For patients having surgery at [facility], if you have notbeen notified of your surgery time by 4pm THE BUSINESS DAY BEFORE your surgery, please contact yoursurgeon's office for day of surgery arrival time Manolo Lott MD . You may also call [phone] and ask for your surgeon's office. For patients having surgery @ [facility] ([facility]), you will be notified of your day of surgery arrival time by either the [facility] Pre-Op OR team or your surgeon's office. For patients having Ears/Nose Throat Surgery, Urology Surgery or Neuro Spine Surgery, the [facility] Pre-Op Team will contact you by 4pm THE BUSINESS DAY BEFORE surgery. For all other [facility] surgeries, if you have not been notified of your surgery time by 2pm THE BUSINESS DAY BEFORE your surgery, please call your surgeon's office Manolo Lott MD . They will be able to direct you to who will provide your surgery time. You may also call the surgery center at [phone] and ask for your surgeon's office. For patients having [facility] @ [facility], if your surgeon's office or the surgery centerhas not notified you of your surgery time by 3pm THE BUSINESS DAY BEFORE your surgery, please call the surgery center at [phone]. [facility] ([facility]) does not provide arrival times for theday of surgery or provide the duration of surgery. This information is provided by your surgeon's office or by the center where you are having surgery. We appreciate your understanding. PLATE STAMPER documented in this encounter Plan of Treatment Not on file documented as of this encounter Procedures Procedure Name Priority Date/Time Associated Diagnosis Comments ESOPHAGOSCOPY BALLOON DILATION<30MM 07/10/2025 9:33 AM NAME PLATE STAMPER Malignant neoplasm of lower third of esophagus (HCC) Case Notes 02/12 @1127 line up adjusted per sandra via phone (cjm) POCT GLUCOSE DEVICE Routine 07/10/2025 8 :28 AM NAME PLATE STAMPER documented in this encounter Results * POCT glucose (07/10/2025 8:28 AM NAME PLATE STAMPER) Glucose, POC 91 70 - 199 mg/dL Blood 07/10/2025 8:28 AM NAME PLATE STAMPER 07/10/2025 8:28 AM NAME PLATE STAMPER Manolo Lott MD LAB POCT ORDERABLES - DEV ICE Final Result [facility] Department [place] [address] documented in this encounter Visit Diagnoses Not on filedocumented in this encounter Administered Medications Inactive Administered Medications - up to 3 most recent administrations Medication Order MAR Action Action Date Dose Rate Site heparin 5,000 unit/mL injection 5,000 Units 5,000 Units, subcutaneous, Once, On Wed07/10/25 at 0845, For 1 dose, Pre-Op, Indications: Deep Vein Thrombosis PreventionIndications: Deep Vein Thrombosis Prevention Given 07/10/2025 9:07 AM NAME PLATE STAMPER 5,000 Units Left Lower Abdomen Lactated Ringer's (LR) infusion 30 mL/hr, intravenous, Continuous, Starting on Wed07/10/25 at 0845, Pre-Op New Bag 07/10/2025 9:38 AM NAME PLATE STAMPER documented in this encounter Discontinued Medications Medication Sig Discontinue Reason Start Date End Da te polyethylene glycol (MIRALAX) 17 gram/dose bulk powder Take 17 g by mouth daily 02/13/2025 07/06/2025 hydroCHLOROthiazide (HYDRODIURIL) 25 mg tablet Take 1 tablet (25 mg total) by mouth daily 02/01/2025 07/06/2025 ondansetron (ZOFRAN) 4 mg tablet Take 1 tablet (4 mg total) by mouth every 6 (six) hours as needed for nausea or vomiting 02/13/2025 07/06/2025 documented as of this encounter Historical Medications * This list may reflect changes made after this encounter. multivitamin tabletIndications :Vitamin Deficiency Prevention Take 1 tablet by mouth every morning cyanocobalamin, vitamin B-12, (VITAMIN B-12 ORAL)Indications: supplement Take 1 tablet by mouth every morning cholecalciferol, vitamin D3, (VITAMIN D3 ORAL)Indications: supplement Take 2,000 Units by mouth every morning added in this encounter Active and Recently Administered Medications Times are shown in NAME PLATE STAMPER. Scheduled Medication Order 07/08/2025 07/09/2025 07/10/2025 acetaminophen (TYLENOL) tablet 500 mg 500 mg, oral, Once, On Wed07/10/25 at 1100, For 1 dose, Phase I, When able to tolerate PO., Indications: Pain 1100 (Due) heparin 5,000 unit/mL injection 5,000 Units (COMPLETED) 5,000 Units, subcutaneous, Once, On Wed07/10/25 at 0845, For 1 dose, Pre-Op, Indications: Deep Vein Thrombosis Prevention 0907 (Given - Provid er: Lucía Guerra RN) Continuous Medication Order 07/08/2025 07/09/2025 07/10/2025 Lactated Ringer's (LR) infusion 30 mL/hr, intravenous, Continuous, Starting on Wed07/10/25 at 0845, Pre-Op 0810 (Due)0845 (Due) 0938 (New Bag - Provider: Alvaro Winkler MD)1004 (Anesthesia Volume Adjustment - Provider: Alvaro Winkler MD)1008 (Anesthesia Volume Adjustment - Provider: Alvaro Winkler MD)1610 (Due: Stopped) Lactated Ringer's (LR) infusion 125 mL/hr, intravenous, Continuous, Starting on Wed07/10/25 at 1100, Phase I 1100 (Due) PRN Medication Order 07/08/2025 07/09/2025 07/10/2025 naloxone (NARCAN) 0.4 mg/mL injection 0.04-0.4 mg 0.04-0.4 mg, intravenous, Once as needed, other, excessive sedation/respiratory depression, Starting on Wed07/10/25 at 1018, For 1 dose, Phase I, Dilute 0.4 mg with 9 mL NS (final concentration 0.04 mg/mL). For respiratory depression (respiratory rate less than 6), administer 0.4 mg IVP over 30 seconds. For excessive sedation administer 0.04 mg (1 mL) every 1 minute until desired level of alertness. For IV, administer over 30 seconds., Indications: Opioid Toxicity ondansetron (ZOFRAN) injection 4 mg 4 mg, intravenous, Administer over 2 Minutes, Once as needed, nausea, vomiting, Starting on Wed07/10/25 at 1018, For 1 dose, Phase I, Proceed to prochlorperazine if ondansetron has been given within the last 6 hours. oxyCODONE (ROXICODONE) tablet 5 mg 5 mg, oral, Once as needed, breakthrough pain, Starting on Wed07/10/25 at 1018, For 1 dose, Phase I, When able to tolerate PO., Indications: Pain prochlorperazine (COMPAZINE) injection 5 mg 5 mg, intravenous, Administer over 2 Minutes, Once as needed, nausea, vomiting, Starting on Wed07/10/25 at 1018, For 1 dose, Phase I, If nausea/vomiting not relieved by ondansetron within 30 minutes or if ondansetron has been given within the last 6 hours. sodium chloride 0.9% irrigation (CANCELED) As needed, Starting on Wed07/10/25 at 1004, Intra-Op 1004 (Given - Provid er: Manolo Lott MD) documented in this encounter Orders Medications Ordered That Adrian ht Not Have Been Administered Count Last Ordered Date First Ordered Date acetaminophen (TYLENOL) tablet 500 mg 1 Carrier Fluids for Secondary Infusion - 0.9% Sodium Chloride 1 07/10/2025 Lactated Ringer's (LR) infusion 2 naloxone (NARCAN) 0.4 mg/mL injection 0.04-0.4 mg 1 07/10/2025 ondansetron (ZOFRAN) injection 4 mg 1 07/10 oxyCODONE (ROXICODONE) tablet 5 mg 1 2024 prochlorperazine (COMPAZINE) injection 5 mg 1 07/10/2025 sodium chloride 0.9% flush 0.5-20 mL 1 06/17 sodium chloride 0.9% irrigation 1 Diet Count Last Ordered Date First Orde red Date ADULT DISCHARGE DIET 1 07/10/2025 Nursing Count Last Ordered Date First Orde red Date DISCHARGE ACTIVITY 1 07/10/2025 DISCHARGE CALL PROVIDER 5 07/10/2025 Discharge Count Last Ordered Date First Orde red Date DISCHARGE PATIENT 1 07/10/2025 documented in this encounter Care Teams Switchboard Manager Relationship Specialty Start Date End Date Tai Cedillo MD PCP - General Family Practice 03/20/22 Jacques Omalley MD PhD Consulting Physician Medical Oncology 08/02/24 documented as of this encounter
--- OUTSIDE RECORDS SUMMARY | 2025-07-10 08:54 | XMS_ITS | Encounter Summary ---
Author Organization [facility] Healthcare Address [address] [place] [address] Care Team Providers Care Security Operations Center Analyst Name Role Phone Tai Cedillo MD Primary Care Provider Jacques Omalley MD PhD Unavailable [phone] Reason for Visit * Auth/Cert (Routine) Specialty Diagnoses / Procedures Referred By Contac t Referred To Contact Diagnoses Malignant neoplasm of lower third of esophagus (HCC) Malignant neoplasm of lower third of esophagus (HCC) [C15.5] Procedures NV DILATE ESOPHAGUS ESOPHAGOSCOPY BALLOON DILATION<30MM Referral ID Status Reason Start Date Expiration Date Visits Re quested Visits Authorized [id number] 1 1 Encounter Details Date Type Department Care Team (Late st Contact Info) Description 07/10/2025 8:54 AM AUTOMOTIVE PARTS COORDINATOR - 07/10/2025 10:09 AM [facility] Surgery [facility] Operating Room [address] [place] [address] Manolo Lott MD [address] [facility] [id number] [place] [address] ESOPHAGOSCOPY BALLOON DILATION<30MM Surgery Details Date/Time Status Location OR Service Patient Class Case Class Case Type Trauma Case? 07/10/2025 8:54 AM Posted [facility] OR POD 3 [phone] Cardiothoracic Outpatient Elective Panel 1 Procedure LRB Anes Op Region Wound Class Comments ESOPHAGOSCOPY BALLOON DILATION<30MM N/A Choice Esophagus Class II - Clean Contaminated Surgeon Surgeon Role Service Panel Manolo Lott MD Primary Cardiothoracic 1 Patricio Ramirez MD Resident - Assisting General Surgery 1 Amalia Murray MD Resident - Assisting General Surgery 1 Case Notes 02/12 @1127 line up adjusted per sandra via phone (cjm) documented in this encounter Social History Tobacco Use Types Packs/Day Years [...] How often do you attend chur or adventist services? More than 4 times per year 08/29/2024 Do you belong to any clubs o r organizations such as religion groups, unions, fraternal or athletic groups, or [...] and heating? Not hard at all 08/29/2024 [facility] [place] of Occupat ional Health - Occupational Stress [...] on file Legal Sex Male 8:36 AM AUTOMOTIVE PARTS COORDINATOR Gender Identity Not on file Sexual Orientation Not on file Occupation Industry Job Start Date Job End Date Retired - [employer] for [employer] Not on file Not on f ile Not on file documented as of this encounter Last Filed Vital Signs Vital Sign Reading Time Taken Comments Blood Pressure 144/92 07/10/2025 8:20 AM AUTOMOTIVE PARTS COORDINATOR Pulse 67 07/10/2025 8:25 AM AUTOMOTIVE PARTS COORDINATOR Temperature 36.3 C (97.3 F) 07/10/2025 8:23 AM AUTOMOTIVE PARTS COORDINATOR Respiratory Rate 13 07/10/2025 8:25 AM AUTOMOTIVE PARTS COORDINATOR Oxygen Saturation 98% 07/10/2025 8:25 AM AUTOMOTIVE PARTS COORDINATOR Inhaled Oxygen Concentration - - Weight 80.7 kg (178 lb) 07/10/2025 8:23 AM AUTOMOTIVE PARTS COORDINATOR Height 175.3 cm (5' 9) 07/06/2025 10:19 AM AUTOMOTIVE PARTS COORDINATOR Body Mass Index 26.29 07/06/2025 10:19 AM AUTOMOTIVE PARTS COORDINATOR documented in this encounter Functional Status * Question Answer Date of Assessment Author MAP (mmHg) 109 07/10/2025 8:20 AM AUTOMOTIVE PARTS COORDINATOR Lucía Self RN * Head Fall Risk Question Answer Date of Assessment Author History of Falling 0 07/10/2025 8:24 AM AUTOMOTIVE PARTS COORDINATOR Lucía Guerra RN Secondary Diagnosis 0 07/10/2025 8:24 AM CS T Lucía Guerra RN Ambulatory Aids 0 07/10/2025 8:24 AM AUTOMOTIVE PARTS COORDINATOR Lucía Coffman RN Intravenous Therapy/Heparin/Saline Lock 20 07/10/2025 8:24 AM AUTOMOTIVE PARTS COORDINATOR Lucía Guerra RN Gait/Transferring 0 07/10/2025 8:24 AM AUTOMOTIVE PARTS COORDINATOR Lucía Guerra RN Mental Status 0 07/10/2025 8:24 AM AUTOMOTIVE PARTS COORDINATOR Lucía Jim RN Head Fall Risk Score (Score >= 45 places fall precaution order) 20 07/10/2025 8:24 AM AUTOMOTIVE PARTS COORDINATOR Lucía Guerra RN Prior Fall Event (Autopopulated from EMR) None found 07/10/2025 8:24 AM AUTOMOTIVE PARTS COORDINATOR Richy Guerra RN * Question Answer Date of Assessment Author BP Location Left arm 07/05/2025 2:24 PM AUTOMOTIVE PARTS COORDINATOR Sheree Lepe * Fall Risk Interventions Question Answer Date of Assessment Author All Low Fall Interventions Applied Yes 07/10/2025 8:24 AM AUTOMOTIVE PARTS COORDINATOR Lucía Guerra RN * AUDIT-C Score Answer Date of Assessment Author 0 07/06/2025 10:19 AM AUTOMOTIVE PARTS COORDINATOR Lanie Suh RN * Alcohol Use Question Answer Date [...] Question Answer Date of Assessment Author Integumentary ([place]) [facility] 07/10/2025 8:24 AM Lucía Del Valle RN * Question Answer Date of Assessment Author Hearing - Right Ear Functional 07/06/2025 10:14 AM Lanie Vivas RN Hearing - Left Ear Functional 07/06/2025 10:14 AM Lanie Blanco RN Assistive Devices/DME None 07/06/2025 10:14 AM Lanie Mendoza RN * Question Answer Date of Assessment Author BP Location Left arm 07/05/2025 2:24 PM Sheree Piper * Fall Risk Interventions Question Answer Date of Assessment Author All Low Fall Interventions Applied Yes 07/10/2025 8:24 AM Lucía Ramos RN documented as of this encounter Mental Status * Question Answer Entry Date Author Neuro ([facility]) [facility] 07/10/2025 8:24 AM Lucía Mendoza RN documented in this encounter Discharge Instructions * Attachments The following attachments cannot be sent through Care Everywhere. * [facility] PATHWAY TO EXCELLENT CARE AFTER SURGERY documented [...] on the above findings, I consider Jorge Rodríguez Neda to be an acceptable risk for : Procedure(s): ESOPHAGOSCOPY BALLOON DILATION<30MM MOTIVE PARTS COORDINATOR Source Note - Eriberto Carter RD - 07/05/2025 4:00 PM AUTOMOTIVE PARTS COORDINATOR Oncology Nutrition Follow Up Note 74 y.o.male [...] 07/05/25: 82.6 kg (182 lb 3.2 oz). [place] body weight: 70.7 kg (155 lb 15.1 [...] hours after a meal. Pt is using [employer] shakes a few times a week. Intervention: Patient with fair appetite - Encourage small frequent meals and snacks with calorie dense foods - Suggest eating every 2-3 hours to improve intake - Include protein with each meal; reviewed sources - Discussed ways to add calories to meals without adding volume - Recommend [employer] protein shakes 1/2x/day for added nutrients and [...] follow. Eriberto Carter RD, LD Oncology Dietitian, [facility] [phone] MOTIVE PARTS COORDINATOR documented in this encounter Miscellaneous Notes * Brief Op Note - Amalia Murray MD - 07/10/2025 8:54 AM CST Operative Progress Note Surgical Team: * Manolo Lott - Primary * Amalia Murray - Resident - Assisting * Patricio Ramirez - Resident - Assisting Anesthesiologist: Reji Herman MD Anesthesia Fellow: Alvaro Winkler MD Banking Center Manager: Terrell Stanton RN Scrub: Kelin Harrell RN [...] Manolo Lott MD at 07/10/2025 11:10 AM AUTOMOTIVE PARTS COORDINATOR MOTIVE PARTS COORDINATOR MOTIVE PARTS COORDINATOR * Pre-Procedure Instructions - Cammie eDnt NP - 07/06/2025 10:51 AM CST [facility] Preoperative [facility] Planning CPAP Clinic Location: [facility] [place] The night before your surgery: * Do [...] additional action prior to your planned procedure. MOTIVE PARTS COORDINATOR * Perioperative Nursing Note - Lanie Kruse RN - 07/06/2025 10:32 AM CST Pre Anesthesia Testing Perioperative Nursing Note Telephone Preoperative Evaluation - TELEPHONE ONLY, NO PHYSICAL EXAM - [facility] CPAP Date: 07/06/25 PAT RN completed assessment [...] Type of Healthcare Directive: Durable power of criminal defense attorney for health care Information Provided on Healthcare [...] ever been diagnosed with sleep apnea?: No Communication/Cathode Ray Tube Salvage Processor Needs Communication Needs: None Learning Needs Assessment [...] Specified [employer] Xcela Power Port 8fr [id number] - [id number] - Implanted Inventory item: [employer] Xcela Power Port 8FR [id number] Model/Cat number: [id number] Salon Customer Experience Specialist: [employer] Lot number: [id number] As of 08/25/2024 Status: Implanted PATIENT CARE PLANNING Preop Phone Call Ride and Caregiver Arranged: Yes Coding Compliance Manager Relationship to Patient: Spouse (Pat) Coding Compliance Manager Discharge Planning Living Arrangements: Spouse/significant other Support Systems: Spouse/significant other, Family members, Friends/neighbors Type of Residence: Private residence Patient expects to be discharged to: Private residence Cathode Ray Tube Salvage Processor Needs No [place] Citizen ADDITIONAL COMMENTS/ FOLLOW UP MOTIVE PARTS COORDINATOR MOTIVE PARTS COORDINATOR * Pre-Procedure Instructions - Lanie Kruse RN [...] remove nail coverings, artificial nails and nail mohawk prior to the day of surgery. This is to lower your risk of infection and to allow the day of surgery team to monitor your oxygen levels. You should leave your valuables and any jewelry at home. No metal or piercings are allowed in the operating room. You should bring your insurance card, a photo ID (example: Custodian Manager's License) and a method of payment for [...] Chart. If you are having surgery at [facility], please arrive on the day of [...] tools to help you quit or call 1-294-DKITIII ( ). Visit Smokefree.gov for more information. You will not have [...] Remove nail coverings, artificial nails and nail mohawk. Place clean linens on your bed the night before surgery. Shaving: You may shave your face, legs and underarms during your evening shower. Avoid shaving on the day of surgery. If you have questions, please call the CPAP Staff at [phone], Wednesday-Wednesday 8am-4:30pm. All patients should read the below section: Information on [facility]: Please view [email or web address] (Patient & Visitor Information) for additional details regarding Advanced Directive forms, AWARE, directions, parking information, lodging, Internet access, dining and more. Information on [facility] or [facility] ([facility]): Please view [email or web address] (Patient and Visitor Information) for parking, directions, lodging and more. For MyChart information, to activate account or password recovery, please go to [email or web address] or call [phone] (toll-free: [phone]), Wed- Wednesday 8am-5pm. Information for Suicide Prevention: National Suicide Prevention Lifeline (0-247- 144-AZBJ (4080)) or call or text 353. Chat resources: [employer]Foodspotting. Day of Surgery Arrival Times: For patients having surgery @ [facility] ([facility]), you will be notified of your day of surgery arrival time by either the [facility] Pre-Op OR team or your surgeon's office. If you have not been notified by 1pm THE BUSINESS DAY BEFORE your surgery, please call your surgeon's office Manolo Lott MD . You may also call [phone] and ask for your surgeon's office. For patients having surgery @ [facility], if you have not been notified of your surgery time by 4pm THE BUSINESS DAY BEFORE surgery, please contact your surgeon's office for day of surgery arrival time Manolo Lott MD . You may also call [phone] and ask for your surgeon's office. For patients having surgery at [facility], if you have notbeen notified of your surgery time by 4pm THE BUSINESS DAY BEFORE your surgery, please contact yoursurgeon's office for day of surgery arrival time Manolo Lott MD . You may also call [phone] and ask for your surgeon's office. For patients having surgery @ [facility] ([facility]), you will be notified of your day of surgery arrival time by either the [facility] Pre-Op OR team or your surgeon's office. For patients having Ears/Nose Throat Surgery, Urology Surgery or Neuro Spine Surgery, the [facility] Pre-Op Team will contact you by 4pm THE BUSINESS DAY BEFORE surgery. For all other [facility] surgeries, if you have not been notified of your surgery time by 2pm THE BUSINESS DAY BEFORE your surgery, please call your surgeon's office Manolo Lott MD . They will be able to direct you to who will provide your surgery time. You may also call the surgery center at [phone] and ask for your surgeon's office. For patients having [facility] @ [facility], if your surgeon's office or the surgery centerhas not notified you of your surgery time by 3pm THE BUSINESS DAY BEFORE your surgery, please call the surgery center at [phone]. The Center for Preoperative Assessment & Planning (CPAP) does not provide arrival times for theday of surgery or provide the duration of surgery. This information is provided by your surgeon's office or by the center where you are having surgery. We appreciate your understanding. MOTIVE PARTS COORDINATOR documented in this encounter Plan of Treatment Not on file documented as of this encounter Procedures Procedure Name Priority Date/Time Associated Diagnosis Comments ESOPHAGOSCOPY BALLOON DILATION<30MM 07/10/2025 9:33 AM AUTOMOTIVE PARTS COORDINATOR Malignant neoplasm of lower third of esophagus (HCC) Case Notes 02/12 @1127 line up adjusted per sandra via phone (cjm) POCT GLUCOSE DEVICE Routine 07/10/2025 8 :28 AM AUTOMOTIVE PARTS COORDINATOR documented in this encounter Results * POCT glucose (07/10/2025 8:28 AM AUTOMOTIVE PARTS COORDINATOR) Glucose, POC 91 70 - 199 mg/dL Blood 07/10/2025 8:28 AM AUTOMOTIVE PARTS COORDINATOR 07/10/2025 8:28 AM AUTOMOTIVE PARTS COORDINATOR us Manolo Lott MD LAB POCT ORDERABLES - DEV ICE Final Result [facility] Department [place] [address] documented in this encounter Visit Diagnoses Diagnosis Malignant neoplasm of lower third of esophagus (HCC) Malignant neoplasm of lower third of esophagus documented in this encounter Administered Medications Inactive Administered Medications - up to 3 most recent administrations Medication Order MAR Action Action Date Dose Rate Site heparin 5,000 unit/mL injection 5,000 Units 5,000 Units, subcutaneous, Once, On Wed07/10/25 at 0845, For 1 dose, Pre-Op, Indications: Deep Vein Thrombosis PreventionIndications :Deep Vein Thrombosis Prevention Given 07/10/2025 9:07 AM AUTOMOTIVE PARTS COORDINATOR 5,000 Units Left Lower Abdomen Lactated Ringer's (LR) infusion 30 mL/hr, intravenous, Continuous, Starting on Wed07/10/25 at 0845, Pre-Op New Bag 07/10/2025 9:38 AM AUTOMOTIVE PARTS COORDINATOR sodium chloride 0.9% irrigation As needed, Starting on Wed07/10/25 at 1004, Intra-Op Given 07/10/2025 10:04 AM AUTOMOTIVE PARTS COORDINATOR 1,000 mL Surgical Site documented in this encounter Discontinued Medications Medication [...] Recently Administered Medications Times are shown in AUTOMOTIVE PARTS COORDINATOR. Scheduled Medication Order 07/08/2025 07/09/2025 07/10/2025 acetaminophen [...] chloride 0.9% flush 0.5-20 mL 1 06/17 Diet Count Last Ordered Date First Orde red Date ADULT DISCHARGE DIET 1 07/10/2025 Nursing Count Last Ordered Date First Orde red Date DISCHARGE ACTIVITY 1 07/10/2025 DISCHARGE CALL PROVIDER 5 07/10/2025 Discharge Count Last Ordered Date First Orde red Date DISCHARGE PATIENT 1 07/10/2025 documented in this encounter Care Teams Security Operations Center Analyst Relationship Specialty Start Date End Date Tai Cedillo MD PCP - General Family Practice 03/20/22 Jacques Omalley MD PhD Consulting Physician Medical Oncology 08/02/24 documented as of this encounter
--- OUTSIDE RECORDS SUMMARY | 2025-07-10 09:33 | XMS_ITS | Encounter Summary ---
Author Organization [facility] Address [address] [place] [address] Care Team Providers Care Sanitary Inspector Name Role Phone Tai Cedillo MD Primary Care Provider Jacques Omalley MD PhD Unavailable [phone] Reason for Visit * Auth/Cert (Routine) Specialty Diagnoses / Procedures Referred By Contac t Referred To Contact Diagnoses Malignant neoplasm of lower third of esophagus (HCC) Malignant neoplasm of lower third of esophagus (HCC) [C15.5] Procedures IL DILATE ESOPHAGUS ESOPHAGOSCOPY BALLOON DILATION<30MM Referral ID Status Reason Start Date Expiration Date Visits Re quested Visits Authorized [id number] 1 1 Encounter Details Date Type Department Care Team (Late st Contact Info) Description 07/10/2025 9:33 AM SLAG SKIMMER Anesthesia Event [facility] Operating Room [address] [place] [address] Reji Herman MD [address] [place] [address] Cammie Dent NP [address] [facility] [phone] [place] [address] Anesthesia Record Procedure Summary Procedure Name Responsible Anesthesiologist Anesthesia Start Time Anesthesia Stop Time ESOPHAGOSCOPY BALLOON DILATION<30MM (Esophagus) Reji Herman MD 07/10/25 0933 07/10/25 1025 Events Date Time Event Comment 07/10/2025 0801 In Preop 0933 In Room 0933 An Start 0933 An Start Data 0938 An Induction The patient was reevaluated immediately before moderate or deep sedation use and before anesthesia induction. 0939 An Intubation 0941 Anesthesia Ready 0952 Proc Start 1004 Proc Fin 1013 An Extubation 1014 an stop data 1015 Out of Room 1025 Handoff to RN I completed my handoff to the receiving nurse during which we: 1. Patient identified 2. Responsible provider identified 3. Pertinent medical history reviewed 4. Procedure type and surgical course discussed 5. Intraoperative anesthetic management and any significant issues discussed 6. Expectations and concerns for postop period discussed 7. Questions solicited from receiving nurse 8. Patient disposition at the time of handoff: PACU 1025 An Stop Meds Name Total lidocaine (cardiac) syringe 2 % 100 mg propofol 200 mg succinylcholine 100 mg rocuronium 20 mg phenylephrine 100 mcg/mL 100 mcg ondansetron PF (ZOFRAN) 2 mg/mL injectio n 4 mg famotidine 20 mg sugammadex 200 mg Lactated Ringer's (LR) infusion 700 mL * Agents Name O2% N2O O2 N2O Air Sevoflurane Inspired Sevoflurane * Blood No blood administrations on file. Lines, Drains, and Airways Type Details Placement Removal Implanted Port Placement Date: 08/25/24; Placement Time: 0907; Hand Hygiene: Yes; Site Prep: Chlorhexidine; Site Prep Agent Dried: Yes; Sterile Barrier Used: Yes; Type: Power; Orientation: Right; Location: Chest; Inserted by: Fabienne; Pt Tolerance: Tissue Adhesive, Other (Comment); Placement Verification: Tolerated well; Removal Date: Fluoroscopy, Ultrasound, Blood return 08/25/24 0907 by Red Marrufo RN Wound 12/05/24; 1252; N; Incision; Abdomen; Mid-line 12/05/24 1252 by Adriana Ng Wound 12/05/24; 1507; Incision; Neck; Left, Mid-line; slightly left of midline 12/05/24 1507 by Kelin Harrell RN ETT Placement Date: 07/10/25; Placement Time: 0942 (created via procedure documentation); Mask Ventilation: 1; Technique: Direct laryngoscopy; Type: ETT - single; Cuffed: Yes; Laryngoscope: Charly; Blade Size: 3; Location: Oral; Grade View: Grade I; Insertion Attempts: 1; Placement Verification: Auscultation, Capnometry; Removal Date: 07/10/25; Removal Time: 10107/10/25 0942 by Alvaro Winkler MD 07/10/25 1013 by Alvaro Winkler MD documented in this encounter Social History Tobacco [...] 08/29/2024 How often do you attend [facility] or [facility] services? More than 4 times per year 08/29/2024 Do you belong to any clubs o r organizations such as hinduism groups, unions, fraternal or athletic groups, or [...] and heating? Not hard at all 08/29/2024 [facility] - Occupational Stress [...] on file Legal Sex Male 8:36 AM SLAG SKIMMER Gender Identity Not on file Sexual Orientation Not on file Occupation Industry Job Start Date Job End Date Retired - [employer] Not on file Not on f ile Not on file documented as of this encounter Functional Status * Difference in [...] History of Falling 0 07/10/2025 8:24 AM SLAG SKIMMER Lucía Guerra RN Secondary Diagnosis 0 07/10/2025 8:24 AM Lucía Del Valle RN Ambulatory Aids 0 07/10/2025 8:24 AM SLAG SKIMMER Lucía Coffman RN Intravenous Therapy/Heparin/Saline Lock 20 07/10/2025 8:24 AM SLAG SKIMMER Lucía Guerra RN Gait/Transferring 0 07/10/2025 8:24 AM SLAG SKIMMER Lucía Guerra RN Mental Status 0 07/10/2025 8:24 AM SLAG SKIMMER Lucía Campbell RN Head Fall Risk Score (Score >= [...] 2 07/10/2025 10:20 AM Farnaz Caraballo RN Joe Scale Score 19 07/10/2025 10:20 AM Farnaz Caraballo RN * Fall Risk Interventions Question Answer Date of Assessment Author All Low Fall Interventions Applied Yes 07/10/2025 8:24 AM Lucía Ramos RN * Integumentary Question Answer Date of Assessment Author Integumentary (WD) WD 07/10/2025 12:00 PM C Farnaz Mcneill RN * Joe Scale Question Answer Date [...] * Question Answer Entry Date Author Neuro ([facility]) [facility] 07/10/2025 12:00 PM Farnaz Gaitan RN documented in this encounter OR Notes * Anesthesia Postprocedure Evaluation - Kristina Andrew MD - 07/10/2025 10:49 AM CST Patient: Jorge Red Procedure Summary Date: 07/10/25 Room / Location: [facility] OR POD 3 ROOM 303 / [facility] OR POD 3 Anesthesia Start: 932 Anesthesia Stop: 1024 Procedure: ESOPHAGOSCOPY BALLOON DILATION<30MM (Esophagus) Diagnosis: Malignant neoplasm of lower third of esophagus (HCC) (Malignant neoplasm of lower third of esophagus (HCC) [C15.5]) Surgeons: Manool Lott MD Responsible Provider: Reji Herman MD Anesthesia Type: general ASA Status: 3 Anesthesia Type: general Last vitals Vitals Value Taken Time BP 141/80 07/10/25 10:40 Temp 36.3 ??C (97.3 ??F) 07/10/25 10:20 Pulse 71 07/10/25 10:48 Resp 13 07/10/25 10:48 SpO2 97 % 07/10/25 10:48 Vitals shown include unfiled device data. Anesthesia Post Evaluation Patient location during evaluation: PACU Patient participation: complete - patient participated Level of consciousness: fully awake Pain management: satisfactory to patient Airway patency: adequate Evidence of recall: no Cardiovascular status: acceptable Respiratory status: acceptable and room air Hydration status: acceptable Pt is: normothermic Nausea/Vomiting status: none Cosigned by Manolo Palomino III, MD PhD at 07/10/2025 11:02 AM SLAG SKIMMER SKIMMER SKIMMER * Anesthesia Procedure Notes - Alvaro Winkler MD - 07/10/2025 9:41 AM CSTAssociated Order(s): Airway Airway Patient location: OR Urgency: elective Indications for airway management: anesthesia Difficult airway: no Staff: Supervising provider: Reji Herman MD Placed by: Fellow: Alvaro Winkler MD Emergent airway documentation: Risks and benefits discussed: yes Consent obtained: yes Consent given by: patient Airway prep: Preoxygenated: yes Patient position: sniffing Mask difficulty assessment: 1 - vent by mask Spontaneous ventilation during airway: present Sedation level during airway: GA Final airway details: Final airway type: endotracheal airway Tube type: ETT Cuffed: yes Technique used for successful ETT placement: direct laryngoscopy Devices/Methods used in placement: stylet Insertion site: oral Blade type: Charly Blade size: 3 Cormack-Lehane (direct): grade I - full view of glottis Cuff volume: 10 mL Cuff inflated with: air ETT to teeth: 23 cm Placement verified by: auscultation and CO2 detection Airway secured with: silk tape Number of attempts: 1 Planned trial extubation: yes SKIMMER * Anesthesia Preprocedure Evaluation - Reji Herman MD - 07/06/2025 10:53 AM CST Images from the original note were not included. [facility] for Preoperative Assessment and Planning Preoperative Evaluation Record Evaluation type/location: TPAP from [facility] Planned procedure site: [facility] (Pods 2/3/5/) Date: 07/06/25 NOTE: This note represents a preoperative evaluation initiated via telephone interview. NO PHYSICALEXAM was performed at the time of initial assessment. A physical exam may be added to this note anddocumented below. Anesthesia Evaluation Jorge Red is a 74 y.o. male ESOPHAGOSCOPY BALLOON DILATION<30MM (Esophagus) Pre-Op Diagnosis Codes: * Malignant neoplasm of lower third of esophagus (HCC) [C15.5] HISTORY HPI Patient is a 74 y.o. male with a PMH of esophageal carcinoma who presents prior to undergoing esophagoscopy balloon dilation <30 MM Notable hx: HTN, SSS s/p PPM, CKD, DM2 Past Medical History Information obtained from: patient and chart. Information obtained during: Telephone Visit NOTE: This note represents a preoperative evaluation initiated via virtual (video or telephone) interview. NO PHYSICAL EXAM was performed at the time of initial assessment. A physical exam may be added to this note and documented below. Neurological Pertinent negatives: seizures; neuromuscular disease; CVA/stroke; TIA; CEA; ICA stenosis; dementia/mild cognitive impairment; psychiatric history and carotid artery stent Cardiovascular + Hypertension Typical systolic BP - 140 Typical diastolic BP - 80 + Other arrhythmia (SSS, CHB) - LBBB. + Pacemaker/ICD - dual lead pacemaker (atrioventricular, W/O ICD). Brand: Biotronik. Indication: sinus node dysfunction. Year inserted / last revised: 03/2022. Pacemaker dependent: yes Pertinent negatives: CAD ; [place] ; CABG ; valvular heart disease; valve replacement; atrial fibrillation; PVD; DVT/PE; negative for CHF; drug-eluting stent(s); bare metal stent(s); coronary angioplasty and hyperlipidemia Comments: Follows with Dr. Babcock, last OV 10/18/24 Respiratory Pertinent negatives: COPD; asthma; sleep apnea (ZEV); pulmonary hypertension; no O2 use outside thehospital; non-smoker and no tracheostomy Hepatic / Heme + History of anemia Pertinent negatives: liver disease; history of thrombocytopenia and history of Christin positive Gastrointestinal + GERD - does not use medication. Asymptomatic. Pertinent negatives: hiatal hernia Renal / Pertinent negatives: renal disease (pt denies) and dialysis Endocrine / Other + Diabetes mellitus - Diabetes type 2. Outpatient insulin use: none. Pt reported HgA1c: 8.5. Pt reported HgA1c date: 11/22/24. + Cancer history- s/p chemo and s/p radiation. Cancer type: esophageal cancer, last chemo/radiation10/2024. 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 Denies SOB or CP Patient reports they are able to walk 3-4 city blocks at a moderate pace without any significant SOB or CP. Review of Systems + easy bruising (mild, denies excessive bleeds) + dysphagia (hard to swallow solid food 2/2 surg etiology) Pertinent negatives: productive cough; wheezing; SOB; recent cold/flu; fever; chest pain; palpitations; orthopnea; pedal edema; PND; Sickle Cell disease/trait; previous transfusion; transfusion reaction; melena/hematochezia; bleeding problems; syncope and dizziness Comments: Pt denies s/s of UTI (frequency, urgency, burning) PAT Summary and Plans Cardiac risk classification of planned procedure: intermediate cardiac risk. Preoperative assessment status: complete. Initial preoperative evaluation discussed with: Derian Muhammad MD Additional comments: Jorge Red is a 74 y.o. male who is being evaluated prior to undergoing a low cardiac risk surgery. Revised Cardiac Risk Index factors are (none) for a total RCRI of 0 out of 6. Functional capacity is 4-6 METs. Obstructive sleep apnea (ZEV) screening status is STOP-BANG incomplete at 3-4 suggesting MODERATE risk for ZEV. Neck circumference pending. May need ZEV order set initiated if Co2 >27. This assessment was performed via telephone. Therefore the physical exam has been deferred to the day of surgery team. The patient was provided with preoperative instructions for their medications. Patient instructions were provided by telephone and electronically sent via [employer]. Patient verbalized understanding of instructions. Blood bank needs for day of procedure: No type and screen needed Pending labs/tests include: POC Glucose >RCW Port CARDIAC RHYTHM DEVICE SUMMARY 1. Device brand known: Yes Biotronik 2. Device type known: Yes Dual lead pacemaker (atrioventricular, without ICD) 3. Device location known: Yes, LCW 4. Cardiac Rhythm Device Communication Request form: Pending 5. Patient pacemaker dependent: Yes 6. Operation near cardiac rhythm device: Yes 7. Magnet positioning feasible for procedure: Magnet use will be ineffective as this is a Biotronikpacemaker device set to AUTO mode 8. Device response to magnet: Pending confirmation 9. Device medicare sales representative needed on day of surgery: No. Reviewed with CPAP attending Cardiac Rhythm Device Communication Request form will be transmitted to patients Electrophysiology physician or other clinician managing cardiac rhythm device. Preoperative evaluation performed by Cammie Dent NP on 07/06/25 at 11:04 AM . Follow up note Reviewed PPM previously scanned into [employer] 11/29/24, reviewed most recent remote device checks in [employer], no recent changes. CARDIAC RHYTHM DEVICE SUMMARY 1. Device brand known: Yes Biotronik 2. Device type known: Yes Dual lead pacemaker (atrioventricular, without ICD) 3. Device location known: Yes, left chest 4. Cardiac Rhythm Device Communication Request form: reviewed from 11/29/24 5. Patient pacemaker dependent: Yes 6. Operation near cardiac rhythm device: Yes 7. Magnet positioning feasible for procedure: Magnet use will be ineffective as this is a Biotronikpacemaker device set to AUTO mode 8. Device response to magnet: DOO for 10 beats then reverts to sync mode. 9. Device medicare sales representative needed on day of surgery: no as previously discussed. Follow-up completed by: Monica Johnson NP on 07/09/25 at 3:18 PM TPAP complete. 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 Visit for wound check 03/30/2022 Cardiac pacemaker in situ 03/23/2022 Past Medical History: Diagnosis Date Acid reflux Arthritis Chronic kidney disease Esophageal cancer (HCC) Hyperglycemia 10/05/2024 Hyperlipidemia Hypertension Pacemaker 03/23/2022 SSS (sick sinus syndrome) (HCC) Type 2 diabetes mellitus Past Surgical History: Procedure Laterality Date COLONOSCOPY Last one was 2013 ESOPHAGECTOMY 12/05/2024 ESOPHAGOGASTRODUODENOSCOPY 08/23/2024 ESOPHAGOGASTRODUODENOSCOPY 02/13/2025 with dilation INSERT / REPLACE / REMOVE PACEMAKER 03/23/2022 Biotronik PORT PLACEMENT CHEST >5 YEARS N/A 08/25/2024 REPLACEMENT TOTAL KNEE Bilateral 2014 TOTAL HIP ARTHROPLASTY Right 2020 No Known Allergies Med List Status: Nurse Complete Set By: Lanie Kruse RN at 07/06/2025 10:31 AM Taking? Last Dose Start Date End Date Provider acetaminophen 500 mg capsule More than a month 12/13/24 -- Pilar Lincoln NP Take 2 capsules (1,000 mg total) by mouth every 6 (six) hours as needed for pain Patient taking differently: Take 2 capsules (1,000 mg total) by mouth every 6 (six) hours as neededfor pain 2 tablets cholecalciferol, vitamin D3, (VITAMIN D3 ORAL) 07/06/2025 -- -- Zeeshan Joe MD cyanocobalamin, vitamin B-12, (VITAMIN B-12 ORAL) 07/06/2025 -- -- Zeeshan Joe MD irbesartan (AVAPRO) 300 mg tablet 07/06/2025 -- -- Zeeshan Joe MD metFORMIN XR (GLUCOPHAGE XR) 500 mg 24 hr tablet 07/06/2025 08/14/24 -- Zeeshan Joe MD multivitamin tablet 07/06/2025 -- -- Zeeshan Joe MD OneTouch Delica Plus Lancet 33 gauge [facility] -- 10/05/24 -- Zeeshan Joe MD OneTouch Verio Flex meter misc -- 10/05/24 -- Zeeshan Joe MD OneTouch Verio test strips strip -- 10/05/24 -- Zeeshan Joe MD pantoprazole DR (PROTONIX) 40 mg EC tablet 07/06/2025 04/13/25 -- Jacques Omalley MD PhD TAKE 1 TABLET BY MOUTH EVERY DAY Patient taking differently: Take 1 tablet (40 mg total) by mouth every morning -- -- -- No current facility-administered medications for this encounter. Current Outpatient Medications: cholecalciferol, vitamin D3, (VITAMIN D3 ORAL) cyanocobalamin, vitamin B-12, (VITAMIN B-12 ORAL) irbesartan (AVAPRO) 300 mg tablet metFORMIN XR (GLUCOPHAGE XR) 500 mg 24 hr tablet multivitamin tablet pantoprazole DR (PROTONIX) 40 mg EC tablet acetaminophen 500 mg capsule OneTouch Delica Plus Lancet 33 gauge misc OneTouch Verio Flex meter misc OneTouch Verio test strips strip Social History Tobacco Use Smoking Status Never Passive exposure: Never Smokeless Tobacco Never Alcohol Use: Not At Risk (07/06/2025) AUDIT-C Frequency of Alcohol Consumption: Never Average Number of Drinks: Patient does not drink Frequency of Binge Drinking: Never Substance and Sexual Activity Drug Use Never Family History Problem Relation Age of Onset No Known Problems Mother Stroke Father Leukemia Sister No Known Problems Sister No Known Problems Brother Anesthesia problems Neg Hx There were no vitals filed for this visit. Relevant diagnostics: ECG(s): 11/22/24 AV dual paced rhythm BPM 68 Echocardiogram(s): 03/21/22 EF 55-60% Stress test(s): N/A Cardiac catheterization(s): N/A PFT(s): 09/01/24 Impression: There is no ventilatory defect. There is no impairment of alveolar gas exchange by DLCO. Vascular studies: N/A Other: 07/03/25 CT chest abd IMPRESSION: 1. Postsurgical changes of esophagectomy and gastric pull-through with unchanged mild thickening at the gastric anastomosis. 2. No evidence of metastatic disease in the chest, abdomen, and pelvis. PET CT 11/20/24 IMPRESSION: 1. Focus of moderate hypermetabolism at [...] lobe groundglass opacities, almost certainly infectious/inflammatory etiology. PT: No results found for requested labs within last 30 days. INR: No results found for requested labs within last 30 days. APTT: No results found for requested labs within last 30 days. Hgb A1C: No results found for requested labs within last 30 days. CBC RBC: 07/05/2025: 3.78 M/cumm (L) RDW: No results found for requested labs within last 30 days. MCHC: 07/05/2025: 33.6 g/dL MCH: 07/05/2025: 30.5 pg MCV: 07/05/2025: 90.6 fL Hct: 07/05/2025: 34.2 % (L) Hgb: 07/05/2025: 11.5 g/dL (L) WBC: 07/05/2025: 5.33 K/cumm MPV: 07/05/2025: 7.0 fL Platelets: 07/05/2025: 159 K/cumm RDW CV: 07/05/2025: 13.7 % RDW Sd: No results found for requested labs within last 30 days. BMP Glucose: 07/05/2025: 125 mg/dL Calcium: 07/05/2025: 9.1 mg/dL Sodium: 07/05/2025: 140 mmol/L Potassium: 07/05/2025: 4.0 mmol/L CO2: 07/05/2025: 25 mmol/L Chloride: 07/05/2025: 107 mmol/L BUN: 07/05/2025: 17 mg/dL Creatinine: 07/05/2025: 0.89 mg/dL Fracisco index score: 100 DOS Physical Exam Date of Last Liquid: 07/10/25, Time of Last Liquid: 0530 (black coffee) Date of Last Solid: 07/09/25, Medical history, medications, and allergies reviewed. Attestation: This PAT evaluation 07/10/2025. Airway Exam: Mallampati: II TM distance: >4 Cardiovascular Exam: Rate: regular Rhythm: regular Pulmonary Exam: LCTA EENT Exam: trachea midline Current state: Patient's current state is cooperative. Anesthesia Plan ASA 3 Planned anesthesia: General Team communication plan: oral ET tube Induction: Induction: intravenous. Postoperative Plan: Postoperative administration opioids intended. No postoperative mechanical ventilation intended. Patient's planned disposition post procedure is Floor. Informed Consent: Anesthesia plan and risks discussed with patient. Consent and Attending signature: I and/or my designee have discussed the anesthesia plan, benefits, possible alternatives, parental presence at time of induction (if indicated), and clinically relevant risks that may include dental injury, unintentional awareness, and/or other complications. The patient and/or parent/legal guardian understand, and agree to proceed. All questions answered. SKIMMER SKIMMER SKIMMER documented in this encounter Plan of Treatment Not on file documented as of this encounter Procedures Procedure Name Priority Date/Time Associated Diagnosis Comments ANESTHESIA INTUBATION Routine 07/10/2025 9:41 AM SLAG SKIMMER documented in this encounter Results * Airway (07/10/2025 9:41 AM SLAG SKIMMER) Narrative Alvaro Winkler MD - 07/10/2025 9:41 AM SLAG SKIMMER Alvaro Winkler MD 07/10/2025 9:42 AM Airway Patient location: OR Urgency: elective Indications for airway management: anesthesia Difficult airway: no Staff: Supervising provider: Reji Herman MD Placed by: Fellow: Alvaro Winkler MD Emergent airway documentation: Risks and benefits discussed: yes Consent obtained: yes Consent given by: patient Airway prep: Preoxygenated: yes Patient position: sniffing Mask difficulty assessment: 1 - vent by mask Spontaneous ventilation during airway: present Sedation level during airway: GA Final airway details: Final airway type: endotracheal airway Tube type: ETT Cuffed: yes Technique used for successful ETT placement: direct laryngoscopy Devices/Methods used in placement: stylet Insertion site: oral Blade type: Charly Blade size: 3 Cormack-Lehane (direct): grade I - full view of glottis Cuff volume: 10 mL Cuff inflated with: air ETT to teeth: 23 cm Placement verified by: auscultation and CO2 detection Airway secured with: silk tape Number of attempts: 1 Planned trial extubation: yes Reji Herman MD ANESTHESIA ORDERABLE S Final Result documented in this encounter Visit Diagnoses Not on filedocumented in this encounter Administered Medications Inactive Administered Medications - up to 3 most recent administrations Medication Order MAR Action Action Date Dose Rate Site famotidine (PEPCID) injection intravenous, Administer over 2 Minutes, As needed, Starting on Wed07/10/25 at 0941, Anesthesia Intra-op Given 07/10/2025 9:41 AM SLAG SKIMMER 20 mg Lactated Ringer's (LR) infusion 30 mL/hr, intravenous, Continuous, Starting on Wed07/10/25 at 0845, Pre-Op New Bag 07/10/2025 9:38 AM SLAG SKIMMER lidocaine (cardiac) (XYLOCAINE) preservative free injection intravenous, As needed, Starting on Wed07/10/25 at 0938, Anesthesia Intra-op, Indications: Ventricular ArrhythmiasIndications:Ventricul ar Arrhythmias Given 07/10/2025 9:38 AM SLAG SKIMMER 100 mg ondansetron (ZOFRAN) injection intravenous, Administer over 2 Minutes, As needed, Starting on Wed07/10/25 at 0941, Anesthesia Intra-op Given 07/10/2025 9:41 AM SLAG SKIMMER 4 mg phenylephrine (MAURICE-SYNEPHRINE) 1 mg/10 mL (100 mcg/mL) in sodium chloride 0.9% (premix) intravenous, As needed, Starting on Wed07/10/25 at 0938, Anesthesia Intra-op Given 07/10/2025 9:38 AM SLAG SKIMMER 100 mcg propofoL (DIPRIVAN) 10 mg/mL IV intravenous, As needed, Starting on Wed07/10/25 at 0938, Anesthesia Intra-op Given 07/10/2025 9:38 AM SLAG SKIMMER 200 mg rocuronium (ZEMURON) injection intravenous, As needed, Starting on Wed07/10/25 at 0955, Anesthesia Intra-op Given 07/10/2025 9:55 AM SLAG SKIMMER 20 mg succinylcholine syringe intravenous, As needed, Starting on Wed07/10/25 at 0938, Anesthesia Intra-op Given 07/10/2025 9:38 AM SLAG SKIMMER 100 mg sugammadex (BRIDION) 100 mg/mL intravenous solution intravenous, As needed, Starting on Wed07/10/25 at 1004, Anesthesia Intra-op Given 07/10/2025 10:04 AM SLAG SKIMMER 200 mg documented in this encounter Care Teams Sanitary Inspector Relationship Specialty Start Date End Date Tai Cedillo MD PCP - General Family Practice 03/20/22 Jacques Omalley MD PhD Consulting Physician Medical Oncology 08/02/24 documented as of this encounter
--- OUTSIDE RECORDS SUMMARY | 2025-07-11 15:06 | XMS_ITS | Encounter Summary ---
Author Organization [facility] Healthcare Address [address] [place] [address] Care Team Providers Care General Technician Name Role Phone Tai Cedillo MD Primary Care Provider Jacques Omalley MD PhD Unavailable [phone] Encounter Details Date Type Department Care Team (Late st Contact Info) Description 07/09/2025 Telephone [facility] Medical Group Cardiology [address] [facility] [address] [place] [address] Vlad Babcock MD [address] [place] [address] Social History Tobacco Use Types Packs/Day [...] often do you attend chur ch or restoration services? More than 4 times per year 08/29/2024 Do you belong to any clubs o r organizations such as zoroastrianism groups, unions, fraternal or athletic groups, or [...] and heating? 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 Gender Identity Not on file Sexual Orientation Not on file Occupation Industry Job Start Date Job End Date Retired - [employer] Not on file Not on f ile Not on file documented as of this encounter Functional Status * Difference in Last Two Joe Scores Answer Date of Assessment Author 4 07/10/2025 10:20 AM ANIMAL CARE WORKER Farnaz Interiano RN * Question Answer Date of Assessment Author BP Location Left arm 07/10/2025 10:20 AM Farnaz Gaitan RN BP Method Manual 07/10/2025 10:20 AM Farnaz Gaitan RN MAP (mmHg) 111 07/10/2025 11:50 AM Farnaz Gaitan RN * Head Fall Risk Question Answer Date of Assessment Author History of Falling 0 07/10/2025 8:24 AM ANIMAL CARE WORKER Lucía Guerra RN Secondary Diagnosis 0 07/10/2025 8:24 AM CS T Lucía Gurera RN Ambulatory Aids 0 07/10/2025 8:24 AM ANIMAL CARE WORKER Lucía Coffman RN Intravenous Therapy/Heparin/Saline Lock 20 07/10/2025 8:24 AM ANIMAL CARE WORKER Lucía Guerra RN Gait/Transferring 0 07/10/2025 8:24 AM ANIMAL CARE WORKER Lucía Guerra RN Mental Status 0 07/10/2025 8:24 AM ANIMAL CARE WORKER Lucía Jim RN Head Fall Risk Score [...] Question Answer Date of Assessment Author Integumentary ([facility]) [facility] 07/10/2025 12:00 PM Farnaz Olsen RN * [...] * Question Answer Entry Date Author Neuro (WD) [facility] 07/10/2025 12:00 PM Farnaz Gaitan RN documented in this encounter Miscellaneous Notes * Telephone Encounter - Millicent Wade RN - 07/09/2025 4:37 PM ANIMAL CARE WORKER Clearance form scanned and forwarded to Hallie Masterson for device questionnaire. Verified with JR, form filled out, faxed and scanned in pts chart. AL CARE WORKER * Telephone Encounter - Pao Desir - 07/09/2025 10:37 AM CST Marcy from [facility] states she faxed a cardiac clearance form on Wednesday around noon to [phone]. Sheis re faxing it to [phone], in case we didn't receive it. Pt is scheduled for surgery tomorrow. Contact: AL CARE WORKER documented in this encounter Plan of Treatment Not on file documented as of this encounter Visit Diagnoses Not on filedocumented in this encounter Care Teams General Technician Relationship Specialty Start Date End Date Tai Cedillo MD PCP - General Family Practice 03/20/22 Jacques Omalley MD PhD Consulting Physician Medical Oncology 08/02/24 documented as of this encounter
--- OUTSIDE RECORDS SUMMARY | 2025-07-11 15:06 | XMS_ITS ---
Author Organization [facility] [address] Address [address] [place] [address] Care Team Providers Care Deckhand Name Role Phone Tai Cedillo MD Primary Care Provider Jacques Omalley MD PhD Unavailable [phone] Active Problems Problem Noted Date Diagnosed Date [...] monitor - hold oral medications for now Type 2 diabetes mellitus 12/05/2024 Assessment & Plan (12/05/2024 8:16 PM CDT): On metformin at home - basal-bolus regimen with SSI, hold metformin Dehydration 10/26/2024 Hyperglycemia 10/05/2024 Dyspnea 09/01/2024 Adenocarcinoma [...] CARBOplatin Weekly with Concurrent Radiation - Esophageal 10/17/2024 CARBOplatin (PARAPLATIN) IVPB in 250 mLPACLItaxel (TAXOL) 100 ml Therapy Complete Jacques Omalley MD PhD 1 of 1 cycle started Radiation Treatments (No Episode) * Course [id number] 09/18/2024 - 10/18/2024 Treatment [...] mGy 1 83.7 mGy 0 mGy DLP 1,808 mGycm 1,808 mGycm 0 mGycm Resolved Problems Problem Noted Date Diagnosed Date Resolved Date Anemia 12/08/2024 12/08/2024 Malignant neoplasm of lower third of esophagus 09/01/2024 09/14/2024
--- OUTSIDE RECORDS SUMMARY | 2025-07-11 15:06 | XMS_ITS | Encounter Summary ---
Author Organization [facility] Address [address] [place] [address] Phone Care Team Providers Care Solar Field Service Technician Name Role Phone Tai Cedillo MD Primary Care Provider Jacques Omalley MD PhD Unavailable [phone] Pilar Lawson Unavailable Unavailable Encounter Details Date Type Department Care Team (Late st Contact Info) Description 08/02/2024 Telephone [facility] Medicine Oncology [facility] [address] [place] [address] Alie Rosado Social History Tobacco Use Types Packs/Day Years Used Date Smoking Tobacco: Never Sex and Gender Information Value Date Recorded Sex Assigned at Not on file Legal Sex Male 8:36 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
--- OUTSIDE RECORDS SUMMARY | 2025-07-11 15:06 | XMS_ITS | Clinical Summary ---
Author Organization [facility] [place] [address] Address [address] [place] [address] Care Team Providers Care Door Frame Builder Name Role Phone Tai Cedillo MD Primary Care Provider Jacques Omalley MD PhD Unavailable [phone] Allergies No known active allergies Medications metFORMIN XR (GLUCOPHAGE XR) 500 mg 24 hr tabletIndications:P revention of Type 2 Diabetes Mellitus Take 1 tablet (500 mg total) by mouth every morning 024 Active OneTouch Verio test strips strip TEST 3 TIMES DAILY BEFORE MEALS DIRECTED 025 Active OneTouch Verio Flex meter misc TEST 3 TIMES DAILY BEFORE MEALS DIRECTED 025 Active OneTouch Delica Plus Lancet 33 gauge misc TEST 3 TIMES DAILY BEFORE MEALS DIRECTED 025 Active acetaminophen 500 mg capsule Take 2 capsules (1,000 mg total) by mouth every 6 (six) hours as needed for pain 025 Active Additional Information Patient taking differently:1,000 mg oral Every 6 hours PRN, pain,2 tablets, Indications: Pain, Informant: Self, Reported on 07/06/2025 irbesartan (AVAPRO) 300 mg tabletIndications:h ypertension Take 1 tablet (300 mg total) by mouth every morning Active pantoprazole DR (PROTONIX) 40 mg EC tabletIndications:A denocarcinoma of gastroesophageal junction (HCC),Gastroesophag eal reflux disease without esophagitis TAKE 1 TABLET BY MOUTH EVERY DAY 90 tablet 1 025 Active Additional Information Patient taking differently:40 mg oralEvery morning, Indications: acid reflux, Informant: Self, Reported on 07/10/2025 cholecalciferol, vitamin D3, (VITAMIN D3 ORAL)Indications:nguyễn pplement Take 2,000 Units by mouth every morning Active cyanocobalamin, vitamin B-12, (VITAMIN B-12 ORAL)Indications:nguyễn pplement Take 1 tablet by mouth every morning Active multivitamin tabletIndications:V itamin Deficiency Prevention Take 1 tablet by mouth every morning Active ondansetron (ZOFRAN) 4 mg tablet Take 1 tablet (4 mg total) by mouth every 6 (six) hours as needed for nausea or vomiting 20 tablet 2 2024 Discontinued polyethylene glycol (MIRALAX) 17 gram/dose bulk powder Take 17 g by mouth daily 170 g 1 025 2024 Discontinued hydroCHLOROthiazide (HYDRODIURIL) 25 mg tablet Take 1 tablet (25 mg total) by mouth daily 2024 Discontinued Active Problems Problem Noted Date Diagnosed Date [...] Encounters Date Type Department Care Team Description 07/10/2025 9:33 AM ACCOUNTS RECEIVABLE ACCOUNTANT Anesthesia Event [facility] Operating Room 1 [place] [address] Reji Herman MD Giuffrida, Miranda Adair, NP 07/10/2025 8:54 AM ACCOUNTS RECEIVABLE ACCOUNTANT - 07/10/2025 10:09 AM ACCOUNTS RECEIVABLE ACCOUNTANT Surgery [facility] Operating Room [address] [place] [address] Manolo Lott MD ESOPHAGOSCOPY BALLOON DILATION<30MM 07/10/2025 6:41 AM ACCOUNTS RECEIVABLE ACCOUNTANT - 07/10/2025 12:01 PM ACCOUNTS RECEIVABLE ACCOUNTANT Hospital Encounter [facility] Operating Room [address] [place] [address] Manolo Lott MD Discharge Disposition: Discharge to home or self care 07/09/2025 Telephone [facility] Cardiology [address] [place] [address] Vlad Babcock MD 07/05/2025 3:20 PM ACCOUNTS RECEIVABLE ACCOUNTANT Office Visit [facility] Medicine Oncology [address] [facility] Floor 5 [place] [address] Jacques Omalley MD PhD Adenocarcinoma of gastroesophageal junction (HCC) (Primary Dx); Malignant neoplasm of lower third of esophagus (HCC) 07/05/2025 2:30 PM ACCOUNTS RECEIVABLE ACCOUNTANT Clinical Support [facility] Medicine Oncology Lab [address] [facility] Floor 5 [place] [address] Malignant neoplasm of lower third of esophagus (HCC); Adenocarcinoma of gastroesophageal junction (HCC) 07/05/2025 2:00 PM ACCOUNTS RECEIVABLE ACCOUNTANT Clinical Support [facility] - Lab Collection [address] [facility] Floor 5 [place] [address] Malignant neoplasm of lower third of esophagus (HCC); Adenocarcinoma of gastroesophageal junction (HCC) 07/05/2025 Documentation [facility] Nutrition Counseling 1 [place] [address] Eriberto Carter, RD 07/03/2025 7:44 AM ACCOUNTS RECEIVABLE ACCOUNTANT - 07/03/2025 11:59 PM ACCOUNTS RECEIVABLE ACCOUNTANT Hospital Encounter [facility] - [place] [address] [facility] Floor 8 [place] [address] Malignant neoplasm of lower third of esophagus (HCC); Adenocarcinoma of gastroesophageal junction (HCC) Discharge Disposition: Discharge to home or self care 06/19/2025 Telephone [facility] Nutrition Counseling [address] [place] [address] Eriberto Carter, RD 06/06/2025 10:30 AM CDT Office Visit [facility] Advanced Medicine Radiation Oncology [address] [place] [address] [place] [address] Mehdi Recio MD Adenocarcinoma of gastroesophageal junction (HCC) (Primary Dx) 05/16/2025 Telephone [facility] Nutrition Counseling 1 [place] [address] Eriberto Carter, RD 05/02/2025 Telephone [facility] Nutrition Counseling 1 [place] [address] Eriberto Carter, RD 04/17/2025 7:45 AM CDT Ancillary Procedure [facility] Cardiology [address] [place] [phone] Cardiac pacemaker in situ [Z95.0] (Primary Dx); CHB (complete heart block) from Last 3 Months Immunizations Immunization Administration Dates Next Due Influenza Virus Vaccine Trivalent Mdv 05/12/2024 Influenza, Quadrivalent, Hilda l Culture-based MDCK, Preservative Free, Antibiotic Free, Intramuscular 05/25/2019 Influenza, Quadrivalent, Hig h Dose, Preservative Free, Intrr 06/13/2020 Influenza, Quadrivalent, Rec ombinant, Egg Free, Preservative Free, Intramuscular 06/06/2021 Influenza, Quadrivalent, Spl it, Preservative Free, Intramuscular 06/06/2021,09/12/2019 Influenza, Trivalent, High D ose, Split, Preservative Free, Intramuscular 05/18/2018,08/31/2016 Pneumococcal Conjugate PCV 13 08/31/2016, 016 Pneumococcal Polysaccharide PPV23 09/12/2019 Tdap 05/12/2024,07/16/2014 ZOSTER LIVE 08/31/2016 ZOSTER Recombinant 05/12/2024 Surgical History Surgery Date Site/Laterality Comments INSERT / REPLACE / REMOVE PACEMAKER 03/23/2022 Biotronik COLONOSCOPY Last one was 2013 ESOPHAGOGASTRODUODENOSCOPY 08/23/2024 REPLACEMENT TOTAL KNEE 08/16/2014 - 08/15/2015 Bilateral TOTAL HIP ARTHROPLASTY 08/16/2019 - 08/15/2020 Right PORT PLACEMENT CHEST >5 YEARS 08/25/2024 N/A ESOPHAGECTOMY 12/05/2024 ESOPHAGOGASTRODUODENOSCOPY 02/13/2025 with dilation IMPLANT 08/16/2009 - 08/15/2010 Medical History Medical History Date Comments Hypertension Esophageal cancer (HCC) Hyperlipidemia Type 2 diabetes mellitus Chronic kidney disease Arthritis Pacemaker 03/23/2022 SSS (sick sinus syndrome) ([facility]) Acid reflux Hyperglycemia 10/05/2024 Family History Medical [...] Never Smokeless Tobacco: Never Tobacco Cessation:Counseling Given: No Alcohol Use Standard Drinks/Week Comments Never 0 [...] do you attend [facility] or scientology services? More than 4 times per year 08/29/2024 Do you belong to any clubs o r organizations such as caodaism groups, unions, fraternal or athletic groups, or [...] and heating? Not hard at all 08/29/2024 [facility] [place] of Occupat ional Health - Occupational Stress [...] on file Legal Sex Male 8:36 AM ACCOUNTS RECEIVABLE ACCOUNTANT Gender Identity Not on file Sexual Orientation Not on file Occupation Industry Job Start Date Job End Date Retired - [employer] Not on file Not on f ile Not on file Last Filed Vital Signs Vital Sign Reading Time Taken Comments Blood Pressure 159/91 07/10/2025 11:50 AM ACCOUNTS RECEIVABLE ACCOUNTANT Pulse 68 07/10/2025 11:50 AM ACCOUNTS RECEIVABLE ACCOUNTANT Temperature 36.3 C (97.3 F) 07/10/2025 10:20 AM ACCOUNTS RECEIVABLE ACCOUNTANT Respiratory Rate 15 07/10/2025 11:50 AM ACCOUNTS RECEIVABLE ACCOUNTANT Oxygen Saturation 98% 07/10/2025 11:50 AM ACCOUNTS RECEIVABLE ACCOUNTANT Inhaled Oxygen Concentration - - Weight 80.7 kg (178 lb) 07/10/2025 8:23 AM ACCOUNTS RECEIVABLE ACCOUNTANT Height 175.3 cm (5' 9) 07/06/2025 10:19 AM ACCOUNTS RECEIVABLE ACCOUNTANT Body Mass Index 26.29 07/06/2025 10:19 AM ACCOUNTS RECEIVABLE ACCOUNTANT Plan of Treatment Health Maintenance Due Date Last Done Comments Albumin Creatinine Ratio, Urine 1949 Colon Cancer Screening-Colonoscopy 1950 Depression Screening 1950 Hepatitis C Screening 1950 Dilated Eye Exam 1949 Foot Exam 1949 Hepatitis B Screening 1967 Well Visit 65+ 2014 Zoster Vaccine (2 of 2) 07/07/2024 05/12/2024, 08/31 Covid-19 Vaccine (4 - 2024-2 6 season) 2025 05/20/2021, 09/25/2020, 09/04/2020 Influenza Vaccine (#1) 2025 , 06/06/2021, 06/06/2021, Additional history exists Hemoglobin A1C 05/24/2025 11/22/2024 Lipid Panel 12/05/2025 12/05/2024, 02/0 03/2024, 04/30/2022 eGFR 07/05/2026 07/05/2025, 08/2 08/2024, 01/04/2025, Additional history exists Fall Risk Assessment 07/10/2026 07/10/2025, 08/29/19 DTaP/Tdap/Td Vaccine (3 - Td or Tdap) 05/12/2034 05/12/2024, 07/16/2014 Pneumococcal vaccine 65+ Completed 020, 08/31/2016, 08/16/2015 Medical Devices Implanted Type Area Catalyst Impregnator Device Identifier Shelf Expiration Date Model / Serial / Lot Pacemaker Pacemaker Heart [employer] Xcela Power Port 8fr [id number] - [id number] Implanted:Qty: 1 on 08/25/2024 at [facility] [employer] 02/12/2029 [id number] / / [id number] Procedures Procedure Name Priority Date/Time Associated Diagnosis Comments ANESTHESIA INTUBATION Routine 07/10/2025 9:41 AM ACCOUNTS RECEIVABLE ACCOUNTANT ESOPHAGOSCOPY BALLOON DILATION<30MM 07/10/2025 9:33 AM ACCOUNTS RECEIVABLE ACCOUNTANT Malignant neoplasm of lower third of esophagus (HCC) Case Notes 6/30 @1127 line up adjusted per sandra via phone (cjm) POCT GLUCOSE DEVICE Routine 07/10/2025 8 :28 AM ACCOUNTS RECEIVABLE ACCOUNTANT EGFR STAT 07/05/2025 2:05 PM ACCOUNTS RECEIVABLE ACCOUNTANT 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) DIFFERENTIAL AUTO Routine 07/05/2025 2:0 5 PM ACCOUNTS RECEIVABLE ACCOUNTANT 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) CBC WITH AUTO DIFFERENTIAL Routine 07/05/2025 2:05 PM ACCOUNTS RECEIVABLE ACCOUNTANT 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) COMPREHENSIVE METABOLIC PANEL STAT 07/05/2025 2:05 PM ACCOUNTS RECEIVABLE ACCOUNTANT 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) CT CHEST ABDOMEN PELVIS W CONTRAST Schedule Routine, Read Routine (OP Routine) 07/03/2025 8:29 AM ACCOUNTS RECEIVABLE ACCOUNTANT 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) DEVICE CHECK - REMOTE Routine 04/17/2025 11:48 AM CDT CHB (complete heart block) LIPID PANEL Timed 12/05/2024 9:45 PM CDT HEMOGLOBIN A1C Routine 11/22/2024 4:10 PM CDT Preoperative testing Type 2 diabetes mellitus without complication, without long-term current use of insulin (HCC) from Last 3 Months or Most Recently Relevant to Health Maintenance Results * Airway (07/10/2025 9:41 AM ACCOUNTS RECEIVABLE ACCOUNTANT) Narrative Alvaro Winkler MD - 07/10/2025 9:41 AM ACCOUNTS RECEIVABLE ACCOUNTANT Alvaro Winkler MD 07/10/2025 9:42 AM Airway [...] attempts: 1 Planned trial extubation: yes us Reji Herman MD ANESTHESIA ORDERABLE S Final Result * POCT glucose (07/10/2025 8:28 AM ACCOUNTS RECEIVABLE ACCOUNTANT) Glucose, POC 91 70 - 199 mg/dL Blood 07/10/2025 8:28 AM ACCOUNTS RECEIVABLE ACCOUNTANT 07/10/2025 8:28 AM ACCOUNTS RECEIVABLE ACCOUNTANT Manolo Lott MD LAB POCT ORDERABLES - DEV ICE Final Result [facility] Department [place] [address] * eGFR (07/05/2025 2:05 PM ACCOUNTS RECEIVABLE ACCOUNTANT) eGFR 89 >=60 mL/min/1. 73 m2 Comment: Interpretive Data [...] interpretive data was last reviewed 2021. Blood 07/05/2025 2:05 PM ACCOUNTS RECEIVABLE ACCOUNTANT 07/05/2025 2:08 PM ACCOUNTS RECEIVABLE ACCOUNTANT us Jacques Omalley MD PhD LAB BLOOD ORDERABLES Final Resu lt [facility] Department [place] [address] * (ABNORMAL) Differential, auto (07/05/2025 2:05 PM ACCOUNTS RECEIVABLE ACCOUNTANT) Neutrophil abs 4.38 1.50 - 6.50 K/cumm Comment:Testing performed by : [facility] Heme [facility], [address] [place], [place] [phone] Lymphocyte abs 0.42(L) 0.80 - 3.30 K/cumm CERNER BJ Comment:Testing performed by : [facility], [address] [place], [place] [phone] Monocyte abs 0.39 0.20 - 0.80 K/cumm CERNER BJ Comment:Testing performed by : [facility], [address] [place], [place] [phone] Eosinophil abs 0.11 0.00 - 0.50 K/cumm CERNER BJ Comment:Testing performed by : [facility], [address] [place] [phone] Basophil abs 0.03 0.00 - 0.10 K/cumm CERNER BJ Comment:Testing performed by : [facility], [address] [place], [place] [phone] Neutrophil pct 82.2 % CERNER BJ Comment: Interpretive Data Percent cell count reference ranges are not reported, since discordance with absolute values may lead to misinterpretation of CBC data. Current Interpretive Data was last revised on 2017. Testing performed by: [facility], [address] [place] [phone] Lymphocyte pct 7.8 % CARRIE [facility] Comment: Interpretive Data Percent cell count reference ranges are not reported, since discordance with absolute values may lead to misinterpretation of CBC data. Current Interpretive Data was last revised on 2017. Testing performed by: [facility], [address] [place] [phone] Monocyte pct 7.3 % CARRIE BAH Comment: Interpretive Data Percent cell count reference ranges are not reported, since discordance with absolute values may lead to misinterpretation of CBC data. Current Interpretive Data was last revised on 2017. Testing performed by: [facility], [address] [place] [phone] Eosinophil pct 2.0 % [facility] Comment: Interpretive Data Percent cell count reference ranges are not reported, since discordance with absolute values may lead to misinterpretation of CBC data. Current Interpretive Data was last revised on 2017. Testing performed by: [facility], [address] [place] [phone] Basophil pct 0.6 % [facility] Comment: Interpretive Data Percent cell count reference ranges are not reported, since discordance with absolute values may lead to misinterpretation of CBC data. Current Interpretive Data was last revised on 2017. Testing performed by: [facility]e [facility], [address] [place] [phone] Blood 07/05/2025 2:05 PM ACCOUNTS RECEIVABLE ACCOUNTANT 07/05/2025 2:07 PM ACCOUNTS RECEIVABLE ACCOUNTANT us Jacques Omalley MD PhD LAB BLOOD ORDERABLES Final Resu lt [facility] Department [place] [address] * (ABNORMAL) CBC with auto differential (07/05/2025 2:05 PM ACCOUNTS RECEIVABLE ACCOUNTANT) WBC 5.33 3.80 - 9.90 K/cumm Comment:Testing performed by : [facility]e [facility], [address] [place] [address] Hgb 11.5(L) 13.0 - 17.5 g/dL CERNER BJ Comment:Testing performed by : [facility]e [facility], [address] [place] [address] Hct 34.2(L) 38.9 - 50.3 % CERNER BJ Comment:Testing performed by : [facility], [address] [place] [address] Plt 159 150 - 400 K/cumm CERNER BJ Comment:Testing performed by : [facility], [address] [place] [address] MPV 7.0 6.8 - 10.4 fL CERNER BJ Comment:Testing performed by : [facility]e [facility], [address] [place] [address] RBC 3.78(L) 4.30 - 5.80 M/cumm CERNER BJ Comment:Testing performed by : [facility]e [facility], [address] [place] [address] MCV 90.6 81.3 - 96.4 fL CERNER BJ Comment:Testing performed by : [facility]e [facility], [address] [place], [place] [phone] MCH 30.5 27.1 - 33.3 pg CERNER BJ Comment:Testing performed by : [facility], [address] [place] [address] MCHC 33.6 32.3 - 35.7 g/dL CERNER BJ Comment:Testing performed by : [facility], [address] [place] [address] RDW CV 13.7 11.1 - 14.9 % CERNER BJ Comment:Testing performed by : [facility], [address] [place] [address] NRBC abs 0.00 0.00 - 0.01 K/cumm CERNER BJ Comment:Testing performed by : [facility], [address] [place], [place] [phone] Blood 07/05/2025 2:05 PM ACCOUNTS RECEIVABLE ACCOUNTANT 07/05/2025 2:07 PM ACCOUNTS RECEIVABLE ACCOUNTANT us Jacques Omalley MD PhD LAB BLOOD ORDERABLES Final Resu lt [facility] Department [place] [address] * (ABNORMAL) Comprehensive metabolic panel (07/05/2025 2:05 PM ACCOUNTS RECEIVABLE ACCOUNTANT) Sodium 140 135 - 145 mmol/L Potassium, pl 4.0 3.3 - 4.9 mmol/L [facility] Chloride 107 97 - 110 mmol/L [facility] CO2 25 22 - 32 mmol/L [facility] Anion gap 8 2 - 15 mmol/L [facility] BUN 17 6 - 25 mg/dL [facility] Creatinine 0.89 0.80 - 1.30 mg/dL [facility] Glucose 125 70 - 199 mg/dL [facility] Comment: Interpretive Data Fasting glucose >/= 126 [...] 2022. Calcium 9.1 8.5 - 10.3 mg/dL CERNER [facility] Bilirubin, total 0.4 0.1 - 1.2 mg/dL [facility] Protein, pl 6.4(L) 6.5 - 8.5 g/dL [facility] Albumin 3.9 3.5 - 5.0 g/dL [facility] Alk phos 78 40 - 130 Units/L C[facility] ALT 13 7 - 55 Units/L CERNER [facility] AST 21 10 - 50 Units/L [facility] Blood 07/05/2025 2:05 PM ACCOUNTS RECEIVABLE ACCOUNTANT 07/05/2025 2:08 PM ACCOUNTS RECEIVABLE ACCOUNTANT us Jacques Omalley MD PhD LAB BLOOD ORDERABLES Final Resu lt [facility] Department [place] [address] * CT Chest Abdomen Pelvis W Contrast (07/03/2025 8:29 AM ACCOUNTS RECEIVABLE ACCOUNTANT) Anatomical Region Laterality Modality Body N/A Computed Tomogra phy 07/03/2025 10:2 7 AM ACCOUNTS RECEIVABLE ACCOUNTANT Impressions 07/03/2025 5:40 PM ACCOUNTS RECEIVABLE ACCOUNTANT 1. Postsurgical changes of esophagectomy and gastric pull-through with unchanged mild thickening at the gastric anastomosis. 2. No evidence of metastatic disease in the chest, abdomen, and pelvis. Dictated by: Jamal Akers M.D. The radiology attending physician has personally reviewed this study, and had reviewed and/or edited this written report and agrees with it. Electronically signed by: Carlitos Flood M.D. Narrative 07/03/2025 5:40 PM ACCOUNTS RECEIVABLE ACCOUNTANT EXAMINATION: Computed tomography of the chest, abdomen and pelvis with intravenous contrast HISTORY: Stage III esophageal cancer TECHNIQUE: Transaxial computed tomographic images of the chest, abdomen and pelvis were obtained with intravenous contrast according to the standard protocol after the administration of 69 mL Opti-Ray 350 intravenous contrast. COMPARISON: 04/03/2025 FINDINGS: Chest: No new suspicious pulmonary nodule, pleural effusion, pneumothorax, or pulmonary edema. Bibasilar atelectasis. Airways are clear. Heart size is normal. Small pericardial effusion. Stable, mild dilatation of the ascending aorta to 4.3 cm and mild aortic arch atherosclerosis. Pacemaker with leads in the right atrium and right ventricle. Right internal jugular approach chest port catheter tip positioned at the cavoatrial junction. Multivessel coronary artery atherosclerosis. Postsurgical changes of esophagectomy with gastric pull-through. Stable thickening of the gastric pull-through at the anastomotic site. There is no surrounding nodularity. No supraclavicular, axillary, mediastinal, or hilar lymphadenopathy. Thyroid unremarkable. Abdomen/Pelvis: Too small to characterize hypoattenuating lesions in liver, unchanged. Portal vein is patent. There is no intrahepatic or extrahepatic biliary ductal dilatation. Cholelithiasis without cholecystitis. Fatty atrophy of the pancreas. Spleen is unremarkable. Unchanged thickening of the right adrenal gland with no discrete nodule. Unchanged 1.4 cm left adrenal nodule. Right kidney is unremarkable. Unchanged left renal cyst. Bilateral extrarenal pelvises. There is no hydronephrosis. Bladder is unremarkable. No suspicious pelvic mass. Normal caliber of the colon and small bowel. No evidence of obstruction. Appendix is unremarkable. Fat-containing left inguinal hernia. No abdominal or pelvic lymphadenopathy. Normal caliber of the abdominal aorta with patent branching vessels. No aneurysm. Multilevel degenerative disc disease. Stepwise L1-2, L2-3, and L3-4 grade 1 anterolisthesis. Right total hip arthroplasty. No suspicious osseous lesion. Procedure Note Carlitos Flood MD - 07/03/2025 EXAMINATION: Computed tomography of the chest, abdomen and pelvis with intravenous contrast HISTORY: Stage III esophageal cancer TECHNIQUE: Transaxial computed tomographic images of the chest, abdomen and pelvis were obtained with intravenous contrast according to the standard protocol after the administration of 69 mL Opti-Ray 350 intravenous contrast. COMPARISON: 04/03/2025 FINDINGS: Chest: No new suspicious pulmonary nodule, pleural effusion, pneumothorax, or pulmonary edema. Bibasilar atelectasis. Airways are clear. Heart size is normal. Small pericardial effusion. Stable, mild dilatation of the ascending aorta to 4.3 cm and mild aortic arch atherosclerosis. Pacemaker with leads in the right atrium and right ventricle. Right internal jugular approach chest port catheter tip positioned at the cavoatrial junction. Multivessel coronary artery atherosclerosis. Postsurgical changes of esophagectomy with gastric pull-through. Stable thickening of the gastric pull-through at the anastomotic site. There is no surrounding nodularity. No supraclavicular, axillary, mediastinal, or hilar lymphadenopathy. Thyroid unremarkable. Abdomen/Pelvis: Too small to characterize hypoattenuating lesions in liver, unchanged. Portal vein is patent. There is no intrahepatic or extrahepatic biliary ductal dilatation. Cholelithiasis without cholecystitis. Fatty atrophy of the pancreas. Spleen is unremarkable. Unchanged thickening of the right adrenal gland with no discrete nodule. Unchanged 1.4 cm left adrenal nodule. Right kidney is unremarkable. Unchanged left renal cyst. Bilateral extrarenal pelvises. There is no hydronephrosis. Bladder is unremarkable. No suspicious pelvic mass. Normal caliber of the colon and small bowel. No evidence of obstruction. Appendix is unremarkable. Fat-containing left inguinal hernia. No abdominal or pelvic lymphadenopathy. Normal caliber of the abdominal aorta with patent branching vessels. No aneurysm. Multilevel degenerative disc disease. Stepwise L1-2, L2-3, and L3-4 grade 1 anterolisthesis. Right total hip arthroplasty. No suspicious osseous lesion. IMPRESSION: 1. Postsurgical changes of esophagectomy and gastric pull-through with unchanged mild thickening at the gastric anastomosis. 2. No evidence of metastatic disease in the chest, abdomen, and pelvis. Dictated by: Jamal Akers M.D. The radiology attending physician has personally reviewed this study, and had reviewed and/or edited this written report and agrees with it. Electronically signed by: Carlitos Flood M.D. Jacques Omalley MD PhD IMG CT PROCEDURES Final Result * DEVICE CHECK - REMOTE (04/17/2025 11:48 AM CDT) Anatomical Region Laterality Modality Other Narrative 04/20/2025 12:42 PM CDT Biotronik Edora Dual Pacemaker. Dx; CHB, LBBB. DOI 03/23/2022-Sadiq. Biotronik remote monitoring. Routine DDD Pacemaker remote. Normal device function. Battery function-RACHEL, 70% remaining battery life to ALEXA. Appropriate lead measurements noted. Presenting [id number]. AP-78%, DEPUTY K 9-46%. No Atrial high rate episodes noted. No Ventricular high rate episodes noted. Medications; Avapro. See scanned report. Office pacemaker f/u 03/27/2026. Biotronik remote f/u 07/24/2025. Carole Masterson RN us Vlad Babcock MD [facility] PROC EDURES Final Result * Lipid panel (12/05/2024 9:45 PM CDT) [...] revised on 2018. Triglycerides 85 <=149 mg/dL [facility] Comment: Interpretive Data Ages < or = [...] revised on 2018. HDL 51 >=40 mg/dL [facility] Comment: Interpretive Data Ages < or = [...] on 2018. LDL, calculated 91 <=129 mg/dL [facility] Comment: Interpretive Data Ages < or = 19 years Acceptable: <110 mg/dL Borderline high: 110-129 mg/dL High: >or= 130 mg/dL Ages > or = 20 years Optimal: <100 mg/dL Near optimal: 100-129 mg/dL Borderline high: 130-159 mg/dL High: >160 mg/dL Calculated using the Cuellar LDL-C estimating equation. This equation was implemented on 2024. Prior to this date LDL-C was estimated using the Friedewald equation. Literature References: 1. Expert Panel on Integrated Guidelines for Cardiovascular Health and Risk Reduction in Children and Adolescents. Pediatrics 2011;128:S213 2. NCEP Expert Panel. Circulation 2004;110:227 3. Polo Alexandra al. [employer] Cardiol. 2019December 14;5(5):540-548. doi: [email or web address] Current Interpretive Data was last revised on 2024. Non-HDL Cholesterol 107 mg/dL [facility] Comment: Interpretive Data Ages < or = [...] last revised on 2018. Chol/HDL ratio 3 [facility] Blood 12/05/2024 9:45 PM CDT 12/05/2024 10:00 PM CDT Manolo Lott MD LAB BLOOD ORDERABLES Rosie l Result [facility] Department [place] [address] * (ABNORMAL) Hemoglobin A1c (11/22/2024 4:10 PM CDT) Hgb A1C 8.5(H) 4.0 - 5.6 % Estimated Average Glucose 197 mg/dL [facility] Comment: The ADA recommends reporting an estimated Average Glucose (eAG) with all Hemoglobin A1c results using the equation derived from a study of 507 normal and diabetic adults. Minority populations were underrepresented and children were not included. (Diabetes Care 2020; 43(S1): S66-S76). The eAG is not equivalent to a fasting glucose. Blood 11/22/2024 4:10 PM CDT 11/22/2024 5:25 PM CDT us Marcelina Holloway NP LAB BLOOD ORDERABLES nal Result [facility] Department [place] [address] from Last 3 Months or Most Recently Relevant to Health Maintenance Insurance FORMERLY [facility] MEDICARE [facility] FORMERLY [facility], [facility] MEDICARE [facility] [employer] MEDICARE GOLD Advance Directives For more information, please contact: [phone] Documents on File Type Date Recorded 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
[2025-07-11 18:34] LABS: Hematocrit 35.1 % (42.0-52.0); Hemoglobin 11.7 g/dL (14.0-18.0); Immature Granulocyte Percent A 0.2 % (0-0.5); Lymphocytes Absolute Auto 0.62 K/mm3 (0.9-3.2); Mean Corpuscular HGB Conc 33.3 g/dl (32-36); Mean Corpuscular Hemoglobin 31.0 pg (26-34); Mean Corpuscular Volume 92.9 fl (80-100); Nucleated Red Blood Cells Absolute Auto 0.000 K/mm3 (0.0-0.012); Nucleated Red Blood Cells Perc 0.0 % (0.0-0.2); Platelet Count Result 159 k/mm3 (150-375); Red Blood Count 3.78 M/mm3 (4.6-6.20); White Blood Count 4.8 K/mm3 (4.5-10.0)
[2025-07-12 19:08] LABS: Hemoglobin A1C 5.6 % (<5.7)
[2025-07-13 12:00] LABS: Iron 82 ug/dL (49-181)
[2025-07-13 13:05] LABS: Ferritin 15.80 ng/mL (11.1-264)
[2025-07-13 13:10] LABS: Percent Iron Saturation 23 % (20-50)
[2025-07-13 13:32] LABS: Vitamin B12 681.0 pg/mL (239-931)
== END 2025-07-11 15:04 | disposition home or self-care (01) ==
LOC: ANHGOSHLAB 15:03
PROVIDERS: PCP Family Medicine; Visit Provider Family Medicine
DX: D64.9 Anemia, unspecified (principal); E55.9 Vitamin D deficiency, unspecified; E11.9 Type 2 diabetes mellitus without complications
CPT/HCPCS: 36415; 82306; 82607; 82728; 82746; 83036; 83540; 83550; 85025